=== PATIENT | female | born 2005 | race African-American/Black ===

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

== ENCOUNTER 2024-09-16 01:45 | Emergency (ER) | payer OTHER, SELFPAY ==
[2024-09-16] MEDS ORDERED: KETOROLAC 30 MG/ML INJ ONE (03:01)
--- OUTSIDE RECORDS SUMMARY | 2024-09-16 04:05 | XMS REPORT | Continuity of Care Document ---
Author Name Unknown Address [address] [facility] [address] [place] [address] [facility] thconnect Address [address] [facility] [address] [place] [address] Care Team Providers Care Director Epidemiology Name Role Phone ALEXANDRO RILEY A Primary Care Physician Zakia Magana Attending Clinician Unavailable GUILLERMINA MARCH Attending Clinician GUILLERMINA Bosch Attending Clinician STELLA Lopez Attending Clinician Unavailable Doctor Unassigned, [employer] Attending Clinician U yolanda March MD, Guillermina Attending Clinician [phone] Nurse, [facility] Attending Clinician Un available Gio PAC, K Heather Attending Clinician [phone] Reji CRNA, Mark Anthony Attending Clinician [phone] Nel LAWTON, Elle Mancilla Attending Clinician + [phone] Yasmin LAWTON, Mic Oseguera Attending Clinician + [phone], [facility] Lab Attending Clinician Unavailable Doctor Unassigned, [employer] Attending Clinician U yolanda Machado MD, Radha Ramirez Attending Clinician [phone] JARET BRYAN Attending Clinician Unavailable JARET BRYAN Attending Clinician Unavailable Ultrasound, [facility] Attending Clinician Unavaila ashlee Bryan MD, Jaret Richmond Attending Clinician [phone] Irvin ALFAROC, Mark Anthony Attending Clinician [phone] ALEXSANDRA ELIZONDO Attending Clinician Unadhaval Elizondo MD, Alexsandra Rodriguez Attending Clinician + Pob, [facility] Main Attending Clinician UnavailCHEY Graf Attending Clinician Unavailable Kristy ACOSTA, Chey Stephen Attending Clinician [phone] KYARA CHAIDEZ Attending Clinician Unavailab MADHURI Yang Attending Clinician Unavailable CONRAD SHANE Attending Clinician Unavail able [facility] Conrad Olivo Attending Clinician + [place] Camargo Attending Clinician [phone] Bonnie Park DO Attending Clinician + [phone] Betty Sheffield Attending Clinician + [phone] GUILLERMINA MARCH Admitting Clinician CHEY Crane Admitting Clinician Unavailable Payers Payer Name Policy Type Policy Number Effective Date Expirati on Date Source [facility] [id number] 2023 00:00:00 MEDICAID PENDING PENDING 2024 00:00:00 [facility] MEDICAID STAR [id number] 2024 00:00:00 Problems Condition Name Condition Details Condition Category Status Onset Date Resolution Date Last Treatment Date Treating Clinician Comments Source History of migraine History of migraine Disease Active 02-26 00:00: 00 [facility] Preeclamps ia in period Preeclamps ia in period Disease Active 02-26 00:00: 00 [facility] Chest pain Chest pain Disease Active 02-25 00:00: 00 [facility] (spontaneo us vaginal delivery) (spontaneo us vaginal delivery) Disease Active 3- 00:00: 00 [facility] Gestationa l hypertensi on Gestationa l hypertensi on Disease Active 3-20 00:00: 00 [facility] Sickle cell trait in mother affecting Sickle cell trait in mother affecting Disease Active 07-20 00:00: 00 [facility] Rubella non-immune status, antepartum Rubella non-immune status, antepartum Disease Active 8 00:00: 00 [facility] Bipolar disease during in third trimester Bipolar disease during in third trimester Disease Active 8- 00:00: 00 [facility] High-risk in third trimester High-risk in third trimester Disease Active 8 00:00: 00 [facility] Morbid obesity Morbid obesity Disease Active 3-11 00:00: 00 [facility] [id number] Enlarged tonsils Problem [facility] [id number] Iron deficiency anemia due to chronic blood loss Problem [facility] [id number] VIPIN (generaliz ed anxiety disorder) Problem [facility] [id number] History of anemia Problem [facility] [id number] Primary insomnia Problem Common [facility] Preeclamps ia in period Preeclamps ia in period Disease Resolve d 2023-0 4-01 00:00: 00 2024-02-27 00:00:00 2024-02-27 10:07:42 [facility] Obesity (BMI 30-39.9) Obesity (BMI 30-39.9) Disease Resolve d 0 4-01 00:00: 00 2024-02-26 00:00:00 2024-02-26 07:42:43 [facility] 39 weeks gestation of 39 weeks gestation of Disease Resolve d 2023-0 3-19 00:00: 00 2024-02-26 00:00:00 2024-02-26 07:42:38 [facility] Encounter for induction of labor Encounter for induction of labor Disease Resolve d 0 3-19 00:00: 00 2024-02-21 00:00:00 2024-02-21 11:08:39 [facility] Limited care in third trimester Limited care in third trimester Disease Resolve d 2023-0 3-08 00:00: 00 2024-02-21 00:00:00 2024-02-21 11:08:41 [facility] Acute cystitis without hematuria Acute cystitis without hematuria Disease Resolve d 2023-0 2-10 00:00: 00 2024-02-08 00:00:00 2024-02-08 08:35:32 [facility] Other general counseling and advice for contracept igor management Other general counseling and advice for contracept igor management Disease Resolve d 2021-0 3-11 00:00: 00 2023-09-21 00:00:00 2023-09-21 07:28:00 [facility] Irregular menstrual cycle Irregular menstrual cycle Disease Resolve d 2021-0 3-11 00:00: 00 2023-09-21 00:00:00 2023-09-21 07:28:36 [facility] Allergies, Adverse Reactions, Alerts Allergy Name Allergy Type Status Severity Reaction(s) Onset Date Inactive Date Treating Clinician Comments Source NO KNOWN ALLERGIE S Drug Class Active [facility] Social History Social Habit Start Date Stop Date Quantity Comments Source ASSERTION 2023-05-23 00:00:00 [facility] History of Tobacco Use Current Smoker [facility] Sex Assigned At [facility] Alcoholic beverage intake 2024-07-20 00:00:00 2024-07-20 00:00:00 Lifetime non-drinker (finding) [facility] Alcohol intake 2024-03-10 00:00:00 2024-03-10 00:00:00 Lifetime non-drinker (finding) [facility] Tobacco use and exposure 2024-02-21 00:00:00 2024-02-21 00:00:00 Smokeless tobacco non-user [facility] History of Social function 2023-09-21 00:00:00 2023-09-21 00:00:00 [facility] Exposure to SARS-CoV-2 (event) 2022-09-15 00:00:00 2022-09-25 17:41:00 Not sure [facility] Smoking Status Start Date Stop Date Source Current Smoker 2024-09-05 00:00:00 [facility] Never smoked tobacco [facility] Medications Ordered Medication Name Filled Medication Name Start Date Stop Date Current Medication? Ordering Clinician Indication Dosage Frequency Signature (SIG) Comments Components Source Ferrous Sulfate 325 (65 Fe) MG Ferrous Sulfate 325 (65 Fe) MG 2023-11 0-15 00:00: 00 No 1{table t} QD Ferrous Sulfate 325 (65 Fe) MG Nystatin [id number] UNIT/GM Nystatin [id number] UNIT/GM 9-24 00:00: 00 No 1{appli cation} BID Nystatin 224980 UNIT/GM norethindro ne-e.estrad ioL-iron (LOESTRIN FE 1/20) 1 mg-20 mcg (21)/75 mg (7) tablet - 00:00: 00 Yes [id number] 1{tbl} Take 1 tablet by mouth in the morning. [facility] norethindro ne 0.35 mg tablet 03-10 00:00: 00 07-20 00:00 :00 No [id number] 1{tbl} Take 1 tablet by mouth in the morning. [facility] aspirin 325 mg tablet 02-28 00:00: 00 07-20 00:00 :00 No [id number] 325mg Take 1 tablet by mouth in the morning. [facility] labetaloL 200 mg tablet 02-27 00:00: 07-20 00:00 :00 No [id number] 200mg Take 1 tablet by mouth in the morning and 1 tablet in the evening. [facility] NIFEdipine ER 30 mg tablet 02-27 00:00: 07-20 00:00 :00 No [id number] 30mg Take 1 tablet by mouth in the morning and 1 tablet in the evening. [facility] morpHINE (2 mg/mL) injection 4 mg 02-26 03:54: 45 Yes 4mg 4 mg, Slow IV Push, Q4HPRN, Starting on 02/26/24 at 2254, Until Discontinu ed, Routine, Pain (scale 7-10), Chest pain [facility] butalbital- acetaminoph en-caff (ESGIC) 50-325-40 mg tablet 2 tablet 02-26 03:54: 26 Yes 2{tbl} 2 tablet, Oral, Q4HPRN, Starting on 02/26/24 at 2254, Until Discontinu ed, Routine, headache [facility] nitroglycer in (NITROSTAT) sublingual tablet 0.4 mg 02-26 03:53: 13 Yes .4mg 0.4 mg, Sublingual , Q5MIN PRN, 3 doses, Starting on 02/26/24 at 2253, Until Discontinu ed, STAT, Chest pain [facility] acetaminoph en (TYLENOL) tablet 650 mg 02-26 00:21: 02 Yes 650mg 650 mg, Oral, Q6HPRN, Starting on 02/26/24 at 1921, Until Discontinu ed, Routine, Pain (scale 1-3), Pain (scale 4-6) [facility] aspirin tablet 325 mg 02-25 14:00: 00 Yes 325mg 325 mg, Oral, DAILY, First dose on 02/26/24 at 0900, Until Discontinu ed, Routine [facility] NIFEdipine ER tablet 30 mg 02-25 13:45: 00 Yes 30mg 30 mg, Oral, BID, First dose (after last modificati on) on 02/26/24 at 0845, Until Discontinu ed, JAMEL [facility] magnesium sulfate in water for injection 20 gram/500 mL (4 %) IV infusion 02-25 13:45: 00 Yes 2g/h 2 g/hr (50 mL/hr), IV Infusion, CONTINUOUS , Starting on 02/26/24 at 0845, Until Discontinu ed, JAMEL [facility] D5W-LR IV infusion 1,000 mL 02-25 13:15: 00 Yes 1000mL at 75 mL/hr, IV Infusion, CONTINUOUS , Starting on 02/26/24 at 0815, Until Discontinu ed, AJMEL [facility] iopamidol (ISOVUE 370-500 mL) injection 90 mL 02-25 13:15: 00 02-25 13:30 :00 No [id number] 90mL 90 mL, Intravenou s, ONCE, 1 dose, On 02/26/24 at 0830, Routine [facility] magnesium sulfate 500 mg/mL (50 %) injection 32.48 mEq 02-25 13:04: 30 Yes 4g 32.48 mEq (4 g), Slow IV Push, PRN - SEE INSTRUCTIO NS, Starting on 02/26/24 at 0804, Until Discontinu ed, Routine, For seizure activity (patient not on magnesium sulfate) [facility] magnesium sulfate 500 mg/mL (50 %) injection 16.24 mEq 02-25 13:04: 29 Yes 2g 16.24 mEq (2 g), Slow IV Push, PRN - SEE INSTRUCTIO NS, 2 doses, Starting on 02/26/24 at 0804, Until Discontinu ed, Routine, For seizure activity (patient already on magnesium sulfate) [facility] labetaloL (NORMODYNE) tablet 200 mg 02-25 13:00: 00 Yes 200mg 200 mg, Oral, BID, First dose on 02/26/24 at 0800, Until Discontinu ed, Routine [facility] labetaloL (NORMODYNE) injection 20 mg 02-25 13:00: 00 02-25 12:07 :00 No 20mg 20 mg, Slow IV Push, ONCE, 1 dose, On 02/26/24 at 0800, JAMEL [facility] labetaloL (NORMODYNE) injection 20 mg 02-25 12:40: 11 Yes 20mg [Order 1 Start] Name: labetaloL (NORMODYNE ) injection 20 mg Signed Summary: 20 mg, Slow IV Push, PRN - SEE INSTRUCTIO NS, 1 dose, Starting on 02/26/24 at 0740, Until Discontinu ed, Routine, If severe BP persists for 15 min or more, administer Labetalol 20 mg IV slow IV push (over more than 2 min) [Order 1 End] [Order 2 Start] Name: labetaloL (NORMODYNE ) injection 40 mg Signed Summary: 40 mg, Slow IV Push, PRN - SEE INSTRUCTIO NS, 1 dose, Starting on 02/26/24 at 0740, Until Discontinu ed, Routine, If either BP threshold is still exceeded, administer Labetalol 40 mg IV slow IV push (over 2 min). If BP below threshold, continue to monitor BP [Order 2 End] [facility] ARIPiprazol e 20 mg tablet 02-21 16:46: 33 02-21 00:00 :00 No 20mg Take 1 tablet by mouth at bedtime. [facility] labetaloL (NORMODYNE) tablet 200 mg 02-21 08:00: 00 Yes 200mg 200 mg, Oral, Q12H, First dose on Wed02/22/24 at 0300, Until Discontinu ed, Routine [facility] HYDROcodone -acetaminop hen (NORCO 5) 5-325 mg tablet 1 tablet 02-21 05:00: 00 02-21 05:09 :00 No 1{tbl} 1 tablet, Oral, ONCE, 1 dose, On Wed02/22/24 at 0000, Routine [facility] labetaloL 200 mg tablet 02-21 00:00: 00 02-27 00:00 :00 No [id number] 200mg Take 1 tablet by mouth every 12 (twelve) hours. [facility] butalbital- acetaminoph en-caff (ESGIC) 50-325-40 mg tablet 1 tablet 02-20 22:45: 00 02-22 22:44 :00 No 1{tbl} 1 tablet, Oral, Q4HPRN, Starting on Wed02/21/24 at 1745, Until Wed02/23/24 at 1744, JAMEL, Pain (scale 4-6) [facility] acetaminoph en (TYLENOL) tablet 1,000 mg 02-20 21:30: 00 02-20 20:48 :00 No 1000mg 1,000 mg, Oral, ONCE, 1 dose, On Wed02/21/24 at 1630, Routine [facility] lactated ringers IV infusion 500 mL 02-20 16:07: 22 Yes 500mL at 999 mL/hr, 500 mL, IV Infusion, PRN - SEE INSTRUCTIO NS, Starting on Wed02/21/24 at 1107, Until Discontinu ed, Routine [facility] sodium citrate-cit marily acid (BICITRA) 500-334 mg/5 mL solution 30 mL 02-20 16:06: 10 Yes 30mL 30 mL, Oral, PRE-PROCED URE ONCE, 1 dose, Starting on Wed02/21/24 at 1106, Until Discontinu ed, Routine, Surgery/Pr ocedure [facility] lidocaine 1% (XYLOCAINE) 10 mg/mL (1 %) injection 50 mL 02-20 16:06: 10 Yes 50mL 50 mL, Infiltrati on, PRN - SEE INSTRUCTIO NS, Starting on Wed02/21/24 at 1106, Until Discontinu ed, Routine, Local anesthesia , For laceration repair only as a local anesthetic as indicated. [facility] lidocaine 1% (PF) (XYLOCAINE) injection 0.3 mL 02-20 16:06: 10 Yes .3mL 0.3 mL, Infiltrati on, PRN - SEE INSTRUCTIO NS, Starting on Wed02/21/24 at 1106, Until Discontinu ed, Routine, Local anesthesia , For IV line placement only as a local anesthetic . [facility] D5W-LR IV infusion 1,000 mL 02-20 15:00: 00 02-21 17:04 :22 No 1000mL at 75 mL/hr, IV Infusion, CONTINUOUS , Starting on Wed02/21/24 at 1000, Until Wed02/22/24 at 1204, JAMEL [facility] labetaloL (NORMODYNE) injection 20 mg 02-20 15:00: 00 02-20 14:09 :00 No 20mg 20 mg, Slow IV Push, ONCE, 1 dose, On Wed02/21/24 at 1000, Routine [facility] labetaloL (NORMODYNE) injection 40 mg 02-20 14:55: 00 02-20 14:58 :00 No 40mg 40 mg, Slow IV Push, ONCE, 1 dose, On Wed02/21/24 at 1015, JAMEL [facility] NaCl 0.9% (NS) bolus infusion 1,000 mL 02-20 14:45: 00 02-20 14:00 :00 No 1000mL at 999 mL/hr, 1,000 mL, IV Infusion, ONCE, 1 dose, On Wed02/21/24 at 0945, STAT [facility] ondansetron (ZOFRAN (PF)) injection 4 mg 02-20 14:45: 00 02-20 14:03 :00 No 4mg 4 mg, Slow IV Push, ONCE, 1 dose, On Wed02/21/24 at 0945, JAMEL [facility] magnesium sulfate 500 mg/mL (50 %) injection 32.48 mEq 02-20 14:44: 53 Yes 4g 32.48 mEq (4 g), Slow IV Push, PRN - SEE INSTRUCTIO NS, Starting on Wed02/21/24 at 0944, Until Discontinu ed, Routine, For seizure activity (patient not on magnesium sulfate) [facility] magnesium sulfate 500 mg/mL (50 %) injection 16.24 mEq 02-20 14:44: 53 Yes 2g 16.24 mEq (2 g), Slow IV Push, PRN - SEE INSTRUCTIO NS, 2 doses, Starting on Wed02/21/24 at 0944, Until Discontinu ed, Routine, For seizure activity (patient already on magnesium sulfate) [facility] morpHINE (4 mg/mL) injection 4 mg 02-20 14:30: 00 02-20 14:30 :00 No 4mg 4 mg, Slow IV Push, ONCE, 1 dose, On Wed02/21/24 at 0930, STAT [facility] iopamidol (ISOVUE 370-500 mL) injection 85 mL 02-20 14:20: 00 02-20 14:30 :00 No [id number] 85mL 85 mL, Intravenou s, ONCE, 1 dose, On Wed02/21/24 at 0930, Routine [facility] ARIPiprazol e 20 mg tablet 02-10 10:06: 26 Yes 20mg Take 1 tablet by mouth at bedtime. [facility] ondansetron (ZOFRAN) 4 mg tablet 02-10 07:19: 55 02-10 00:00 :00 No 4mg Take 1 tablet by mouth every 8 (eight) hours as needed. [facility] vitamin w/FA tablet 02-10 00:00: 00 Yes [id number] 1{tbl} Take 1 tablet by mouth in the morning. [facility] docusate 100 mg capsule 02-10 00:00: 00 Yes [id number] 200mg Take 2 capsules by mouth once daily as needed for Constipati on. [facility] ferrous sulfate 325 mg (65 mg iron) tablet 02-10 00:00: 00 Yes [id number] 325mg Take 1 tablet by mouth in the morning. [facility] ibuprofen 600 mg tablet 02-10 00:00: 00 Yes [id number] 600mg Take 1 tablet by mouth every 6 (six) hours as needed (Pain). Take with food or milk. [facility] rho(D) immune globulin (RHOGAM) syringe 300 mcg 02-08 15:32: 21 Yes 300ug 300 mcg, Intramuscu lar, ONCE, For 1 dose, Conditiona l, Routine [facility] HYDROcodone -acetaminop hen (NORCO 5) 5-325 mg tablet 1 tablet 02-08 15:31: 43 Yes 1{tbl} 1 tablet, Oral, Q6HPRN, Starting on Wed02/09/24 at 1031, Until Discontinu ed, Routine, Pain (scale 7-10) [facility] ibuprofen (IBU) tablet 600 mg 02-08 15:31: 43 Yes 600mg 600 mg, Oral, Q6HPRN, Starting on Wed02/09/24 at 1031, Until Discontinu ed, Routine, Pain (scale 4-6) [facility] acetaminoph en (TYLENOL) tablet 650 mg 02-08 15:31: 43 Yes 650mg 650 mg, Oral, Q6HPRN, Starting on Wed02/09/24 at 1031, Until Discontinu ed, Routine, Pain (scale 1-3) [facility] diphenhydrA MINE (BENADRYL) tablet 25 mg 02-08 15:31: 43 Yes 25mg 25 mg, Oral, Q6HPRN, Starting on Wed02/09/24 at 1031, Until Discontinu ed, Routine, Sleep, Itching [facility] ondansetron (ZOFRAN (PF)) injection 4 mg 02-08 15:31: 43 Yes 4mg 4 mg, Slow IV Push, Q8HPRN, Starting on Wed02/09/24 at 1031, Until Discontinu ed, Routine, Nausea and Vomiting (N/V) [facility] simethicone (GAS RELIEF (SIMETHICON E)) chewable tablet 160 mg 02-08 15:31: 43 Yes 160mg 160 mg, Oral, PC+HSPRN, Starting on Wed02/09/24 at 1031, Until Discontinu ed, Routine, Gas [facility] docusate (COLACE) capsule 200 mg 02-08 15:31: 43 Yes 200mg 200 mg, Oral, QDAILYPRN, Starting on Wed02/09/24 at 1031, Until Discontinu ed, Routine, Constipati on [facility] magnesium hydroxide (MILK OF MAGNESIA) 400 mg/5 mL suspension 30 mL 02-08 15:31: 43 Yes 30mL 30 mL, Oral, QDAILYPRN, Starting on Wed02/09/24 at 1031, Until Discontinu ed, Routine, Constipati on [facility] benzocaine- menthol (DERMOPLAST ) 20-0.5 % topical spray 02-08 15:31: 43 Yes Topical, PRN, Starting on Wed02/09/24 at 1031, Until Discontinu ed, Routine, Perineum discomfort [facility] oxytocin (PITOCIN) 30 units in NS 500 mL IV infusion 02-08 09:08: 16 02-08 15:32 :20 No 2mU/min at 2-40 mL/hr, IV Infusion, TITRATE, Starting on Wed02/09/24 at 0408, Until Wed02/09/24 at 1032, JAMEL [facility] PIB fentaNYL-ro pivacaine 2 mcg/mL-0.1 % (PF) in NS 200 mL epidural infusion RTU 02-08 08:53: 00 02-08 17:43 :41 No Epidural, ONCE INTRA PROCEDURE, Starting on Wed02/09/24 at 0353, Until Wed02/09/24 at 1243, Routine, Intra-op [facility] lidocaine-e pinephrine (XYLOCAINE W/EPINEPHRI NE) 1.5 %-1:200,000 injection 02-08 08:53: 00 02-08 17:43 :41 No Epidural, ONCE INTRA PROCEDURE, Starting on Wed02/09/24 at 0353, Until Wed02/09/24 at 1243, Routine, Intra-op [facility] FENTanyl PF (SUBLIMAZE (PF)) injection 100 mcg 02-08 06:04: 00 02-08 06:07 :00 No 100ug 100 mcg, Slow IV Push, ONCE, 1 dose, On Wed02/09/24 at 0115, Routine [facility] D5W-LR IV infusion 1,000 mL 02-07 23:28: 19 02-08 15:32 :20 No 1000mL at 1-125 mL/hr, IV Infusion, TITRATE, Starting on Wed02/08/24 at 1828, Until Wed02/09/24 at 1032, Routine [facility] ondansetron (ZOFRAN) 4 mg tablet 02-07 18:23: 35 Yes 4mg Take 1 tablet by mouth every 8 (eight) hours as needed. [facility] ARIPiprazol e 20 mg tablet 02-07 18:23: 35 Yes 20mg Take 1 tablet by mouth at bedtime. [facility] ondansetron (ZOFRAN) 4 mg tablet 02-06 10:09: 46 Yes 4mg Take 1 tablet by mouth every 8 (eight) hours as needed. [facility] ARIPiprazol e 20 mg tablet 2023-0 02-06 10:09: 46 Yes 20mg Take 1 tablet by mouth at bedtime. [facility] ARIPiprazol e 20 mg tablet 2023-0 01-27 08:10: 24 Yes 20mg Take 1 tablet by mouth at bedtime. [facility] ondansetron (ZOFRAN) 4 mg tablet 0 01-01 14:08: 09 Yes 4mg Take 1 tablet by mouth every 8 (eight) hours as needed. [facility] ARIPiprazol e 20 mg tablet 2023-0 10 14:08: 09 Yes 20mg Take 1 tablet by mouth at bedtime. [facility] cefTRIAXone (ROCEPHIN) 2,000 mg in NaCl 0.9% (NS) 100 mL MINI-BAG 01-01 10:30: 00 01-01 11:15 :00 No 2000mg 2,000 mg, IV Piggyback, Q24H ABX, 1 dose, First dose on 01/01/24 at 0430, Administer over 30 Minutes, 100 mL
Reas on for Anti-Infec tive: Documented Infection< br>Documen dean Infection Site: Urine
D uration of Therapy: Other (see Comments) [facility] lactated ringers IV infusion 1,000 mL 01-01 09:30: 00 Yes 1000mL at 200 mL/hr, 1,000 mL, IV Infusion, CONTINUOUS , Starting on 01/01/24 at 0330, Until Discontinu ed, Routine [facility] lactated ringers IV infusion 1,000 mL 01-01 09:15: 00 01-01 09:27 :04 No 1000mL at 999 mL/hr, 1,000 mL, IV Infusion, CONTINUOUS , Starting on 01/01/24 at 0315, Until 01/01/24 at 0327, Routine [facility] ondansetron (ZOFRAN (PF)) injection 4 mg 01-01 08:30: 00 01-01 08:21 :00 No 4mg 4 mg, Slow IV Push, ONCE, On 01/01/24 at 0230, For 1 dose
Do ses of ondansetro n 16 mg and above need to be administer ed via IV piggyback. For Dose >=24mg ECG monitoring is advisable.
[facility] cephALEXin 500 mg capsule 01-01 00:00: 00 02-10 00:00 :00 No [id number] 500mg Take 1 capsule by mouth in the morning and 1 capsule at noon and 1 capsule in the evening. [facility] ARIPiprazol e 20 mg tablet - 14:57: 00 Yes 20mg Take 1 tablet by mouth at bedtime. [facility] dicyclomine HCl (BENTYL IM) 2022-11 13:13: 07 10-22 00:00 :00 No by Intramuscu lar route. [facility] ARIPiprazol e 20 mg tablet 2022-11 13:12: 42 Yes 20mg Take 1 tablet by mouth at bedtime. [facility] ARIPiprazol e 20 mg tablet 08-09 09:19: 04 Yes 20mg Take 1 tablet by mouth at bedtime. [facility] traZODone 50 mg tablet 07-30 00:00: 00 02-21 00:00 :00 No 50mg Take 1 tablet by mouth as needed. [facility] metroNIDAZO LE (FLAGYL) 500 mg tablet 07-30 00:00: 00 10-22 00:00 :00 No [id number] 500mg Take 1 tablet by mouth every 12 (twelve) hours. [facility] ARIPiprazol e 20 mg tablet 07-30 00:00: 00 08-23 00:00 :00 No 20mg Take 1 tablet by mouth at bedtime. [facility] PNV 67-iron ps-folate no.1-dha (VITAFOL ULTRA) 29 mg iron- 1 mg-200 mg Cap 06-23 00:00: 00 02-10 00:00 :00 No 1{tbl} Take 1 tablet by mouth in the morning. If insurance does not cover can substituen t with any other mediation that contains components . [facility] ondansetron (ZOFRAN) 4 mg tablet 06-22 15:03: 49 Yes 4mg Take 1 tablet by mouth every 8 (eight) hours as needed. [facility] dicyclomine HCl (BENTYL IM) 06-22 15:03: 49 Yes by Intramuscu lar route. [facility] vitamin #49-iron-FA 6.75 mg iron- 200 mcg Tab 06-22 00:00: 00 Yes [id number] 1{tbl} Take 1 tablet by mouth in the morning. [facility] doxylamine- pyridoxine, vit B6, (DICLEGIS) 10-10 mg per tablet 06-22 00:00: 00 10-22 00:00 :00 No [id number] 1{tbl} Take 1 tablet by mouth at bedtime. [facility] ketorolac (TORADOL) injection 30 mg 2021-11 01:15: 00 09-26 01:06 :00 No 30mg 30 mg, Slow IV Push, ONCE, 1 dose, On Wed09/25/22 at 2015, [facility] ondansetron (ZOFRAN (PF)) injection 8 mg 2021-11 01:00: 00 09-26 01:00 :00 No 8mg 8 mg, Slow IV Push, ONCE, 1 dose, On Wed09/25/22 at 2000, [facility] iopamidol (ISOVUE 370-500 mL) injection 100 mL 2021-11 00:00: 00 09-26 00:15 :00 No [id number] 100mL 100 mL, Intravenou s, ONCE, 1 dose, On Wed09/25/22 at 1915, Routine [facility] NaCl 0.9% (NS) bolus infusion 1,000 mL 2021-11 23:42: 00 09-26 01:08 :00 No 1000mL at 999 mL/hr, 1,000 mL, IV Infusion, ONCE, 1 dose, On Wed09/25/22 at 1845, STAT [facility] ondansetron (ZOFRAN (PF)) injection 4 mg 2021-11 23:00: 00 09-25 23:03 :00 No 4mg 4 mg, Slow IV Push, ONCE, 1 dose, On Wed09/25/22 at 1800, [facility] dicyclomine HCl (BENTYL IM) 2021-11 21:10: 53 Yes by Intramuscu lar route. [facility] ondansetron (ZOFRAN) 4 mg tablet 2021-11 21:10: 53 Yes 4mg Take 4 mg by mouth every 8 (eight) hours as needed. [facility] hydrOXYzine 25 mg capsule 07-24 00:00: 00 07-27 00:00 :00 No TAKE ONE CAPSULE BY MOUTH TWICE DAILY NEEDED FOR ANXIETY [facility] QUEtiapine 50 mg tablet 07-24 00:00: 00 07-27 00:00 :00 No 50mg Take 1 tablet by mouth at bedtime. [facility] azithromyci n 500 mg tablet 3-14 00:00: 00 02-03 04:59 :00 No [id number] 1000mg Take 2 tablets by mouth once now for 1 dose. [facility] naproxen 500 mg tablet 2019-11 00:00: 00 09-25 00:00 :00 No [id number] 500mg Take 1 tablet by mouth 2 (two) times daily with meals. [facility] hyoscyamine sulfate (LEVSIN/SL) 0.125 mg sublingual tablet 2017-1118 00:00: 00 09-25 00:00 :[address] 1 tablet under the tongue every 6 (six) hours as needed for Pain (scale 4-6) or Other (abdominal pain). [facility] Blisovi FE 1/20 1-20 MG-MCG Blisovi FE 1/20 1-20 MG-MCG No 1{table t} QD Blisovi FE 1/20 1-20 MG-MCG Immunizations Ordered Immunization Name Filled Immunization Name Date Status Comments Source TDAP 2023-11-19 00:00:00 Completed [facility] Influenza Virus Vaccine Quad IM, Preserv and ABX Free 6 MO-64 YRS (FLUCELVAX) 2023-09-21 00:00:00 Completed [facility] HPV9 2022-03-03 00:00:00 Completed [facility] HPV9 2022-03-03 00:00:00 Completed [facility] HPV9 2022-03-03 00:00:00 Completed HPV9 2022-03-03 00:00:00 Completed [facility] HPV9 2022-03-03 00:00:00 Completed [facility] HPV9 2022-03-03 00:00:00 Completed [facility] HPV9 2022-03-03 00:00:00 Completed [facility] HPV9 2022-03-03 00:00:00 Completed [facility] HPV9 2022-03-03 00:00:00 Completed [facility] HPV9 2022-03-03 00:00:00 Completed [facility] HPV9 2022-03-03 00:00:00 Completed [facility] HPV9 2022-03-03 00:00:00 Completed [facility] HPV9 2022-03-03 00:00:00 Completed [facility] HPV9 2022-03-03 00:00:00 Completed [facility] HPV9 2022-03-03 00:00:00 Completed [facility] Influenza Virus Vaccine Quad .5 mL IM 6+ MO (FLUZONE/FLULAVAL/F LUARIX) 2022-01-30 00:00:00 Completed [facility] HPV9 2022-01-30 00:00:00 Completed [facility] Influenza Virus Vaccine Quad .5 mL IM 6+ MO (FLUZONE/FLULAVAL/F LUARIX) 2022-01-30 00:00:00 Completed [facility] HPV9 2022-01-30 00:00:00 Completed [facility] Influenza Virus Vaccine Quad .5 mL IM 6+ MO (FLUZONE/FLULAVAL/F LUARIX) 2022-01-30 00:00:00 Completed HPV9 2022-01-30 00:00:00 Completed Influenza Virus Vaccine Quad .5 mL IM 6+ MO 2022-01-30 00:00:00 Completed [facility] HPV9 2022-01-30 00:00:00 Completed [facility] Influenza Virus Vaccine Quad .5 mL IM 6+ MO 2022-01-30 00:00:00 Completed [facility] HPV9 2022-01-30 00:00:00 Completed [facility] Influenza Virus Vaccine Quad .5 mL IM 6+ MO 2022-01-30 00:00:00 Completed [facility] HPV9 2022-01-30 00:00:00 Completed [facility] Influenza Virus Vaccine Quad .5 mL IM 6+ MO 2022-01-30 00:00:00 Completed [facility] HPV9 2022-01-30 00:00:00 Completed [facility] Influenza Virus Vaccine Quad .5 mL IM 6+ MO 2022-01-30 00:00:00 Completed [facility] HPV9 2022-01-30 00:00:00 Completed [facility] Influenza Virus Vaccine Quad .5 mL IM 6+ MO 2022-01-30 00:00:00 Completed [facility] HPV9 2022-01-30 00:00:00 Completed [facility] Influenza Virus Vaccine Quad .5 mL IM 6+ MO 2022-01-30 00:00:00 Completed [facility] HPV9 2022-01-30 00:00:00 Completed [facility] Influenza Virus Vaccine Quad .5 mL IM 6+ MO 2022-01-30 00:00:00 Completed [facility] HPV9 2022-01-30 00:00:00 Completed [facility] Influenza Virus Vaccine Quad .5 mL IM 6+ MO 2022-01-30 00:00:00 Completed [facility] HPV9 2022-01-30 00:00:00 Completed [facility] Influenza Virus Vaccine Quad .5 mL IM 6+ MO 2022-01-30 00:00:00 Completed [facility] HPV9 2022-01-30 00:00:00 Completed [facility] Influenza Virus Vaccine Quad .5 mL IM 6+ MO (FLUZONE/FLULAVAL/F LUARIX) 2022-01-30 00:00:00 Completed [facility] HPV9 2022-01-30 00:00:00 Completed [facility] Influenza Virus Vaccine Quad .5 mL IM 6+ MO (FLUZONE/FLULAVAL/F LUARIX) 2022-01-30 00:00:00 Completed [facility] HPV9 2022-01-30 00:00:00 Completed [facility] Influenza Virus Vaccine Quad .5 mL IM 6+ MO (FLUZONE/FLULAVAL/F LUARIX) 2022-01-30 00:00:00 Completed [facility] HPV9 2022-01-30 00:00:00 Completed [facility] Meningococcal Vaccine 2015-08-07 00:00:00 Completed [facility] Meningococcal Vaccine 2015-08-07 00:00:00 Completed [facility] Meningococcal Vaccine 2015-08-07 00:00:00 Completed Meningococcal Vaccine 2015-08-07 00:00:00 Completed [facility] Meningococcal Vaccine 2015-08-07 00:00:00 Completed [facility] Meningococcal Vaccine 2015-08-07 00:00:00 Completed [facility] Meningococcal Vaccine 2015-08-07 00:00:00 Completed [facility] Meningococcal Vaccine 2015-08-07 00:00:00 Completed [facility] Meningococcal Vaccine 2015-08-07 00:00:00 Completed [facility] Meningococcal Vaccine 2015-08-07 00:00:00 Completed [facility] Meningococcal Vaccine 2015-08-07 00:00:00 Completed [facility] Meningococcal Vaccine 2015-08-07 00:00:00 Completed [facility] Meningococcal Vaccine 2015-08-07 00:00:00 Completed [facility] Meningococcal Vaccine 2015-08-07 00:00:00 Completed [facility] Meningococcal Vaccine 2015-08-07 00:00:00 Completed [facility] Meningococcal Vaccine 2015-08-07 00:00:00 Completed [facility] TDAP 2015-08-01 00:00:00 Completed [facility] TDAP 2015-08-01 00:00:00 Completed [facility] TDAP 2015-08-01 00:00:00 Completed TDAP 2015-08-01 00:00:00 Completed [facility] TDAP 2015-08-01 00:00:00 Completed [facility] TDAP 2015-08-01 00:00:00 Completed [facility] TDAP 2015-08-01 00:00:00 Completed [facility] TDAP 2015-08-01 00:00:00 Completed [facility] TDAP 2015-08-01 00:00:00 Completed [facility] TDAP 2015-08-01 00:00:00 Completed [facility] TDAP 2015-08-01 00:00:00 Completed [facility] TDAP 2015-08-01 00:00:00 Completed [facility] TDAP 2015-08-01 00:00:00 Completed [facility] TDAP 2015-08-01 00:00:00 Completed [facility] TDAP 2015-08-01 00:00:00 Completed [facility] TDAP 2015-08-01 00:00:00 Completed [facility] DTAP 2008-09-17 00:00:00 Completed [facility] MMR 2008-09-17 00:00:00 Completed [facility] Polio (IPV/OPV) 2008-09-17 00:00:00 Completed [facility] Varicella (varivax)(chicken pox) 2008-09-17 00:00:00 Completed [facility] DTAP 2008-09-17 00:00:00 Completed [facility] MMR 2008-09-17 00:00:00 Completed [facility] Polio (IPV/OPV) 2008-09-17 00:00:00 Completed [facility] Varicella (varivax)(chicken pox) 2008-09-17 00:00:00 Completed [facility] DTAP 2008-09-17 00:00:00 Completed MMR 2008-09-17 00:00:00 Completed Polio (IPV/OPV) 2008-09-17 00:00:00 Completed Varicella (varivax)(chicken pox) 2008-09-17 00:00:00 Completed DTAP 2008-09-17 00:00:00 Completed [facility] MMR 2008-09-17 00:00:00 Completed [facility] Polio (IPV/OPV) 2008-09-17 00:00:00 Completed [facility] Varicella (varivax)(chicken pox) 2008-09-17 00:00:00 Completed [facility] DTAP 2008-09-17 00:00:00 Completed [facility] MMR 2008-09-17 00:00:00 Completed [facility] Polio (IPV/OPV) 2008-09-17 00:00:00 Completed [facility] Varicella (varivax)(chicken pox) 2008-09-17 00:00:00 Completed [facility] DTAP 2008-09-17 00:00:00 Completed [facility] MMR 2008-09-17 00:00:00 Completed [facility] Polio (IPV/OPV) 2008-09-17 00:00:00 Completed [facility] Varicella (varivax)(chicken pox) 2008-09-17 00:00:00 Completed [facility] DTAP 2008-09-17 00:00:00 Completed [facility] MMR 2008-09-17 00:00:00 Completed [facility] Polio (IPV/OPV) 2008-09-17 00:00:00 Completed [facility] Varicella (varivax)(chicken pox) 2008-09-17 00:00:00 Completed [facility] DTAP 2008-09-17 00:00:00 Completed [facility] MMR 2008-09-17 00:00:00 Completed [facility] Polio (IPV/OPV) 2008-09-17 00:00:00 Completed [facility] Varicella (varivax)(chicken pox) 2008-09-17 00:00:00 Completed [facility] DTAP 2008-09-17 00:00:00 Completed [facility] MMR 2008-09-17 00:00:00 Completed [facility] Polio (IPV/OPV) 2008-09-17 00:00:00 Completed [facility] Varicella (varivax)(chicken pox) 2008-09-17 00:00:00 Completed [facility] DTAP 2008-09-17 00:00:00 Completed [facility] MMR 2008-09-17 00:00:00 Completed [facility] Polio (IPV/OPV) 2008-09-17 00:00:00 Completed [facility] Varicella (varivax)(chicken pox) 2008-09-17 00:00:00 Completed [facility] DTAP 2008-09-17 00:00:00 Completed [facility] MMR 2008-09-17 00:00:00 Completed [facility] Polio (IPV/OPV) 2008-09-17 00:00:00 Completed [facility] Varicella (varivax)(chicken pox) 2008-09-17 00:00:00 Completed [facility] DTAP 2008-09-17 00:00:00 Completed [facility] MMR 2008-09-17 00:00:00 Completed [facility] Polio (IPV/OPV) 2008-09-17 00:00:00 Completed [facility] Varicella (varivax)(chicken pox) 2008-09-17 00:00:00 Completed [facility] DTAP 2008-09-17 00:00:00 Completed [facility] MMR 2008-09-17 00:00:00 Completed [facility] Polio (IPV/OPV) 2008-09-17 00:00:00 Completed [facility] Varicella (varivax)(chicken pox) 2008-09-17 00:00:00 Completed [facility] DTAP 2008-09-17 00:00:00 Completed [facility] MMR 2008-09-17 00:00:00 Completed [facility] Polio (IPV/OPV) 2008-09-17 00:00:00 Completed [facility] Varicella (varivax)(chicken pox) 2008-09-17 00:00:00 Completed [facility] DTAP 2008-09-17 00:00:00 Completed [facility] MMR 2008-09-17 00:00:00 Completed [facility] Polio (IPV/OPV) 2008-09-17 00:00:00 Completed [facility] Varicella (varivax)(chicken pox) 2008-09-17 00:00:00 Completed [facility] DTAP 2008-09-17 00:00:00 Completed [facility] MMR 2008-09-17 00:00:00 Completed [facility] Polio (IPV/OPV) 2008-09-17 00:00:00 Completed [facility] Varicella (varivax)(chicken pox) 2008-09-17 00:00:00 Completed [facility] HEPATITIS A 2008-04-12 00:00:00 Completed [facility] HEPATITIS A 2008-04-12 00:00:00 Completed [facility] HEPATITIS A 2008-04-12 00:00:00 Completed HEPATITIS A 2008-04-12 00:00:00 Completed [facility] HEPATITIS A 2008-04-12 00:00:00 Completed [facility] HEPATITIS A 2008-04-12 00:00:00 Completed [facility] HEPATITIS A 2008-04-12 00:00:00 Completed [facility] HEPATITIS A 2008-04-12 00:00:00 Completed [facility] HEPATITIS A 2008-04-12 00:00:00 Completed [facility] HEPATITIS A 2008-04-12 00:00:00 Completed [facility] HEPATITIS A 2008-04-12 00:00:00 Completed [facility] HEPATITIS A 2008-04-12 00:00:00 Completed [facility] HEPATITIS A 2008-04-12 00:00:00 Completed [facility] HEPATITIS A 2008-04-12 00:00:00 Completed [facility] HEPATITIS A 2008-04-12 00:00:00 Completed [facility] HEPATITIS A 2008-04-12 00:00:00 Completed [facility] HEPATITIS A 2006-08-12 00:00:00 Completed [facility] HEPATITIS A 2006-08-12 00:00:00 Completed [facility] HEPATITIS A 2006-08-12 00:00:00 Completed HEPATITIS A 2006-08-12 00:00:00 Completed [facility] HEPATITIS A 2006-08-12 00:00:00 Completed [facility] HEPATITIS A 2006-08-12 00:00:00 Completed [facility] HEPATITIS A 2006-08-12 00:00:00 Completed [facility] HEPATITIS A 2006-08-12 00:00:00 Completed [facility] HEPATITIS A 2006-08-12 00:00:00 Completed [facility] HEPATITIS A 2006-08-12 00:00:00 Completed [facility] HEPATITIS A 2006-08-12 00:00:00 Completed [facility] HEPATITIS A 2006-08-12 00:00:00 Completed [facility] HEPATITIS A 2006-08-12 00:00:00 Completed [facility] HEPATITIS A 2006-08-12 00:00:00 Completed [facility] HEPATITIS A 2006-08-12 00:00:00 Completed [facility] HEPATITIS A 2006-08-12 00:00:00 Completed [facility] DTAP 2005-09-16 00:00:00 Completed [facility] DTAP 2005-09-16 00:00:00 Completed [facility] DTAP 2005-09-16 00:00:00 Completed [facility] DTAP 2005-09-16 00:00:00 Completed [facility] DTAP 2005-09-16 00:00:00 Completed [facility] DTAP 2005-09-16 00:00:00 Completed [facility] DTAP 2005-09-16 00:00:00 Completed [facility] DTAP 2005-09-16 00:00:00 Completed [facility] DTAP 2005-09-16 00:00:00 Completed [facility] DTAP 2005-09-16 00:00:00 Completed [facility] DTAP 2005-09-16 00:00:00 Completed [facility] DTAP 2005-09-16 00:00:00 Completed [facility] DTAP 2005-09-16 00:00:00 Completed [facility] DTAP 2005-09-16 00:00:00 Completed [facility] DTAP 2005-09-16 00:00:00 Completed [facility] DTAP 2005-09-16 00:00:00 Completed [facility] Pneumococcal 13 Conjugate, PCV13 (Prevnar 13) 2005-05-21 00:00:00 Completed [facility] Pneumococcal 13 Conjugate, PCV13 (Prevnar 13) 2005-05-21 00:00:00 Completed [facility] Pneumococcal 13 Conjugate, PCV13 (Prevnar 13) 2005-05-21 00:00:00 Completed HIB 4 Dose Schedule 2005-05-21 00:00:00 Completed [facility] Pneumococcal 7 Conjugate, PCV7 (Prevnar7) 2005-05-21 00:00:00 Completed [facility] MMR 2005-05-21 00:00:00 Completed [facility] Varicella (varivax)(chicken pox) 2005-05-21 00:00:00 Completed [facility] Pneumococcal 13 Conjugate, PCV13 (Prevnar 13) 2005-05-21 00:00:00 Completed [facility] HIB 4 Dose Schedule 2005-05-21 00:00:00 Completed [facility] Pneumococcal 7 Conjugate, PCV7 (Prevnar7) 2005-05-21 00:00:00 Completed [facility] MMR 2005-05-21 00:00:00 Completed [facility] Varicella (varivax)(chicken pox) 2005-05-21 00:00:00 Completed [facility] Pneumococcal 13 Conjugate, PCV13 (Prevnar 13) 2005-05-21 00:00:00 Completed [facility] Pneumococcal 13 Conjugate, PCV13 (Prevnar 13) 2005-05-21 00:00:00 Completed [facility] Pneumococcal 13 Conjugate, PCV13 (Prevnar 13) 2005-05-21 00:00:00 Completed [facility] Pneumococcal 13 Conjugate, PCV13 (Prevnar 13) 2005-05-21 00:00:00 Completed [facility] Pneumococcal 13 Conjugate, PCV13 (Prevnar 13) 2005-05-21 00:00:00 Completed [facility] Pneumococcal 13 Conjugate, PCV13 (Prevnar 13) 2005-05-21 00:00:00 Completed [facility] Pneumococcal 13 Conjugate, PCV13 (Prevnar 13) 2005-05-21 00:00:00 Completed [facility] Pneumococcal 13 Conjugate, PCV13 (Prevnar 13) 2005-05-21 00:00:00 Completed [facility] Pneumococcal 13 Conjugate, PCV13 (Prevnar 13) 2005-05-21 00:00:00 Completed [facility] Pneumococcal 13 Conjugate, PCV13 (Prevnar 13) 2005-05-21 00:00:00 Completed [facility] Pneumococcal 13 Conjugate, PCV13 (Prevnar 13) 2005-05-21 00:00:00 Completed [facility] Pneumococcal 13 Conjugate, PCV13 (Prevnar 13) 2005-05-21 00:00:00 Completed [facility] Pneumococcal 13 Conjugate, PCV13 (Prevnar 13) 2005-02-24 00:00:00 Completed [facility] Pneumococcal 13 Conjugate, PCV13 (Prevnar 13) 2005-02-24 00:00:00 Completed [facility] Pneumococcal 13 Conjugate, PCV13 (Prevnar 13) 2005-02-24 00:00:00 Completed Pediarix (dtap/hep B/ipv) 2005-02-24 00:00:00 Completed [facility] HIB 4 Dose Schedule 2005-02-24 00:00:00 Completed [facility] Pneumococcal 7 Conjugate, PCV7 (Prevnar7) 2005-02-24 00:00:00 Completed [facility] Pneumococcal 13 Conjugate, PCV13 (Prevnar 13) 2005-02-24 00:00:00 Completed [facility] Pediarix (dtap/hep B/ipv) 2005-02-24 00:00:00 Completed [facility] HIB 4 Dose Schedule 2005-02-24 00:00:00 Completed [facility] Pneumococcal 7 Conjugate, PCV7 (Prevnar7) 2005-02-24 00:00:00 Completed [facility] Pneumococcal 13 Conjugate, PCV13 (Prevnar 13) 2005-02-24 00:00:00 Completed [facility] Pneumococcal 13 Conjugate, PCV13 (Prevnar 13) 2005-02-24 00:00:00 Completed [facility] Pneumococcal 13 Conjugate, PCV13 (Prevnar 13) 2005-02-24 00:00:00 Completed [facility] Pneumococcal 13 Conjugate, PCV13 (Prevnar 13) 2005-02-24 00:00:00 Completed [facility] Pneumococcal 13 Conjugate, PCV13 (Prevnar 13) 2005-02-24 00:00:00 Completed [facility] Pneumococcal 13 Conjugate, PCV13 (Prevnar 13) 2005-02-24 00:00:00 Completed [facility] Pneumococcal 13 Conjugate, PCV13 (Prevnar 13) 2005-02-24 00:00:00 Completed [facility] Pneumococcal 13 Conjugate, PCV13 (Prevnar 13) 2005-02-24 00:00:00 Completed [facility] Pneumococcal 13 Conjugate, PCV13 (Prevnar 13) 2005-02-24 00:00:00 Completed [facility] Pneumococcal 13 Conjugate, PCV13 (Prevnar 13) 2005-02-24 00:00:00 Completed [facility] Pneumococcal 13 Conjugate, PCV13 (Prevnar 13) 2005-02-24 00:00:00 Completed [facility] Pneumococcal 13 Conjugate, PCV13 (Prevnar 13) 2005-02-24 00:00:00 Completed [facility] Pediarix (dtap/hep B/ipv) 2004 00:00:00 Completed [facility] Pneumococcal 13 Conjugate, PCV13 (Prevnar 13) 2004 00:00:00 Completed [facility] Pediarix (dtap/hep B/ipv) 2004 00:00:00 Completed [facility] Pneumococcal 13 Conjugate, PCV13 (Prevnar 13) 2004 00:00:00 Completed [facility] Pediarix (dtap/hep B/ipv) 2004 00:00:00 Completed Pneumococcal 13 Conjugate, PCV13 (Prevnar 13) 2004 00:00:00 Completed Pediarix (dtap/hep B/ipv) 2004 00:00:00 Completed [facility] Pneumococcal 13 Conjugate, PCV13 (Prevnar 13) 2004 00:00:00 Completed [facility] Pediarix (dtap/hep B/ipv) 2004 00:00:00 Completed [facility] Pneumococcal 13 Conjugate, PCV13 (Prevnar 13) 2004 00:00:00 Completed [facility] Pediarix (dtap/hep B/ipv) 2004 00:00:00 Completed [facility] Pneumococcal 13 Conjugate, PCV13 (Prevnar 13) 2004 00:00:00 Completed [facility] Pediarix (dtap/hep B/ipv) 2004 00:00:00 Completed [facility] Pneumococcal 13 Conjugate, PCV13 (Prevnar 13) 2004 00:00:00 Completed [facility] Pediarix (dtap/hep B/ipv) 2004 00:00:00 Completed [facility] Pneumococcal 13 Conjugate, PCV13 (Prevnar 13) 2004 00:00:00 Completed [facility] Pediarix (dtap/hep B/ipv) 2004 00:00:00 Completed [facility] Pneumococcal 13 Conjugate, PCV13 (Prevnar 13) 2004 00:00:00 Completed [facility] Pediarix (dtap/hep B/ipv) 2004 00:00:00 Completed [facility] Pneumococcal 13 Conjugate, PCV13 (Prevnar 13) 2004 00:00:00 Completed [facility] Pediarix (dtap/hep B/ipv) 2004 00:00:00 Completed [facility] Pneumococcal 13 Conjugate, PCV13 (Prevnar 13) 2004 00:00:00 Completed [facility] Pediarix (dtap/hep B/ipv) 2004 00:00:00 Completed [facility] Pneumococcal 13 Conjugate, PCV13 (Prevnar 13) 2004 00:00:00 Completed [facility] Pediarix (dtap/hep B/ipv) 2004 00:00:00 Completed [facility] Pneumococcal 13 Conjugate, PCV13 (Prevnar 13) 2004 00:00:00 Completed [facility] Pediarix (dtap/hep B/ipv) 2004 00:00:00 Completed [facility] Pneumococcal 13 Conjugate, PCV13 (Prevnar 13) 2004 00:00:00 Completed [facility] Pediarix (dtap/hep B/ipv) 2004 00:00:00 Completed [facility] Pneumococcal 13 Conjugate, PCV13 (Prevnar 13) 2004 00:00:00 Completed [facility] Pediarix (dtap/hep B/ipv) 2004 00:00:00 Completed [facility] Pneumococcal 13 Conjugate, PCV13 (Prevnar 13) 2004 00:00:00 Completed [facility] Pneumococcal 13 Conjugate, PCV13 (Prevnar 13) 2004 00:00:00 Completed [facility] Pneumococcal 13 Conjugate, PCV13 (Prevnar 13) 2004 00:00:00 Completed [facility] Pneumococcal 13 Conjugate, PCV13 (Prevnar 13) 2004 00:00:00 Completed Pneumococcal 13 Conjugate, PCV13 (Prevnar 13) 2004 00:00:00 Completed [facility] Pneumococcal 13 Conjugate, PCV13 (Prevnar 13) 2004 00:00:00 Completed [facility] Pneumococcal 13 Conjugate, PCV13 (Prevnar 13) 2004 00:00:00 Completed [facility] Pneumococcal 13 Conjugate, PCV13 (Prevnar 13) 2004 00:00:00 Completed [facility] Pneumococcal 13 Conjugate, PCV13 (Prevnar 13) 2004 00:00:00 Completed [facility] Pneumococcal 13 Conjugate, PCV13 (Prevnar 13) 2004 00:00:00 Completed [facility] Pneumococcal 13 Conjugate, PCV13 (Prevnar 13) 2004 00:00:00 Completed [facility] Pneumococcal 13 Conjugate, PCV13 (Prevnar 13) 2004 00:00:00 Completed [facility] Pneumococcal 13 Conjugate, PCV13 (Prevnar 13) 2004 00:00:00 Completed [facility] Pneumococcal 13 Conjugate, PCV13 (Prevnar 13) 2004 00:00:00 Completed [facility] Pneumococcal 13 Conjugate, PCV13 (Prevnar 13) 2004 00:00:00 Completed [facility] Pneumococcal 13 Conjugate, PCV13 (Prevnar 13) 2004 00:00:00 Completed [facility] Pneumococcal 13 Conjugate, PCV13 (Prevnar 13) 2004 00:00:00 Completed [facility] HIB 4 Dose Schedule 2004 00:00:00 Completed [facility] Pediarix (dtap/hep B/ipv) 2004 00:00:00 Completed [facility] HIB 4 Dose Schedule 2004 00:00:00 Completed [facility] Pediarix (dtap/hep B/ipv) 2004 00:00:00 Completed [facility] Hep B, Adol or Pedi Dosage 2004 00:00:00 Completed [facility] Hep B, Adol or Pedi Dosage 2004 00:00:00 Completed [facility] DTAP Unknown Completed [facility] HEPATITIS A Unknown Completed [facility] Meningococcal Vaccine Unknown Completed [facility] MMR Unknown Completed [facility] Pediarix (dtap/hep B/ipv) Unknown Completed [facility] Pneumococcal 13 Conjugate, PCV13 (Prevnar 13) Unknown Completed [facility] Polio (IPV/OPV) Unknown Completed [facility] TDAP Unknown Completed [facility] Varicella (varivax)(chicken pox) Unknown Completed [facility] Influenza Virus Vaccine Quad .5 mL IM 6+ MO (FLUZONE/FLULAVAL/F LUARIX) Unknown Completed [facility] HPV9 Unknown Completed [facility] DTAP Unknown Completed [facility] HEPATITIS A Unknown Completed [facility] Meningococcal Vaccine Unknown Completed [facility] MMR Unknown Completed [facility] Pediarix (dtap/hep B/ipv) Unknown Completed [facility] Pneumococcal 13 Conjugate, PCV13 (Prevnar 13) Unknown Completed [facility] Polio (IPV/OPV) Unknown Completed [facility] TDAP Unknown Completed [facility] Varicella (varivax)(chicken pox) Unknown Completed [facility] Influenza Virus Vaccine Quad .5 mL IM 6+ MO (FLUZONE/FLULAVAL/F LUARIX) Unknown Completed [facility] HPV9 Unknown Completed [facility] DTAP Unknown Completed [facility] HEPATITIS A Unknown Completed [facility] Meningococcal Vaccine Unknown Completed [facility] MMR Unknown Completed [facility] Pediarix (dtap/hep B/ipv) Unknown Completed [facility] Pneumococcal 13 Conjugate, PCV13 (Prevnar 13) Unknown Completed [facility] Polio (IPV/OPV) [facility] Varicella (varivax)(chicken pox) Unknown Completed [facility] Influenza Virus Vaccine Quad .5 mL IM 6+ MO (FLUZONE/FLULAVAL/F LUARIX) Unknown Completed [facility] HPV9 Unknown Completed [facility] DTAP Unknown Completed [facility] HEPATITIS A Unknown Completed [facility] Meningococcal Vaccine Unknown Completed [facility] MMR Unknown Completed [facility] Pediarix (dtap/hep B/ipv) Unknown Completed [facility] Pneumococcal 13 Conjugate, PCV13 (Prevnar 13) Unknown Completed [facility] Polio (IPV/OPV) Unknown Completed [facility] TDAP Unknown Completed [facility] Varicella (varivax)(chicken pox) Unknown Completed [facility] Influenza Virus Vaccine Quad .5 mL IM 6+ MO (FLUZONE/FLULAVAL/F LUARIX) Unknown Completed [facility] HPV9 Unknown Completed [facility] DTAP Unknown Completed [facility] HEPATITIS A Unknown Completed [facility] Meningococcal Vaccine Unknown Completed [facility] MMR Unknown Completed [facility] Pediarix (dtap/hep B/ipv) Unknown Completed [facility] Pneumococcal 13 Conjugate, PCV13 (Prevnar 13) Unknown Completed [facility] Polio (IPV/OPV) Unknown Completed [facility] TDAP Unknown Completed [facility] Varicella (varivax)(chicken pox) Unknown Completed [facility] Influenza Virus Vaccine Quad .5 mL IM 6+ MO (FLUZONE/FLULAVAL/F LUARIX) Unknown Completed [facility] HPV9 Unknown Completed [facility] DTAP Unknown Completed [facility] HEPATITIS A Unknown Completed [facility] Meningococcal Vaccine Unknown Completed [facility] MMR Unknown Completed [facility] Pediarix (dtap/hep B/ipv) Unknown Completed [facility] Pneumococcal 13 Conjugate, PCV13 (Prevnar 13) Unknown Completed [facility] Polio (IPV/OPV) Unknown Completed [facility] TDAP Unknown Completed [facility] Varicella (varivax)(chicken pox) Unknown Completed [facility] Influenza Virus Vaccine Quad .5 mL IM 6+ MO (FLUZONE/FLULAVAL/F LUARIX) Unknown Completed [facility] HPV9 Unknown Completed [facility] Influenza Virus Vaccine Quad IM, Preserv and ABX Free 6 MO-64 YRS (FLUCELVAX) Unknown Completed [facility] Meningococcal Vaccine Unknown Completed [facility] Polio (IPV/OPV) Unknown Completed [facility] TDAP Unknown Completed [facility] Influenza Virus Vaccine Quad .5 mL IM 6+ MO (FLUZONE/FLULAVAL/F LUARIX) Unknown Completed [facility] Influenza Virus Vaccine Quad IM, Preserv and ABX Free 6 MO-64 YRS (FLUCELVAX) Unknown Completed [facility] HIB 4 Dose Schedule Unknown Completed [facility] Hep B, Adol or Pedi Dosage Unknown Completed [facility] Pediarix (dtap/hep B/ipv) Unknown Completed [facility] Pneumococcal 7 Conjugate, PCV7 (Prevnar7) Unknown Completed [facility] DTAP Unknown Completed [facility] HEPATITIS A Unknown Completed [facility] MMR Unknown Completed [facility] Pneumococcal 13 Conjugate, PCV13 (Prevnar 13) Unknown Completed [facility] Varicella (varivax)(chicken pox) Unknown Completed [facility] HPV9 Unknown Completed [facility] Meningococcal Vaccine Unknown Completed [facility] Polio (IPV/OPV) Unknown Completed [facility] TDAP Unknown Completed [facility] Influenza Virus Vaccine Quad .5 mL IM 6+ MO (FLUZONE/FLULAVAL/F LUARIX) Unknown Completed [facility] Influenza Virus Vaccine Quad IM, Preserv and ABX Free 6 MO-64 YRS (FLUCELVAX) Unknown Completed [facility] DTAP Unknown Completed [facility] HEPATITIS A Unknown Completed [facility] Meningococcal Vaccine Unknown Completed [facility] MMR Unknown Completed [facility] Pediarix (dtap/hep B/ipv) Unknown Completed [facility] Pneumococcal 13 Conjugate, PCV13 (Prevnar 13) Unknown Completed [facility] Polio (IPV/OPV) Unknown Completed [facility] TDAP Unknown Completed [facility] Varicella (varivax)(chicken pox) Unknown Completed [facility] Influenza Virus Vaccine Quad .5 mL IM 6+ MO (FLUZONE/FLULAVAL/F LUARIX) Unknown Completed [facility] HPV9 Unknown Completed [facility] Influenza Virus Vaccine Quad IM, Preserv and ABX Free 6 MO-64 YRS (FLUCELVAX) Unknown Completed [facility] DTAP Unknown Completed [facility] HEPATITIS A Unknown Completed [facility] Meningococcal Vaccine Unknown Completed [facility] MMR Unknown Completed [facility] Pediarix (dtap/hep B/ipv) Unknown Completed [facility] Pneumococcal 13 Conjugate, PCV13 (Prevnar 13) Unknown Completed [facility] Polio (IPV/OPV) Unknown Completed [facility] TDAP Unknown Completed [facility] Varicella (varivax)(chicken pox) Unknown Completed [facility] Influenza Virus Vaccine Quad .5 mL IM 6+ MO (FLUZONE/FLULAVAL/F LUARIX) Unknown Completed [facility] HPV9 Unknown Completed [facility] Influenza Virus Vaccine Quad IM, Preserv and ABX Free 6 MO-64 YRS (FLUCELVAX) Unknown Completed [facility] HIB 4 Dose Schedule Unknown Completed [facility] Hep B, Adol or Pedi Dosage Unknown Completed [facility] Pediarix (dtap/hep B/ipv) Unknown Completed [facility] Pneumococcal 7 Conjugate, PCV7 (Prevnar7) Unknown Completed [facility] DTAP Unknown Completed [facility] HEPATITIS A Unknown Completed [facility] MMR Unknown Completed [facility] Pneumococcal 13 Conjugate, PCV13 (Prevnar 13) Unknown Completed [facility] Varicella (varivax)(chicken pox) Unknown Completed [facility] HPV9 Unknown Completed [facility] DTAP Unknown Completed [facility] HEPATITIS A Unknown Completed [facility] Meningococcal Vaccine Unknown Completed [facility] MMR Unknown Completed [facility] Pediarix (dtap/hep B/ipv) Unknown Completed [facility] Pneumococcal 13 Conjugate, PCV13 (Prevnar 13) Unknown Completed [facility] Polio (IPV/OPV) Unknown Completed [facility] TDAP Unknown Completed [facility] Varicella (varivax)(chicken pox) Unknown Completed [facility] Influenza Virus Vaccine Quad .5 mL IM 6+ MO (FLUZONE/FLULAVAL/F LUARIX) Unknown Completed [facility] HPV9 Unknown Completed [facility] Influenza Virus Vaccine Quad IM, Preserv and ABX Free 6 MO-64 YRS (FLUCELVAX) Unknown Completed [facility] DTAP Unknown Completed [facility] HEPATITIS A Unknown Completed [facility] Meningococcal Vaccine Unknown Completed [facility] MMR Unknown Completed [facility] Pediarix (dtap/hep B/ipv) Unknown Completed [facility] Pneumococcal 13 Conjugate, PCV13 (Prevnar 13) Unknown Completed [facility] Polio (IPV/OPV) Unknown Completed [facility] TDAP Unknown Completed [facility] Varicella (varivax)(chicken pox) Unknown Completed [facility] Influenza Virus Vaccine Quad .5 mL IM 6+ MO (FLUZONE/FLULAVAL/F LUARIX) Unknown Completed [facility] HPV9 Unknown Completed [facility] Influenza Virus Vaccine Quad IM, Preserv and ABX Free 6 MO-64 YRS (FLUCELVAX) Unknown Completed [facility] DTAP Unknown Completed [facility] HEPATITIS A Unknown Completed [facility] Meningococcal Vaccine Unknown Completed [facility] MMR Unknown Completed [facility] Pediarix (dtap/hep B/ipv) Unknown Completed [facility] Pneumococcal 13 Conjugate, PCV13 (Prevnar 13) Unknown Completed [facility] Polio (IPV/OPV) Unknown Completed [facility] TDAP Unknown Completed [facility] Varicella (varivax)(chicken pox) Unknown Completed [facility] Influenza Virus Vaccine Quad .5 mL IM 6+ MO (FLUZONE/FLULAVAL/F LUARIX) Unknown Completed [facility] HPV9 Unknown Completed [facility] Influenza Virus Vaccine Quad IM, Preserv and ABX Free 6 MO-64 YRS (FLUCELVAX) Unknown Completed [facility] Hep B, Adol or Pedi Dosage Unknown Completed [facility] HIB 4 Dose Schedule Unknown Completed [facility] Pediarix (dtap/hep B/ipv) Unknown Completed [facility] Pneumococcal 7 Conjugate, PCV7 (Prevnar7) Unknown Completed [facility] MMR Unknown Completed [facility] Varicella (varivax)(chicken pox) Unknown Completed [facility] DTAP Unknown Completed [facility] HEPATITIS A Unknown Completed [facility] Meningococcal Vaccine Unknown Completed [facility] Pneumococcal 13 Conjugate, PCV13 (Prevnar 13) Unknown Completed [facility] Polio (IPV/OPV) Unknown Completed [facility] TDAP Unknown Completed [facility] Influenza Virus Vaccine Quad .5 mL IM 6+ MO (FLUZONE/FLULAVAL/F LUARIX) Unknown Completed [facility] HPV9 Unknown Completed [facility] Influenza Virus Vaccine Quad IM, Preserv and ABX Free 6 MO-64 YRS (FLUCELVAX) Unknown Completed [facility] DTAP Unknown Completed [facility] HEPATITIS A Unknown Completed [facility] Meningococcal Vaccine Unknown Completed [facility] MMR Unknown Completed [facility] Pediarix (dtap/hep B/ipv) Unknown Completed [facility] Pneumococcal 13 Conjugate, PCV13 (Prevnar 13) Unknown Completed [facility] Polio (IPV/OPV) Unknown Completed [facility] TDAP Unknown Completed [facility] Varicella (varivax)(chicken pox) Unknown Completed [facility] Influenza Virus Vaccine Quad .5 mL IM 6+ MO (FLUZONE/FLULAVAL/F LUARIX) Unknown Completed [facility] HPV9 Unknown Completed [facility] Influenza Virus Vaccine Quad IM, Preserv and ABX Free 6 MO-64 YRS (FLUCELVAX) Unknown Completed [facility] DTAP Unknown Completed [facility] HEPATITIS A Unknown Completed [facility] Meningococcal Vaccine Unknown Completed [facility] MMR Unknown Completed [facility] Pediarix (dtap/hep B/ipv) Unknown Completed [facility] Pneumococcal 13 Conjugate, PCV13 (Prevnar 13) Unknown Completed [facility] Polio (IPV/OPV) Unknown Completed [facility] TDAP Unknown Completed [facility] Varicella (varivax)(chicken pox) Unknown Completed [facility] Influenza Virus Vaccine Quad .5 mL IM 6+ MO (FLUZONE/FLULAVAL/F LUARIX) Unknown Completed [facility] HPV9 Unknown Completed [facility] Influenza Virus Vaccine Quad IM, Preserv and ABX Free 6 MO-64 YRS (FLUCELVAX) Unknown Completed [facility] DTAP Unknown Completed [facility]ITIS A [facility]ine [facility] Com[facility] MMR Unknown Completed [facility] Pediarix (dtap/hep B/ipv) Unknown Completed [facility] Pneumococcal 13 Conjugate, PCV13 (Prevnar 13) Unknown Completed [facility] Polio (IPV/OPV) Unknown Completed [facility] TDAP Unknown Completed [facility] Varicella (varivax)(chicken pox) Unknown Completed [facility] Influenza Virus Vaccine Quad .5 mL IM 6+ MO (FLUZONE/FLULAVAL/F LUARIX) Unknown Completed [facility] HPV9 Unknown Completed [facility] Influenza Virus Vaccine Quad IM, Preserv and ABX Free 6 MO-64 YRS (FLUCELVAX) Unknown Completed [facility] Meningococcal Vaccine Unknown Completed [facility] Polio (IPV/OPV) Unknown Completed [facility] Influenza Virus Vaccine Quad .5 mL IM 6+ MO (FLUZONE/FLULAVAL/F LUARIX) Unknown Completed [facility] Influenza Virus Vaccine Quad IM, Preserv and ABX Free 6 MO-64 YRS (FLUCELVAX) Unknown Completed [facility] HIB 4 Dose Schedule Unknown Completed [facility] Hep B, Adol or Pedi Dosage Unknown Completed [facility] Pediarix (dtap/hep B/ipv) Unknown Completed [facility] Pneumococcal 7 Conjugate, PCV7 (Prevnar7) Unknown Completed [facility] DTAP Unknown Completed [facility] HEPATITIS A Unknown Completed [facility] MMR Unknown Completed [facility] Pneumococcal 13 Conjugate, PCV13 (Prevnar 13) Unknown Completed [facility] TDAP Unknown Completed [facility] Varicella (varivax)(chicken pox) Unknown Completed [facility] HPV9 Unknown Completed [facility] DTAP Unknown Completed [facility] HEPATITIS A Unknown Completed [facility] Meningococcal Vaccine Unknown Completed [facility] MMR Unknown Completed [facility] Pediarix (dtap/hep B/ipv) Unknown Completed [facility] Pneumococcal 13 Conjugate, PCV13 (Prevnar 13) Unknown Completed [facility] Polio (IPV/OPV) Unknown Completed [facility] TDAP Unknown Completed [facility] Varicella (varivax)(chicken pox) Unknown Completed [facility] Influenza Virus Vaccine Quad .5 mL IM 6+ MO (FLUZONE/FLULAVAL/F LUARIX) Unknown Completed [facility] HPV9 Unknown Completed [facility] Influenza Virus Vaccine Quad IM, Preserv and ABX Free 6 MO-64 YRS (FLUCELVAX) Unknown Completed [facility] DTAP Unknown Completed [facility] HEPATITIS A Unknown Completed [facility] Meningococcal Vaccine Unknown Completed [facility] MMR Unknown Completed [facility] Pediarix (dtap/hep B/ipv) Unknown Completed [facility] Pneumococcal 13 Conjugate, PCV13 (Prevnar 13) Unknown Completed [facility] Polio (IPV/OPV) Unknown Completed [facility] TDAP Unknown Completed [facility] Varicella (varivax)(chicken pox) Unknown Completed [facility] Influenza Virus Vaccine Quad .5 mL IM 6+ MO (FLUZONE/FLULAVAL/F LUARIX) Unknown Completed [facility] HPV9 Unknown Completed [facility] Influenza Virus Vaccine Quad IM, Preserv and ABX Free 6 MO-64 YRS (FLUCELVAX) Unknown Completed [facility] DTAP Unknown Completed [facility] HEPATITIS A Unknown [facility] M[facility] Vaccine [facility] Completed [facility] MMR Unknown Completed [facility] Pediarix (dtap/hep B/ipv) Unknown Completed [facility] Pneumococcal 13 Conjugate, PCV13 (Prevnar 13) Unknown Completed [facility] Polio (IPV/OPV) Unknown Completed [facility] TDAP Unknown Completed [facility] Varicella (varivax)(chicken pox) Unknown Completed [facility] Influenza Virus Vaccine Quad .5 mL IM 6+ MO (FLUZONE/FLULAVAL/F LUARIX) Unknown Completed [facility] HPV9 Unknown Completed [facility] Influenza Virus Vaccine Quad IM, Preserv and ABX Free 6 MO-64 YRS (FLUCELVAX) Unknown Completed [facility] DTAP Unknown Completed [facility] HEPATITIS A Unknown Completed [facility] Meningococcal Vaccine Unknown Completed [facility] MMR Unknown Completed [facility] Pediarix (dtap/hep B/ipv) Unknown Completed [facility] Pneumococcal 13 Conjugate, PCV13 (Prevnar 13) Unknown Completed [facility] Polio (IPV/OPV) Unknown Completed [facility] TDAP Unknown Completed [facility] Varicella (varivax)(chicken pox) Unknown Completed [facility] Influenza Virus Vaccine Quad .5 mL IM 6+ MO (FLUZONE/FLULAVAL/F LUARIX) Unknown Completed [facility] HPV9 Unknown Completed [facility] Influenza Virus Vaccine Quad IM, Preserv and ABX Free 6 MO-64 YRS (FLUCELVAX) Unknown Completed [facility] DTAP Unknown Completed [facility] HEPATITIS A Unknown Completed [facility] Meningococcal Vaccine Unknown Completed [facility] MMR Unknown Completed [facility] Pediarix (dtap/hep B/ipv) Unknown Completed [facility] Pneumococcal 13 Conjugate, PCV13 (Prevnar 13) Unknown Completed [facility] Polio (IPV/OPV) Unknown Completed [facility] TDAP Unknown Completed [facility] Varicella (varivax)(chicken pox) Unknown Completed [facility] Influenza Virus Vaccine Quad .5 mL IM 6+ MO (FLUZONE/FLULAVAL/F LUARIX) Unknown Completed [facility] HPV9 Unknown Completed [facility] Influenza Virus Vaccine Quad IM, Preserv and ABX Free 6 MO-64 YRS (FLUCELVAX) Unknown Completed [facility] DTAP Unknown Completed [facility] HEPATITIS A Unknown Completed [facility] Meningococcal Vaccine Unknown Completed [facility] MMR Unknown Completed [facility] Pediarix (dtap/hep B/ipv) Unknown Completed [facility] Pneumococcal 13 Conjugate, PCV13 (Prevnar 13) Unknown Completed [facility] Polio (IPV/OPV) Unknown Completed [facility] TDAP Unknown Completed [facility] Varicella (varivax)(chicken pox) Unknown Completed [facility] Influenza Virus Vaccine Quad .5 mL IM 6+ MO (FLUZONE/FLULAVAL/F LUARIX) Unknown Completed [facility] HPV9 Unknown Completed [facility] Influenza Virus Vaccine Quad IM, Preserv and ABX Free 6 MO-64 YRS (FLUCELVAX) Unknown Completed [facility] DTAP Unknown Completed [facility] HEPATITIS A Unknown Completed [facility] Meningococcal Vaccine Unknown Completed [facility] MMR Unknown Completed [facility] Pediarix (dtap/hep B/ipv) Unknown Completed [facility] Pneumococcal 13 Conjugate, PCV13 (Prevnar 13) Unknown Completed [facility] Polio (IPV/OPV) Unknown Completed [facility] TDAP Unknown Completed [facility] Varicella (varivax)(chicken pox) Unknown Completed [facility] Influenza Virus Vaccine Quad .5 mL IM 6+ MO (FLUZONE/FLULAVAL/F LUARIX) Unknown Completed [facility] HPV9 Unknown Completed [facility] Influenza Virus Vaccine Quad IM, Preserv and ABX Free 6 MO-64 YRS (FLUCELVAX) Unknown Completed [facility] DTAP Unknown Completed [facility] HEPATITIS A Unknown Completed [facility] Meningococcal Vaccine Unknown Completed [facility] MMR Unknown Completed [facility] Pediarix (dtap/hep B/ipv) Unknown Completed [facility] Pneumococcal 13 Conjugate, PCV13 (Prevnar 13) Unknown Completed [facility] Polio (IPV/OPV) Unknown Completed [facility] TDAP Unknown Completed [facility] Varicella (varivax)(chicken pox) Unknown Completed [facility] Influenza Virus Vaccine Quad .5 mL IM 6+ MO (FLUZONE/FLULAVAL/F LUARIX) Unknown Completed [facility] HPV9 Unknown Completed [facility] Influenza Virus Vaccine Quad IM, Preserv and ABX Free 6 MO-64 YRS (FLUCELVAX) Unknown Completed [facility] DTAP Unknown Completed [facility] HEPATITIS A Unknown [facility]ine [facility] Completed [facility] MMR Unknown Completed [facility] Pediarix (dtap/hep B/ipv) Unknown Completed [facility] Pneumococcal 13 Conjugate, PCV13 (Prevnar 13) Unknown Completed [facility] Polio (IPV/OPV) Unknown Completed [facility] TDAP Unknown Completed [facility] Varicella (varivax)(chicken pox) Unknown Completed [facility] Influenza Virus Vaccine Quad .5 mL IM 6+ MO (FLUZONE/FLULAVAL/F LUARIX) Unknown Completed [facility] HPV9 Unknown Completed [facility] Influenza Virus Vaccine Quad IM, Preserv and ABX Free 6 MO-64 YRS (FLUCELVAX) Unknown Completed [facility] DTAP Unknown Completed [facility] HEPATITIS A Unknown Completed [facility] Meningococcal Vaccine Unknown Completed [facility] MMR Unknown Completed [facility] Pediarix (dtap/hep B/ipv) Unknown Completed [facility] Pneumococcal 13 Conjugate, PCV13 (Prevnar 13) Unknown Completed [facility] Polio (IPV/OPV) Unknown Completed [facility] TDAP Unknown Completed [facility] Varicella (varivax)(chicken pox) Unknown Completed [facility] Influenza Virus Vaccine Quad .5 mL IM 6+ MO (FLUZONE/FLULAVAL/F LUARIX) Unknown Completed [facility] HPV9 Unknown Completed [facility] Influenza Virus Vaccine Quad IM, Preserv and ABX Free 6 MO-64 YRS (FLUCELVAX) Unknown Completed [facility] DTAP Unknown Completed [facility] HEPATITIS A Unknown Completed [facility] Meningococcal Vaccine Unknown Completed [facility] MMR Unknown Completed [facility] Pediarix (dtap/hep B/ipv) Unknown Completed [facility] Pneumococcal 13 Conjugate, PCV13 (Prevnar 13) Unknown Completed [facility] Polio (IPV/OPV) Unknown Completed [facility] TDAP Unknown Completed [facility] Varicella (varivax)(chicken pox) Unknown Completed [facility] Influenza Virus Vaccine Quad .5 mL IM 6+ MO (FLUZONE/FLULAVAL/F LUARIX) Unknown Completed [facility] HPV9 Unknown Completed [facility] Influenza Virus Vaccine Quad IM, Preserv and ABX Free 6 MO-64 YRS (FLUCELVAX) Unknown Completed [facility] DTAP Unknown Completed [facility] HEPATITIS A Unknown Completed [facility] Meningococcal Vaccine Unknown Completed [facility] MMR Unknown Completed [facility] Pediarix (dtap/hep B/ipv) Unknown Completed [facility] Pneumococcal 13 Conjugate, PCV13 (Prevnar 13) Unknown Completed [facility] Polio (IPV/OPV) Unknown Completed [facility] TDAP Unknown Completed [facility] Varicella (varivax)(chicken pox) Unknown Completed [facility] Influenza Virus Vaccine Quad .5 mL IM 6+ MO (FLUZONE/FLULAVAL/F LUARIX) Unknown Completed [facility] HPV9 Unknown Completed [facility] Influenza Virus Vaccine Quad IM, Preserv and ABX Free 6 MO-64 YRS (FLUCELVAX) Unknown Completed [facility] DTAP Unknown Completed [facility] HEPATITIS A Unknown Completed [facility] Meningococcal Vaccine Unknown Completed [facility] MMR Unknown Completed [facility] Pediarix (dtap/hep B/ipv) Unknown Completed [facility] Pneumococcal 13 Conjugate, PCV13 (Prevnar 13) Unknown Completed [facility] Polio (IPV/OPV) Unknown Completed [facility] TDAP Unknown Completed [facility] Varicella (varivax)(chicken pox) Unknown Completed [facility] Influenza Virus Vaccine Quad .5 mL IM 6+ MO (FLUZONE/FLULAVAL/F LUARIX) Unknown Completed [facility] HPV9 Unknown Completed [facility] Influenza Virus Vaccine Quad IM, Preserv and ABX Free 6 MO-64 YRS (FLUCELVAX) Unknown Completed [facility] DTAP Unknown Completed [facility] HEPATITIS A Unknown Completed [facility] Meningococcal Vaccine Unknown Completed [facility] MMR Unknown Completed [facility] Pediarix (dtap/hep B/ipv) Unknown Completed [facility] Pneumococcal 13 Conjugate, PCV13 (Prevnar 13) Unknown Completed [facility] Polio (IPV/OPV) Unknown Completed [facility] TDAP Unknown Completed [facility] Varicella (varivax)(chicken pox) Unknown Completed [facility] Influenza Virus Vaccine Quad .5 mL IM 6+ MO (FLUZONE/FLULAVAL/F LUARIX) Unknown Completed [facility] HPV9 Unknown Completed [facility] Influenza Virus Vaccine Quad IM, Preserv and ABX Free 6 MO-64 YRS (FLUCELVAX) Unknown Completed [facility] Meningococcal Vaccine Unknown Completed [facility] MMR Unknown Completed [facility] Pediarix (dtap/hep B/ipv) Unknown Completed [facility] Polio (IPV/OPV) Unknown Completed [facility] Varicella (varivax)(chicken pox) Unknown Completed [facility] Influenza Virus Vaccine Quad .5 mL IM 6+ MO (FLUZONE/FLULAVAL/F LUARIX) Unknown Completed [facility] Influenza Virus Vaccine Quad IM, Preserv and ABX Free 6 MO-64 YRS (FLUCELVAX) Unknown Completed [facility] DTAP Unknown Completed [facility] HEPATITIS A Unknown Completed [facility] Pneumococcal 13 Conjugate, PCV13 (Prevnar 13) Unknown Completed [facility] TDAP Unknown Completed [facility] HPV9 Unknown Completed [facility] DTAP Unknown Completed [facility] HEPATITIS A Unknown Completed [facility] Meningococcal Vaccine Unknown Completed [facility] MMR Unknown Completed [facility] Pediarix (dtap/hep B/ipv) Unknown Completed [facility] Pneumococcal 13 Conjugate, PCV13 (Prevnar 13) Unknown Completed [facility] Polio (IPV/OPV) Unknown Completed [facility] TDAP Unknown Completed [facility] Varicella (varivax)(chicken pox) Unknown Completed [facility] Influenza Virus Vaccine Quad .5 mL IM 6+ MO (FLUZONE/FLULAVAL/F LUARIX) Unknown Completed [facility] HPV9 Unknown Completed [facility] Influenza Virus Vaccine Quad IM, Preserv and ABX Free 6 MO-64 YRS (FLUCELVAX) Unknown Completed [facility] DTAP Unknown Completed [facility] HEPATITIS A Unknown Completed [facility] Meningococcal Vaccine Unknown Completed [facility] MMR Unknown Completed [facility] Pediarix (dtap/hep B/ipv) Unknown Completed [facility] Pneumococcal 13 Conjugate, PCV13 (Prevnar 13) Unknown Completed [facility] Polio (IPV/OPV) Unknown Completed [facility] TDAP Unknown Completed [facility] Varicella (varivax)(chicken pox) Unknown Completed [facility] Influenza Virus Vaccine Quad .5 mL IM 6+ MO (FLUZONE/FLULAVAL/F LUARIX) Unknown Completed [facility] HPV9 Unknown Completed [facility] Influenza Virus Vaccine Quad IM, Preserv and ABX Free 6 MO-64 YRS (FLUCELVAX) Unknown Completed [facility] DTAP Unknown Completed [facility] HEPATITIS A Unknown Completed [facility] Meningococcal Vaccine Unknown Completed [facility] MMR Unknown Completed [facility] Pediarix (dtap/hep B/ipv) Unknown Completed [facility] Pneumococcal 13 Conjugate, PCV13 (Prevnar 13) Unknown Completed [facility] Polio (IPV/OPV) Unknown Completed [facility] TDAP Unknown Completed [facility] Varicella (varivax)(chicken pox) Unknown Completed [facility] Influenza Virus Vaccine Quad .5 mL IM 6+ MO (FLUZONE/FLULAVAL/F LUARIX) Unknown Completed [facility] HPV9 Unknown Completed [facility] Influenza Virus Vaccine Quad IM, Preserv and ABX Free 6 MO-64 YRS (FLUCELVAX) Unknown Completed [facility] DTAP Unknown Completed [facility] HEPATITIS A Unknown Completed [facility] Meningococcal Vaccine Unknown Completed [facility] MMR Unknown Completed [facility] Pediarix (dtap/hep B/ipv) Unknown Completed [facility] Pneumococcal 13 Conjugate, PCV13 (Prevnar 13) Unknown Completed [facility] Polio (IPV/OPV) Unknown Completed [facility] TDAP Unknown Completed [facility] Varicella (varivax)(chicken pox) Unknown Completed [facility] Influenza Virus Vaccine Quad .5 mL IM 6+ MO (FLUZONE/FLULAVAL/F LUARIX) Unknown Completed [facility] HPV9 Unknown Completed [facility] Influenza Virus Vaccine Quad IM, Preserv and ABX Free 6 MO-64 YRS (FLUCELVAX) Unknown Completed [facility] Fluarix (IIV3) - SDS - 0.5mL Fluarix (IIV3) - SDS - 0.5mL Unknown Completed [facility] Vital Signs Vital Name Observation Time Observation Value Comments S alysha height 2024-09-05 08:20:00 63.5 [in_i] Comm on [facility] weight 2024-09-05 08:20:00 224 [lb_av] Comm on [facility] temperature 2024-09-05 08:20:00 97.6 [degF] Com [facility] bmi 2024-09-05 08:20:00 39.05 kg/m2 Comm on [facility] oximetry 2024-09-05 08:20:00 99 % Commo n [facility] respiratory rate 2024-09-05 08:20:00 16 /min [facility] blood pressure systolic 2024-09-05 08:20:00 122 mm[Hg] [facility] blood pressure diastolic 2024-09-05 08:20:00 68 mm[Hg] [facility] height 2024-08-15 10:20:00 63.5 [in_i] Comm on [facility] weight 2024-08-15 10:20:00 222 [lb_av] Comm on [facility] temperature 2024-08-15 10:20:00 97.2 [degF] Com [facility] bmi 2024-08-15 10:20:00 38.7 kg/m2 Commo n [facility] oximetry 2024-08-15 10:20:00 99 % Commo n [facility] respiratory rate 2024-08-15 10:20:00 16 /min [facility] blood pressure systolic 2024-08-15 10:20:00 128 mm[Hg] [facility] blood pressure diastolic 2024-08-15 10:20:00 76 mm[Hg] [facility] Systolic blood pressure 2024-07-20 19:11:00 121 mm[Hg] [facility] Diastolic blood pressure 2024-07-20 19:11:00 76 mm[Hg] [facility] Heart rate 2024-07-20 19:05:00 85 /min [facility] Body temperature 2024-07-20 19:05:00 36.61 Cristy [facility] Body weight 2024-07-20 19:05:00 103.602 kg [facility] Systolic blood pressure 2024-03-10 18:22:00 120 mm[Hg] [facility] Diastolic blood pressure 2024-03-10 18:22:00 79 mm[Hg] [facility] Heart rate 2024-03-10 18:22:00 77 /min [facility] Body temperature 2024-03-10 18:22:00 36.5 Cristy [facility] Body height 2024-03-10 18:22:00 162.6 cm [facility] Body weight 2024-03-10 18:22:00 100.064 kg [facility] BMI 2024-03-10 18:22:00 37.87 kg/m2 [facility] Systolic blood pressure 2024-02-28 16:15:00 119 mm[Hg] [facility] Diastolic blood pressure 2024-02-28 16:15:00 57 mm[Hg] [facility] Heart rate 2024-02-28 16:15:00 81 /min [facility] Body temperature 2024-02-28 16:15:00 36.56 Cristy [facility] Respiratory rate 2024-02-28 16:15:00 16 /min [facility] Oxygen saturation in Arterial blood by Pulse oximetry 2024-02-28 16:15:00 100 /min [facility] Systolic blood pressure 2024-02-26 11:14:00 181 mm[Hg] [facility] Diastolic blood pressure 2024-02-26 11:14:00 119 mm[Hg] [facility] Heart rate 2024-02-26 11:14:00 84 /min [facility] Body temperature 2024-02-26 11:14:00 36.5 Cristy [facility] Respiratory rate 2024-02-26 11:14:00 20 /min [facility] Body height 2024-02-26 11:14:00 162.6 cm [facility] Body weight 2024-02-26 11:14:00 102.241 kg [facility] BMI 2024-02-26 11:14:00 38.69 kg/m2 [facility] Oxygen saturation in Arterial blood by Pulse oximetry 2024-02-26 11:14:00 100 /min [facility] Systolic blood pressure 2024-02-22 20:38:00 135 mm[Hg] [facility] Diastolic blood pressure 2024-02-22 20:38:00 85 mm[Hg] [facility] Heart rate 2024-02-22 20:38:00 69 /min [facility] Body temperature 2024-02-22 20:38:00 36.72 Cristy [facility] Respiratory rate 2024-02-22 20:38:00 18 /min [facility] Oxygen saturation in Arterial blood by Pulse oximetry 2024-02-22 20:38:00 100 /min [facility] Body height 2024-02-21 13:40:00 162.6 cm [facility] Body weight 2024-02-21 13:40:00 102.377 kg [facility] BMI 2024-02-21 13:40:00 38.74 kg/m2 [facility] Systolic blood pressure 2024-02-11 12:00:00 127 mm[Hg] [facility] Diastolic blood pressure 2024-02-11 12:00:00 89 mm[Hg] [facility] Heart rate 2024-02-11 12:00:00 76 /min [facility] Body temperature 2024-02-11 12:00:00 36.39 Cristy [facility] Respiratory rate 2024-02-11 12:00:00 16 /min [facility] Oxygen saturation in Arterial blood by Pulse oximetry 2024-02-11 12:00:00 98 /min [facility] Systolic blood pressure 2024-02-07 18:31:00 138 mm[Hg] [facility] Diastolic blood pressure 2024-02-07 18:31:00 89 mm[Hg] [facility] Heart rate 2024-02-07 18:31:00 75 /min [facility] Respiratory rate 2024-02-07 18:31:00 18 /min [facility] Body height 2024-02-07 18:31:00 162.6 cm [facility] Body weight 2024-02-07 18:31:00 108.863 kg [facility] BMI 2024-02-07 18:31:00 41.20 kg/m2 [facility] Systolic blood pressure 2024-01-28 14:09:00 124 mm[Hg] [facility] Diastolic blood pressure 2024-01-28 14:09:00 80 mm[Hg] [facility] Heart rate 2024-01-28 14:09:00 82 /[facility] 2024-01-28 14:09:00 36.67 Cristy [facility] Body height 2024-01-28 14:09:00 162.6 cm [facility] Body weight 2024-01-28 14:09:00 110.406 kg [facility] BMI 2024-01-28 14:09:00 41.78 kg/m2 [facility] Heart rate 2024-01-01 17:30:00 79 /min [facility] Oxygen saturation in Arterial blood by Pulse oximetry 2024-01-01 17:30:00 96 /min [facility] Systolic blood pressure 2024-01-01 16:00:00 117 mm[Hg] [facility] Diastolic blood pressure 2024-01-01 16:00:00 62 mm[Hg] [facility] Respiratory rate 2024-01-01 15:30:00 18 /min [facility] Body temperature 2024-01-01 13:00:00 36.61 Cristy [facility] Body height 2024-01-01 07:30:00 162.6 cm [facility] Body weight 2024-01-01 07:30:00 106.051 kg [facility] BMI 2024-01-01 07:30:00 40.13 kg/m2 [facility] Systolic blood pressure 2023-12-24 14:06:00 122 mm[Hg] [facility] Diastolic blood pressure 2023-12-24 14:06:00 84 mm[Hg] [facility] Heart rate 2023-12-24 14:06:00 77 /min [facility] Body temperature 2023-12-24 14:06:00 36.11 Cristy [facility] Respiratory rate 2023-12-24 14:06:00 18 /min [facility] Body height 2023-12-24 14:06:00 162.6 cm [facility] Body weight 2023-12-24 14:06:00 108.954 kg [facility] BMI 2023-12-24 14:06:00 41.23 kg/m2 [facility] Systolic blood pressure 2023-12-10 20:56:00 105 mm[Hg] [facility] Diastolic blood pressure 2023-12-10 20:56:00 69 mm[Hg] [facility] Heart rate 2023-12-10 20:56:00 85 /min [facility] Respiratory rate 2023-12-10 20:56:00 18 /min [facility] Body height 2023-12-10 20:56:00 162.6 cm [facility] Body weight 2023-12-10 20:56:00 109.77 kg [facility] BMI 2023-12-10 20:56:00 41.54 kg/m2 [facility] Systolic blood pressure 2023-11-19 20:34:00 110 mm[Hg] [facility] Diastolic blood pressure 2023-11-19 20:34:00 73 mm[Hg] [facility] Heart rate 2023-11-19 20:34:00 84 /min [facility] Body temperature 2023-11-19 20:34:00 36.28 Cristy [facility] Body height 2023-11-19 20:34:00 162.6 cm [facility] Body weight 2023-11-19 20:34:00 109.861 kg [facility] BMI 2023-11-19 20:34:00 41.57 kg/m2 [facility] Systolic blood pressure 2023-10-22 19:13:00 114 mm[Hg] [facility] Diastolic blood pressure 2023-10-22 19:13:00 74 mm[Hg] [facility] Heart rate 2023-10-22 19:13:00 79 /min [facility] Body temperature 2023-10-22 19:13:00 36.72 Cristy [facility] Respiratory rate 2023-10-22 19:13:00 18 /min [facility] Body height 2023-10-22 19:13:00 162.6 cm [facility] Body weight 2023-10-22 19:13:00 108.138 kg [facility] BMI 2023-10-22 19:13:00 40.92 kg/m2 [facility] Systolic blood pressure 2023-09-21 13:58:00 127 mm[Hg] [facility] Diastolic blood pressure 2023-09-21 13:58:00 76 mm[Hg] [facility] Heart rate 2023-09-21 13:58:00 87 /min [facility] Body temperature 2023-09-21 13:58:00 36.39 Cristy [facility] Respiratory rate 2023-09-21 13:58:00 17 /min [facility] Body height 2023-09-21 13:58:00 162.6 cm [facility] Body weight 2023-09-21 13:58:00 110.043 kg [facility] BMI 2023-09-21 13:58:00 41.64 kg/m2 [facility] Systolic blood pressure 2023-08-23 16:51:00 120 mm[Hg] [facility] Diastolic blood pressure 2023-08-23 16:51:00 80 mm[Hg] [facility] Heart rate 2023-08-23 16:51:00 70 /min [facility] Body temperature 2023-08-23 16:51:00 36.39 Cristy [facility] Respiratory rate 2023-08-23 16:51:00 18 /min [facility] Body height 2023-08-23 16:51:00 162.6 cm [facility] Body weight 2023-08-23 16:51:00 106.142 kg [facility] BMI 2023-08-23 16:51:00 40.17 kg/m2 [facility] Systolic blood pressure 2023-07-27 21:29:00 105 mm[Hg] [facility] Diastolic blood pressure 2023-07-27 21:29:00 73 mm[Hg] [facility] Heart rate 2023-07-27 21:29:00 72 /min [facility] Body temperature 2023-07-27 21:29:00 36.89 Cristy [facility] Respiratory rate 2023-07-27 21:29:00 18 /min [facility] Body height 2023-07-27 21:29:00 162.6 cm [facility] Body weight 2023-07-27 21:29:00 107.956 kg [facility] BMI 2023-07-27 21:29:00 40.85 kg/m2 [facility] Systolic blood pressure 2023-06-22 20:04:00 118 mm[Hg] [facility] Diastolic blood pressure 2023-06-22 20:04:00 86 mm[Hg] [facility] Heart rate 2023-06-22 20:04:00 72 /min [facility] Body temperature 2023-06-22 20:04:00 36.67 Cristy [facility] Respiratory rate 2023-06-22 20:04:00 18 /min [facility] Body height 2023-06-22 20:04:00 162.6 cm [facility] Body weight 2023-06-22 20:04:00 110.768 kg [facility] BMI 2023-06-22 20:04:00 41.92 kg/m2 [facility] Oxygen saturation in Arterial blood by Pulse oximetry 2023-06-22 20:04:00 98 /min [facility] Systolic blood pressure 2022-09-26 01:00:00 112 mm[Hg] [facility] Diastolic blood pressure 2022-09-26 01:00:00 65 mm[Hg] [facility] Heart rate 2022-09-26 01:00:00 94 /min [facility] Respiratory rate 2022-09-26 01:00:00 16 /min [facility] Oxygen saturation in Arterial blood by Pulse oximetry 2022-09-26 01:00:00 91 /min [facility] Body temperature 2022-09-25 22:42:00 37 Cristy [facility] Body weight 2022-09-25 22:42:00 113.399 kg [facility] Systolic blood pressure 2022-03-03 15:28:00 116 mm[Hg] [facility] Diastolic blood pressure 2022-03-03 15:28:00 74 mm[Hg] [facility] Heart rate 2022-03-03 15:28:00 67 /min [facility] Body temperature 2022-03-03 15:28:00 36.22 Cristy [facility] Respiratory rate 2022-03-03 15:28:00 20 /min [facility] Body height 2022-03-03 15:28:00 165.1 cm [facility] Body weight 2022-03-03 15:28:00 113.944 kg [facility] BMI 2022-03-03 15:28:00 41.80 kg/m2 [facility] Body mass index (BMI) [Percentile] Per age and sex 2022-03-03 15:28:00 99.04 % [facility] Procedures Procedure Date / Time Performed Performing Clinician Source POCT TEST 2024-07-20 00:00:00 aOnh miller [facility] TRANSTHORACIC ECHO (TTE) COMPLETE 2024-02-27 13:34:00 [facility] LIPASE 2024-02-27 04:25:00 Alonso [facility] TROPONIN I 2024-02-27 04:25:00 Alonso [facility] THYROID STIMULATING HORMONE 2024-02-27 04:25:00 [facility] LIPID PANEL (72795)(TOTAL CHOLESTEROL, TRIGLYCERIDES, HDL) 2024-02-27 04:25:00 [facility] GLYCOSYLATED HEMOGLOBIN (A1C) 2024-02-27 04:25:00 [facility] LACTATE DEHYDROGENASE 2024-02-27 02:00:00 Jean-Pierre Fraser [facility] D-DIMER 2024-02-27 02:00:[address] [facility] [address] CHEST PULMONARY ANGIOGRAM 2024-02-26 13:23:20 JaniMock, [facility] XR CHEST 1 VW 2024-02-26 12:32:16 Anca [facility] HB ECG ROUTINE & RHYTHM STRIP 2024-02-26 12:19:30 JaniMock, [facility] SGOT (ASPARTATE AMINO TRANSFER) 2024-02-26 12:08:00 JaniMock, [facility] CREATININE 2024-02-26 12:08:00 [facility] ALANINE AMINO TRANSFERASE(SGPT 2024-02-26 12:08:00 [facility] LACTATE DEHYDROGENASE 2024-02-26 12:08:00 [facility]jon [facility] URIC ACID 2024-02-26 12:08:00 [facility] TROPONIN I 2024-02-26 12:08:00 [facility] CBC WITH DIFF 2024-02-26 12:08:00 Anca [facility] URINALYSIS 2024-02-26 12:08:00 Morejon-Mock , [facility] PROTEIN CREAT RATIO URINE RANDOM 2024-02-26 12:08:[address] [facility] [address] HEAD WO CONTRAST 2024-02-22 19:20:00 Oanh miller [facility] CT ABDOMEN PELVIS W CONTRAST 2024-02-21 14:28:12 Iza Powers [facility] BLOOD CULTURE SCREEN 2024-02-21 14:02:00 Iza Powers [facility] LIPASE 2024-02-21 14:02:00 Iza Powers [facility] MAGNESIUM 2024-02-21 14:02:00 Iza Powers [facility] COMP. METABOLIC PANEL (89039) 2024-02-21 14:02:00 Iza Powers [facility] CBC WITH DIFF 2024-02-21 14:02:00 Iza Powers [facility] LACTIC ACID WHOLE BLOOD 2024-02-21 14:01:00 Iza Powers [facility] CBC WITH DIFF 2024-02-10 09:34:00 [facility] 2024-02-09 08:59:00 Yi Neumann [facility] COMP. METABOLIC PANEL (59795) 2024-02-09 03:23:00 [facility] PROTEIN CREAT RATIO URINE RANDOM 2024-02-09 03:23[facility]00 [facility] CBC WITH DIFF 2024-02-09 00:52:00 [facility] HEPATITIS B SURFACE ANTIGEN 2024-02-09 00:52:00 [facility] HB ABO GROUPING 2024-02-09 00:52:00 [facility] RHO (D) IMMUNE GLOBULIN 2024-02-09 00:52:00 Lorie Zarate [facility] ADC OR LYNNETTE ONLY - RPR 2024-02-09 00:52:00 Joseline Agee [facility] HIV 1/2 AG-AB WITH REFLEX 2024-02-09 00:52:00 Jsoeline Agee [facility] CONSENT/REFUSAL FOR DIAGNOSIS AND TREATMENT 2024-02-07 19:06:19 Doctor Unassigned, [employer] [facility] ASSIGNMENT OF BENEFITS 2024-02-07 19:03:54 Docto r Unassigned, [employer] [facility] POCT URINALYSIS W/O SPECIFIC GRAVITY 2024-02-07 00:00:00 Anca [facility] DSU PRE-OP 2024-01-28 06:01:00 Doctor Unass igned, [employer] [facility] POCT URINALYSIS W/O SPECIFIC GRAVITY 2024-01-28 00:00:00 Anca [facility] DME/SUPPLY JUSTIFICATION 2024-01-13 06:01:00 Doc samir Unassigned, [employer] [facility] SECOND AND THIRD TRIMESTER ULTRASOUND 2024-01-06 15:56:00 Anca [facility] URINALYSIS 2024-01-01 08:10:00 Anca [facility] NOTICE OF PRIVACY PRACTICES 2024-01-01 07:07:51 Doctor Unassigned, [employer] [facility] CONSENT/REFUSAL FOR DIAGNOSIS AND TREATMENT 2024-01-01 07:07:09 Doctor Unassigned, [employer] [facility] POCT URINALYSIS W/O SPECIFIC GRAVITY 2023-12-24 00:00:00 Anca [facility] POCT URINALYSIS W/O SPECIFIC GRAVITY 2023-12-10 00:00:00 Anca [facility] DME/SUPPLY JUSTIFICATION 2023-11-30 06:01:00 Doc samir Unassigned, [employer] [facility] 3 HR GLUCOSE TOLERANCE TEST 2023-11-23 17:18:00 [facility] 2 HR GLUCOSE TOLERANCE TEST 2023-11-23 16:13:00 [facility] 1 HR GLUCOSE TOLERANCE TEST 2023-11-23 15:18:00 [facility] GLUCOSE FASTING 2023-11-23 14:13:00 [facility] 3 HR GLUCOSE TOLERANCE PANEL 2023-11-23 14:13:00 Jean-PierreNish [facility] TDAP VACCINE, >11 YRS, IM 2023-11-19 20:43:54 Ca jadonNish [facility] DME/SUPPLY JUSTIFICATION 2023-11-19 06:01:00 Doc tor Unassigned, [employer] [facility] POCT URINALYSIS W/O SPECIFIC GRAVITY 2023-11-19 00:00:00 [facility] POCT URINALYSIS W/O SPECIFIC GRAVITY 2023-10-22 00:00:00 [facility] SECOND AND THIRD TRIMESTER ULTRASOUND 2023-10-06 17:34:00 [facility] FLU VACC ([id number]), 6 MO-64 YRS, .5ML, IM, QUAD (FLUCELVAX) 2023-09-21 13:58:03 [facility] POCT URINALYSIS W/O SPECIFIC GRAVITY 2023-09-21 00:00:00 [facility] EXTERNAL PROVIDER RECORDS 2023-08-24 05:01:00 Do ctor Unassigned, [employer] [facility] POCT URINALYSIS W/O SPECIFIC GRAVITY 2023-08-23 00:00:00 [facility] SCANNED LAB RESULTS 2023-07-28 05:01:00 Doctor French stewart, [employer] [facility] CBC WITH DIFF 2023-07-02 15:16:00 Julisa Marchsol [facility] HEMOGLOBINOPATHY EVALUATION 2023-07-02 15:16:00 Julisa Marchsol [facility] US OB TRANSVAGINAL 2023-06-22 20:45:51 Marbella james Guillermina [facility] ASSIGNMENT OF BENEFITS 2023-06-22 19:18:15 Docto r Unassigned, [employer] [facility] POCT TEST 2023-06-22 00:00:00 Oanh miller Guillermina [facility] POCT URINALYSIS W/O SPECIFIC GRAVITY 2023-06-22 00:00:00 Anca Guillermina [facility] CT ABDOMEN PELVIS W CONTRAST 2022-09-26 00:12:30 Chey Mann [facility] POCT TEST 2022-09-25 23:22:00 Chey Mann [facility] LIPASE 2022-09-25 23:04:00 Chey Mnan [facility] COMP. METABOLIC PANEL ([id number]) 2022-09-25 23:04:00 Chey Mann [facility] CBC WITH DIFF 2022-09-25 23:04:00 Chey Mann [facility] URINALYSIS 2022-09-25 23:04:00 Chey Mann [facility] CONSENT/REFUSAL FOR DIAGNOSIS AND TREATMENT 2022-09-25 22:34:36 Doctor Unassigned, [employer] [facility] GARDASIL 9 (HPV 9V) VACCINE 2022-03-03 15:29:22 Conrad Shane [facility] Encounters Start Date/Time End Date/Time Encounter Type Admission Type Attending Clinicians Care Facility Care Department Encounter ID Source 2024-09-04 13:16:01 Outpatient Zakia Wright [facility] [id number] [facility] 2024-08-17 09:37:01 Outpatient Zakia Wright [facility] [id number] [facility] 2024-08-15 08:52:01 Outpatient Zakia Wright [facility] [id number] [facility] 2024-01-01 14:08:24 Outpatient X [facility] [id number] [facility] 2021-09-21 20:44:55 Emergency [facility] [id number] [facility] 2021-09-20 04:35:36 Emergency [facility] [id number] [facility] 2024-12-01 11:30:00 2024-12-01 11:30:[address] [facility] [id number] [facility] 2024-09-05 00:00:00 2024-09-05 00:00:00 (WELLNESS) Wellness Visit [facility] [id number] [facility] 2024-07-20 00:00:00 2024-08-26 18:24:36 Patient Secure Msg Doctor Unassigned, [employer] Doctor Unassigned, [employer] [facility] 1.2.840.114 350.1.13.10 4.2.7.2.686 [id number] 134 [id number] [facility] 2024-08-15 00:00:00 2024-08-15 00:00:00 OFFICE VISIT NEW PT LEVEL 4 [facility] [id number] [facility] 2024-07-20 14:00:00 2024-07-20 14:17:27 Outpatient R MOREJON-MARK S, GUILLERMINA MOREJON-MARK S, GUILLERMINA [facility] [id number] [facility] 2024-07-20 14:00:00 2024-07-20 14:17:27 Office Visit Morejon-Mark s, Guillermina [facility] 1.2.840.114 350.1.13.10 4.2.7.2.686 [id number] 134 [id number] [facility] 2024-07-18 00:00:00 2024-07-20 09:41:24 Telephone [facility] 1.2.840.114 350.1.13.10 4.2.7.2.686 [id number] 134 [id number] [facility] 2024-03-10 13:15:00 2024-03-10 13:38:58 Outpatient R MOREJON-MARK S, GUILLERMINA MOREJON-MARK S, GUILLERMINA [facility] [id number] [facility] 2024-03-10 13:15:00 2024-03-10 13:38:58 Routine Visit [facility]jon[facility]Mark [facility], [facility] 1.2.840.114 350.1.13.10 4.2.7.2.686 [id number] [facility] 2024-03-03 14:00:00 2024-03-03 14:20:58 Outpatient R MOREJON-MARK S, GUILLERMINA MOREJON-MARK S, GUILLERMINA [facility] [id number] [facility] 2024-03-03 14:00:00 2024-03-03 14:20:58 Nurse Visit Nurse, [facility] Morejon-Mark s, Guillermina [facility] 1.2.840.114 350.1.13.10 4.2.7.2.686 [id number] [facility] 2024-02-28 14:30:00 2024-02-28 14:30:00 Outpatient R [facility] [id number] [facility] 2024-02-26 06:17:00 2024-02-28 12:33:00 Inpatient X MOREJON-MARK S, GUILLERMINA MOREJON-MARK S, GUILLERMINA [facility] [id number] [facility] 2024-02-26 06:17:00 2024-02-28 12:33:00 Hospital Encounter Morejon-Mark s, Guillermina [facility] 1.2.840.114 350.1.13.10 4.2.7.2.686 [id number] [facility] 2024-02-24 00:00:00 2024-02-24 00:00:00 Telephone Julisa Vidalsol [facility] 1.2.840.114 350.1.13.10 4.2.7.2.686 [id number] 134 [id number] [facility] 2024-02-21 08:43:00 2024-02-22 18:35:00 Inpatient P MOREJON-MARK S, GUILLERMINA MOREJON-MARK S, GUILLERMINA [facility] [id number] [facility] 2024-02-21 08:43:00 2024-02-22 18:35:00 Hospital Encounter Iza Powers s, Guillermina [facility] 1.2.840.114 350.1.13.10 4.2.7.2.686 [id number] [facility] 2024-02-22 15:23:04 2024-02-22 15:23:04 Anesthesia Event Mark Anthony Mendoza [facility] 1.2.840.114 350.1.13.10 4.2.7.2.686 [id number] [facility] 2024-02-18 14:30:00 2024-02-18 14:30:00 Outpatient R [facility] [id number] [facility] 2024-02-14 14:00:00 2024-02-14 14:48:17 Outpatient R MOREJON-MARK S, GUILLERMINA MOREJON-MARK S, GUILLERMINA [facility] [id number] [facility] 2024-02-08 18:23:00 2024-02-11 09:55:00 Inpatient P MOREJON-MARK S, GUILLERMINA MOREJON-MARK S, GUILLERMINA [facility] [id number] [facility] 2024-02-08 18:23:00 2024-02-11 09:55:00 Hospital Encounter Med sJulisaGuillermina [facility] 1.2.840.114 350.1.13.10 4.2.7.2.686 [id number] [facility] 2024-02-09 03:50:00 2024-02-09 11:24:00 Anesthesia Event Elle Neumann Jeffrey S [facility] 1.2.840.114 350.1.13.10 4.2.7.2.686 [id number] [facility] 2024-02-07 13:00:00 2024-02-07 13:45:08 Outpatient R JEAN-PIERRE-MARK S, GUILLERMINA JEAN-PIERRE-MARK S, GUILLERMINA [facility] [id number] [facility] 2024-02-07 13:00:00 2024-02-07 13:45:08 Routine Visit Salas Vidall [facility] 1.2.840.114 350.1.13.10 4.2.7.2.686 [id number] [facility] 2024-01-28 11:15:00 2024-01-28 11:15:00 Weed Eradicator Visit 2, Adc Lab Nataleei sJulisaGuillermina [facility] 1.2.840.114 350.1.13.10 4.2.7.2.686 [id number] [facility] 2024-01-28 11:15:00 2024-01-28 08:46:16 Outpatient R MOREJON-MARK S, GUILLERMINA MOREJON-MARK S, GUILLERMINA [facility] [id number] [facility] 2024-01-28 08:00:00 2024-01-28 08:30:50 Routine Visit Guillermina Vidal [facility] 1.2840.114 350.1.13.10 4.2.7.2.686 [id number] [facility] 2024-01-28 00:00:00 2024-01-28 00:00:00 Orders Only Doctor Unassigned, [employer] [facility] 1.20.114 350.1.13.10 4.2.7.2.686 [id number] [facility] 2024-01-13 00:00:00 2024-01-13 00:00:00 Telephone Adum, Radha Ramirez [facility] 1.0.114 350.1.13.10 4.2.7.2.686 [id number] [facility] 2024-01-13 00:00:00 2024-01-13 00:00:00 Orders Only Doctor Unassigned, [employer] [facility] 1.20.114 350.1.13.10 4.2.7.2.686 [id number] [facility] 2024-01-07 16:15:00 2024-01-07 16:15:00 Outpatient R GUILLERMINA VIDAL MARISOL [facility] [id number] [facility] 2024-01-06 09:30:00 2024-01-06 09:41:16 Outpatient JARET HERNANDEZ SHANNON [facility] [id number] [facility] 2024-01-06 09:30:00 2024-01-06 09:41:16 Weed Eradicator Visit Ultrasound, Jaret Luis [facility] 1..114 350.1.13.10 4.2.7.2.686 [id number] [facility] 2024-01-01 01:18:00 2024-01-01 13:25:00 Outpatient X MOREJON-MARK S, GUILLERMINA MOREJON-MARK S, GUILLERMINA [facility] [id number] [facility] 2024-01-01 01:18:00 2024-01-01 13:25:00 Emergency Mark Anthony Bryan Morejon-Mark s, Guillermina [facility] 1.2.840.114 350.1.13.10 4.2.7.2.686 [id number] [facility] 2023-12-24 08:15:00 2023-12-24 08:28:19 Outpatient R MOREJON-MARK S, GUILLERMINA MOREJON-MARK S, GUILLERMINA [facility] [id number] [facility] 2023-12-24 08:15:00 2023-12-24 08:28:19 Routine Visit Morejon-Mark s, Guillermina [facility] 1.2.840.114 350.1.13.10 4.2.7.2.686 [id number] [facility] 2023-12-10 14:45:00 2023-12-10 15:11:21 Outpatient R MOREJON-MARK S, GUILLERMINA MOREJON-MARK S, GUILLERMINA [facility] [id number] [facility] 2023-12-10 14:45:00 2023-12-10 15:11:21 Routine Visit Morejon-Mark s, Guillermina [facility] 1.2.840.114 350.1.13.10 4.2.7.2.686 [id number] [facility] 2023-12-03 14:45:00 2023-12-03 14:45:00 Outpatient R MOREJON-MARK S, GUILLERMINA MOREJON-MARK S, GUILLERMINA [facility] [id number] [facility] 2023-11-30 00:00:00 2023-11-30 00:00:00 Orders Only Doctor Unassigned, [employer] [facility] 1.2.840.114 350.1.13.10 4.2.7.2.686 [id number] [facility] 2023-11-23 08:00:00 2023-11-23 11:24:50 Outpatient R MOREJON-MARK S, GUILLERMINA MOREJON-MARK S, GUILLERMINA [facility] [id number] [facility] 2023-11-23 08:00:00 2023-11-23 11:24:50 Weed Eradicator Visit 2, Adc Lab Jean-Pierre-Mark s, Guillermina [facility] 1.2.840.114 350.1.13.10 4.2.7.2.686 [id number] [facility] 2023-11-23 00:00:00 2023-11-23 00:00:00 Telephone Adum, Radha Ramirez [facility] 1.2.840.114 350.1.13.10 4.2.7.2.686 [id number] [facility] 2023-11-19 14:45:00 2023-11-19 14:50:30 Outpatient R MOREJON-MARK S, GUILLERMINA MOREJON-MARK S, GUILLERMINA [facility] [id number] [facility] 2023-11-19 14:45:00 2023-11-19 14:50:30 Routine Visit Nataleei s, Guillermina [facility] 1..840.114 350.1.13.10 4.2.7.2.686 [id number] [facility] 2023-11-19 00:00:00 2023-11-19 00:00:00 Orders Only Doctor Unassigned, [employer] [facility] 1.2.840.114 350.1.13.10 4.2.7.2.686 [id number] [facility] 2023-11-16 00:00:00 2023-11-16 00:00:00 Patient Secure Msg Doctor Unassigned, [employer] [facility] 1.2.840.114 350.1.13.10 4.2.7.2.686 [id number] [facility] 2023-11-12 10:45:00 2023-11-12 11:30:49 Outpatient R MOREJON-MARK S, GUILLERMINA MOREJON-MARK S, GUILLERMINA [facility] [id number] [facility] 2023-11-12 10:45:00 2023-11-12 11:00:00 Weed Eradicator Visit 2, Adc Lab Morejon-Mark s, Guillermina [facility] 1.2.840.114 350.1.13.10 4.2.7.2.686 [id number] [facility] 2023-11-08 00:00:00 2023-11-08 00:00:00 Telephone Morejon-Mark s Guillermina [facility] 1.2.840.114 350.1.13.10 4.2.7.2.686 [id number] [facility] 2023-11-05 00:00:00 2023-11-05 00:00:00 Telephone Morejon-Mark s Guillermina [facility] 1.2.840.114 350.1.13.10 4.2.7.2.686 [id number] [facility] 2023-10-22 13:15:00 2023-10-22 13:25:58 Outpatient R MOREJON-MARK S, GUILLERMINA MOREJON-MARK S, GUILLERMINA [facility] [id number] [facility] 2023-10-22 13:15:00 2023-10-22 13:25:58 Routine Visit Med sJulisaGuillermina [facility] 1.2.840.114 350.1.13.10 4.2.7.2.686 [id number] [facility] 2023-10-06 11:00:00 2023-10-06 16:06:13 Outpatient P MIKHAILALEXSANDRA [facility] [id number] [facility] 2023-10-06 11:00:00 2023-10-06 16:06:13 Weed Eradicator Visit Ultrasound, Santos ElizondoAlexsandra Michael [facility] [employer] [facility] 1..840.114 350.1.13.10 4.2.7.2.686 [id number] [facility] 2023-09-21 09:00:00 2023-09-21 09:10:17 Outpatient R MOREJON-MARK S, GUILLERMINA MOREJON-MARK S, GUILLERMINA [facility] [id number] [facility] 2023-09-21 09:00:00 2023-09-21 09:10:17 Routine Visit Salas V[place]all [facility] 1.2.840.114 350.1.13.10 4.2.7.2.686 [id number] [facility] 2023-09-20 16:00:00 2023-09-20 16:00:00 Outpatient R MOREJON-MARK S, GUILLERMINA MOREJON-MARK S, GUILLERMINA [facility] [id number] [facility] 2023-08-24 00:00:00 2023-08-24 00:00:00 Orders Only Doctor Unassigned, [employer] [facility] 1.2.840.114 350.1.13.10 4.2.7.2.686 [id number] [facility] 2023-08-23 12:45:00 2023-08-23 13:00:00 Weed Eradicator Visit Pob, Ad[facility] Main Mroejon-Mark s, Guillermina [facility] 1.2.840.114 350.1.13.10 4.2.7.2.686 [id number] [facility] 2023-08-23 11:45:00 2023-08-23 12:10:27 Outpatient R MOREJON-MARK S, GUILLERMINA MOREJON-MARK S, GUILLERMINA [facility] [id number] [facility] 2023-08-23 11:45:00 2023-08-23 12:10:27 Routine Visit Jean-Pierre-Mark s, Guillermina [facility] 1.2.840.114 350.1.13.10 4.2.7.2.686 [id number] 134 [id number] [facility] 2023-08-05 00:00:00 2023-08-05 00:00:00 [facility] 1.2.840.114 350.1.13.10 4.2.7.2.686 [id number] [facility] 2023-08-02 00:00:00 2023-08-02 00:00:00 Telephone Morejon-Mark s, Guillermina [facility] BUILDING 1.2.840.114 350.1.13.10 4.2.7.2.686 [id number] 134 [id number] [facility] 2023-07-30 00:00:00 2023-07-30 00:00:00 Case Management Morejon-Mark s, Guillermina [facility] BUILDING 1.2.840.114 350.1.13.10 4.2.7.2.686 [id number] 134 [id number] [facility] 2023-07-28 11:15:00 2023-07-28 11:30:00 Weed Eradicator Visit 2, Adc Lab Morejon-Mark s, Guillermina [facility] BUILDING 1.2.840.114 350.1.13.10 4.2.7.2.686 [id number] [facility] 2023-07-28 11:15:00 2023-07-28 11:15:00 Outpatient R MOREJON-MARK S, GUILLERMINA MOREJON-MARK S, GUILLERMINA [facility] [id number] [facility] 2023-07-28 00:00:00 2023-07-28 00:00:00 Orders Only Doctor Unassigned, [employer] [facility] 1.2.840.114 350.1.13.10 4.2.7.2.686 [id number] 009 [id number] [facility] 2023-07-27 16:15:00 2023-07-27 16:51:43 Outpatient R MOREJON-MARK S, GUILLERMINA MOREJON-MARK S, GUILLERMINA [facility] [id number] [facility] 2023-07-27 16:15:00 2023-07-27 16:51:43 Routine Visit Morejon-Mark s Guillermina [facility] 1.2.840.114 350.1.13.10 4.2.7.2.686 [id number] 134 [id number] [facility] 2023-07-20 15:30:00 2023-07-20 15:30:00 Outpatient R MOREJON-MARK S, GUILLERMINA MOREJON-MARK S, GUILLERMINA [facility] [id number] [facility] 2023-07-12 00:00:00 2023-07-12 00:00:00 Patient Secure Msg Doctor Unassigned, [employer] [facility] 1.2.840.114 350.1.13.10 4.2.7.2.686 [id number] 134 [id number] [facility] 2023-07-08 00:00:00 2023-07-08 00:00:00 Telephone JaniMark s, Guillermina [facility] 1.2.840.114 350.1.13.10 4.2.7.2.686 [id number] [facility] 2023-07-02 09:45:00 2023-07-02 10:55:14 Outpatient R MOREJON-MARK S, GUILLERMINA MOREJON-MARK S, GUILLERMINA [facility] [id number] [facility] 2023-07-02 09:45:00 2023-07-02 10:55:14 Weed Eradicator Visit 2, Adc Lab Morejon-Mark s, Guillermina [facility] 1.2.840.114 350.1.13.10 4.2.7.2.686 [id number] [facility] 2023-06-29 00:00:00 2023-06-29 00:00:00 Case Management Morejon-Mark s, Guillermina [facility] 1.2.840.114 350.1.13.10 4.2.7.2.686 [id number] 134 [id number] [facility] 2023-06-28 15:15:00 2023-06-28 15:30:00 Weed Eradicator Visit Pob, Adc Lab Main Morejon-Mark s, [facility] 1.2.840.114 350.1.13.10 4.2.7.2.686 [id number] [facility] 2023-06-28 15:15:00 2023-06-28 15:15:00 Outpatient R JEAN-PIERRE-MARK S, GUILLERMINA JEAN-PIERRE-MARK S, GUILLERMINA [facility] [id number] [facility] 2023-06-23 00:00:00 2023-06-23 00:00:00 [facility] 1.2.840.114 350.1.13.10 4.2.7.2.686 [id number] 134 [id number] [facility] 2023-06-22 14:00:00 2023-06-22 15:46:22 Outpatient R MED Oseguera, GUILLERMINA JEAN-PIERRE-MARK S, GUILLERMINA [facility] [id number] [facility] 2023-06-22 14:00:00 2023-06-22 15:46:22 [facility] 1.2.840.114 350.1.13.10 4.2.7.2.686 [id number] 134 [id number] [facility] 2023-06-22 00:00:00 2023-06-22 00:00:00 Orders Only Doctor Unassigned, [employer] [facility] 1.2.840.114 350.1.13.10 4.2.7.2.686 [id number] [id number] [facility] 2022-09-25 17:43:00 2022-09-25 21:11:00 Emergency X CHEY MANN [facility] ERT [id number] [facility] 2022-09-25 17:43:00 2022-09-25 21:11:00 Emergency [facility] 1.2.840.114 350.1.13.10 4.2.7.2.686 [id number] [facility] 2022-08-10 10:00:00 2022-08-10 10:00:00 Outpatient R KYARA CHAIDEZ [facility] [id number] [facility] 2022-05-01 10:15:00 2022-05-01 10:15:00 Outpatient R MADHURI DE LA GARZA [facility] [id number] [facility] 2022-04-29 13:45:00 2022-04-29 13:45:00 Outpatient R MADHURI DE LA GARZA [facility] [id number] [facility] 2022-03-03 10:30:00 2022-03-03 10:34:48 Outpatient R CONRAD SHANE [facility] [id number] [facility] 2022-03-03 10:30:00 2022-03-03 10:34:48 Nurse Visit Visit, Joe-Rmchp Nurse Conrad Shane [facility] ..840.114 350.1.13.10 4.2.7.2.686 [id number] [facility] 2022-03-03 10:30:00 2022-03-03 10:30:00 Outpatient R CONRAD SHANE [facility] [id number] [facility] 2022-02-02 00:00:00 2022-02-02 00:00:00 Telephone Conrad Shane [facility] ..840.114 350.1.13.10 4.2.7.2.686 [id number] [facility] 2022-01-30 09:30:00 2022-01-30 11:20:03 Outpatient R CONRAD SHANE [facility] [id number] [facility] 2022-01-30 09:30:00 2022-01-30 11:20:03 Office Visit Conrad Shane [facility] ..840.114 350.1.13.10 4.2.7.2.686 [id number] [facility] 2022-01-30 00:00:00 2022-01-30 00:00:00 Orders Only Doctor Unassigned, [employer] [facility] 1.2.840.114 350.1.13.10 4.2.7.2.686 [id number] [id number] [facility] 2021-12-26 00:00:00 2021-12-26 00:00:00 Orders Only Doctor Unassigned, [employer] [facility] 1.2.840.114 350.1.13.10 4.2.7.2.686 [id number] [id number] [facility] 2021-06-02 00:00:00 2021-06-02 00:00:00 Letter (Out) [place] [facility] 1.2.840.114 350.1.13.10 4.2.7.2.686 [id number] 043 [id number] [facility] 2021-04-24 00:00:00 2021-04-24 00:00:00 Orders Only Doctor Unassigned, [employer] [facility] 1.2.840.114 350.1.13.10 4.2.7.2.686 [id number] [id number] [facility] 2021-04-13 17:14:00 2021-04-13 18:44:00 Emergency [facility] 1.2.840.114 350.1.13.10 4.2.7.2.686 [id number] [id number] [facility] 2020-10-01 19:11:00 2020-10-01 22:10:00 Emergency [facility] 1.2.840.114 350.1.13.10 4.2.7.2.686 [id number] [id number] [facility] 2020-10-01 19:11:00 2020-10-01 22:10:00 Emergency [facility] 1.2.840.114 350.1.13.10 4.2.7.2.686 [id number] [id number] Results Test Description Test Time Test Comments Results Result Co mments Source POCT [id number] 19:04:00* Test Item Value Reference Range Interpretation Comme nts POCT PREG (test code = 1605) Negative On board controls acceptable with C Line (test code = 3574) Yes POCT PREG LOT # (test code = 3575) POCT PREG TEST DATE ( test code = 3576) [facility]2024-[facility]-27 14:37:10* Test Item Value Reference Range Interpretation Comme nts Height (test code = 2259688015) 64 in Weight (test code = 7213794832) 225 lbs Systolic BP (test code = 2999468239) 129 mmHg Diastolic BP (test code = 1175626141) 89 mmHg Heart Rate (test code = 3726798660) 80 bpm BSA (test code = 2815887624) 2.06 m2 Ao root diam (test code = 6903905698) 2.48 cm Aortic root (test code = 3379968766) 2.48 cm Ao root annulus (test code = 3615846394) 2.48 cm LVOT diameter (test code = 7930062432) 2.05 cm LVOT area (test code = 5350061890) 3.30 cm2 LA size (test code = 9934016836) 3.6 cm LVIDD (test code = 0628911513) 4.80 cm Left Ventricular End Diastolic Volume by Teichholz Method (test code = 5439374) 109.8 mL IVS (test code = 8000798970) 1.24 cm Interventricular Septum Diastolic Thickness by 2D (test code = 1188671) 1.24 cm LVPWD (test code = 3631042770) 1.27 cm PW (test code = 2883381185) 1.27 cm 0.6-1.1 EF(Teich) (test code = 4896638890) 66.20 % LVIDS (test code = 5235597019) 3.10 cm Left Ventricular End Systolic Volume by Teichholz Method (test code = 1702475) 37.0 mL FS (test code = 3908519666) 37 % EF - 2D (test code = 64123221) 66.20 % TR Peak Dariana (test code = 5592251875) 194.9 cm/s Triscuspid Valve Regurgitation Peak Gradient (test code = 9602475263) 15.3 mmHg Pulmonic Regurgitant End Max Velocity (test code = 4214523371) 132.3 cm/s LAV(MOD-sp4) (test code = 4492878887) 40.50 mL E wave decelartion time (test code = 7446248602) 0.19 s MV stenosis pressure 1/2 time (test code = 2076529115) 57.6 ms MV Peak A Dariana (test code = 0378807644) 62.4 cm/s MV Peak E Dariana (test code = 0923483381) 70.2 cm/s E/A ratio (test code = 7430078208) 1.13 ratio MV Prop V (test code = 1538825963) 50.20 cm/s MV E/e' septal (test code = 0590801144) 10.9 cm/s Tapse (test code = 9073843506) 1.65 cm LVOT stroke volume (test code = 7274604737) 55.90 cm3 LVOT peak dariana (test code = 5242219369) 101.7 cm/s LVOT mn grad (test code = 6807383582) 2.1 mmHg AV LVOT peak gradient (test code = 6865473329) 4.1 mmHg LVOT peak VTI (test code = 7664731031) 16.9 cm LV V1 mean (test code = 7440377396) 67.80 cm/s Aortic valve mean velocity (test code = 2603531866) 92.9 cm/s Ao peak dariana (test code = 5419135100) 129.9 cm/s Ao VTI (test code = 3466730267) 24.2 cm AV area by cont VTI (test code = 9951622410) 2.3 cm2 AV area peak dariana (test code = 3688022967) 2.6 cm2 Ao max PG (test code = 1109710059) 6.80 mm[Hg] AV peak gradient (test code = 8248446162) 6.8 mmHg AV valve area (test code = 8705482447) 2.31 cm2 AV mean gradient (test code = 3232097083) 3.7 mmHg Radiology Study observation (narrative) (test code = 81057-4) SANDRA (test code = SANDRA) ?Left?Ventricle: Left ventricle size is normal. Normal wall thickness. Normal wall motion. Normal systolic function with a visually estimated EF of 55 - 60%. Indeterminate diastolic function. ?Right?Ventricle: Right ventricle size is normal. Normal systolic function. ?Tricuspid?Valve: Insufficient tricuspid regurgitation jet to estimate RVSP . ?RA pressure is 0-5 mmHg. ?Pericardium: Trivial pericardial effusion present. Left VentricleLeft ventricle size is normal. Normal wall thickness. Normal wall motion. Normal systolic function with a visually estimated EF of 55 - 60%. Indeterminate diastolic function.Right VentricleRight ventricle size is normal. Normal systolic function.Left AtriumLeft atrium size is normal.Right AtriumRight atrium size is normal.IVC/SVCIVC diameter is less than or equal to 21 mm and decreases greater than 50% during inspiration; therefore the estimated right atrial pressure is normal (~0-5 mmHg).Mitral ValveMitral valve structure is normal. Trace transvalvular regurgitation.Tricusp id ValveTricuspid valve structure is normal. Trace transvalvular regurgitation. Insufficient tricuspid regurgitation jet to estimate RVSP . RA pressure is 0-5 mmHg.Aortic ValveTricuspid.Pulmon ic ValveValve structure is normal. Trace transvalvular regurgitation.Ascendi ng AortaNormal sized aorta.PericardiumTriv ial pericardial effusion present.Study DetailsStudy quality was adequate. A complete echocardiogram was performed using 2D, color flow Doppler and spectral Doppler. [facility] HospitalGlycosylated Hemoglobin (A1C)2024-02-27 08:42:23* Test Item Value Reference Range Interpretation Comme nts HGB A1C (test code = 4548-4) 5.4 % 4.0-5.7 SANDRA (test code = SANDRA) Reference RangesNormal: <5.7%Prediabetes: 5.7 - 6.4%Diabetes: > 6.5% Lab Interpretation (test code = 02353-4) Normal [facility] HospitalCT CHEST PULMONARY [id number] 14:27:33INDICATION: ?PE suspected, high pretest prob ORDERING PROVIDER: ?GUILLERMINA MOREJON-MOCK TECHNIQUE: ?Helical CT imaging was performed through the chest followingthe infusion of intravenous contrast according to pulmonary embolusprotocol. ?Maximum intensity projection images were created and reviewed. CT was performed in accordance with the principles of ALARA. RL: ?5944 AFC: 61546 COMPARISON: ?Chestradiograph 02/26/2024 FINDINGS: ?No pulmonary arterial filling defect is identified to suggestpulmonary embolus. While the examination has not been optimized for evaluation of the thoracicaorta, and the thoracic aorta is suboptimally opacified, no convincingaortic dissection is noted within the studylimitations. No pericardialeffusion is identified. No mediastinal or hilar lymphadenopathy isdemonstrated. No pulmonary consolidation, pleural effusion, or pneumothorax isdemonstrated. Slight reticular and groundglass density noted within theposterior aspect of the left upper lobe. This could reflect atelectasis. Amild infectious process is not excluded. No acute osseous abnormality demonstrated.[facility] HospitalXR CHEST 1 VW 2024-02-26 14:22:59INDICATION: ?rule out fluid overload ORDERING PROVIDER: ?GUILLERMINA MOREJON-MOCK TECHNIQUE: ?Frontal view of the chest. RL: ?5944 AFC: 29022 COMPARISON: ?none available FINDINGS: ?The cardiac silhouetteand pulmonary vasculature are withinnormal limits. No substantial pulmonary consolidation, pleural effusion, orpneumothorax is demonstrated. No acute osseous abnormality is identified.[facility] HospitalTroponin [id number] 12:50:51* Test Item Value Reference Range Interpretation Comme nts TROPONIN I (test code = 3803856345) 0.004 ng/mL <=0.034 SANDRA (test code = SANDRA) Reference (Normal) Range (defined by the 99th percentile reference limit): <= 0.034 ng/mL Note: Cardiac troponin begins to rise 3-4 hours after the onset of ischemia. Repeat in 4-6 hours if the sample was drawn within 3-4 hours of the onset of the symptom and found normal. Diagnosis of myocardial injury is made with acute changes in cTn concentrations with at least one serial sample above the 99th percentile upper reference limit (URL), taken together with the patient's clinical presentation. Biotin has been reported to cause a negative bias, interpret results relative to patient's use of biotin. Lab Interpretation (test code = 38318-5) Normal [facility] HospitalUric Acid Oslke2814-84-90 12:38:29* Test Item Value Reference Range Interpretation Comme [facility] URIC ACID (test code = 1557800806) 6.4 mg/dL 2.9-6.0 H Lab Interpretation (test cod e = 53760-9) Abnormal [facility] HospitalSGOT (Asparate Amino Transfer)2024-02-26 12:38:29* Test Item Value Reference Range Interpretation Comme [facility] AST(SGOT) (test code = 8695018699) 33 U/L 13-40 Lab Interpretation (test cod e = 13843-0) Normal [facility] HospitalAlanine Amino Transferase (SGPT)2024-02-26 12:38:29* Test Item Value Reference Range Interpretation Comme [facility] ALTv (test code = 1742-6) 23 U/L 5-35 Lab Interpretation (test cod e = 10632-7) Normal [facility] HospitalSerum Ijzcvdiabw7279-24-27 12:38:09* Test Item Value Reference Range Interpretation Comme [facility] CREATININE (test code = 2160-0) 0.73 mg/dL 0.50-1.04 eGFR (test code = 40948-7) 121.7 mL/min/1.73m2 CKD-EPI eGFR (20 21). Assuming creatinine has been stable day-to-day for at least three months, the eGFR indicates Category G1 (>= 90 mL/min/1.73 m2) [facility] HospitalLactate Yunrzpucflxvg0669-13-94 12:37:49* Test Item Value Reference Range Interpretation Comme nts LDH (test code = 8480335973) 327 U/L 120-246 H Slight hemolysis Lab Interpretation (test code = 43265-3) Abnormal [facility] HospitalCBC with Capcajhmboyv0591-25-52 12:27:27* Test Item Value Reference Range Interpretation Comme [facility] WBC (test code = 6690-2) 7.38 4.30-11.10 RBC (test code = 789-8) 4.92 3.93-5.25 HGB (test code = 718-7) 11.4 g/dL 11.6-15.0 L HCT (test code = 4544-3) 36.1 % 35.7-45.2 MCV (test code = 787-2) 73.4 fL 80.6-95.5 L MCH (test code = 785-6) 23.2 pg 25.9-32.8 L MCHC (test code = 786-4) 31.6 g/dL 31.6-35.1 RDW-SD (test code = 69250-6) 46.1 fL 39.0-49.9 RDW-CV (test code = 788-0) 17.5 % 12.0-15.5 H PLT (test code = 777-3) 396 166-358 H MPV (test code = 94355-6) 10.7 fL 9.5-12.9 NRBC/100 WBC (test code = 8685520602) 0.0 0.0-10.0 NRBC x10^3 (test code = 3274402576) See_Comment [Automated messa ge] The system which generated this result transmitted reference range: 10*3/?L. The reference range was not used to interpret this result as normal/abnormal. GRAN MAT (NEUT) % (test code = 770-8) 54.3 % IMM GRAN % (test code = 1486545772) 0.30 % LYMPH % (test code = 736-9) 32.4 % MONO % (test code = 5905-5) 7.2 % EOS % (test code = 713-8) 4.3 % BASO % (test code = 706-2) 1.5 % GRAN MAT x10^3(ANC) (test code = 9289714472) 4.01 10*3/uL 1.88-7.09 IMM GRAN x10^3 (test code = 1256117519) 0.00-0.06 LYMPH x10^3 (test code = 731-0) 2.39 10*3/uL 1.32-3.29 MONO x10^3 (test code = 742-7) 0.53 10*3/uL 0.33-0.92 EOS x10^3 (test code = 711-2) 0.32 10*3/uL 0.03-0.39 BASO x10^3 (test code = 704-7) 0.11 10*3/uL 0.01-0.07 H Lab Interpretation (test code = 91517-7) Abnormal [facility] HospitalCT HEAD WO [id number] 19:24:39CT HEAD WO CONTRAST HISTORY: Female 18 years Headache, chronic, new features or increasedfrequency COMPARISON: None TECHNIQUE: Routine CT head without contrast FINDINGS: The ventricles and cerebral sulci are normal in caliber and configuration.No hydrocephalus, midline shift or pathological extra-axial fluidcollection is present. The basal cisterns are unremarkable. No acute intracranial hemorrhage or mass effect is present. The stearns-whitematter differentiation is preserved. No significant parenchymal attenuationabnormality is present. The mastoid air cells and paranasal air sinuses are clear. The calvariumand skull base are unremarkable.[facility] HospitalCT ABDOMEN PELVIS W QCMXZSAR1486-88-17 17:37:46EXAM: CT ABDOMEN PELVIS W CONTRAST HISTORY: 18 years-old Female; 2 weeks with acute onset ofabdominal pain and multiple episodes of vomiting. TECHNIQUE: Contiguous axial imaging from the level of the lung basesthrough the proximal thighs was performed with intravenous contrast.Coronal and sagittal reconstructions were obtained. COMPARISON: CT abdomen pelvis dated 09/25/2022 FINDINGS: LOWER THORAX: The lung bases are clear. LIVER: The liver is normal in size and contour. Mild periportal edema isnoted. No focal hepatic lesions. GALLBLADDER AND BILIARY TREE: The gallbladder is distended, withoutradiopaque gallstones or gallbladder wall thickening. Trace pericholecysticfluid is noted.The common bile duct diameter is at the upper limits ofnormal. ? SPLEEN: The spleen appears unremarkable. PANCREAS: No ductal dilation or masses are visualized. ADRENAL GLANDS: No adrenal masses are seen. KIDNEYS: No hydronephrosis, stones, or suspicious masses are visualized. PELVIS/BLADDER: Heterogeneously enhancing enlarged uterus, compatible withpostpartum changes. The bladder partially decompressed. GI TRACT: No dilation or bowel wall thickening is seen. The appendixappears unremarkable. PERITONEUM AND RETROPERITONEUM: No intra-abdominal free air or fluidcollection is visualized. LYMPH NODES: Multiple mesenteric lymph nodes measuring up to 10 mm alongthe ileocolic chain, nonspecific and can be seen in young populationwithout clinical significance. VESSELS: The vessels appear unremarkable. BONES AND SOFT TISSUES: No suspicious lytic or sclerotic bony lesions arepresent. Rectus sheath diastasis is noted.[facility] HospitalMagnesium2024-04-01 15:17:45* Test Item Value Reference Range Interpretation Comme nts MAGNESIUM (test code = 9598494783) 1.6 mg/dL 1.7-2.4 L Lab Interpretation (test cod e = 48062-6) Abnormal [facility] HospitalComp. Metabolic Panel (12467)2024-02-21 15:17:04* Test Item Value Reference Range Interpretation Comme nts NA (test code = 4917026646) 140 mmol/L 135-145 K (test code = 7889842978) 3.6 mmol/L 3.5-5.0 CL (test code = 9470384432) 103 mmol/L 98-108 CO2 TOTAL (test code = 3747476614) 30 mmol/L 23-31 AGAP (test code = 8103052202) 7 2-16 BUN (test code = 7840345559) 10 mg/dL 7-23 GLUCOSE (test code = 7710234876) 110 mg/dL 70-110 CREATININE (test code = 2160-0) 1.03 mg/dL 0.50-1.04 TOTAL BILI (test code = 9544350697) 0.5 mg/dL 0.1-1.1 CALCIUM (test code = 0357956953) 8.8 mg/dL 8.6-10.6 T PROTEIN (test code = 5739187796) 7.3 g/dL 6.3-8.2 ALBUMIN (test code = 6935871386) 3.4 g/dL 3.5-5.0 L ALK PHOS (test code = 6702082403) 85 U/L 34-122 ALTv (test code = 1742-6) 22 U/L 5-35 AST(SGOT) (test code = 0666313028) 33 U/L 13-40 eGFR (test code = 38239-0) 80.5 mL/min/1.73m2 CKD-EPI eGFR (2020). Assuming creatinine has been stable day-to-day for at least three months, the eGFR indicates Category G2 (60 - 89 mL/min/1.73 m2) Lab Interpretation (test code = 22018-3) Abnormal [facility] HospitalLipase2024-04-01 15:17:04* Test Item Value Reference Range Interpretation Comme nts LIPASE (test code = 7835932806) 85 U/L 0-220 Lab Interpretation (test cod e = 70602-7) Normal [facility] with Tbvn5889-15-35 14:59:24* Test Item Value Reference Range Interpretation Comme nts WBC (test code = 6690-2) 7.37 4.30-11.10 RBC (test code = 789-8) 5.08 3.93-5.25 HGB (test code = 718-7) 11.6 g/dL 11.6-15.0 HCT (test code = 4544-3) 37.3 % 35.7-45.2 MCV (test code = 787-2) 73.4 fL 80.6-95.5 L MCH (test code = 785-6) 22.8 pg 25.9-32.8 L MCHC (test code = 786-4) 31.1 g/dL 31.6-35.1 L RDW-SD (test code = 67806-6) 45.7 fL 39.0-49.9 RDW-CV (test code = 788-0) 17.4 % 12.0-15.5 H PLT (test code = 777-3) 422 166-358 H MPV (test code = 91572-7) 10.7 fL 9.5-12.9 NRBC/100 WBC (test code = 0488808522) 0.0 0.0-10.0 NRBC x10^3 (test code = 9302140637) See_Comment [Automated messa ge] The system which generated this result transmitted reference range: 10*3/?L. The reference range was not used to interpret this result as normal/abnormal. GRAN MAT (NEUT) % (test code = 770-8) 41.6 % IMM GRAN % (test code = 2437785024) 0.30 % LYMPH % (test code = 736-9) 45.5 % MONO % (test code = 5905-5) 8.5 % EOS % (test code = 713-8) 2.7 % BASO % (test code = 706-2) 1.4 % GRAN MAT x10^3(ANC) (test code = 9819210545) 3.07 10*3/uL 1.88-7.09 IMM GRAN x10^3 (test code = 5313092862) 0.00-0.06 LYMPH x10^3 (test code = 731-0) 3.35 10*3/uL 1.32-3.29 H MONO x10^3 (test code = 742-7) 0.63 10*3/uL 0.33-0.92 EOS x10^3 (test code = 711-2) 0.20 10*3/uL 0.03-0.39 BASO x10^3 (test code = 704-7) 0.10 10*3/uL 0.01-0.07 H Lab Interpretation (test code = 69608-3) [id number] 14:08:25* Test Item Value Reference Range Interpretation Comme nts LACTIC ACID (test code = 6828963459) 1.89 mmol/L 0.50-2.20 Lab Interpretation (test cod e = 11280-5) [facility] [id number] 11:44:08* Test Item Value Reference Range Interpretation Comme nts WBC (test code = 6690-2) 17.41 4.30-11.10 H RBC (test code = 789-8) 4.27 3.93-5.25 HGB (test code = 718-7) 10.0 g/dL 11.6-15.0 L HCT (test code = 4544-3) 31.2 % 35.7-45.2 L MCV (test code = 787-2) 73.1 fL 80.6-95.5 L MCH (test code = 785-6) 23.4 pg 25.9-32.8 L MCHC (test code = 786-4) 32.1 g/dL 31.6-35.1 RDW-SD (test code = 13471-7) 45.3 fL 39.0-49.9 RDW-CV (test code = 788-0) 17.3 % 12.0-15.5 H PLT (test code = 777-3) 312 166-358 MPV (test code = 61639-3) 10.5 fL 9.5-12.9 NRBC/100 WBC (test code = 2402935832) 0.0 0.0-10.0 NRBC x10^3 (test code = 5703293182) See_Comment [Automated message] The system which generated this result transmitted reference range: 10*3/?L. The reference range was not used to interpret this result as normal/abnormal. GRAN MAT (NEUT) % (test code = 770-8) 72.6 % IMM GRAN % (test code = 7885277882) 1.00 % LYMPH % (test code = 736-9) 17.7 % MONO % (test code = 5905-5) 7.5 % EOS % (test code = 713-8) 0.7 % BASO % (test code = 706-2) 0.5 % GRAN MAT x10^3(ANC) (test code = 6720824270) 12.65 10*3/uL 1.88-7.09 H IMM GRAN x10^3 (test code = 4044514429) 0.17 10*3/uL 0.00-0.06 H LYMPH x10^3 (test code = 731-0) 3.09 10*3/uL 1.32-3.29 MONO x10^3 (test code = 742-7) 1.30 10*3/uL 0.33-0.92 H EOS x10^3 (test code = 711-2) 0.12 10*3/uL 0.03-0.39 BASO x10^3 (test code = 704-7) 0.08 10*3/uL 0.01-0.07 H Lab Interpretation (test code = 44356-2) [facility] IMMUNE [id number] 15:35:13* Test Item Value Reference Range Interpretation Comme nts RHIG CANDIDATE? (test code = 5188) No- see comment Patient is not a candidate for RhIg- Patient is Rh Positive.Performed at [facility] Laboratory Services - [facility] Blood [address] [place] [id number] Free: [phone] No. [id number] [facility] [id number] 08:59:00 Elle Neumann MD ? ? 02/09/2024 ?3:59 AM Central Neuraxial Block Date/Time: 02/09/2024 3:59 AM Performed by: Elle Neumann, MDAuthorized by: Elle Neumann MD ?End Time: 02/09/2024 3:59 AMReason for Block: OB request, Patient request, Labor analgesia, Surgical anesthesia and Post-op pain managementStaff: ?Anesthesiologist: Elle Neumann MD ?Performed by: anesthesiologistPreanesthetic Checklist: patient identified, IV checked, risks and benefits explained, monitors and equipment checked, timeout performed, pre- op evaluation, site marked, anesthesia consent, ob/surgical consent approval, ob/surgical consent verified and surgical consentProcedure: ?Type of Neuraxial: Epidural ?Prep: Betadine and patient draped ? ?Monitoring: heart rate, continuous pulse ox, heart rate / toco and NIBP ? ?Technique: JEWEL air and catheter ?Guidance with: landmark technique}Epidural/Spinal [place] and/or Catheter: ?Epidural/Spinal Kit: Arrow ?Needle Type: Tuohy ?Needle Gauge: 17 G ?Needle Insertion Depth: 8 ?Catheter Type: side hole ? ?Catheter at Skin Depth: 12 ?Number of Attempts:1 ? ?Dose: 3 cc ? ?Catheter Securement Method: surgical tape and TegadermAssessment: ?Procedure Assessment: patient tolerated procedure well with no complicationsNotes: ? Smooth and atraumatic, (+) Local, (+) [facility] Urinalysis w/o Specific [id number] 18:31:00* Test Item Value Reference Range Interpretation Comme nts POCT PH U (test code = 3254) n/a 5-8 POCT U LEUK EST (test code = 3263) n/a Negative - Negative POCT U NIT (test code = 3262) n/a Negative - Negati ve POCT U PROT (test code = 3259) Negative Negative - Negat igor POCT U GLU (test code = 3256) Negative Negative - Negati ve POCT U KETONE (test code = 3258) n/a Negative - Neg ative POCT U BLD (test code = 3257) n/a Negative - Negati ve [facility] Urinalysis w/o Specific [id number] 14:07:00* Test Item Value Reference Range Interpretation Comme nts POCT PH U (test code = 3254) n/a 5-8 POCT U LEUK EST (test code = 3263) n/a Negative - Negative POCT U NIT (test code = 3262) n/a Negative - Negati ve POCT U PROT (test code = 3259) Negative Negative - Negat igor POCT U GLU (test code = 3256) Normal Negative - Negati ve POCT U KETONE (test code = 3258) n/a Negative - Neg ative POCT U BLD (test code = 3257) n/a Negative - Negati ve [facility] Urinalysis w/o Specific [id number] 14:06:00* Test Item Value Reference Range Interpretation Comme nts POCT PH U (test code = 3254) 5 mg/dl 5-8 POCT U LEUK EST (test code = 3263) trace Negative - Negative POCT U NIT (test code = 3262) neg Negative - Negati ve POCT U PROT (test code = 3259) neg Negative - Negat igor POCT U GLU (test code = 3256) neg Negative - Negati ve POCT U KETONE (test code = 3258) neg Negative - Neg ative POCT U BLD (test code = 3257) neg Negative - Negati ve [facility] Urinalysis w/o Specific [id number] 20:58:00* Test Item Value Reference Range Interpretation Comme nts POCT PH U (test code = 3254) N/A 5-8 POCT U LEUK EST (test code = 3263) N/A Negative - Negative POCT U NIT (test code = 3262) N/A Negative - Negati ve POCT U PROT (test code = 3259) Negative Negative - Negat igor POCT U GLU (test code = 3256) Negative Negative - Negati ve POCT U KETONE (test code = 3258) N/A Negative - Neg ative POCT U BLD (test code = 3257) N/A Negative - Negati ve [facility] Urinalysis w/o Specific [id number] 20:58:00* Test Item Value Reference Range Interpretation Comme nts POCT PH U (test code = 3254) N/A 5-8 POCT U LEUK EST (test code = 3263) N/A Negative - Negative POCT U NIT (test code = 3262) N/A Negative - Negati ve POCT U PROT (test code = 3259) Negative Negative - Negat igor POCT U GLU (test code = 3256) Negative Negative - Negati ve POCT U KETONE (test code = 3258) N/A Negative - Neg ative POCT U BLD (test code = 3257) N/A Negative - Negati ve [facility]3 HR GLUCOSE TOLERANCE [id number] 18:52:42 * Test Item Value Reference Range Interpretation Comme nts GLUC 3 HR (test code = 8403067915) 84 mg/dL 70-110 Lab Interpretation (test cod e = 58496-6) Normal [facility]2 HR GLUCOSE TOLERANCE [id number] 18:52:02 * Test Item Value Reference Range Interpretation Comme nts GLUC 2 HR (test code = 9841017454) 100 mg/dL 70-120 Lab Interpretation (test cod e = 89703-4) Normal [facility] HospitalGlucose [id number] 18:51:41* Test Item Value Reference Range Interpretation Comme nts GLU FASTNG (test code = 9117732829) 95 mg/dL 70-110 Lab Interpretation (test cod e = 85114-9) [facility] HR GLUCOSE TOLERANCE [id number] 18:44:21 * Test Item Value Reference Range Interpretation Comme nts GLUC 1 HR (test code = 5439536237) 131 mg/dL 120-170 Lab Interpretation (test cod e = 20622-7) Normal [facility]inal[facility] w/o Specific [id number] 20:33:00* Test Item Value Reference Range Interpretation Comme nts POCT PH U (test code = 3254) 7 mg/dl 5-8 POCT U LEUK EST (test code = 3263) Negative Negative - Negative POCT U NIT (test code = 3262) negative Negative - Negati ve POCT U PROT (test code = 3259) negative Negative - Negat igor POCT U GLU (test code = 3256) Negative Negative - Negati ve POCT U KETONE (test code = 3258) Negative Negative - Neg ative POCT U BLD (test code = 3257) Negative Negative - Negati ve [facility] URINALYSIS W/O SPECIFIC [id number] 19:11:00* Test Item Value Reference Range Interpretation Comme nts POCT PH U (test code = 3254) n/a 5-8 POCT U LEUK EST (test code = 3263) n/a Negative - Negative POCT U NIT (test code = 3262) n/a Negative - Negati ve POCT U PROT (test code = 3259) negative Negative - Negat igor POCT U GLU (test code = 3256) negative Negative - Negati ve POCT U KETONE (test code = 3258) n/a Negative - Neg ative POCT U BLD (test code = 3257) n/a Negative - Negati ve [facility] URINALYSIS W/O SPECIFIC [id number] 19:11:00* Test Item Value Reference Range Interpretation Comme nts POCT PH U (test code = 3254) n/a 5-8 POCT U LEUK EST (test code = 3263) n/a Negative - Negative POCT U NIT (test code = 3262) n/a Negative - Negati ve POCT U PROT (test code = 3259) negative Negative - Negat igor POCT U GLU (test code = 3256) negative Negative - Negati ve POCT U KETONE (test code = 3258) n/a Negative - Neg ative POCT U BLD (test code = 3257) n/a Negative - Negati ve [facility] URINALYSIS W/O SPECIFIC [id number] 13:55:00* Test Item Value Reference Range Interpretation Comme nts POCT PH U (test code = 3254) 6 mg/dl 5-8 POCT U LEUK EST (test code = 3263) neg Negative - Negative POCT U NIT (test code = 3262) neg Negative - Negati ve POCT U PROT (test code = 3259) neg Negative - Negat igor POCT U GLU (test code = 3256) neg Negative - Negati ve POCT U KETONE (test code = 3258) neg Negative - Neg ative POCT U BLD (test code = 3257) neg Negative - Negati ve [facility] W/O SPECIFIC [id number] 16:57:00* Test Item Value Reference Range Interpretation Comme nts POCT PH U (test code = 3254) n/a 5-8 POCT U LEUK EST (test code = 3263) n/a Negative - N egative POCT U NIT (test code = 3262) n/a Negative - Negati ve POCT U PROT (test code = 3259) neg Negative - Negat igor POCT U GLU (test code = 3256) neg Negative - Negati ve POCT U KETONE (test code = 3258) n/a Negative - Neg ative POCT U BLD (test code = 3257) n/a Negative - Negati ve [facility] HospitalHEMOGLOBINOPATHY [id number] 20:05:31 * Test Item Value Reference Range Interpretation Comments HEMOGLOBIN EVAL A (BEAKER) (test code = 09675-9) 59.1 % 95.0-97.9 L HEMOGLOBIN EVAL A2 (BEAKER) (test code = 4552-6) 2.8 % 2.0-3.5 HEMOGLOBIN EVAL F (BEAKER) (test code = 75508-9) HEMOGLOBIN EVAL S (BEAKER) (test code = 23637-8) 38.1 % See_Comment [Automated message] The system which generated this result transmitted reference range: 0.0. The reference range was not used to interpret this result as normal/abnormal. HGB EVAL INTERP (test code = 25622-3) Abnormal capillary electrophoresis pattern. Hemoglobinopathy evaluation shows Hemoglobin A (59.1%), hemoglobin A2 (2.8%) and abnormal Hemoglobin S present at 38.1%, consistent with sickle cell trait. In patient's with sickle cell trait, the relative percentage range of Hemoglobin S is 30-45%. Smear review reveals microcytic, normochromic erythrocytes without sickle cells. Lab Interpretation (test code = 77584-0) [facility]normal [facility] HospitalCB WITH [id number] 20:30:25* Test Item Value Reference Range Interpretation Comme nts WBC (test code = 6690-2) 8.90 See_Comment [Automated messa ge] The system which generated this result transmitted reference range: 4.30 - 11.10 10*3/?L. The reference range was not used to interpret this result as normal/abnormal. RBC (test code = 789-8) 4.75 See_Comment [Automated messa ge] The system which generated this result transmitted reference range: 3.93 - 5.25 10*6/?L. The reference range was not used to interpret this result as normal/abnormal. HGB (test code = 718-7) 11.1 g/dL 11.6-15.0 L HCT (test code = 4544-3) 34.4 % 35.7-45.2 L MCV (test code = 787-2) 72.4 fL 80.6-95.5 L MCH (test code = 785-6) 23.4 pg 25.9-32.8 L MCHC (test code = 786-4) 32.3 g/dL 31.6-35.1 RDW-SD (test code = 02528-3) 44.1 fL 39.0-49.9 RDW-CV (test code = 788-0) 17.1 % 12.0-15.5 H PLT (test code = 777-3) 412 See_Comment H [Automated messa ge] The system which generated this result transmitted reference range: 166 - 358 10*3/?L. The reference range was not used to interpret this result as normal/abnormal. MPV (test code = 03103-9) 9.7 fL 9.5-12.9 NRBC/100 WBC (test code = 5254806409) 0.0 See_Comment [Automated Dropcam ssage] The system which generated this result transmitted reference range: 0.0 - 10.0 /100 WBCs. The reference range was not used to interpret this result as normal/abnormal. NRBC x10^3 (test code = 2668632610) See_Comment [Automated messa ge] The system which generated this result transmitted reference range: 10*3/?L. The reference range was not used to interpret this result as normal/abnormal. GRAN MAT (NEUT) % (test code = 770-8) 58.9 % IMM GRAN % (test code = 0104710765) 0.20 % LYMPH % (test code = 736-9) 31.1 % MONO % (test code = 5905-5) 8.2 % EOS % (test code = 713-8) 1.0 % BASO % (test code = 706-2) 0.6 % GRAN MAT x10^3(ANC) (test code = 1341650435) 5.24 10*3/uL 1.88-7.09 IMM GRAN x10^3 (test code = 9399216462) 0.00-0.06 LYMPH x10^3 (test code = 731-0) 2.77 10*3/uL 1.32-3.29 MONO x10^3 (test code = 742-7) 0.73 10*3/uL 0.33-0.92 EOS x10^3 (test code = 711-2) 0.09 10*3/uL 0.03-0.39 BASO x10^3 (test code = 704-7) 0.05 10*3/uL 0.01-0.07 Lab Interpretation (test code = 76526-7) Abnormal [facility] [id number] 20:06:00* Test Item Value Reference Range Interpretation Comme nts POCT PREG (test code = 1605) Positive On board controls acceptable with C Line (test code = 3574) Yes POCT PREG LOT # (test code = 3575) POCT PREG TEST DATE ( test code = 3576) [facility] URINALYSIS W/O SPECIFIC [id number] 20:05:00* Test Item Value Reference Range Interpretation Comme nts POCT PH U (test code = 3254) n/a 5-8 POCT U LEUK EST (test code = 3263) n/a Negative - Negative POCT U NIT (test code = 3262) n/a Negative - Negati ve POCT U PROT (test code = 3259) TRACE Negative - Negat igor POCT U GLU (test code = 3256) negative Negative - Negati ve POCT U KETONE (test code = 3258) n/a Negative - Neg ative POCT U BLD (test code = 3257) n/a Negative - Negati ve [facility]COMP. METABOLIC PANEL (33644)2022-09-25 23:25:35* Test Item Value Reference Range Interpretation Comme nts NA (test code = 1907129338) 140 mmol/L 135-145 K (test code = 2102183321) 3.8 mmol/L 3.5-5.0 CL (test code = 8075856096) 101 mmol/L 98-108 CO2 TOTAL (test code = 4002943367) 31 mmol/L 23-31 AGAP (test code = 2706721191) 2-16 BUN (test code = 7056965646) 12 mg/dL 7-23 GLUCOSE (test code = 5162906144) 83 mg/dL 70-110 CREATININE (test code = 3263972732) 0.94 mg/dL 0.50-1.04 TOTAL BILI (test code = 0625958823) 0.3 mg/dL 0.1-1.1 CALCIUM (test code = 3691814732) 9.1 mg/dL 8.6-10.6 T PROTEIN (test code = 2609329281) 7.9 g/dL 6.3-8.2 ALBUMIN (test code = 4343125522) 4.1 g/dL 3.5-5.0 ALK PHOS (test code = 1905794754) 80 U/L 34-122 ALTv (test code = 1742-6) 22 U/L 5-35 AST(SGOT) (test code = 7953837835) 27 U/L 13-40 eGFR (test code = 0893531115) mL/min/1.73m2 SANDRA (test code = SANDRA) Association of Glomerular Filtration Rate (GFR) and Staging of Kidney Disease* + + +- +| GFR (mL/min/1.73 m2) ?| With Kidney Damage ?| ?Without Kidney Damage+ ------+ ----+ ------+| ?>90 ?| ?Stage one ?| ? Normal ?+ -+ + -+| ?60-89 ?| ?Stage two ?| ? Decreased GFR ? + + +- +| ?30-59 ?| ?Stage three ?| ? Stage three ? + + +- +| ?15-29 ?| ?Stage four ? | ? Stage four ?+ -+ + -+| ?<15 (or dialysis) ? ?| ?Stage five ? | ? Stage five ?+ -+ + -+ *Each stage assumes the associated GFR level [...] or urine or abnormalities in imaging tests). [facility]IPASE[facility] 23:25:15* Test Item Value Reference Range Interpretation Comme nts LIPASE (test code = 2377050666) 186 U/L 0-220 Lab Interpretation (test cod e = 84956-7) Normal [facility] HospitalPOCT [id number] 23:22:00* Test Item Value Reference Range Interpretation Comme nts POCT PREG (test code = 1605) negative On board controls acceptable with C Line (test code = 3574) present POCT PREG LOT # (test code = 3575) [id number] POCT PREG TEST DATE ( test code = 3576) 11/21/23 Lab Interpretation (test cod e = 80164-1) Normal [facility]CBC WITH [id number] 23:16:36* Test Item Value Reference Range Interpretation Comme nts WBC (test code = 6690-2) See_Comment [Automated Pocket Videoa ge] The system which generated this result transmitted reference range: 4.50 - 13.50 10*3/?L. The reference range was not used to interpret this result as normal/abnormal. RBC (test code = 789-8) See_Comment [Automated Pocket Videoa Plugaround] The system which generated this result transmitted reference range: 4.10 - 5.10 10*6/?L. The reference range was not used to interpret this result as normal/abnormal. HGB (test code = 718-7) 11.8 g/dL 12.0-16.0 L HCT (test code = 4544-3) 35.8 % 36.0-45.0 L MCV (test code = 787-2) 71.3 fL 78.0-95.0 L MCH (test code = 785-6) 23.5 pg 26.0-32.0 L MCHC (test code = 786-4) 33.0 g/dL 32.0-36.0 RDW-SD (test code = 86493-1) 43.4 fL 38.5-49.0 RDW-CV (test code = 788-0) 17.1 % 11.5-14.0 H PLT (test code = 777-3) See_Comment H [Automated messa ge] The system which generated this result transmitted reference range: 135 - 361 10*3/?L. The reference range was not used to interpret this result as normal/abnormal. MPV (test code = 72280-8) 9.4 fL 9.4-13.3 NRBC/100 WBC (test code = 4700012659) See_Comment [Automated Dropcam ssage] The system which generated this result transmitted reference range: 0.0 - 10.0 /100 WBCs. The reference range was not used to interpret this result as normal/abnormal. NRBC x10^3 (test code = 9541577476) See_Comment [Automated messa ge] The system which generated this result transmitted reference range: 10*3/?L. The reference range was not used to interpret this result as normal/abnormal. GRAN MAT (NEUT) % (test code = 770-8) 57.7 % IMM GRAN % (test code = 1921050961) 0.60 % LYMPH % (test code = 736-9) 30.4 % MONO % (test code = 5905-5) 9.2 % EOS % (test code = 713-8) 1.4 % BASO % (test code = 706-2) 0.7 % GRAN MAT x10^3(ANC) (test code = 8959066473) 6.60 10*3/uL 1.50-10.30 IMM GRAN x10^3 (test code = 2043618926) 0.07 10*3/uL 0.00-0.06 H LYMPH x10^3 (test code = 731-0) 3.48 10*3/uL 0.70-7.40 MONO x10^3 (test code = 742-7) 1.05 10*3/uL 0.00-0.50 H EOS x10^3 (test code = 711-2) 0.16 10*3/uL 0.00-0.40 BASO x10^3 (test code = 704-7) 0.08 10*3/uL 0.00-0.10 Lab Interpretation (test code = 46784-5) Abnormal [facility] Consult Notes Date/Time Note Provider Source 2024-02-26 22:55:41 Associated Order(s): CONSULT INTERNAL MEDICINE Medicine Consultation Date of Service: 02/26/2024 Pt presents from: home CC: chest pain History of Present Illness: Bridgette Fitzpatrick is a 18 year old female with a PMH of , morbid obesity who presented to the ED for chest pain. She's gustavo xperieincing pain daily for the past week. It's described as squeezing. It is substernal, and radiates to the back. When she feels the pain, she is SOB. Conversely, the pain increases when she takes a deep breath. She denies nausea/vomiting/dizziness/pal pitations. It does not worsen with exertion. The pain is not reproducible with palpation. She is a nonsmoker. She does not have a personal hx of cardiac disease. She does not know her family history. ROS: Pt denies fever / chills / nausea / vomiting / diarrhea / constipation / cough / abdominal pain / dysuria / hematuria / melena / hematochezia / rashes / suicidal or homicidal ideation / All others negative Review of Hx/Meds: No current facility-administered medications on file prior to encounter. Current Outpatient Medications on File Prior to Encounter Medication Sig Dispense Refill labetaloL 200 mg tablet Take 1 tablet by mouth every 12 (twelve) hours. 60 tablet 0 I have reviewed the patient's home medications PMH: Past Medical History: Diagnosis Date Anemia not on medication Anxiety 2020 Bipolar disease during in first trimester 06/22/2023 Irregular menstrual cycle 01/30/2022 Migraine PSH: has no past surgical history on file. Family Hx: Social History Tobacco Use Smoking status: Never Passive exposure: Past Smokeless tobacco: Never Vaping Use Vaping Use: Never used Substance Use Topics Alcohol use: Never Drug use: Yes Types: Marijuana Current Scheduled Medications Current IV Current Facility-Administered Medications: acetaminophen (TYLENOL) tablet 650 mg, 650 mg, Oral, Q6HPRN, Guillermina March MD, 650 mg at 02/26/247 aspirin tablet 325 mg, 325 mg, Oral, DAILY, Guillermina March MD, 325 mg at 02/26/24 0838 wsprubqohq-jnnqckabavpcc-gjcw (ESGIC) 50-325-40 mg tablet 2 tablet, 2 tablet, Oral, Q4HPRN, Eleazar Gupta MD D5W-LR IV infusion 1,000 mL, 1,000 mL, IV Infusion, CONTINUOUS, Guillermina March MD, Last Rate: 75 mL/hr at 02/26/242000, 1,000 mL at 02/26/242000 labetaloL (NORMODYNE) injection 20 mg, 20 mg, Slow IV Push, PRN - SEE INSTRUCTIONS AND labetaloL (NORMODYNE) injection 40 mg, 40 mg, Slow IV Push, PRN - SEE INSTRUCTIONS AND [COMPLETED] labetaloL (NORMODYNE) injection 80 mg, 80 mg, Slow IV Push, PRN - SEE INSTRUCTIONS, 80 mg at 02/26/24 0748 AND [COMPLETED] hydralAZINE (APRESOLINE) injection 10 mg, 10 mg, Slow IV Push, PRN - SEE INSTRUCTIONS, Guillermina March MD, 10 mg at 02/26/24 0833 labetaloL (NORMODYNE) tablet 200 mg, 200 mg, Oral, BID, Guillermina March MD, 200 mg at 02/26/24 2219 magnesium sulfate 500 mg/mL (50 %) injection 16.24 mEq, 2 g, Slow IV Push, PRN - SEE INSTRUCTIONS, Guillermina March MD magnesium sulfate 500 mg/mL (50 %) injection 32.48 mEq, 4 g, Slow IV Push, PRN - SEE INSTRUCTIONS, Guillermina March MD [] magnesium sulfate loading dose from bag, 6 g, IV Infusion, ONCE AND magnesium sulfate in water for injection 20 gram/500 mL (4 %) IV infusion, 2 g/hr, IV Infusion, CONTINUOUS, Guillermina March MD, Last Rate: 50 mL/hr at 02/26/24 1545, 2 g/hr at 02/26/24 1545 morpHINE (4 mg/mL) injection 4 mg, 4 mg, Slow IV Push, Q4HPRN, Eleazar Gupta MD NIFEdipine ER tablet 30 mg, 30 mg, Oral, BID, Guillermina March MD, 30 mg at 02/26/241956 nitroglycerin (NITROSTAT) sublingual tablet 0.4 mg, 0.4 mg, Sublingual, Q5MIN PRN, Eleazar Gupta MD Objective: Vitals: Vitals: 02/26/24 2030 02/26/24 2100 02/26/24 2130 02/26/24 2200 BP: 120/75 130/85 133/84 137/82 Pulse: 83 84 85 87 Resp: 17 17 Temp: TempSrc: SpO2: 99% 99% 97% 96% Weight: Height: I/O's: Intake/Output Summary (Last 24 hours) at 02/26/2024 2256 Last data filed at 02/26/2024 2223 Gross per 24 hour Intake 1709.39 ml Output 5155 ml Net -3445.61 ml Physical Exam: Constitutional: A&O x3, well-developed, well-nourished, and in no distress. Head: Normocephalic and atraumatic. Eyes: PERRL. Conjunctivae and EOM are normal. Neck: Normal range of motion. Neck supple. No JVD present. Cardiovascular: Normal rate, regular rhythm, normal heart sounds Pulmonary/Chest: Effort normal and breath sounds normal. No respiratory distress. No wheezes, rales or rhonchi. Abdominal: Soft. Bowel sounds are normal. No TTP, non-distended and no masses. No rebound or guarding. Musculoskeletal: Normal range of motion. No edema or tenderness. Lymphadenopathy: No cervical adenopathy. Neurological: A&O x3. No focal deficits. Gait normal. Skin: Skin is warm and dry. No rash noted. No erythema. No pallor. Labs: BMP:BMP NA (mmol/L) Date Value 02/21/2024 140 02/08/2024 136 09/25/2022 140 04/13/2021 142 10/01/2020 140 K (mmol/L) Date Value 02/21/2024 3.6 02/08/2024 4.5 09/25/2022 3.8 04/13/2021 3.2 (L) 10/01/2020 4.1 CALCIUM (mg/dL) Date Value 02/21/2024 8.8 02/08/2024 8.4 (L) 09/25/2022 9.1 04/13/2021 9.1 10/01/2020 9.6 CL (mmol/L) Date Value 02/21/2024 103 02/08/2024 107 09/25/2022 101 04/13/2021 106 10/01/2020 103 BUN (mg/dL) Date Value 02/21/2024 10 02/08/2024 8 09/25/2022 12 04/13/2021 9 10/01/2020 11 CREATININE (mg/dL) Date Value 02/26/2024 0.73 02/21/2024 1.03 02/08/2024 0.81 09/25/2022 0.94 04/13/2021 0.84 GLUCOSE (mg/dL) Date Value 02/21/2024 110 02/08/2024 69 (L) 09/25/2022 83 04/13/2021 87 10/01/2020 87 CO2 TOTAL (mmol/L) Date Value 02/21/2024 30 02/08/2024 20 (L) 09/25/2022 31 04/13/2021 29 10/01/2020 30 CBC:CBC WBC (10*3/?L) Date Value 02/26/2024 7.38 RBC (10*6/?L) Date Value 02/26/2024 4.92 PLT (10*3/?L) Date Value 02/26/2024 396 (H) HGB (g/dL) Date Value 02/26/2024 11.4 (L) HCT (%) Date Value 02/26/2024 36.1 BMP:Hepatic Function Panel ALBUMIN (g/dL) Date Value 02/21/2024 3.4 (L) T PROTEIN (g/dL) Date Value 02/21/2024 7.3 TOTAL BILI (mg/dL) Date Value 02/21/2024 0.5 BILI UNCON (mg/dL) Date Value 09/08/2018 0.2 BILI CONJ (mg/dL) Date Value 09/08/2018 0.0 ALT(SGPT) (U/L) Date Value 09/08/2018 21 ALTv (U/L) Date Value 02/26/2024 23 AST(SGOT) (U/L) Date Value 02/26/2024 33 ALK PHOS (U/L) Date Value 02/21/2024 85 Troponin: Recent Labs 02/26/24 0708 TROPNI 0.004 I have reviewed all relevant labs Imaging: CT CHEST PULMONARY ANGIOGRAM Result Date: 02/26/2024 INDICATION: PE suspected, high pretest prob ORDERING PROVIDER: GUILLERMINA MARCH TECHNIQUE: Helical CT imaging was performed through the chest following the infusion of intravenous contrast according to pulmonary embolus protocol. Maximum intensity projection images were created and reviewed. CT was performed in accordance with the principles of ALARA. RL: [id number] AFC: [id number] COMPARISON: Chest radiograph 02/26/2024 FINDINGS: No pulmonary arterial filling defect is identified to suggest pulmonary embolus. While the examination has not been optimized for evaluation of the thoracic aorta, and the thoracic aorta is suboptimally opacified, no convincing aortic dissection is noted within the study limitations. No pericardial effusion is identified. No mediastinal or hilar lymphadenopathy is demonstrated. No pulmonary consolidation, pleural effusion, or pneumothorax is demonstrated. Slight reticular and groundglass density noted within the posterior aspect of the left upper lobe. This could reflect atelectasis. A mild infectious process is not excluded. No acute osseous abnormality demonstrated. No pulmonary embolus identified. Slight reticular and groundglass density noted within the posterior aspect of the left upper lobe. This may reflect atelectasis. A mild infectious process is not excluded. Lungs are otherwise clear. CHEST 1 VW Result Date: 02/26/2024 INDICATION: rule out fluid overload ORDERING PROVIDER: GUILLERMINA MARCH TECHNIQUE: Frontal view of the chest. RL: [id number] AFC: [id number] COMPARISON: none available FINDINGS: The cardiac silhouette and pulmonary vasculature are within normal limits. No substantial pulmonary consolidation, pleural effusion, or pneumothorax is demonstrated. No acute osseous abnormality is identified. No acute cardiopulmonary abnormality demonstrated. HEAD WO CONTRAST Result Date: 02/22/2024 CT HEAD WO CONTRAST HISTORY: Female 18 years Headache, chronic, new features or increased frequency COMPARISON: None TECHNIQUE: Routine CT head without contrast FINDINGS: The ventricles and cerebral sulci are normal in caliber and configuration. No hydrocephalus, midline shift or pathological extra-axial fluid collection is present. The basal cisterns are unremarkable. No acute intracranial hemorrhage or mass effect is present. The stearns-white matter differentiation is preserved. No significant parenchymal attenuation abnormality is present. The mastoid air cells and paranasal air sinuses are clear. The calvarium and skull base are unremarkable. Normal CT head CT ABDOMEN PELVIS W CONTRAST Result Date: 02/21/2024 EXAM: CT ABDOMEN PELVIS W CONTRAST HISTORY: 18 years-old Female; 2 weeks with acute onset of abdominal pain and multiple episodes of vomiting. TECHNIQUE: Contiguous axial imaging from the level of the lung bases through the proximal thighs was performed with intravenous contrast. Coronal and sagittal reconstructions were obtained. COMPARISON: CT abdomen pelvis dated 09/25/2022 FINDINGS: LOWER THORAX: The lung bases are clear. LIVER: The liver is normal in size and contour. Mild periportal edema is noted. No focal hepatic lesions. GALLBLADDER AND BILIARY TREE: The gallbladder is distended, without radiopaque gallstones or gallbladder wall thickening. Trace pericholecystic fluid is noted. The common bile duct diameter is at the upper limits of normal. SPLEEN: The spleen appears unremarkable. PANCREAS: No ductal dilation or masses are visualized. ADRENAL GLANDS: No adrenal masses are seen. KIDNEYS: No hydronephrosis, stones, or suspicious masses are visualized. PELVIS/BLADDER: Heterogeneously enhancing enlarged uterus, compatible with changes. The bladder partially decompressed. GI TRACT: No dilation or bowel wall thickening is seen. The appendix appears unremarkable. PERITONEUM AND RETROPERITONEUM: No intra-abdominal free air or fluid collection is visualized. LYMPH NODES: Multiple mesenteric lymph nodes measuring up to 10 mm along the ileocolic chain, nonspecific and can be seen in young population without clinical significance. VESSELS: The vessels appear unremarkable. BONES AND SOFT TISSUES: No suspicious lytic or sclerotic bony lesions are present. Rectus sheath diastasis is noted. 1. Mild periportal edema and trace pericholecystic fluid which are nonspecific and can be seen with liver congestion or in acute hepatitis in the appropriate clinical setting. 2. Otherwise, no acute abnormality. Preliminary Report Dictated by Resident: Elle Bowers I, Kimberly Jade MD., have reviewed this study and agree with the above report. Assessment and plan: Active Problems: Morbid obesity Bipolar disease during in third trimester Chest pain 89-year-old female with no cardiac history, 2 weeks presenting with chest pain. Troponin negative. EKG without ischemic change. -Maintain telemetry - As needed nitroglycerin, morphine for chest pain - Strict BP control. Added Esgic for headaches. - Obtain echocardiogram - Risk stratification with LDL, A1c, TSH IM-INTERNAL MEDICINE STAFF [facility] - Health History and Physical Notes Date/Time Note Provider Source 2024-02-26 07:44:22 READMISSION HISTORY & PHYSICAL IDENTIFYING DATA Bridgette Fitzpatrick is 18 year old, Black or , 39w3d, . : 2005 Primary Care Physician: Alexandro Riley CHIEF COMPLAINT Chest pain HISTORY OF PRESENT ILLNESS 18 year old s/p on 02/09/24 presents with chest pain since this am. Sent over from ER. Pt states chest pain mid sternum. Denies SOB or cough. Denies RUQ pain. States BP check this am at home elevated. States has been taking her BP medication. PAST OBSTETRIC HISTORY OB History Para Term AB Living 2 1 1 1 1 SAB IAB Ectopic Multiple Live Births 1 0 1 # Outcome Date GA Lbr Vinicio/2nd Weight Sex Delivery Anes PTL Lv 2 Term 02/09/24 39w3d 2860 g F NORMAL SPONT EPI N VONNIE 1 SAB 03/2020 PAST MEDICAL HISTORY Problem list: Patient Active Problem List Diagnosis Date Noted Chest pain 02/26/2024 Preeclampsia in period 02/21/2024 (spontaneous vaginal delivery) 02/09/2024 Gestational hypertension 02/09/2024 Sickle cell trait in mother affecting 07/20/2023 Rubella non-immune status, antepartum 07/20/2023 Bipolar disease during in third trimester 06/22/2023 High-risk in third trimester 06/22/2023 Morbid obesity 01/30/2022 Operations: No past surgical history on file. Prior surgeries at outside hospitals: none Past Medical History: Diagnosis Date Anemia not on medication Anxiety 2020 Bipolar disease during in first trimester 06/22/2023 Irregular menstrual cycle 01/30/2022 Migraine CURRENT HEALTH STATUS Medications: Current Facility-Administered Medications Medication Dose Route Frequency Last Rate Last Admin labetaloL (NORMODYNE) injection 20 mg 20 mg Slow IV Push PRN - SEE INSTRUCTIONS And labetaloL (NORMODYNE) injection 40 mg 40 mg Slow IV Push PRN - SEE INSTRUCTIONS And labetaloL (NORMODYNE) injection 80 mg 80 mg Slow IV Push PRN - SEE INSTRUCTIONS And hydralAZINE (APRESOLINE) injection 10 mg 10 mg Slow IV Push PRN - SEE INSTRUCTIONS labetaloL (NORMODYNE) tablet 200 mg 200 mg Oral BID 200 mg at 02/26/24 0719 Allergies and drug reactions: Patient has no known allergies. HOME MEDICATIONS Medications Prior to Admission Medication Sig Dispense Refill Last Dose labetaloL 200 mg tablet Take 1 tablet by mouth every 12 (twelve) hours. 60 tablet 0 Last taken: none SOCIAL HISTORY Tobacco History: Social History Tobacco Use Smoking Status Never Passive exposure: Past Smokeless Tobacco Never Drug History: Social History Substance and Sexual Activity Drug Use Yes Types: Marijuana Alcohol History: Social History Substance and Sexual Activity Alcohol Use Never FAMILY HISTORY Family History Problem Relation Age of Onset Other - see comments Mother at 49 years of age secondary to liver failure/alcoholism Asthma Father High cholesterol Father Asthma Paternal Aunt High cholesterol Paternal Uncle High cholesterol Paternal Grandfather Asthma Paternal Grandfather Diabetes Paternal Grandfather REVIEW OF SYSTEMS General: negative Constitutional: negative Eyes: negative ENT/Mouth: headaches Cardiovascular: chest pain Respiratory: negative Gastrointestinal:negative Genitourinary: negative Musculoskeletal: negative Skin/breast: negative Neurological: negative Psychiatric: depression Endocrine: obesity Hemat/Lymph: negative Allergic/Immuno:none VITAL SIGNS BP: (152-198)/(101-125) Temp: [36.5 ?C (97.7 ?F)-36.9 ?C (98.5 ?F)] Temp source: Oral (02/25 0650) Pulse: [67-84] Resp: [20] SpO2: [100 %] Height: [162.6 cm (5' 4")] Weight: [102.2 kg (225 lb 6.4 oz)] BMI (calculated): [38.69] PHYSICAL EXAMINATIONS General: well-developed, well-nourished Lungs: clear to auscultation bilaterally Cardiology: regular rate and rhythm Abdomen: tenderness - normal Extremities: no clubbing, cyanosis, or edema Neuro: cranial nerves II through XII grossly intact; sensation grossly intact; muscle strength 5 out of 5 in all four extremities REVIEW OF LABORATORY, PATHOLOGY, AND RADIOLOGY DATA Lab results: CBC BMP PT/INR WBC (10*3/?L) Date Value 02/26/2024 7.38 NA (mmol/L) Date Value 02/21/2024 140 No results found for: "PT" RBC (10*6/?L) Date Value 02/26/2024 4.92 K (mmol/L) Date Value 02/21/2024 3.6 No results found for: "PTINR" PLT (10*3/?L) Date Value 02/26/2024 396 (H) CALCIUM (mg/dL) Date Value 02/21/2024 8.8 HGB (g/dL) Date Value 02/26/2024 11.4 (L) CL (mmol/L) Date Value 02/21/2024 103 aPTT HCT (%) Date Value 02/26/2024 36.1 BUN (mg/dL) Date Value 02/21/2024 10 No results found for: "APTTPAT" CREATININE (mg/dL) Date Value 02/26/2024 0.73 GLUCOSE (mg/dL) Date Value 02/21/2024 110 CO2 TOTAL (mmol/L) Date Value 02/21/2024 30 18 year old s/p in 02/08 with CP and severe range Bps. --Labetalol IV protocol started --Gave her Labetalol 200 mg BID (home meds) --Cardiac enzymes --Will r/o PE --IM consult placed Guillermina Morejon-Mock, MD [facility] 2024-02-21 11:08:53 HISTORY & PHYSICAL IDENTIFYING DATA Bridgette Fitzpatrick is 18 year old, Black or , 39w3d, female with TAMIKA 02/13/2024, by Ultrasound. : 2005 Primary Care Physician: Alexandro Riley Hospital Day: 1 CHIEF COMPLAINT nausea, vomitting, and elevated BP in er HISTORY OF PRESENT ILLNESS 18 year old s/p on 02/09/24. OB lab complicated by gestational HTN. Pt did not show up for her pp BP check. Woke up with nausea or vomiting and severe abdominal pain. Denies sick contacts or abn food eaten. Denies headache. PAST OBSTETRIC HISTORY OB History Para Term AB Living 2 1 1 1 1 SAB IAB Ectopic Multiple Live Births 1 0 1 # Outcome Date GA Lbr Vinicio/2nd Weight Sex Delivery Anes PTL Lv 2 Term 02/09/24 39w3d 2860 g F NORMAL SPONT EPI N VONNIE 1 SAB 03/2020 PAST MEDICAL HISTORY Problem list: Patient Active Problem List Diagnosis Date Noted Obesity (BMI 30-39.9) 02/21/2024 Preeclampsia in period 02/21/2024 (spontaneous vaginal delivery) 02/09/2024 Gestational hypertension 02/09/2024 39 weeks gestation of 02/08/2024 Sickle cell trait in mother affecting 07/20/2023 Rubella non-immune status, antepartum 07/20/2023 Bipolar disease during in third trimester 06/22/2023 High-risk in third trimester 06/22/2023 Morbid obesity 01/30/2022 Operations: No past surgical history on file. Prior surgeries at outside hospitals: none Past Medical History: Diagnosis Date Anemia not on medication Anxiety 2020 Bipolar disease during in first trimester 06/22/2023 Irregular menstrual cycle 01/30/2022 Migraine CURRENT HEALTH STATUS Medications: Current Facility-Administered Medications Medication Dose Route Frequency Last Rate Last Admin calcium gluconate 2 g in NaCl 100 mL (ISO-OSM) RTU IV infusion 2 g 2 g IV Infusion ONCE D5W-LR IV infusion 1,000 mL 1,000 mL IV Infusion CONTINUOUS lactated ringers IV infusion 500 mL 500 mL IV Infusion PRN - SEE INSTRUCTIONS lidocaine 1% (PF) (XYLOCAINE) injection 0.3 mL 0.3 mL Infiltration PRN - SEE INSTRUCTIONS lidocaine 1% (XYLOCAINE) 10 mg/mL (1 %) injection 50 mL 50 mL Infiltration PRN - SEE INSTRUCTIONS magnesium sulfate 500 mg/mL (50 %) injection 16.24 mEq 2 g Slow IV Push PRN - SEE INSTRUCTIONS magnesium sulfate 500 mg/mL (50 %) injection 32.48 mEq 4 g Slow IV Push PRN - SEE INSTRUCTIONS magnesium sulfate loading dose from bag 6 g IV Infusion ONCE And magnesium sulfate in water for injection 20 gram/500 mL (4 %) IV infusion 2 g/hr IV Infusion CONTINUOUS sodium citrate-citric acid (BICITRA) 500-334 mg/5 mL solution 30 mL 30 mL Oral PRE-PROCEDURE ONCE Allergies and drug reactions: Patient has no known allergies. HOME MEDICATIONS Medications Prior to Admission Medication Sig Dispense Refill Last Dose docusate 100 mg capsule Take 2 capsules by mouth once daily as needed for Constipation. 60 capsule 1 ferrous sulfate 325 mg (65 mg iron) tablet Take 1 tablet by mouth in the morning. 30 tablet 2 ibuprofen 600 mg tablet Take 1 tablet by mouth every 6 (six) hours as needed (Pain). Take with food or milk. 60 tablet 1 vitamin w/FA tablet Take 1 tablet by mouth in the morning. 100 tablet 3 ARIPiprazole 20 mg tablet Take 1 tablet by mouth at bedtime. Not Taking traZODone 50 mg tablet Take 1 tablet by mouth as needed. Not Taking Last taken: yesterday SOCIAL HISTORY Tobacco History: Social History Tobacco Use Smoking Status Never Passive exposure: Past Smokeless Tobacco Never Drug History: Social History Substance and Sexual Activity Drug Use Yes Types: Marijuana Alcohol History: Social History Substance and Sexual Activity Alcohol Use Never FAMILY HISTORY Family History Problem Relation Age of Onset Other - see comments Mother at 49 years of age secondary to liver failure/alcoholism Asthma Father High cholesterol Father Asthma Paternal Aunt High cholesterol Paternal Uncle High cholesterol Paternal Grandfather Asthma Paternal Grandfather Diabetes Paternal Grandfather REVIEW OF SYSTEMS General: negative, (+) fatigue Constitutional: weight loss Eyes: negative ENT/Mouth: negative Cardiovascular: negative Respiratory: negative Gastrointestinal:nausea and vomitting and pain Genitourinary: negative Musculoskeletal: negative Skin/breast: negative Neurological: negative Psychiatric: depression Endocrine: negative Hemat/Lymph: negative Allergic/Immuno:none VITAL SIGNS BP: (131-186)/(89-122) Temp: [36.7 ?C (98.1 ?F)-36.8 ?C (98.2 ?F)] Temp source: Oral (02/20 0940) Pulse: [70-79] Resp: [13-24] SpO2: [94 %-100 %] Height: [162.6 cm (5' 4")] Weight: [102.4 kg (225 lb 11.2 oz)] BMI (calculated): [38.74] PHYSICAL EXAMINATIONS General: well-developed, well-nourished Lungs: clear to auscultation bilaterally Cardiology: regular rate and rhythm Abdomen: tenderness - normal Neuro: cranial nerves II through XII grossly intact; sensation grossly intact; muscle strength 5 out of 5 in all four extremities REVIEW OF LABORATORY, PATHOLOGY, AND RADIOLOGY DATA Lab results: CBC BMP PT/INR WBC (10*3/?L) Date Value 02/21/2024 7.37 NA (mmol/L) Date Value 02/21/2024 140 No results found for: "PT" RBC (10*6/?L) Date Value 02/21/2024 5.08 K (mmol/L) Date Value 02/21/2024 3.6 No results found for: "PTINR" PLT (10*3/?L) Date Value 02/21/2024 422 (H) CALCIUM (mg/dL) Date Value 02/21/2024 8.8 HGB (g/dL) Date Value 02/21/2024 11.6 CL (mmol/L) Date Value 02/21/2024 103 aPTT HCT (%) Date Value 02/21/2024 37.3 BUN (mg/dL) Date Value 02/21/2024 10 No results found for: "APTTPAT" CREATININE (mg/dL) Date Value 02/21/2024 1.03 GLUCOSE (mg/dL) Date Value 02/21/2024 110 CO2 TOTAL (mmol/L) Date Value 02/21/2024 30 X-ray results: none ASSESSMENT AND PLAN preeclampsia --normal LFTs --Labetalol for severe range BPS --started on Magnesium therapy NV --resolved after magnesium therapy Abdominal pain --reviewed CT scan results --pain resolved after Mg therapy Guillermina March MD [facility] 2024-02-08 22:15:40 ANTEPARTUM HISTORY & PHYSICAL IDENTIFYING DATA Bridgette Fitzpatrick is 18 year old, Black or , 39w2d, female with TAMIKA 02/13/2024, by Ultrasound. : 2005 Primary Care Physician: Alexandro Riley Hospital Day: 1 CHIEF COMPLAINT Induction HISTORY OF PRESENT ILLNESS 18 year old @39w2d presents for IOL> denies vb or LOF. Denies WILKINS or RUQ pain. PAST OBSTETRIC HISTORY OB History Para Term AB Living 2 1 SAB IAB Ectopic Multiple Live Births 1 # Outcome Date GA Lbr Vinicio/2nd Weight Sex Delivery Anes PTL Lv 2 Current 1 SAB 03/2020 PAST MEDICAL HISTORY Problem list: Patient Active Problem List Diagnosis Date Noted 39 weeks gestation of 02/08/2024 Encounter for induction of labor 02/08/2024 Limited care in third trimester 01/28/2024 Sickle cell trait in mother affecting 07/20/2023 Rubella non-immune status, antepartum 07/20/2023 Bipolar disease during in third trimester 06/22/2023 High-risk in third trimester 06/22/2023 Morbid obesity 01/30/2022 Operations: No past surgical history on file. Prior surgeries at outside hospitals: none Past Medical History: Diagnosis Date Anemia not on medication Anxiety 2020 Bipolar disease during in first trimester 06/22/2023 Irregular menstrual cycle 01/30/2022 Migraine CURRENT HEALTH STATUS Medications: Current Facility-Administered Medications Medication Dose Route Frequency Last Rate Last Admin carboprost (HEMABATE) injection 250 mcg 250 mcg Intramuscular Q2HPRN D5W-LR IV infusion 1,000 mL 1,000 mL IV Infusion TITRATE 125 mL/hr at 02/08/241950 1,000 mL at 02/08/241950 lactated ringers IV infusion 500 mL 500 mL IV Infusion PRN - SEE INSTRUCTIONS lidocaine 1% (PF) (XYLOCAINE) injection 0.3 mL 0.3 mL Infiltration PRN - SEE INSTRUCTIONS lidocaine 1% (XYLOCAINE) 10 mg/mL (1 %) injection 50 mL 50 mL Infiltration PRN - SEE INSTRUCTIONS methylergonovine (METHERGINE) injection 0.2 mg 0.2 mg Intramuscular Q4HPRN misoprostol (CYTOTEC) quarter-tablet 25 mcg 25 mcg Vaginal Q4H 25 mcg at 02/08/242003 miSOPROStoL (CYTOTEC) tablet 200 mcg 200 mcg Rectal PRN oxytocin (PITOCIN) 30 units in NS 500 mL IV infusion 600 mL/hr IV Infusion PRN sodium citrate-citric acid (BICITRA) 500-334 mg/5 mL solution 30 mL 30 mL Oral PRE-PROCEDURE ONCE tranexamic acid (CYKLOKAPRON) 1,000 mg in NaCl 0.9% (NS) 250 mL piggyback 1,000 mg IV Piggyback PRN Allergies and drug reactions: Patient has no known allergies. HOME MEDICATIONS Medications Prior to Admission Medication Sig Dispense Refill Last Dose cephALEXin 500 mg capsule Take 1 capsule by mouth in the morning and 1 capsule at noon and 1 capsule in the evening. 21 capsule 0 Not Taking ARIPiprazole 20 mg tablet Take 1 tablet by mouth at bedtime. Not Taking traZODone 50 mg tablet Take 1 tablet by mouth as needed. Not Taking PNV 67-iron ps-folate no.1-dha (VITAFOL ULTRA) 29 mg iron- 1 mg-200 mg Cap Take 1 tablet by mouth in the morning. If insurance does not cover can substituent with any other mediation that contains components. 60 capsule 3 Taking ondansetron (ZOFRAN) 4 mg tablet Take 1 tablet by mouth every 8 (eight) hours as needed. Not Taking Last taken: none SOCIAL HISTORY Tobacco History: Social History Tobacco Use Smoking Status Never Smokeless Tobacco Never Drug History: Social History Substance and Sexual Activity Drug Use Yes Types: Marijuana Alcohol History: Social History Substance and Sexual Activity Alcohol Use Never FAMILY HISTORY Family History Problem Relation Age of Onset Other - see comments Mother at 49 years of age secondary to liver failure/alcoholism Asthma Father High cholesterol Father Asthma Paternal Aunt High cholesterol Paternal Uncle High cholesterol Paternal Grandfather Asthma Paternal Grandfather Diabetes Paternal Grandfather REVIEW OF SYSTEMS General: negative Constitutional: weight gain Eyes: negative ENT/Mouth: negative Cardiovascular: negative Respiratory: negative Gastrointestinal:negative Genitourinary: negative Musculoskeletal: negative Skin/breast: negative Neurological: negative Psychiatric: depression Endocrine: negative Hemat/Lymph: negative Allergic/Immuno:none VITAL SIGNS BP: (122-152)/(70-96) Temp: [36.8 ?C (98.3 ?F)] Temp source: Temporal Artery (02/07 1900) Pulse: [77-105] Resp: [19] SpO2: [96 %-100 %] Height: -- Weight: -- BMI (calculated): -- PHYSICAL EXAMINATIONS General: well-developed, well-nourished Lungs: clear to auscultation bilaterally Abdomen: tenderness - normal : OB pelvic exam performed? Yes. Dilation - 1 cm Effacement - 0 % % Station - -3 Presentation (fetus 1) - vertex Extremities: no clubbing, cyanosis, or edema Neuro: cranial nerves II through XII grossly intact; sensation grossly intact; muscle strength 5 out of 5 in all four extremities REVIEW OF LABORATORY, PATHOLOGY, AND RADIOLOGY DATA Lab results: CBC BMP PT/INR WBC (10*3/?L) Date Value 02/08/2024 9.06 NA (mmol/L) Date Value 09/25/2022 140 No results found for: "PT" RBC (10*6/?L) Date Value 02/08/2024 4.44 K (mmol/L) Date Value 09/25/2022 3.8 No results found for: "PTINR" PLT (10*3/?L) Date Value 02/08/2024 398 (H) CALCIUM (mg/dL) Date Value 09/25/2022 9.1 HGB (g/dL) Date Value 02/08/2024 10.4 (L) CL (mmol/L) Date Value 09/25/2022 101 aPTT HCT (%) Date Value 02/08/2024 32.1 (L) BUN (mg/dL) Date Value 09/25/2022 12 No results found for: "APTTPAT" CREATININE (mg/dL) Date Value 09/25/2022 0.94 GLUCOSE (mg/dL) Date Value 09/25/2022 83 CO2 TOTAL (mmol/L) Date Value 09/25/2022 31 Type & Screen Rubella Varicella ABO & RH (no units) Date Value 02/08/2024 B POSITIVE Rubella screen IgG (no units) Date Value 06/28/2023 Equivocal No results found for: "VZVG" No results found for: "TSABINT" Hep B HIV Syphilis No results found for: "HBS" No results found for: "HIV" No results found for: "SYPG" Group B Strep Chlamydia No results found for: "CGBS" C. trachomatis Nucleic Acid (no units) Date Value 01/28/2024 Negative X-ray results: none Placenta Accreta Screening Prior ? : No Prior Uterine Surgery?: No Placenta low lying/previa in current ? : No Screening outcome: A positive screening outcome indicates a history of prior delivery or prior uterine surgery, AND the presence of either a placenta low lying/previa or ultrasound suspicion of PASD in the current . Negative screening. DELIVERY PLAN vaginal HEART RATE 140 mod varabilty, occasional variable decel [place]: 2 ctx /10 min ASSESSMENT AND PLAN Guzman bulb/misoprostol Reassuring status PIH labs for elevated Bps, no symptoms. Will monitor BPs Guillermina March MD [facility] 2024-01-01 08:47:39 ANTEPARTUM HISTORY & PHYSICAL IDENTIFYING DATA Bridgette Fitzpatrick is 18 year old, Black or , 33w6d, female with TAMIKA 02/13/2024, by Ultrasound. : 2005 Primary Care Physician: Alexandro Riley Hospital Day: 1 CHIEF COMPLAINT Back pain ,nausea and vomiting HISTORY OF PRESENT ILLNESS 18 year old @33w6d presents for BL lower back pain and nausea/vomiting. Denies vaginal bleeding or leakage of fluid. Good FM/ PNC: Dr March PAST OBSTETRIC HISTORY OB History Para Term AB Living 2 1 SAB IAB Ectopic Multiple Live Births 1 # Outcome Date GA Lbr Vinicio/2nd Weight Sex Delivery Anes PTL Lv 2 Current 1 SAB 03/2020 PAST MEDICAL HISTORY Problem list: Patient Active Problem List Diagnosis Date Noted Acute cystitis without hematuria 01/01/2024 Sickle cell trait in mother affecting 07/20/2023 Rubella non-immune status, antepartum 07/20/2023 Bipolar disease during in second trimester 06/22/2023 High-risk in third trimester 06/22/2023 Morbid obesity 01/30/2022 Operations: No past surgical history on file. Prior surgeries at outside hospitals: none Past Medical History: Diagnosis Date Anemia not on medication Anxiety 2020 Bipolar disease during in first trimester 06/22/2023 Irregular menstrual cycle 01/30/2022 Migraine CURRENT HEALTH STATUS Medications: Current Facility-Administered Medications Medication Dose Route Frequency Last Rate Last Admin lactated ringers IV infusion 1,000 mL 1,000 mL IV Infusion CONTINUOUS 200 mL/hr at 01/01/24 0327 1,000 mL at 01/01/24 032 lactated ringers IV infusion 1,000 mL 1,000 mL IV Infusion ONCE Allergies and drug reactions: Patient has no known allergies. HOME MEDICATIONS Medications Prior to Admission Medication Sig Dispense Refill Last Dose ARIPiprazole 20 mg tablet Take 1 tablet by mouth at bedtime. Taking traZODone 50 mg tablet Take 1 tablet by mouth as needed. Not Taking PNV 67-iron ps-folate no.1-dha (VITAFOL ULTRA) 29 mg iron- 1 mg-200 mg Cap Take 1 tablet by mouth in the morning. If insurance does not cover can substituent with any other mediation that contains components. 60 capsule 3 Taking ondansetron (ZOFRAN) 4 mg tablet Take 1 tablet by mouth every 8 (eight) hours as needed. Not Taking SOCIAL HISTORY Tobacco History: Social History Tobacco Use Smoking Status Never Smokeless Tobacco Never Drug History: Social History Substance and Sexual Activity Drug Use Yes Types: Marijuana Alcohol History: Social History Substance and Sexual Activity Alcohol Use Never FAMILY HISTORY Family History Problem Relation Age of Onset Other - see comments Mother at 49 years of age secondary to liver failure/alcoholism Asthma Father High cholesterol Father Asthma Paternal Aunt High cholesterol Paternal Uncle High cholesterol Paternal Grandfather Asthma Paternal Grandfather Diabetes Paternal Grandfather REVIEW OF SYSTEMS General: (-) fever, (-) chills Constitutional: weight gain Eyes: negative ENT/Mouth: negative Cardiovascular: negative Respiratory: negative Gastrointestinal:nausea and vomitting Genitourinary: dysuria Musculoskeletal: lower back pain Skin/breast: negative Neurological: negative Psychiatric: depression Endocrine: negative Hemat/Lymph: ss trait Allergic/Immuno:none VITAL SIGNS BP: (102-135)/(45-82) Temp: [36.6 ?C (97.9 ?F)-37.2 ?C (99 ?F)] Temp source: Oral (01/01 0700) Pulse: [73-106] Resp: [18-20] SpO2: [94 %-100 %] Height: [162.6 cm (5' 4")] Weight: [105.9 kg (233 lb 8 oz)-106.1 kg (233 lb 12.8 oz)] BMI (calculated): [0-40.13] PHYSICAL EXAMINATIONS General: well-developed, well-nourished Lungs: clear to auscultation bilaterally Cardiology: regular rate and rhythm Abdomen: tenderness - normal CVA tenderness - no Extremities: no clubbing, cyanosis, or edema Neuro: cranial nerves II through XII grossly intact; sensation grossly intact; muscle strength 5 out of 5 in all four extremities REVIEW OF LABORATORY, PATHOLOGY, AND RADIOLOGY DATA Lab results: CBC BMP PT/INR WBC (10*3/?L) Date Value 11/12/2023 8.81 NA (mmol/L) Date Value 09/25/2022 140 No results found for: "PT" RBC (10*6/?L) Date Value 11/12/2023 4.55 K (mmol/L) Date Value 09/25/2022 3.8 No results found for: "PTINR" PLT (10*3/?L) Date Value 11/12/2023 365 (H) CALCIUM (mg/dL) Date Value 09/25/2022 9.1 HGB (g/dL) Date Value 11/12/2023 11.0 (L) CL (mmol/L) Date Value 09/25/2022 101 aPTT HCT (%) Date Value 11/12/2023 33.9 (L) BUN (mg/dL) Date Value 09/25/2022 12 No results found for: "APTTPAT" CREATININE (mg/dL) Date Value 09/25/2022 0.94 GLUCOSE (mg/dL) Date Value 09/25/2022 83 CO2 TOTAL (mmol/L) Date Value 09/25/2022 31 Type & Screen Rubella Varicella ABO & RH (no units) Date Value 11/12/2023 B Positive Rubella screen IgG (no units) Date Value 06/28/2023 Equivocal No results found for: "VZVG" No results found for: "TSABINT" Hep B HIV Syphilis No results found for: "HBS" No results found for: "HIV" No results found for: "SYPG" Group B Strep Chlamydia No results found for: "CGBS" C. trachomatis Nucleic Acid (no units) Date Value 12/24/2023 Negative X-ray results: none Placenta Accreta Screening Prior ? : No Prior Uterine Surgery?: No Placenta low lying/previa in current ? : No Screening outcome: A positive screening outcome indicates a history of prior delivery or prior uterine surgery, AND the presence of either a placenta low lying/previa or ultrasound suspicion of PASD in the current . Negative screening. DELIVERY PLAN vaginal HEART RATE Initial tachycardiac but resolved after fluids, now 130 reactive and reassuring ASSESSMENT AND PLAN Principal Problem: Acute cystitis without hematuria (01/01/2024) (POA: Yes) --2 grams of Rocephin given. No fever or CVAT noted Active Problems: Morbid obesity (01/30/2022) (POA: Yes) Bipolar disease during in second trimester (06/22/2023) (POA: Yes) --followed by psych High-risk in third trimester (06/22/2023) (POA: Yes) --Reassuring status Guillermina March MD [facility] Procedure Notes Date/Time Note Provider Source 2024-02-09 03:59:00 Associated Order(s): Central Neuraxial Block Central Neuraxial Block Date/Time: 02/09/2024 3:59 AM Performed by: Elle Neumann MD Authorized by: Elle Neumann MD End Time: 02/09/2024 3:59 AM Reason for Block: OB request, Patient request, Labor analgesia, Surgical anesthesia and Post-op pain management Staff: Anesthesiologist: Elle Neumann MD Performed by: anesthesiologist Preanesthetic Checklist: patient identified, IV checked, risks and benefits explained, monitors and equipment checked, timeout performed, pre-op evaluation, site marked, anesthesia consent, ob/surgical consent approval, ob/surgical consent verified and surgical consent Procedure: Type of Neuraxial: Epidural Prep: Betadine and patient draped Monitoring: heart rate, continuous pulse ox, heart rate / toco and NIBP Technique: JEWEL air and catheter Guidance with: landmark technique} Epidural/Spinal [place] and/or Catheter: Epidural/Spinal Kit: Arrow Needle Type: Tuohy Needle Gauge: 17 G Needle Insertion Depth: 8 Catheter Type: side hole Catheter at Skin Depth: 12 Number of Attempts: 1 Dose: 3 cc Catheter Securement Method: surgical tape and Tegaderm Assessment: Procedure Assessment: patient tolerated procedure well with no complications Notes: Smooth and atraumatic, (+) Local, (+) STF AN-ANESTHESIOLOGY ANESTHESIOLOGIST [facility] Notes Date/Time Note Provider Source 2024-07-20 09:41:15 Appt is made for 1:45 today. T Karin Liang MA [facility] 2024-07-20 08:54:26 Left voicemail for pt to return call to clinic. T [facility] 2024-07-19 09:50:21 Pt is on POP 2/2 chtn. What is covered ? Would need appt to check BC to determine if ok to do regular OCP T [facility] 2024-07-19 08:46:48 Pt is requesting a new ocp due to norethindrone 0.35 mg tablet not longer being covered by her insurance. Please advise. [facility] 2024-07-18 11:53:17 PT called in and stated that her control is no longer covered by her insurance and wants to know if it can be switched. Crhisty Arroyo [facility] 2024-02-28 12:25:00 Problem: Pain Goal: Control of pain at or below patient's documented comfort goal 02/28/2024 1232 by Frida Ma RN Outcome: Resolved 02/28/2024 0735 by Frida Ma RN Outcome: Progressing as expected Problem: Complications of preeclampsia/eclampsia (risk or actual) Goal: Absence of seizure activity 02/28/2024 1232 by Frida Ma RN Outcome: Resolved 02/28/2024 0735 by Frida Ma RN Outcome: Progressing as expected Goal: Absence of signs and symptoms of preeclampsia 02/28/2024 1232 by Frida Ma RN Outcome: Resolved 02/28/2024 0735 by Frida Ma RN Outcome: Progressing as expected Problem: Venous Thromboembolism, (actual or risk of) Goal: Absence of venous thromboembolism (Risk) 02/28/2024 1232 by Frida Ma RN Outcome: Resolved 02/28/2024 0735 by Frida Ma RN Outcome: Progressing as expected Goal: Prevent further complications associated with VTE diagnosis (Actual) 02/28/2024 1232 by Frida Ma RN Outcome: Resolved 02/28/2024 0735 by Frida Ma RN Outcome: Progressing as expected Frida Ma RN [facility] 2024-02-28 07:00:00 Problem: Pain Goal: Control of pain at or below patient's documented comfort goal Outcome: Progressing as expected Problem: Complications of preeclampsia/eclampsia (risk or actual) Goal: Absence of seizure activity Outcome: Progressing as expected Goal: Absence of signs and symptoms of preeclampsia Outcome: Progressing as expected Problem: Venous Thromboembolism, (actual or risk of) Goal: Absence of venous thromboembolism (Risk) Outcome: Progressing as expected Goal: Prevent further complications associated with VTE diagnosis (Actual) Outcome: Progressing as expected [facility] 2024-02-27 19:19:22 Problem: Pain Goal: Control of pain at or below patient's documented comfort goal Outcome: Progressing as expected Problem: Complications of preeclampsia/eclampsia (risk or actual) Goal: Absence of seizure activity Outcome: Progressing as expected Goal: Absence of signs and symptoms of preeclampsia Outcome: Progressing as expected Problem: Venous Thromboembolism, (actual or risk of) Goal: Absence of venous thromboembolism (Risk) Outcome: Progressing as expected Goal: Prevent further complications associated with VTE diagnosis (Actual) Outcome: Progressing as expected Helene Bennett RN [facility] 2024-02-27 07:32:20 Problem: Pain Goal: Control of pain at or below patient's documented comfort goal Outcome: Progressing as expected Problem: Complications of preeclampsia/eclampsia (risk or actual) Goal: Absence of seizure activity Outcome: Progressing as expected Goal: Absence of signs and symptoms of preeclampsia Outcome: Progressing as expected Problem: Venous Thromboembolism, (actual or risk of) Goal: Absence of venous thromboembolism (Risk) Outcome: Progressing as expected Goal: Prevent further complications associated with VTE diagnosis (Actual) Outcome: Progressing as expected Estefani Cueto RN [facility] 2024-02-26 20:41:51 Problem: Pain Goal: Control of pain at or below patient's documented comfort goal Outcome: Progressing as expected Problem: Complications of preeclampsia/eclampsia (risk or actual) Goal: Absence of seizure activity Outcome: Progressing as expected Goal: Absence of signs and symptoms of preeclampsia Outcome: Progressing as expected Problem: Venous Thromboembolism, (actual or risk of) Goal: Absence of venous thromboembolism (Risk) Outcome: Progressing as expected Goal: Prevent further complications associated with VTE diagnosis (Actual) Outcome: Progressing as expected Katerine Cummins RN [facility] 2024-02-26 14:24:43 Problem: Pain Goal: Control of pain at or below patient's documented comfort goal Outcome: Progressing as expected Problem: Complications of preeclampsia/eclampsia (risk or actual) Goal: Absence of seizure activity Outcome: Progressing as expected Goal: Absence of signs and symptoms of preeclampsia Outcome: Progressing as expected [facility] 2024-02-26 06:04:09 Pt arrives ambulatory to ED c/o abdominal pains, headache, nausea, & says chest feels tight when she breaths in. Pt delivered a baby 2 weeks & 3 days ago and did have gestational HTN and preeclampsia. Pt was admitted recently for the same issue. Report called to L&D charge phone. Frida Park RN [facility] 2024-02-24 10:46:27 Spoke with [facility] pharmacy. [facility] pharmacy states they have labetalol 200mg in stock. Attempted to contact patient. Patient's sister answered and stated she tried to sheepskin pickler medication and they did not have it. Advised I just spoke with pharmacy and they have the medication. Verbalized understanding. Philip Chin RN 02/24/2024 10:48 AM Philip Chin RN [facility] 2024-02-24 10:20:20 Patient states pharmacy does not have labetaloL 200 mg tablet. Please call back at [phone]. Samantha Lo [facility] 2024-02-22 17:05:09 Problem: Complications of preeclampsia/eclampsia (risk or actual) Goal: Absence of seizure activity Outcome: Adequate for discharge Goal: Absence of signs and symptoms of preeclampsia Outcome: Adequate for discharge Problem: Pain Goal: Control of pain at or below patient's documented comfort goal Outcome: Adequate for discharge Goal: Reduction in pain sensation Outcome: Adequate for discharge Problem: Falls, Risk of Goal: Absence of falls Outcome: Adequate for discharge Heather Gonzalez RN [facility] 2024-02-22 07:00:00 Problem: Complications of preeclampsia/eclampsia (risk or actual) Goal: Absence of seizure activity Outcome: Progressing as expected Goal: Absence of signs and symptoms of preeclampsia Outcome: Progressing as expected Problem: Pain Goal: Control of pain at or below patient's documented comfort goal Outcome: Progressing as expected Goal: Reduction in pain sensation Outcome: Progressing as expected Problem: Falls, Risk of Goal: Absence of falls Outcome: Progressing as expected Frida Ma RN [facility] 2024-02-21 20:31:50 Problem: Complications of preeclampsia/eclampsia (risk or actual) Goal: Absence of seizure activity Outcome: Progressing as expected Goal: Absence of signs and symptoms of preeclampsia Outcome: Progressing as expected Problem: Pain Goal: Control of pain at or below patient's documented comfort goal Outcome: Progressing as expected Goal: Reduction in pain sensation Outcome: Progressing as expected Problem: Falls, Risk of Goal: Absence of falls Outcome: Progressing as expected Katerine Cummins RN [facility] 2024-02-21 09:32:00 Patient transferred to L&D vitally stable by wheelchair accompanied by ED staff. Tiera Foster RN [facility] 2024-02-21 09:30:20 Casey HONG called report to [facility]. Derrek Pruett RN [facility] 2024-02-21 08:35:36 Patient 2 weeks post ( Vaginal delivery on the and reports HTN). Diagnosed with gestational hypertension. Patient began vomiting this morning approx 6 am. States that she has abdominal pain over her entire abdomen and tightness. Patient vomited 800ml of fluid at triage. Princess Marin RN [facility] 2024-02-11 09:48:27 This note was copied from a baby's chart. Evaluation Situation Follow up visit Background Baby girl is 2 days old, born weighing 2860g, and has lost -1.05% of weight. Gestational Age: 39w3d at FEEDING STATUS Formula supplementation via MATERNAL STATUS Pumping Assessment & Recommendation Visited mom to offer assistance with . Mom denies problems with or latching. Mom states baby is latching on well and she is pumping after. Mom denies nipple pain or trauma. Reviewed education. All questions answered. Mom does not have any other questions or concerns at this time. Mom instructed on how to contact [employer] for assistance with feedings or to answer questions while in the hospital. Mom Verbalized understanding. COURTNEY Cat, RN, IBCLC Chandan Ruiz RN [facility] 2024-02-11 08:55:00 Problem: Venous Thromboembolism, (actual or risk of) Goal: Absence of venous thromboembolism (Risk) 02/11/2024 0857 by Frida Ma RN Outcome: Resolved 02/11/2024 0725 by Frida Ma RN Outcome: Progressing as expected Goal: Prevent further complications associated with VTE diagnosis (Actual) 02/11/2024 0857 by Frida Ma RN Outcome: Resolved 02/11/2024 0725 by Frida Ma RN Outcome: Progressing as expected Problem: Falls, Risk of Goal: Absence of falls 02/11/2024 0857 by Frida Ma RN Outcome: Resolved 02/11/2024 07 by Frida Ma RN Outcome: Progressing as expected Problem: Complications of hemorrhage (risk or actual) Goal: Absence of active bleeding 02/11/2024 0857 by Frida Ma RN Outcome: Resolved 02/11/2024 0725 by Frida Ma RN Outcome: Progressing as expected Goal: Absence of complications 02/11/2024 0857 by Firda Ma RN Outcome: Resolved 02/11/2024 07 by Frida Ma RN Outcome: Progressing as expected Problem: Pain Goal: Control of pain at or below patient's documented comfort goal 02/11/2024 0857 by Frida Ma RN Outcome: Resolved 02/11/2024 0725 by Frida Ma RN Outcome: Progressing as expected Goal: Reduction in pain sensation 02/11/2024 0857 by Frida Ma RN Outcome: Resolved 02/11/2024 0725 by Frida Ma RN Outcome: Progressing as expected Frida Ma RN [facility] 2024-02-11 07:15:00 Problem: Venous Thromboembolism, (actual or risk of) Goal: Absence of venous thromboembolism (Risk) Outcome: Progressing as expected Goal: Prevent further complications associated with VTE diagnosis (Actual) Outcome: Progressing as expected Problem: Falls, Risk of Goal: Absence of falls Outcome: Progressing as expected Problem: Complications of hemorrhage (risk or actual) Goal: Absence of active bleeding Outcome: Progressing as expected Goal: Absence of complications Outcome: Progressing as expected Problem: Pain Goal: Control of pain at or below patient's documented comfort goal Outcome: Progressing as expected Goal: Reduction in pain sensation Outcome: Progressing as expected T [facility] 2024-02-10 18:44:35 Problem: Venous Thromboembolism, (actual or risk of) Goal: Absence of venous thromboembolism (Risk) Outcome: Progressing as expected Goal: Prevent further complications associated with VTE diagnosis (Actual) Outcome: Progressing as expected Problem: Falls, Risk of Goal: Absence of falls Outcome: Progressing as expected Problem: Complications of hemorrhage (risk or actual) Goal: Absence of active bleeding Outcome: Progressing as expected Goal: Absence of complications Outcome: Progressing as expected Problem: Pain Goal: Control of pain at or below patient's documented comfort goal Outcome: Progressing as expected Goal: Reduction in pain sensation Outcome: Progressing as expected [facility] Edwige Orta RN [facility] 2024-02-10 12:10:00 This note was copied from a baby's chart. Evaluation Situation Follow up visit Background Baby girl is 1 days old, born weighing 2860g. Gestational Age: 39w3d at INFANT FEEDING STATUS Formula supplementation via MATERNAL STATUS Pumping Hand expressing Assessment & Recommendation Assisted mom with positioning and asymmetrical latch technique in the cross cradle hold on right and football hold on left. Initially "" was latched shallow, but after giving more neck and back support she was able to achieve a deeper latch. The baby suckled in coordinated bursts with audible swallows. Mom's nipple was rounded upon release. Taught hand expression to encouraged latch and for nipple care. Reviewed position and latch techniques. Mom denies pain with feeding. education provided. All questions answered. Mom does not have any other questions or concerns at this time. Mom instructed on how to contact [employer] for assistance with feedings or to answer questions while in the hospital. Mom verbalized understanding. Assessment (most recent) Assessment - 02/10/24 1210 General Information Visit Follow-up Mom's age (years) 18 years Gestational age 39 weeks 2 Parity 1 Living Children 1 Feeding plan Breast and Formula plans As long as possible Breast Pump Has Breast Pump Electric Delivery method Control Undecided Breast changes during Enlarged;Tenderness;Darken ing of areola Infant Oral Assessment Oral assessment No changes from previous assessment Date of 02/09/24 Time of 1022 location Mother Baby Unit Breast Assessment Breast Assessment No change from previous assessment Nipple & Areola Assessment Left Areola Pliable Right Areola Pliable Left Nipple Colostrum visible;Intact;Everted Right Nipple Colostrum visible;Everted Literature Resources Resources Understanding Mother and Baby Care Education On-demand feeds at least 8 or more over 24 hours;Hand expression;Signs of an effective latch;Infant stomach size;2nd day/growth spurt cluster feeds;Position changes;Breaking seal;Burping Handouts given [place] [employer] Observation Assist with latch Position right side Football;Infant latched effectively;Suckled in coordinated bursts Position left side Cross cradle; latched effectively;Suckled in coordinated bursts Interventions Motherlove nipple cream Mother demonstrated teach back of Positioning and latching infant at breast Follow up Mom will call staff Recommended Feeding Plan Recommended feeding plan On-demand , 8-12 times in 24 hours not to exceed 6 hours between feeds;Offer both breasts prior to formula supplementation;Pump/hand express minimum 8 times in 24 hours including nights. Pump for 15-25 min. OTHER $ SERVICES Follow-up COURTNEY Cat, RN, IBCLC T [facility] 2024-02-09 21:00:21 Problem: Venous Thromboembolism, (actual or risk of) Goal: Absence of venous thromboembolism (Risk) Outcome: Progressing as expected Goal: Prevent further complications associated with VTE diagnosis (Actual) Outcome: Progressing as expected Problem: Falls, Risk of Goal: Absence of falls Outcome: Progressing as expected Problem: Complications of hemorrhage (risk or actual) Goal: Absence of active bleeding Outcome: Progressing as expected Goal: Absence of complications Outcome: Progressing as expected Problem: Pain Goal: Control of pain at or below patient's documented comfort goal Outcome: Progressing as expected Goal: Reduction in pain sensation Outcome: Progressing as expected Deepthi Smith RN [facility] 2024-02-09 18:15:15 Problem: Intrapartum process (including labor pain) Goal: Absence of or reduction of complications of labor Outcome: Resolved Goal: Able to cope with pain Outcome: Resolved Goal: Adequate to move to next level of care Outcome: Resolved Goal: Reduction in pain sensation Outcome: Resolved Problem: Venous Thromboembolism, (actual or risk of) Goal: Absence of venous thromboembolism (Risk) Outcome: Progressing as expected Goal: Prevent further complications associated with VTE diagnosis (Actual) Outcome: Progressing as expected Problem: Falls, Risk of Goal: Absence of falls Outcome: Progressing as expected [facility] 2024-02-09 14:00:00 Images from the original note were not included. This note was copied from a baby's chart. Evaluation Situation Initial visit Background Baby Girl is 4 hours old, born weighing 2860g. Gestational Age: 39w3d at FEEDING STATUS Exclusively Formula supplementation via bottle MATERNAL STATUS Hand expressing Assessment, Recommendations, Education Visited mom to offer assistance with . Mom states she plans to give formula for now because she is not producing milk. I discussed with mom the stages of milk production and when she can expect to see or feel an increase in her milk supply. I discussed colostrum production and the size of the infant stomach and the amount need for a full meal the fist few days. I discussed with mom the potential of a decreased milk supply when supplementing with formula because does not feed form the breast as often as needed to build and maintain her milk supply. Mom was encouraged to feed from the breast at least 8-12 times a day. I offer to assist mom with latching at the next feeding. Mom states she will request my help when needed. education provided. All questions answered. Mom does not have any other questions or concerns at this time. Mom instructed on how to contact [employer] for assistance with feedings or to answer questions while in the hospital. Mom verbalized understanding. Assessment (most recent) Assessment - 02/09/24 1400 General Information Visit Initial Mom's age (years) 18 years Gestational age 39 weeks 2 Parity 1 Living Children 1 Feeding plan Breast and Formula plans Undecided Breast Pump Needs Delivery method Control Undecided Breast changes during Enlarged;Tenderness;Darken ing of areola Infant Oral Assessment Oral assessment Deferred infant sleeping Date of 02/09/24 Time of 1022 location Mother Baby Unit Breast Assessment Breast Assessment Initial Symmetry Symmetrical Size XL (F+) Shape Pendulous Nipple & Areola Assessment Left Areola Pliable Right Areola Pliable Left Nipple Colostrum visible;Everted Right Nipple Colostrum visible;Everted Literature Resources Resources Understanding Mother and Baby Care Education On-demand feeds at least 8 or more over 24 hours;Diaper counts/color;Benefits of breastmilk;Hand expression;Delay of pacifier/artificial nipples up to 4 weeks;Benefits of skin to skin contact;Infant stomach size;2nd day/growth spurt cluster feeds Handouts given [place] [employer] Observation Follow up Mom will call staff;Follow up in hospital Recommended Feeding Plan Recommended feeding plan On-demand , 8-12 times in 24 hours not to exceed 6 hours between feeds;Offer both breasts prior to formula supplementation;Frequent [id number] time with parents;Pump/hand express minimum 8 times in 24 hours including nights. Pump for 15-25 min. OTHER $ SERVICES Initial COURTNEY Cat, RN, IBCLC [facility] 2024-02-09 12:43:54 Patient: Bridgette Fitzpatrick Procedure Summary Date: 02/09/24 Room / Location: Anesthesia Start: 349 Anesthesia Stop: 1124 Procedure: CENTRAL NEURAXIAL BLOCK Diagnosis: Scheduled Providers: Responsible Provider: Mic Hoffman MD Anesthesia Type: Not recorded ASA Status: 2 Anesthesia Type: No value filed. Last vitals BP (!) 147/76 (02/09/24 1145) Temp Pulse 70 (02/09/24 1145) Resp 18 (02/09/24 1145) SpO2 There were no known notable events for this encounter. Anesthesia Post Evaluation Comments: Epidural Removal Criteria Estimated blood loss for delivery in the first hour is less than 500 mL?: Yes (02/09/2024 11:10 AM) Lacerations from delivery have been repaired at bedside?: Yes (02/09/2024 11:10 AM) Patient has not received anticoagulation on blood thinners prior to epidural placement or during labor?: Yes (02/09/2024 11:10 AM) Patient will not have a BTL in the next 4 hours?: Yes (02/09/2024 11:10 AM) OB physicians are not placing lab orders for coagulation profile or waiting for their results?: Yes (02/09/2024 11:10 AM) Fall precautions given?: Yes (02/09/2024 11:10 AM) Anesthesia [facility] Post Operative Faculty Note Date of service: 02/09/2024 Patient is s/p labor epidural placement and removal. Patient examined, patient awake. Patient participation in post anesthesia evaluation: Block not fully resolved, as expected. Patient participated otherwise. Patient advised about fall precautions. Vital Signs: BP (!) 147/76 | Pulse 70 | Temp 36.7 ?C (98 ?F) (Oral) | Resp 18 | LMP 04/28/2023 | SpO2 96% | Unknown Pain: Scale used: 0 - 10 Ratin Nausea and vomiting: Not present. Post operative/post procedure hydration status: Euvolemic. Post-operative course: Block resolving appropriately, and patient advised about fall precautions as noted above. Complications: No apparent complications Mic Hoffman MD 02/09/2024 12:44 AN-ANESTHESIOLOGY ANESTHESIOLOGIST [facility] 2024-02-09 12:38:50 Problem: Intrapartum process (including labor pain) Goal: Absence of or reduction of complications of labor Outcome: Resolved Goal: Able to cope with pain Outcome: Resolved Goal: Adequate to move to next level of care Outcome: Resolved Goal: Reduction in pain sensation Outcome: Resolved [facility] 2024-02-09 10:34:09 DELIVERY BY SPONTANEOUS VAGINAL DELIVERY Delivery Date: 02/09/2024 Delivery Time: 10:22 AM Delivery Summary The patient was admitted to the Labor & Delivery unit for induction at 39w3d weeks due to elective. Delivery Physician: Guillermina March MD Intrapartum Anesthesia/Analgesia: Epidural Mode of Delivery: Delivery of newby fetus with cephalic presentation Fetus Spontaneous vaginal delivery of head with cephalic position, occipital anterior. As the head crowned and distended the perineum, no episiotomy was performed. A blue towel was used to protect the perineum as the head crowned and delivered. The other hand was used to exert pressure on the occiput to control the delivery of the head. The perineum was pushed with a towel-draped hand as the head and mouth was delivered over the perineum. The head was allowed to rotate externally to achieve natural body posture. Examination of neck revealed no umbilical cord. The shoulder was delivered by gentle downward traction applied to head and downward traction for the delivery of anterior shoulder. This was followed by upward traction with delivery of posterior shoulder and body. After the delivery of , bulb suction was performed from ororpharynx and nostril with removal of clear amniotic fluid. A normal, female was delivered. The umbilical cord was double clamped, cut and the was handed off the field to the circulating nurse Placenta Placenta was delivered spontaneously while the abdominal hand lifted the uterus cephalad and other hand keeping the umbilical cord slightly taut. Laceration Laceration Repair: Minor - lacerations (perineum, sidewall, labial, vaginal floor and/or periurethral) were closed with interrupted sutures. . Fourth Stage Fourth stage of labor was managed by uterine massage with abdominal hand and infusion 20 units of pitocin mixed with intravenous fluid. EBL: 100 Complications: none Weight: 2860 g 1 Minute 5 Minute 10 Minute Totals: 8 8 [facility] [employer] 2024-02-09 09:51:30 Intrapartum Progress Note 02/09/2024 9:51 AM Subjective: Patient has no complaints Objective: Vitals last 24 hours: Temp: [36.6 ?C (97.9 ?F)-36.8 ?C (98.3 ?F)] 36.7 ?C (98.1 ?F) Pulse: [64-105] 64 Resp: [18-19] 18 BP: (112-164)/(65-119) 139/75 Intake/Output : I/O this shift: In: 603.1 [I.V.:1.2] Out: 600 [Urine:600] I/O last 3 completed shifts: In: 1162.4 [Oral:50; I.V.:0.2] Out: 950 [Urine:950] Assessment Active movement: Yes Mode: FSE Variability: Moderate Decel Frequency: Intermittent FHR Category: II Uterine Activity: Mode: IUPC Contractions (number / 10 minute): 4 Contraction duration (seconds): 50-60 Contraction quality: Moderate, Palpation Resting tone: Soft, Palpation Membrane Status Membrane status: Artificial Rupture date: 02/09/24 Rupture time: 0306 Amniotic fluid color: Clear Cervical Exam 6 / 90 % / -3 Assessment/Plan: Bridgette Fitzpatrick is a 18 year old at 39w3d Position change IV fluid bolus noted Will monitor closely Guillermina March MD [facility] [employer] 2024-02-09 03:56:40 Name/ MRN / Age / Gender: Bridgette Fitzpatrick, [id number] 18 year old female BMI: Estimated body mass index is 41.2 kg/m? as calculated from the following: Height as of 02/07/24: 1.626 m (5' 4"). Weight as of 02/07/24: 108.9 kg (240 lb). Allergies: Patient has no known allergies. Last Vitals: BP Readings from Last 1 Encounters: 02/09/24 (!) 150/88 Pulse Readings from Last 1 Encounters: 02/09/24 75 SpO2 Readings from Last 1 Encounters: 02/09/24 100% Date of Surgery: Surgeon: * Surgery not found * Procedure: CENTRAL NEURAXIAL BLOCK OR Location: * No surgery found * Anesthesia Preop Eval (physical exam) Anesthesia History (-) Hx of anesthetic complications Previous Anesthetics/Airways Cardiovascular Negative Cardiac ROS Pulmonary Negative Pulmonary ROS Neuro/Musculoskeletal Negative Neuro/Musculosketal ROS GI/Hepatic Negative GI/Hepatic ROS Hematology Comments: Sickle cell trait Renal Negative Renal ROS Skin Negative Skin ROS Endo/Other Negative Endo/Other ROS Other [employer] STRIPPER Comments: 39w2d, Pediatric Preoperative Medication Instructions Continue taking all prescribed medications except: JULES inhibitors, ARBs, diuretics, all oral diabetes medications Anticoagulant Therapy: Defer to surgeons Insulin: Take 1/2 dose the night prior to surgery. Hold on DOS. Phentermine: Alert [facility] anesthesiologist SGLT2 Inhibitors: "gliflozins" to be held for 3 days prior to elective surgeries GLP1 Agonosit: stop 7 days prior to surgery MAC Cases: Continue taking JULES inhibitors and ARBs ASA Classification ASA: 2 Labs: Chemistry 02/08/2024 CBC 02/08/2024 136 107 8 69 (L) 9.06 10.4 (L) 398 (H) 4.5 20 (L) 0.81 32.1 (L) eGFR: 107.4 Date: 02/08/2024 ANC: 6.44 Date: 02/08/2024 LFTs 02/08/2024 Coags AST: 32 AP: 112 Prot: 7.2 Ca: 8.4 (L) PT: - Date: - ALT: 11 T Nestor: 0.7 Alb: 3.1 (L) PTT: - Date: - PO4: - Date: - INR: - Date: - Cardiac Endocrine & other pBNP: - Date: - A1C: - Date: - Trop I: - Date: - TSH: - Date: - CK: - Date: - FT4: - Date: - CKMB: - Date: - Lact: - Date: - Procal: - Date: - Respiratory -|-|-|-|- D-dimer: - ABG Date: - Date: - Current Medications: No outpatient medications have been marked as taking for the 02/08/24 encounter (Hospital Encounter). Previous Surgeries: No past surgical history on file. Anesthesia Physical Exam General Neuro/Psych Dental no notable dental hx Abdominal Airway Mallampati score:II TM distance:> 5 cm NECK: short Neck ROM: full Mouth opening:normal Extremity Pulmonary Other Cardiovascular Anesthesia Plan ASA Status: 2 Plan discussed during pre-op evaluation: Epidural Plan to include: IV induction Post-Operative Analgesia: routine analgesia & antiemetics Recovery Plan: PACU Additional comments: [employer] 2024-02-09 03:07:48 Intrapartum Progress Note 02/09/2024 3:07 AM Subjective: Patient complains of mild pain with contractions Objective: Vitals last 24 hours: Temp: [36.6 ?C (97.9 ?F)-36.8 ?C (98.3 ?F)] 36.6 ?C (97.9 ?F) Pulse: [66-105] 83 Resp: [18-19] 18 BP: (122-164)/(65-119) 124/88 Intake/Output : I/O this shift: In: 50 [Oral:50] Out: - No intake/output data recorded. Assessment Active movement: Yes Mode: EFM Uterine Activity: Mode: [place] Contractions (number / 10 minute): irritability Contraction duration (seconds): 60 Contraction quality: Moderate Resting tone: Soft Membrane Status Membrane status: Artificial Cervical Exam 4 / 50 % / -3 Assessment/Plan: Bridgette Fitzpatrick is a 18 year old at 39w3d Will start Indra March MD [employer] 2024-02-08 20:19:03 Problem: Intrapartum process (including labor pain) Goal: Absence of or reduction of complications of labor Outcome: Progressing as expected Goal: Able to cope with pain Outcome: Progressing as expected Goal: Adequate to move to next level of care Outcome: Progressing as expected Goal: Reduction in pain sensation Outcome: Progressing as expected Problem: Venous Thromboembolism, (actual or risk of) Goal: Absence of venous thromboembolism (Risk) Outcome: Progressing as expected Goal: Prevent further complications associated with VTE diagnosis (Actual) Outcome: Progressing as expected [facility] 2024-02-07 13:00:00 ROUTINE VISIT 02/07/2024 1:46 PM SUBJECTIVE Bridgette Fitzpatrick is a 18 year old at 39w1d who presents for routine visit. She has no complaints today; loss of fluid, vaginal bleeding, and signs or symptoms of pre-eclampsia. Good movement. Occasional contractions OBJECTIVE BP 138/89 (BP Location: Left arm, Patient Position: Sitting, BP CUFF SIZE: Adult Large) | Pulse 75 | Resp 18 | Ht 5' 4" (1.626 m) | Wt 240 lb (108.9 kg) | LMP 04/28/2023 | BMI 41.20 kg/m? Physical Exam: Gen: A&Ox3, NAD Pulm: No labored breathing Abd: Soft, gravid, NTTP, ND, no rebound or guarding Ext: No calf tenderness : FT/Long/-3 ASSESSMENT: Bridgette Fitzpatrick is a 18 year old at 39w1d who presents for routine visit. Patient Active Problem List Diagnosis Morbid obesity Bipolar disease during in third trimester High-risk in third trimester Sickle cell trait in mother affecting Rubella non-immune status, antepartum Acute cystitis without hematuria Limited care in third trimester PLAN 1. 39 weeks gestation of - POCT Urinalysis w/o Specific [place] 2. High-risk in third trimester --IOL at [place] --PIH labs ordered since borderline BP 3. Bipolar disease during in third trimester 4. Limited care in third trimester [facility] 2024-01-28 11:15:00 Images from the original note were not included. Venipuncture collection performed by clean technique on the left anticubitus. Total of 1 attempts were made. Slight pressure and a bandage/dressing were applied to the site(s). The patient experienced no complications. The following specimens were processed according to instructions and sent to [facility] laboratories per lab order on 01/28/2024: LT BLUE SST RED LAV 1 PPT DK GREEN (LiHep) DK GREEN (SodH) STEARNS DK BLUE (K2) DK BLUE (S) ACD Blood Culture NIPT/NTD [facility] 2024-01-28 08:00:00 ROUTINE VISIT 01/28/2024 8:29 AM SUBJECTIVE Bridgette Fitzpatrick is a 18 year old at 37w5d who presents for routine visit. She has no complaints today; loss of fluid, vaginal bleeding, and signs or symptoms of pre-eclampsia. Good movement. Occasional contractions States lost phone and had not ride OBJECTIVE BP 124/80 (BP Location: Left arm, Patient Position: Sitting, BP CUFF SIZE: Adult Large) | Pulse 82 | Temp 36.7 ?C (98 ?F) | Ht 5' 4" (1.626 m) | Wt 243 lb 6.4 oz (110.4 kg) | LMP 04/28/2023 | BMI 41.78 kg/m? Physical Exam: Gen: A&Ox3, NAD Pulm: No labored breathing Abd: Soft, gravid, NTTP, ND, no rebound or guarding Ext: No calf tenderness : cl/l/-4 Bedside US: vertex ASSESSMENT: Bridgette Fitzpatrick is a 18 year old at 37w5d who presents for routine visit. Patient Active Problem List Diagnosis Morbid obesity Bipolar disease during in third trimester High-risk in third trimester Sickle cell trait in mother affecting Rubella non-immune status, antepartum Acute cystitis without hematuria Limited care in third trimester PLAN 1. 37 weeks gestation of - POCT Urinalysis w/o Specific [place] - Cbc with Diff; Future - Gc & Chlamydia Amplified Assay; Future - Group B Streptococcus By PCR; Future - Gc & Chlamydia Amplified Assay - Group B Streptococcus By PCR 2. High-risk in third trimester 3. Bipolar disease during in third trimester --off meds, sees Psych, no SI or HI 4. Limited care in third trimester [facility] 2024-01-13 12:25:34 Recieved fax from [employer]. Signed and faxed back. Title 19- PP support ROSARIO SHAVER RN 01/13/2024 12:25 PM T HAND Rosario Shaver RN [facility] 2024-01-06 09:30:00 Reviewed recent ultrasound results, show: Normal growth, baby is 5# 3 oz. [facility] 2024-01-01 01:08:34 Pt arrived with c/o lower back and pelvic pain, vomiting that began 2 days ago. Pt reports decrease movement. Pt is [address] Jean-Pierre Mock. LD nurse notified, Nicki CURRY T HAND Nicky Gregory RN [facility] 2023-12-24 08:15:00 ROUTINE VISIT 12/24/2023 8:28 AM SUBJECTIVE Bridgette Fitzpatrick is a 18 year old at 32w5d who presents for routine visit. She has vaginal discharge complaints today: loss of fluid, vaginal bleeding, and signs or symptoms of pre-eclampsia. Good movement. Occasional contractions. OBJECTIVE BP 122/84 (BP Location: Left arm, Patient Position: Sitting, BP CUFF SIZE: Adult Large) | Pulse 77 | Temp 36.1 ?C (97 ?F) (Oral) | Resp 18 | Ht 5' 4" (1.626 m) | Wt 240 lb 3.2 oz (109 kg) | LMP 04/28/2023 | BMI 41.23 kg/m? Physical Exam: Gen: A&Ox3, NAD Abd: Soft, gravid, NTTP, ND, no rebound or guarding Ext: No calf tenderness : cl/long/-4 ASSESSMENT: Bridgette Fitzpatrick is a 18 year old at 32w5d who presents for routine visit. Patient Active Problem List Diagnosis Morbid obesity Bipolar disease during in second trimester High-risk in second trimester Sickle cell trait in mother affecting Rubella non-immune status, antepartum PLAN 1. 32 weeks gestation of - POCT Urinalysis w/o Specific [place] 2. Vaginal discharge - Gc & Chlamydia Amplified Assay - Galv Only - Vaginal Pathogens by Nucleic Acid Testing 3. Bipolar disease during in third trimester --Has stopped medications, awaiting Psych to renew meds --denies SI/HI 4. High-risk in third trimester - CONSULT MATERNAL MEDICINE ULTRASOUND Preferred Location: [place] 5. Uterine size-date discrepancy in third trimester - CONSULT MATERNAL MEDICINE ULTRASOUND Preferred Location: [facility] 2023-12-10 14:45:00 ROUTINE VISIT 12/10/2023 3:13 PM SUBJECTIVE Bridgette Fitzpatrick is a 18 year old at 30w5d who presents for routine visit. She has several complaints today: loss of fluid, vaginal bleeding, and signs or symptoms of pre-eclampsia. Good movement. Occasional contractions. Complaints of all over body pain, denies sick contacts or fever. "Hurts to exhale". Denies h.o asthma OBJECTIVE BP 105/69 | Pulse 85 | Resp 18 | Ht 5' 4" (1.626 m) | Wt 242 lb (109.8 kg) | LMP 04/28/2023 | BMI 41.54 kg/m? Physical Exam: Gen: A&Ox3, NAD Resp: CTAB CVS:RRR Abd: Soft, gravid, NTTP, ND, no rebound or guarding Ext: No calf tenderness : deferred ASSESSMENT: Bridgette Fitzpatrick is a 18 year old at 30w5d who presents for routine visit. Patient Active Problem List Diagnosis Morbid obesity Bipolar disease during in second trimester High-risk in second trimester Sickle cell trait in mother affecting Rubella non-immune status, antepartum PLAN 1. 30 weeks gestation of - POCT Urinalysis w/o Specific [place] 2. Bipolar disease during in third trimester --sees [facility] Psych --nurse to call to say ok for medication adjustment 3. High-risk in third trimester --reviewed with normal physical exam on heart and lungs --SS trait and dyspnea could be a factor [facility] 2023-11-24 08:52:13 Recieved fax from [employer]. Signed and faxed back. Title 19- stockings, bp, and back brace. ROSARIO SHAVER RN 11/24/2023 8:54 AM T HAND Rosario Shaver RN [facility] 2023-11-23 08:00:00 Images from the original note were not included. I gave Patient 100 Glucola 0814 Patient finished 100 Glucola 0815 Barbra Flores 11/23/2023 8:18 AM Venipuncture collection performed by clean technique on the left anticubitus. Total of 1 attempts were made. Slight pressure and a bandage/dressing were applied to the site(s). The patient experienced no complications. The following specimens were processed according to instructions and sent to [facility] laboratories per lab order on 11/23/2023 : LT BLUE SST 1 RED LAV PPT DK GREEN (LiHep) DK GREEN (SodH) STEARNS DK BLUE (K2) DK BLUE (S) ACD Blood Culture NIPT/NTD T HAND [facility] 2023-11-23 08:00:00 Images from the original note were not included. Venipuncture collection performed by clean technique on the right anticubitus. Total of 1 attempts were made. Slight pressure and a bandage/dressing were applied to the site(s). The patient experienced no complications. The following specimens were processed according to instructions and sent to [facility] laboratories per lab order on 11/23/2023 : LT BLUE SST 1 RED LAV PPT DK GREEN (LiHep) DK GREEN (SodH) STEARNS DK BLUE (K2) DK BLUE (S) ACD Blood Culture NIPT/NTD Patients first hour was drawn at 918 [facility] 2023-11-23 08:00:00 Images from the original note were not included. Venipuncture collection performed by clean technique on the right anticubitus. Total of 1 attempts were made. Slight pressure and a bandage/dressing were applied to the site(s). The patient experienced no complications. The following specimens were processed according to instructions and sent to [facility] laboratories per lab order on 11/23/2023 : LT BLUE SST 1 RED LAV PPT DK GREEN (LiHep) DK GREEN (SodH) STEARNS DK BLUE (K2) DK BLUE (S) ACD Blood Culture NIPT/NTD Patients two hour was draw at 1013 Barbra Flores 11/23/2023 10:16 AM [facility] 2023-11-23 08:00:00 Images from the original note were not included. Venipuncture collection performed by clean technique on the left forearm(s). Total of 1 attempts were made. Slight pressure and a bandage/dressing were applied to the site(s). The patient experienced no complications. The following specimens were processed according to instructions and sent to [facility] laboratories per lab order on 11/23/2023 : LT BLUE 1 SST 3 ggt RED LAV PPT DK GREEN (LiHep) DK GREEN (SodH) STEARNS DK BLUE (K2) DK BLUE (S) ACD Blood Culture NIPT/NTD [facility] Adrienne Judd [facility] 2023-11-23 08:00:00 3 hr diabetes screen passed. No diabetes present. [facility] 2023-11-19 14:45:00 ROUTINE VISIT 11/19/2023 2:49 PM SUBJECTIVE Bridgette Fitzpatrick is a 18 year old at 27w5d who presents for routine visit. She has no complaints today: loss of fluid, vaginal bleeding, and signs or symptoms of pre-eclampsia. Good movement. Occasional contractions. OBJECTIVE BP 110/73 (BP Location: Left arm, Patient Position: Sitting, BP CUFF SIZE: Adult Medium) | Pulse 84 | Temp 36.3 ?C (97.3 ?F) | Ht 5' 4" (1.626 m) | Wt 242 lb 3.2 oz (109.9 kg) | LMP 04/28/2023 | BMI 41.57 kg/m? Physical Exam: Gen: A&Ox3, NAD Abd: Soft, gravid, NTTP, ND, no rebound or guarding Ext: No calf tenderness : deferred ASSESSMENT: Bridgette Fitzpatrick is a 18 year old at 27w5d who presents for routine visit. Patient Active Problem List Diagnosis Morbid obesity Bipolar disease during in second trimester High-risk in second trimester Sickle cell trait in mother affecting Rubella non-immune status, antepartum PLAN 1. 27 weeks gestation of - POCT Urinalysis w/o Specific [place] - Urine Drug (Immunoassay) - Comprehensive Drug Screen; Future - Urine Drug (Immunoassay) - Comprehensive Drug Screen 2. Need for Tdap vaccination - TDAP VACCINE, >10 YRS, IM 3. High-risk in second trimester --Plan growth US @ 4-36 weeks 4. Bipolar disease during in second trimester --stable 5. Glucose tolerance test abnormal --3 hr gtt scheduled for 11/23/23 [facility] 2023-11-12 10:45:00 Loaded pt with 50 fruit punch Glucola at 1002. No issues, Pt finished 50 Glucola at 1003. Will call pt back for blood draw around 1103. [facility] 2023-11-12 10:45:00 Images from the original note were not included. Venipuncture collection performed by clean technique on the left anticubitus. Total of 1 attempts were made. Slight pressure and a bandage/dressing were applied to the site(s). The patient experienced no complications. The following specimens were processed according to instructions and sent to [facility] laboratories per lab order on 11/12/2023: LT BLUE SST 2 RED 1 LAV 2 PPT DK GREEN (LiHep) DK GREEN (SodH) STEARNS DK BLUE (K2) DK BLUE (S) ACD Blood Culture NIPT/NTD T HAND [facility] 2023-10-22 13:15:00 ROUTINE VISIT 10/22/2023 1:51 PM SUBJECTIVE Bridgette Fitzpatrick is a 18 year old at 23w5d who presents for routine visit. She has no complaints today; denies contractions, loss of fluid, vaginal bleeding, and signs or symptoms of pre-eclampsia. Good movement. OBJECTIVE BP 114/74 (BP Location: Left arm, Patient Position: Sitting, BP CUFF SIZE: Adult Medium) | Pulse 79 | Temp 36.7 ?C (98.1 ?F) (Temporal Artery) | Resp 18 | Ht 5' 4" (1.626 m) | Wt 238 lb 6.4 oz (108.1 kg) | LMP 04/28/2023 | BMI 40.92 kg/m? Physical Exam: Gen: A&Ox3, NAD Pulm: No labored breathing Abd: Soft, gravid, NTTP, ND, no rebound or guarding Ext: No calf tenderness : deferred ASSESSMENT: Bridgette Fitzpatrick is a 18 year old at 23w5d who presents for routine visit. Patient Active Problem List Diagnosis Morbid obesity Bipolar disease during in second trimester High-risk in second trimester Sickle cell trait in mother affecting Rubella non-immune status, antepartum PLAN 1. 23 weeks gestation of - POCT URINALYSIS W/O SPECIFIC [place] 2. High-risk in second trimester --Reviewed with patient normal US 3. Sickle cell trait in mother affecting --FOB also positive 4. Rubella non-immune status, antepartum --plan MMR pp 5. Bipolar disease during in second trimester --stable [facility] 2023-10-22 13:15:00 Addended by: BRUNA ALMONTE MA on: 11/12/2023 10:01 AM Modules accepted: Orders T HAND Bruna Almonte MA [facility] 2023-08-09 09:12:19 Formatting of this n ote might be different from the original. [place]: + carrier for SS disease. Already known. [facility] 2023-08-05 16:21:06 Formatting of this n ote might be different from the original. Received medical records from [facility]. Placed on provider's desk for review. ROSARIO SHAVER RN 08/05/2023 4:22 PM Rosario Shaver RN [facility] 2023-08-02 14:32:31 Formatting of this n ote might be different from the original. Received [employer] results via fax. Stamped and will be scanned/uploaded into pt's chart. ROSARIO SHAVER RN 08/02/2023 2:32 PM Rosario Shaver RN [facility] 2023-07-28 11:15:00 Formatting of this n ote might be different from the original. Rony collection only [facility] 2023-07-27 16:15:00 Formatting of this n ote is different from the original. ROUTINE VISIT 07/27/2023 4:47 PM SUBJECTIVE Bridgette Fitzpatrick is a 18 year old at 11w2d who presents for routine visit. She has no complaints today; denies contractions, loss of fluid, vaginal bleeding, and signs or symptoms of pre-eclampsia. + yeloow vaginal discharge OBJECTIVE BP 105/73 (BP Location: Left arm, Patient Position: Sitting, BP CUFF SIZE: Adult Large) | Pulse 72 | Temp 36.9 ?C (98.4 ?F) (Oral) | Resp 18 | Ht 5' 4" (1.626 m) | Wt 238 lb (108 kg) | LMP 04/28/2023 | BMI 40.85 kg/m? Bedside US [id number] Physical Exam: Gen: A&Ox3, NAD CV: RRR, Pulm: No labored breathing Abd: Soft, gravid, NTTP, ND, no rebound or guarding Ext: No calf tenderness : cl/long/high Scant thin discharge, clear ASSESSMENT: Bridgette Fitzpatrick is a 18 year old at 11w2d who presents for routine visit. Patient Active Problem List Diagnosis Well woman exam Other general counseling and advice for contraceptive management Morbid obesity Irregular menstrual cycle Bipolar disease during in first trimester High-risk in first trimester Sickle cell trait in mother affecting Rubella non-immune status, antepartum PLAN 1. High-risk in first trimester --NIPS testing desired and ordered 2. Sickle cell trait in mother affecting --FOB also positive --reviewed with pt that 25% change child with have SS disease and 50% child will be a carrier 3. Rubella non-immune status, antepartum --Plan PP MMR 4. 11 weeks gestation of 5. Vaginal discharge --Will contact with results - TRICHOMONAS AMPLIFIED ASSAY; Future - GC & CHLAMYDIA AMPLIFIED ASSAY; Future --Questions answered Guillermina March MD [facility] 2023-07-12 15:38:53 Formatting of this n ote might be different from the original. See result notes ROSARIO SHAVER RN 07/12/2023 3:39 PM Rosario Shaver RN [facility] 2023-07-08 12:22:27 Formatting of this n ote might be different from the original. LM on for pt to return call regarding results and plan of care. ROSARIO SHAVER RN 07/08/2023 12:22 PM [facility] 2023-07-08 11:16:45 Formatting of this n ote might be different from the original. Patient is returning nurse call for results. Please call and advise thanks. Maddi Gonzalez [facility] 2023-07-02 09:45:00 Formatting of this n ote is different from the original. Images from the original note were not included. Venipuncture collection performed by clean technique on the left anticubitus. Total of 1 attempts were made. Slight pressure and a bandage/dressing were applied to the site(s). The patient experienced no complications. The following specimens were processed according to instructions and sent to [facility] laboratories per lab order on 07/02/2023: LT BLUE SST RED LAV 1 PPT DK GREEN (LiHep) DK GREEN (SodH) STEARNS DK BLUE (K2) DK BLUE (S) ACD Blood Culture NIPT/NTD Sabina Lockett [facility] 2023-07-02 09:45:00 Formatting of this n ote might be different from the original. Please let pt know that she is a carrier for sickle cell trait. Recommend testing FOB to determine if baby has risk of having sickle cell disease. If FOB positive baby has a 25% of having disease. [facility] 2023-06-28 15:15:00 Formatting of this n ote is different from the original. Images from the original note were not included. Venipuncture collection performed by clean technique on the left anticubitus. Total of 1 attempts were made. Slight pressure and a bandage/dressing were applied to the site(s). The patient experienced no complications. The following specimens were processed according to instructions and sent to [facility] laboratories per lab order on 06/28/2023 : LT BLUE SST 4 RED 1 LAV 3 PPT DK GREEN (LiHep) DK GREEN (SodH) STEARNS DK BLUE (K2) DK BLUE (S) ACD Blood Culture NIPT/NTD [facility] 2023-06-23 15:41:42 Formatting of this n ote might be different from the original. New prescription for sent to pharmacy. Diclegis not covered by insurance. AirPR message sent advising patient to buy Vitamin B6 and Unisom over the counter. Philip Chin RN 06/23/2023 3:42 PM Philip Chin RN [facility] 2023-06-23 12:03:21 Formatting of this n ote might be different from the original. Patient is calling insurance will not cover any of the prescriptions that were prescribed to her yesterday. Can something else be called in? Please call and advise thanks. Maddi Gonzalez [facility]
[2024-09-16 04:22] LABS: Specific Gravity 1.014 (1.005-1.030); Urine Bacteria <20 /HPF (<20); Urine Bilirubin NEGATIVE (Negative); Urine Blood 1+ (Negative); Urine Clarity Extremely Turbid (Clear); Urine Color Light-Yellow (Yellow); Urine Culture Reflex Order REFLEXED; Urine Glucose NEGATIVE (Negative); Urine Ketones NEGATIVE (Negative); Urine Microscopic Reflex YN ORDER UMIC; Urine Mucus Slight /HPF (None Seen); Urine Nitrite NEGATIVE (Negative); Urine Protein NEGATIVE (Negative); Urine RBC <5 /HPF (None Seen); Urine Urobilinogen Normal (Normal); Urine WBC 20-50 /HPF (<5); Urine pH 6.5 (5.0-7.0)
[2024-09-16 04:24] LABS: ALT/SGPT 35 U/L (13-56); AST/SGOT 21 U/L (15-37); Albumin/Globulin Ratio 0.6 (1.1-1.8); Alkaline Phosphatase 75 U/L (45-117); Anion Gap 8.4 mEq/L (5.0-15.0); BUN Blood Urea Nitrogen 13 mg/dL (7-18); Bicarbonate 27 mEq/L (21-32); Globulin 4.7 g/dL (2.3-3.5); Glomerular Filtration Rate 94 ml/min (=/>90); Glucose Level 78 mg/dL (74-106); Lipase 33 U/L (13-75); Potassium 3.4 mEq/L (3.5-5.1); Protein, Total 7.7 g/dL (6.4-8.2); Sodium Level 139 mEq/L (136-145); Specific Gravity 1.014 (1.005-1.030)
[2024-09-16 04:25] LABS: Absolute Basophils 0.1 K/uL (0-0.5); Absolute Eosinophils 0.2 K/uL (0-0.5); Absolute Lymphocytes (CBC) 2.7 K/uL (0.7-4.9); Absolute Monocytes 0.6 K/uL (0.1-1.3); Absolute Neutrophil 5.7 K/uL (1.8-8.0); Basophils % 1.1 % (0-1.3); Bilirubin Total < 0.2 mg/dL (0.2-1.0); Eosinophils % 1.7 % (0-4.4); Hematocrit 36.5 % (36.0-45.0); Hemoglobin 11.6 g/dL (12.0-15.0); MCH 23.4 pg (27.0-35.0); MCHC 31.8 g/dL (32.0-36.0); MCV 73.5 fL (80-100); MPV 9.1 fL (7.6-11.3); Monocytes % 6.8 % (3.3-12.3); Neutrophils % 61.4 % (41.7-73.7); Platelets 357 thou/uL (152-406); RBC Red Blood Cell Count 4.98 M/uL (3.86-4.86); Red Cell Distribution Width 19.4 % (12.1-15.2)
--- NOTE | 2024-09-16 06:09 | RAD REPORT ---
EXAMINATION: CT ABDOMEN PELVIS WITH IV CONTRAST INDICATION: Female, 19 years old, ABD PAIN COMPARISON(S): 03/04/2024 TECHNIQUE: CT acquisition of the abdomen and pelvis following the administration of IV contrast. Katlin nal and sagittal reformatted images provided. This exam was performed according to departmental dose-optimization program which includes automated exposure control, adjustment of the mA and/or kV a ccording to patient size, and/or use of iterative reconstruction technique. FINDINGS: SUPPORT DEVICES: None. LOWER CHEST: Unremarkable. ABDOMEN AND PELVIS: Liver: Normal. Gallbladder and bile ducts: Contracted gallbladder. No evidence of wall thickening or ductal dilation . Pancreas: Normal. Spleen: Normal. Adrenal glands: Normal. Kidneys and ureters: Normal. Bladder: Nondistended without evident abnormality. Reproductive organs: Unremarkable. GI tract: Normal caliber without wall thickening. No evidence of appendicitis. Vessels: Unremarkable. Lymph nodes: No evident adenopathy. Peritoneum: Physiologic volume of pelvic ascites. No evidence of fluid collection or free air. Abdominal wall: No significant hernia. MUSCULOSKELETAL: No acute osseous abnormality. IMPRESSION: No acute abdominopelvic finding. Electronically signed by: Bam Maxwell MD 09/16/2024 06:06 AM CDT RP Due to temporary technical issues with the PACS/[employer] reporting system, reports are being cecelia d by the in-house radiologist without review as a courtesy to ensure prompt reporting the interpreting radiologist is fully responsible for the content of the report. Transcribed Date/Time: 09/16/2024 6:09 AM
--- NOTE | 2024-09-16 06:17 | EDPHYS ---
Physician Documentation [facility] Name: Sheree Hernandes Age: 19 yrs Sex: Female : 2005 Arrival Date: 09/16/2024 Time: 01:45 Bed 14 Private MD: ED Physician Hans Weathers HPI: 09/16 06:58 This 19 yrs old Black Female presents to ER via Wheelchair with complaints of Abdominal rt Pain, Pelvic Pain. 06:58 Patient presents to the ED with suprapubic pain with dysuria. Patient denies any rt vaginal bleeding, vaginal discharge. Denies nausea, vomiting. Denies other acute complaints, symptoms are moderate in severity, no other aggravating or alleviating factors.. 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 - Infectious Disease History:: Denies. - Social history:: Smoking status: Reported history of juuling and/or vaping. - Family history:: not pertinent. ROS: 06:58 Constitutional: Negative for fever, chills, and weight loss, Cardiovascular: Negative rt for chest pain, palpitations, and edema, Respiratory: Negative for shortness of breath, cough, wheezing, and pleuritic chest pain, Skin: Negative for injury, rash, and discoloration, Neuro: Negative for headache, weakness, numbness, tingling, and seizure, 06:58 Abdomen/GI: Positive for abdominal pain, Negative for vomiting, 06:58 : Positive for Dysuria, negative for vaginal bleeding, discharge, Exam: 06:58 Constitutional: This is a well developed, well nourished patient who is awake, alert, rt and in no acute distress. Head/Face: Normocephalic, atraumatic. Chest/axilla: Normal chest wall appearance and motion. Nontender with no deformity. No lesions are appreciated. Cardiovascular: Regular rate and rhythm with a normal S1 and S2. No gallops, murmurs, or rubs. Normal PMI, no JVD. No pulse deficits. Respiratory: Lungs have equal breath sounds bilaterally, clear to auscultation and percussion. No rales, rhonchi or wheezes noted. No increased work of breathing, no retractions or nasal flaring. Skin: Warm, dry with normal turgor. Normal color with no rashes, no lesions, and no evidence of cellulitis. MS/ Extremity: Pulses equal, no cyanosis. Neurovascular intact. Full, normal range of motion. Neuro: Awake and alert, GCS 15, oriented to person, place, time, and situation. Cranial nerves II-XII grossly intact. Motor strength 5/5 in all extremities. Sensory grossly intact. Cerebellar exam normal. Normal gait. 06:58 Abdomen/GI: Mild tenderness to the suprapubic region without rebound, guarding, distention, Vital Signs: 02:12 BP 129 / 87; Pulse 85; Resp 19 S; Temp 98.2; Pulse Ox 100% on R/A; Weight 100.7 kg; ha1 Height 5 ft. 4 in. ; 03:37 BP 121 / 71; Pulse 82; Resp 17; Temp 98.2; Pulse Ox 99% ; Pain 7/10; bm8 05:26 BP 128 / 85; Pulse 65; Resp 17; Temp 98.2; Pulse Ox 98% ; Pain 4/10; bm8 06:40 BP 121 / 71; Pulse 83; Resp 17; Temp 98.3; Pulse Ox 99% on R/A; Pain 2/10; bm8 02:12 Body Mass Index 38.11 (100.70 kg, 162.56 cm) ha1 03:37 Pain Scale: Adult bm8 05:26 Pain Scale: Adult bm8 06:40 Pain Scale: Adult bm8 Loc Coma Score: 03:37 Eye Response: spontaneous(4). Motor Response: obeys commands(6). Verbal Response: bm8 oriented(5). Total: 15. 05:26 Eye Response: spontaneous(4). Motor Response: obeys commands(6). Verbal Response: bm8 oriented(5). Total: 15. 06:40 Eye Response: spontaneous(4). Motor Response: obeys commands(6). Verbal Response: bm8 oriented(5). Total: 15. MDM: 02:21 Medical Screening Exam initiated rt 06:58 Differential Diagnosis UTI, kidney stone,. . Data reviewed: vital signs, nurses notes, rt lab test result(s), radiologic studies. I considered the following discharge prescriptions or medication management in the emergency department Medications were administered in the Emergency Department. See MAR. Independent interpretation of the following test(s) in the Emergency Department CT Scan: My interpretation is No bowel obstruction seen on my interpretation of CT scan images. Counseling: I had a detailed discussion with the patient and/or guardian regarding the historical points, exam findings, and any diagnostic results supporting the discharge/admit diagnosis, lab results, radiology results, the need for outpatient follow up, to return to the emergency department if symptoms worsen or persist or if there are any questions or concerns that arise at home. Response to treatment: the patient's symptoms have markedly improved after treatment. 09/16 02:33 Order name: CBC with Diff; Complete Time: 06:13 rt 09/16 02:33 Order name: CMP; Complete Time: 06:13 rt 09/16 02:33 Order name: Lipase; Complete Time: 06:13 rt 09/16 02:33 Order name: Test, Urine; Complete Time: 06:13 rt 09/16 02:33 Order name: Urinalysis w/ reflexes rt 09/16 04:26 Order name: Urine Culture EDTX 09/16 02:33 Order name: CT Abd/Pelvis - IV Contrast Only rt 09/16 02:33 Order name: IV Saline Lock; Complete Time: 03:06 rt 09/16 02:33 Order name: Labs collected and sent; Complete Time: 03:06 rt Administered Medications: 03:06 Drug: TORadol - Ketorolac IVP 15 mg IVP once Route: IVP; Site: right antecubital; bm8 03:41 Follow up: Response: No adverse reaction bm8 Disposition Summary: 09/16/24 06:17 Discharge Ordered Notes: Location: Home rt Problem: new rt Symptoms: have improved rt Condition: Stable rt Diagnosis - UTI/ Urinary tract infection, site not specified rt Followup: rt - With: Private Physician - When: 2 - 3 days - Reason: Discharge Instructions: - Discharge Summary Sheet rt - Urinary Tract Infection, Adult rt Forms: - Medication Reconciliation Form rt - Antibiotic Education rt - Prescription Opioid Use rt - Patient Portal Instructions rt - Leadership Thank You Letter rt Prescriptions: - cefpodoxime 200 mg Oral tablet - take 1 tablet ORAL route every 12 hours with food; 14 tablet; Refills: 0, rt Product Selection Permitted Signatures: Dispatcher [employer] EDTX Shruti Mtz RN RN ha1 Hans Weathers MD MD rt Chirag Mullins, RN RN bm8
--- NOTE | 2024-09-16 06:17 | ER ---
Nurse's Notes [facility] Name: Sheree Hernandes Age: 19 yrs Sex: Female : 2005 Arrival Date: 09/16/2024 Time: 01:45 Bed 14 Private MD: Diagnosis: UTI/ Urinary tract infection, site not specified Presentation: 09/16 02:12 Chief complaint: Patient states: SUDDEN ONSET SUPRAPUBIC PAIN. DIFFICULTY STRETCHING ha1 BODY TO WALK. 02:12 Coronavirus screen: Vaccine status: Patient reports being unvaccinated. Ebola Screen: ha1 No symptoms or risks identified at this time. Initial Sepsis Screen: Does the patient meet any 2 criteria? No. Patient's initial sepsis screen is negative. Does the patient have a suspected source of infection? No. Patient's initial sepsis screen is negative. Risk Assessment: Do you want to hurt yourself or someone else? Patient reports no desire to harm self or others. Onset of symptoms was September 16, 2024. 02:12 Method Of Arrival: Wheelchair ha1 02:12 Acuity: DENIA 3 ha1 Triage Assessment: 02:12 General: Appears uncomfortable, Behavior is calm, cooperative. Pain: Complains of pain ha1 in pelvis Pain does not radiate. Pain currently is 10 out of 10 on a pain scale. Aggravated by increased activity. Neuro: Level of Consciousness is awake, alert, obeys commands, Oriented to. Cardiovascular: Patient's skin is warm and dry. Respiratory: Airway is patent Respiratory effort is even, unlabored, Respiratory pattern is regular, symmetrical. GI: Abdomen is round non-distended, Reports lower abdominal pain. Derm: Skin is normal. 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 - Infectious Disease History:: Denies. - Social history:: Smoking status: Reported history of juuling and/or vaping. - Family history:: not pertinent. Screenin:37 [facility] ED Fall Risk Assessment (Adult) History of falling in the last 3 months, bm8 including since admission No falls in past 3 months (0 pts) Confusion or Disorientation No (0 pts) Intoxicated or Sedated No (0 pts) Impaired Gait No (0 pts) Mobility Assist Device Used No (0 pt) Altered Elimination No (0 pt) Score/Fall Risk Level 0 - 2 = Low Risk Oriented to surroundings, Maintained a safe environment, Educated pt \T\ family on fall prevention, incl call for assistance when getting out of bed, Assessed \T\ reinforced patient's understanding of fall precautions, Hourly rounding (assess needs \T\ fall precautionary measures) done, Used ambulatory aids as needed (educated on \T\ assisted with), Used gait belt as appropriate. Abuse screen: Denies threats or abuse. Nutritional screening: No deficits noted. Tuberculosis screening: No symptoms or risk factors identified. Assessment: 03:37 Reassessment: Patient appears in no apparent distress at this time. Patient and/or bm8 family updated on plan of care and expected duration. Pain level reassessed. Patient is alert, oriented x 3, equal unlabored respirations, skin warm/dry/pink. General: Appears in no apparent distress. comfortable, Behavior is calm, cooperative, appropriate for age. Pain: Pain currently is 7 out of 10 on a pain scale. Neuro: No deficits noted. Level of Consciousness is awake, alert, obeys commands, Oriented to person, place, time, situation, Appropriate for age. Cardiovascular: Denies Capillary refill < 3 seconds in bilateral fingers toes Patient's skin is warm and dry. Respiratory: Airway is patent Respiratory effort is even, unlabored, Respiratory pattern is regular, symmetrical. : Urine is cloudy, Reports burning with urination, cramping, lower quadrant(s) pain with urination. 05:26 Reassessment: Patient appears in no apparent distress at this time. Patient and/or bm8 family updated on plan of care and expected duration. Pain level reassessed. Patient is alert, oriented x 3, equal unlabored respirations, skin warm/dry/pink. Patient states feeling better. Patient states symptoms have improved. Pain: Pain currently is 4 out of 10 on a pain scale. 06:40 Reassessment: Patient appears in no apparent distress at this time. Patient and/or bm8 family updated on plan of care and expected duration. Pain level reassessed. Patient is alert, oriented x 3, equal unlabored respirations, skin warm/dry/pink. Patient states feeling better. Patient states symptoms have improved. 06:42 GI: Bowel sounds present X 4 quads. Abdomen is tender to palpation in suprapubic area. bm8 Vital Signs: 02:12 BP 129 / 87; Pulse 85; Resp 19 S; Temp 98.2; Pulse Ox 100% on R/A; Weight 100.7 kg; ha1 Height 5 ft. 4 in. ; 03:37 BP 121 / 71; Pulse 82; Resp 17; Temp 98.2; Pulse Ox 99% ; Pain 7/10; bm8 05:26 BP 128 / 85; Pulse 65; Resp 17; Temp 98.2; Pulse Ox 98% ; Pain 4/10; bm8 06:40 BP 121 / 71; Pulse 83; Resp 17; Temp 98.3; Pulse Ox 99% on R/A; Pain 2/10; bm8 02:12 Body Mass Index 38.11 (100.70 kg, 162.56 cm) ha1 03:37 Pain Scale: Adult bm8 05:26 Pain Scale: Adult bm8 06:40 Pain Scale: Adult bm8 Loc Coma Score: 03:37 Eye Response: spontaneous(4). Motor Response: obeys commands(6). Verbal Response: bm8 oriented(5). Total: 15. 05:26 Eye Response: spontaneous(4). Motor Response: obeys commands(6). Verbal Response: bm8 oriented(5). Total: 15. 06:40 Eye Response: spontaneous(4). Motor Response: obeys commands(6). Verbal Response: bm8 oriented(5). Total: 15. ED Course: 02:11 Patient arrived in ED. gm2 02:12 Hans Weathers MD is Attending Physician. rt 02:29 Inserted saline lock: 20 gauge in right antecubital area, using aseptic technique. ha1 Blood collected. Flushed with 10 mL NS. 02:33 Triage completed. ha1 02:52 Chirag Mullins, RN is Primary Nurse. bm8 03:37 No provider procedures requiring assistance completed. Patient maintains SpO2 bm8 saturation greater than 95% on room air. 03:37 Patient has correct armband on for positive identification. Bed in low position. Call bm8 light in reach. Side rails up X 1. Client placed on continuous cardiac and pulse oximetry monitoring. NIBP monitoring applied. Pulse ox on. NIBP on. Door closed. Noise minimized. Warm blanket given. Pillow given. Verbal reassurance given. Head of bed elevated. 05:10 CT Abd/Pelvis - IV Contrast Only In Process Unspecified. EDMS 06:40 IV discontinued, intact, bleeding controlled, No redness/swelling at site. Pressure bm8 dressing applied. 06:40 Provided Education on: post er care. bm8 Administered Medications: 03:06 Drug: TORadol - Ketorolac IVP 15 mg IVP once Route: IVP; Site: right antecubital; bm8 03:41 Follow up: Response: No adverse reaction bm8 Medication: 03:37 VIS not applicable for this client. bm8 Outcome: 06:17 Discharge ordered by . rt 06:40 Discharged to home ambulatory, bm8 06:40 Condition: stable 06:40 Discharge instructions given to patient, family, Instructed on discharge instructions, follow up and referral plans. no drinking with medication, no driving heavy equipment, medication usage, safety practices, Demonstrated understanding of instructions, follow-up care, medications, Prescriptions given X 1, 06:43 Patient left the ED. bm8 Signatures: Dispatcher [employer] EDMS Shruti Mtz, RN RN ha1 Hans Weathers MD MD rt Devora Chowdhury gm2 Chirag Mullins, RN RN bm8 Corrections: (The following items were deleted from the chart) 03:43 03:37 Pulse 82bpm; Resp 17bpm; Pulse Ox 99%; Temp 98.2F; Pain 7/10, Adult; bm8 bm8
[2024-09-16 17:21] VITALS: BP 121/71; TEMP 98.3; O2SAT 99
== END 2024-09-16 06:43 | disposition home or self-care (01) ==
LOC: ER 01:45
DX: N39.0 Urinary tract infection, site not specified (principal)
CPT/HCPCS: 87088; 85025; 81001; 87086; 36415; 81025; 83690; 80053; 74177; 96374; 99284; Q9967

== ENCOUNTER 2025-02-04 02:35 | Emergency (ER) | payer OTHER ==
--- OUTSIDE RECORDS SUMMARY | 2025-02-04 02:46 | XMS REPORT | Continuity of Care Document ---
Author Name Unknown Address [address] [facility] [address] [place] [address] [facility] Address [address] [facility] [address] [place] [address] Care Team Providers Care Personal Loan Specialist Name Role Phone CHALO BELL Primary Care Physician Unavailab Chalo David Attending Clinician Unavailable GUILLERMINA MARCH Attending Clinician GUILLERMINA Bosch Attending Clinician Renuka cosme 2, [facility] Attending Clinician Unavailable Anca LAWTON, Guillermina Attending Clinician + [phone] Harmeet CURRY, Dinorah Rodrigues Attending Clinician Unava ilSTELLA Jeffers Attending Clinician Unavailable Doctor Unassigned, [place] Attending Clinician U yolanda Nurse, [facility] Attending Clinician Un available Gio PAC, K Heather Attending Clinician [phone] Reji Mark Anthony WEBB Attending Clinician [phone] Nel LAWTON, Elle Mancilla Attending Clinician [phone] Yasmin LAWTON, Mic Watkins Attending Clinician + [phone], [facility] Lab Attending Clinician Unavailable Doctor Unassigned, [place] Attending Clinician U yolanda Machado MD, Radha Ramirez Attending Clinician [phone] JARET BRYAN Attending Clinician Unavailable JARET BRYAN Attending Clinician Unavailable Ultrasound, Joe-jami Attending Clinician Unavaila ashlee Bryan MD, Jaret Richmond Attending Clinician [phone] Irvin ALFAROC, Mark Anthony Attending Clinician [phone] ALEXSANDRA ELIZONDO Attending Clinician Unav Alexsandra Contreras MD Attending Clinician + Pob, [facility] Main Attending Clinician Unavailabl CHEY Gomez Attending Clinician Unavailable Chey Mann NP Attending Clinician [phone] KYARA CHAIDEZ Attending Clinician Unavailab MADHURI Yang Attending Clinician Unavailable CONRAD SHANE Attending Clinician Unavail able Visit, [place] Nurse Attending Clinician Unava Conrad Loaiza Attending Clinician + [place] Camargo Attending Clinician [phone] Bonnie Park DO Attending Clinician + [phone] Betty Sheffield Attending Clinician [phone] GUILLERMINA MARCH Admitting Clinician CHEY Crane Admitting Clinician Unavailable Payers Payer Name Policy Type Policy Number Effective Date Expirati on Date Source [facility] STAR [id number] 2023 00:00:00 MEDICAID PENDING PENDING 2024 00:00:00 [facility] MEDICAID STAR [id number] 2024 00:00:00 Problems Condition Name Condition Details Condition Category Status Onset Date Resolution Date Last Treatment Date Treating Clinician Comments Source History of migraine History of migraine Disease Active 02-26 00:00: 00 [facility] Preeclamps ia in period Preeclamps ia in period Disease Active 02-26 00:00: 00 [facility] Chest pain Chest pain Disease Active 02-25 00:00: 00 [facility] Sickle cell trait in mother affecting Sickle cell trait in mother affecting Disease Active 07-20 00:00: 00 [facility] Rubella non-immune status, antepartum Rubella non-immune status, antepartum Disease Active 07-20 00:00: 00 [facility] Bipolar disease during in first trimester Bipolar disease during in first trimester Disease Active 06-22 00:00: 00 [facility] Morbid obesity Morbid obesity Disease Active 3-11 00:00: 00 [facility] [id number] Enlarged tonsils Problem [facility] [id number] Iron deficiency anemia due to chronic blood loss Problem [facility] [id number] VIPIN (generaliz ed anxiety disorder) Problem [facility] [id number] History of anemia Problem [facility] [id number] Primary insomnia Problem [facility] (spontaneo us vaginal delivery) (spontaneo us vaginal delivery) Disease Resolve d 3-20 00:00: 00 2025-01-22 00:00:00 2025-01-22 14:40:47 [facility] Gestationa l hypertensi on Gestationa l hypertensi on Disease Resolve d 2023-0 3-20 00:00: 00 2025-01-22 00:00:00 2025-01-22 14:41:30 [facility] High-risk in third trimester High-risk in third trimester Disease Resolve d 2022-0 8-01 00:00: 00 2025-01-22 00:00:00 2025-01-22 14:41:20 [facility] Preeclamps ia in period Preeclamps ia in period Disease Resolve d 0 4-01 00:00: 00 2024-02-27 00:00:00 2024-02-27 10:07:42 [facility] Obesity (BMI 30-39.9) Obesity (BMI 30-39.9) Disease Resolve d 0 4-01 00:00: 00 2024-02-26 00:00:00 2024-02-26 07:42:43 [facility] 39 weeks gestation of 39 weeks gestation of Disease Resolve d 2023-0 3-19 00:00: 00 2024-02-26 00:00:00 2024-02-26 07:42:38 [facility] Encounter for induction of labor Encounter for induction of labor Disease Resolve d 0 3-19 00:00: 00 2024-02-21 00:00:00 2024-02-21 11:08:39 [facility] Limited care in third trimester Limited care in third trimester Disease Resolve d 2023-0 3-08 00:00: 00 2024-02-21 00:00:00 2024-02-21 11:08:41 [facility] Acute cystitis without hematuria Acute cystitis without hematuria Disease Resolve d 2023-0 2-10 00:00: 00 2024-02-08 00:00:00 2024-02-08 08:35:32 [facility] Other general counseling and advice for contracept igor management Other general counseling and advice for contracept igor management Disease Resolve d 2021-0 3-11 00:00: 00 2023-09-21 00:00:00 2023-09-21 07:28:00 [facility] Irregular menstrual cycle Irregular menstrual cycle Disease Resolve d 3-11 00:00: 00 2023-09-21 00:00:00 2023-09-21 07:28:36 [facility] Allergies, Adverse Reactions, Alerts Allergy Name Allergy Type Status Severity Reaction(s) Onset Date Inactive Date Treating Clinician Comments Source NO KNOWN ALLERGIE S Drug Class Active [facility] Social History Social Habit Start Date Stop Date Quantity Comments Source ASSERTION 2024-12-09 00:00:00 [facility] Gender identity [facility] of Tobacco Use Current Smoker [facility] Sex Assigned At [facility] Alcoholic beverage intake 2025-01-22 00:00:00 2025-01-22 00:00:00 Lifetime non-drinker (finding) [facility] Alcohol intake 2024-03-10 00:00:00 2024-03-10 00:00:00 Lifetime non-drinker (finding) [facility] Tobacco use and exposure 2024-02-21 00:00:00 2024-02-21 00:00:00 Smokeless tobacco non-user [facility] History of Social function 2023-09-21 00:00:00 2023-09-21 00:00:00 [facility] Exposure to SARS-CoV-2 (event) 2022-09-15 00:00:00 2022-09-25 17:41:00 Not sure [facility] Smoking Status Start Date Stop Date Source Tobacco smoking consumption unknown [facility] Current Smoker 2024-12-15 00:00:00 [facility] Never smoked tobacco [facility] Medications Ordered Medication Name Filled Medication Name Start Date Stop Date Current Medication? Ordering Clinician Indication Dosage Frequency Signature (SIG) Comments Components Source Ferrous Sulfate 325 (65 Fe) MG Ferrous Sulfate 325 (65 Fe) MG 2023-11 0-15 00:00: 00 No 1{table t} QD Ferrous Sulfate 325 (65 Fe) MG Nystatin [id number] UNIT/GM Nystatin [id number] UNIT/GM 9-24 00:00: 00 No 1{appli cation} BID Nystatin [id number] UNIT/GM norethindro ne-e.estrad ioL-iron (LOESTRIN FE 12/11) 1 mg-20 mcg (21)/75 mg (7) tablet 07-20 00:00: 00 Yes [id number] 1{tbl} Take 1 tablet by mouth in the morning. [facility] norethindro ne 0.35 mg tablet 03-10 00:00: 00 07-20 00:00 :00 No [id number] 1{tbl} Take 1 tablet by mouth in the morning. [facility] aspirin 325 mg tablet 02-28 00:00: 00 07-20 00:00 :00 No [id number] 325mg Take 1 tablet by mouth in the morning. [facility] labetaloL 200 mg tablet 02-27 00:00: 00 07-20 00:00 :00 No [id number] 200mg Take 1 tablet by mouth in the morning and 1 tablet in the evening. [facility] NIFEdipine ER 30 mg tablet 02-27 00:00: 00 07-20 00:00 :00 No [id number] 30mg Take 1 tablet by mouth in the morning and 1 tablet in the evening. [facility] morpHINE (2 mg/mL) injection 4 mg 02-26 03:54: 45 Yes 4mg 4 mg, Slow IV Push, Q4HPRN, Starting on 02/26/24 at 2254, Until Discontinu ed, Routine, Pain (scale 7-10), Chest pain [facility] butalbital- acetaminoph en-caff (ESGIC) 50-325-40 mg tablet 2 tablet 02-26 03:54: 26 Yes 2{tbl} 2 tablet, Oral, Q4HPRN, Starting on 02/26/24 at 2254, Until Discontinu ed, Routine, headache [facility] nitroglycer in (NITROSTAT) sublingual tablet 0.4 mg 02-26 03:53: 13 Yes .4mg 0.4 mg, Sublingual , Q5MIN PRN, 3 doses, Starting on 02/26/24 at 2253, Until Discontinu ed, STAT, Chest pain [facility] acetaminoph en (TYLENOL) tablet 650 mg 02-26 00:21: 02 Yes 650mg 650 mg, Oral, Q6HPRN, Starting on 02/26/24 at 1921, Until Discontinu ed, Routine, Pain (scale 1-3), Pain (scale 4-6) [facility] aspirin tablet 325 mg 02-25 14:00: 00 Yes 325mg 325 mg, Oral, DAILY, First dose on 02/26/24 at 0900, Until Discontinu ed, Routine [facility] NIFEdipine ER tablet 30 mg 02-25 13:45: 00 Yes 30mg 30 mg, Oral, BID, First dose (after last modificati on) on 02/26/24 at 0845, Until Discontinu ed, JAMEL [facility] magnesium sulfate in water for injection 20 gram/500 mL (4 %) IV infusion 02-25 13:45: 00 Yes 2g/h 2 g/hr (50 mL/hr), IV Infusion, CONTINUOUS , Starting on 02/26/24 at 0845, Until Discontinu ed, JAMEL [facility] D5W-LR IV infusion 1,000 mL 02-25 13:15: 00 Yes 1000mL at 75 mL/hr, IV Infusion, CONTINUOUS , Starting on 02/26/24 at 0815, Until Discontinu ed, JAMEL [facility] iopamidol (ISOVUE 370-500 mL) injection 90 mL 02-25 13:15: 00 02-25 13:30 :00 No [id number] 90mL 90 mL, Intravenou s, ONCE, 1 dose, On 02/26/24 at 0830, Routine [facility] magnesium sulfate 500 mg/mL (50 %) injection 32.48 mEq 02-25 13:04: 30 Yes 4g 32.48 mEq (4 g), Slow IV Push, PRN - SEE INSTRUCTIO NS, Starting on 02/26/24 at 0804, Until Discontinu ed, Routine, For seizure activity (patient not on magnesium sulfate) [facility] magnesium sulfate 500 mg/mL (50 %) injection 16.24 mEq 02-25 13:04: 29 Yes 2g 16.24 mEq (2 g), Slow IV Push, PRN - SEE INSTRUCTIO NS, 2 doses, Starting on 02/26/24 at 0804, Until Discontinu ed, Routine, For seizure activity (patient already on magnesium sulfate) [facility] labetaloL (NORMODYNE) tablet 200 mg 02-25 13:00: 00 Yes 200mg 200 mg, Oral, BID, First dose on 02/26/24 at 0800, Until Discontinu ed, Routine [facility] labetaloL (NORMODYNE) injection 20 mg 02-25 13:00: 00 02-25 12:07 :00 No 20mg 20 mg, Slow IV Push, ONCE, 1 dose, On 02/26/24 at 0800, JAMEL [facility] labetaloL (NORMODYNE) injection 20 mg 02-25 12:40: [...] continue to monitor BP [Order 2 End] [facility] ARIPiprazol e 20 mg tablet 02-21 16:46: 33 02-21 00:00 :00 No 20mg Take 1 tablet by mouth at bedtime. [facility] labetaloL (NORMODYNE) tablet 200 mg 02-21 08:00: 00 Yes 200mg 200 mg, Oral, Q12H, First dose on Wed02/22/24 at 0300, Until Discontinu ed, Routine [facility] HYDROcodone -acetaminop hen (NORCO 5) 5-325 mg tablet 1 tablet 02-21 05:00: 00 02-21 05:09 :00 No 1{tbl} 1 tablet, Oral, ONCE, 1 dose, On Wed02/22/24 at 0000, Routine [facility] labetaloL 200 mg tablet 02-21 00:00: 00 02-27 00:00 :00 No [id number] 200mg Take 1 tablet by mouth every 12 (twelve) hours. [facility] butalbital- acetaminoph en-caff (ESGIC) 50-325-40 mg tablet 1 tablet 02-20 22:45: 00 02-22 22:44 :00 No 1{tbl} 1 tablet, Oral, Q4HPRN, Starting on Wed02/21/24 at 1745, Until Wed02/23/24 at 1744, JAMEL, Pain (scale 4-6) [facility] acetaminoph en (TYLENOL) tablet 1,000 mg 02-20 21:30: 00 02-20 20:48 :00 No 1000mg 1,000 mg, Oral, ONCE, 1 dose, On Wed02/21/24 at 1630, Routine [facility] lactated ringers IV infusion 500 mL 02-20 16:07: 22 Yes 500mL at 999 mL/hr, 500 mL, IV Infusion, PRN - SEE INSTRUCTIO NS, Starting on Wed02/21/24 at 1107, Until Discontinu ed, [facility] citrate-cit marily acid (BICITRA) 500-334 mg/5 mL solution 30 mL 02-20 16:06: 10 Yes 30mL 30 mL, Oral, PRE-PROCED URE ONCE, 1 dose, Starting on Wed02/21/24 at 1106, Until Discontinu ed, Routine, Surgery/Pr ocedure [facility] lidocaine 1% (XYLOCAINE) 10 mg/mL (1 %) injection 50 mL 02-20 16:06: 10 Yes 50mL 50 mL, Infiltrati on, PRN - SEE INSTRUCTIO NS, Starting on Wed02/21/24 at 1106, Until Discontinu ed, Routine, Local anesthesia , For laceration repair only as a local anesthetic as indicated. [facility] lidocaine 1% (PF) (XYLOCAINE) injection 0.3 mL 02-20 16:06: 10 Yes .3mL 0.3 mL, Infiltrati on, PRN - SEE INSTRUCTIO NS, Starting on Wed02/21/24 at 1106, Until Discontinu ed, Routine, Local anesthesia , For IV line placement only as a local anesthetic . [facility] D5W-LR IV infusion 1,000 mL 02-20 15:00: 00 02-21 17:04 :22 No 1000mL at 75 mL/hr, IV Infusion, CONTINUOUS , Starting on Wed02/21/24 at 1000, Until Wed02/22/24 at 1204, JAMEL [facility] labetaloL (NORMODYNE) injection 20 mg 02-20 15:00: 00 02-20 14:09 :00 No 20mg 20 mg, Slow IV Push, ONCE, 1 dose, On Wed02/21/24 at 1000, Routine [facility] labetaloL (NORMODYNE) injection 40 mg 02-20 14:55: 00 02-20 14:58 :00 No 40mg 40 mg, Slow IV Push, ONCE, 1 dose, On Wed02/21/24 at 1015, JAMEL [facility] NaCl 0.9% (NS) bolus infusion 1,000 mL 02-20 14:45: 00 02-20 14:00 :00 No 1000mL at 999 mL/hr, 1,000 mL, IV Infusion, ONCE, 1 dose, On Wed02/21/24 at 0945, STAT [facility] ondansetron (ZOFRAN (PF)) injection 4 mg 02-20 14:45: 00 02-20 14:03 :00 No 4mg 4 mg, Slow IV Push, ONCE, 1 dose, On Wed02/21/24 at 0945, JAMEL [facility] magnesium sulfate 500 mg/mL (50 %) injection 32.48 mEq 02-20 14:44: 53 Yes 4g 32.48 mEq (4 g), Slow IV Push, PRN - SEE INSTRUCTIO NS, Starting on Wed02/21/24 at 0944, Until Discontinu ed, Routine, For seizure activity (patient not on magnesium sulfate) [facility] magnesium sulfate 500 mg/mL (50 %) injection 16.24 mEq 02-20 14:44: 53 Yes 2g 16.24 mEq (2 g), Slow IV Push, PRN - SEE INSTRUCTIO NS, 2 doses, Starting on Wed02/21/24 at 0944, Until Discontinu ed, Routine, For seizure activity (patient already on magnesium sulfate) [facility] morpHINE (4 mg/mL) injection 4 mg 02-20 14:30: 00 02-20 14:30 :00 No 4mg 4 mg, Slow IV Push, ONCE, 1 dose, On Wed02/21/24 at 0930, STAT [facility] iopamidol (ISOVUE 370-500 mL) injection 85 mL 02-20 14:20: 00 02-20 14:30 :00 No [id number] 85mL 85 mL, Intravenou s, ONCE, 1 dose, On Wed02/21/24 at 0930, Routine [facility] ARIPiprazol e 20 mg tablet 02-10 10:06: 26 Yes 20mg Take 1 tablet by mouth at bedtime. [facility] ondansetron (ZOFRAN) 4 mg tablet 02-10 07:19: 55 02-10 00:00 :00 No 4mg Take 1 tablet by mouth every 8 (eight) hours as needed. [facility] vitamin w/FA tablet 02-10 00:00: 00 Yes [id number] 1{tbl} Take 1 tablet by mouth in the morning. [facility] docusate 100 mg capsule 02-10 00:00: 00 Yes [id number] 200mg Take 2 capsules by mouth once daily as needed for Constipati on. [facility] ferrous sulfate 325 mg (65 mg iron) tablet 02-10 00:00: 00 Yes [id number] 325mg Take 1 tablet by mouth in the morning. [facility] ibuprofen 600 mg tablet 02-10 00:00: 00 Yes [id number] 600mg Take 1 tablet by mouth every 6 (six) hours as needed (Pain). Take with food or milk. [facility] rho(D) immune globulin (RHOGAM) syringe 300 mcg 02-08 15:32: 21 Yes 300ug 300 mcg, Intramuscu lar, ONCE, For 1 dose, Conditiona l, Routine [facility] HYDROcodone -acetaminop hen (NORCO 5) 5-325 mg tablet 1 tablet 02-08 15:31: 43 Yes 1{tbl} 1 tablet, Oral, Q6HPRN, Starting on Wed02/09/24 at 1031, Until Discontinu ed, Routine, Pain (scale 7-10) [facility] ibuprofen (IBU) tablet 600 mg 02-08 15:31: 43 Yes 600mg 600 mg, Oral, Q6HPRN, Starting on Wed02/09/24 at 1031, Until Discontinu ed, Routine, Pain (scale 4-6) [facility] acetaminoph en (TYLENOL) tablet 650 mg 02-08 15:31: 43 Yes 650mg 650 mg, Oral, Q6HPRN, Starting on Wed02/09/24 at 1031, Until Discontinu ed, Routine, Pain (scale 1-3) [facility] diphenhydrA MINE (BENADRYL) tablet 25 mg 02-08 15:31: 43 Yes 25mg 25 mg, Oral, Q6HPRN, Starting on Wed02/09/24 at 1031, Until Discontinu ed, Routine, Sleep, Itching [facility] ondansetron (ZOFRAN (PF)) injection 4 mg 02-08 15:31: 43 Yes 4mg 4 mg, Slow IV Push, Q8HPRN, Starting on Wed02/09/24 at 1031, Until Discontinu ed, Routine, Nausea and Vomiting (N/V) [facility] simethicone (GAS RELIEF (SIMETHICON E)) chewable tablet 160 mg 02-08 15:31: 43 Yes 160mg 160 mg, Oral, PC+HSPRN, Starting on Wed02/09/24 at 1031, Until Discontinu ed, Routine, Gas [facility] docusate (COLACE) capsule 200 mg 02-08 15:31: 43 Yes 200mg 200 mg, Oral, QDAILYPRN, Starting on Wed02/09/24 at 1031, Until Discontinu ed, Routine, Constipati on [facility] magnesium hydroxide (MILK OF MAGNESIA) 400 mg/5 mL suspension 30 mL 02-08 15:31: 43 Yes 30mL 30 mL, Oral, QDAILYPRN, Starting on Wed02/09/24 at 1031, Until Discontinu ed, Routine, Constipati on [facility] benzocaine- menthol (DERMOPLAST ) 20-0.5 % topical spray 02-08 15:31: 43 Yes Topical, PRN, Starting on Wed02/09/24 at 1031, Until Discontinu ed, Routine, Perineum discomfort [facility] oxytocin (PITOCIN) 30 units in NS 500 mL IV infusion 02-08 09:08: 16 02-08 15:32 :20 No 2mU/min at 2-40 mL/hr, IV Infusion, TITRATE, Starting on Wed02/09/24 at 0408, Until Wed02/09/24 at 1032, JAMEL [facility] PIB fentaNYL-ro pivacaine 2 mcg/mL-0.1 % (PF) in NS 200 mL epidural infusion RTU 02-08 08:53: 00 02-08 17:43 :41 No Epidural, ONCE INTRA PROCEDURE, Starting on Wed02/09/24 at 0353, Until Wed02/09/24 at 1243, Routine, Intra-op [facility] lidocaine-e pinephrine (XYLOCAINE W/EPINEPHRI NE) 1.5 %-1:200,000 injection 02-08 08:53: 00 02-08 17:43 :41 No Epidural, ONCE INTRA PROCEDURE, Starting on Wed02/09/24 at 0353, Until Wed02/09/24 at 1243, Routine, Intra-op [facility] FENTanyl PF (SUBLIMAZE (PF)) injection 100 mcg 02-08 06:04: 00 02-08 06:07 :00 No 100ug 100 mcg, Slow IV Push, ONCE, 1 dose, On Wed02/09/24 at 0115, Routine [facility] D5W-LR IV infusion 1,000 mL 02-07 23:28: 19 02-08 15:32 :20 No 1000mL at 1-125 mL/hr, IV Infusion, TITRATE, Starting on Wed02/08/24 at 1828, Until Wed02/09/24 at 1032, Routine [facility] ondansetron (ZOFRAN) 4 mg tablet 02-07 18:23: 35 Yes 4mg Take 1 tablet by mouth every 8 (eight) hours as needed. [facility] ARIPiprazol e 20 mg tablet 02-07 18:23: 35 Yes 20mg Take 1 tablet by mouth at bedtime. [facility] ondansetron (ZOFRAN) 4 mg tablet 02-06 10:09: 46 Yes 4mg Take 1 tablet by mouth every 8 (eight) hours as needed. [facility] ARIPiprazol e 20 mg tablet 02-06 10:09: 46 Yes 20mg Take 1 tablet by mouth at bedtime. [facility] ARIPiprazol e 20 mg tablet 01-27 08:10: 24 Yes 20mg Take 1 tablet by mouth at bedtime. [facility] ondansetron (ZOFRAN) 4 mg tablet 01-01 14:08: 09 Yes 4mg Take 1 tablet by mouth every 8 (eight) hours as needed. [facility] ARIPiprazol e 20 mg tablet 01-01 14:08: 09 Yes 20mg Take 1 tablet by mouth at bedtime. [facility] cefTRIAXone (ROCEPHIN) 2,000 mg in NaCl 0.9% (NS) 100 mL MINI-BAG 01-01 10:30: 00 01-01 11:15 :00 No 2000mg 2,000 mg, IV Piggyback, Q24H ABX, 1 dose, First dose on 01/01/24 at 0430, Administer over 30 Minutes, 100 mL
Reas on for Anti-Infec tive: Documented Infection< br>Documen dean Infection Site: Urine
D uration of Therapy: Other (see Comments) [facility] lactated ringers IV infusion 1,000 mL 01-01 09:30: 00 Yes 1000mL at 200 mL/hr, 1,000 mL, IV Infusion, CONTINUOUS , Starting on 01/01/24 at 0330, Until Discontinu ed, Routine [facility] lactated ringers IV infusion 1,000 mL 01-01 09:15: 00 01-01 09:27 :04 No 1000mL at 999 mL/hr, 1,000 mL, IV Infusion, CONTINUOUS , Starting on 01/01/24 at 0315, Until 01/01/24 at 0327, Routine [facility] ondansetron (ZOFRAN (PF)) injection 4 mg 01-01 08:30: 00 01-01 08:21 :00 No 4mg 4 mg, Slow IV Push, ONCE, On 01/01/24 at 0230, For 1 dose
Do ses of ondansetro n 16 mg and above need to be administer ed via IV piggyback. For Dose >=24mg ECG monitoring is advisable.
[facility] cephALEXin 500 mg capsule 01-01 00:00: 00 02-10 00:00 :00 No [id number] 500mg Take 1 capsule by mouth in the morning and 1 capsule at noon and 1 capsule in the evening. [facility] ARIPiprazol e 20 mg tablet - 14:57: 00 Yes 20mg Take 1 tablet by mouth at bedtime. [facility] dicyclomine HCl (BENTYL IM) 2022-11 13:13: 07 10-22 00:00 :00 No by Intramuscu lar route. [facility] ARIPiprazol e 20 mg tablet 2022-11 13:12: 42 Yes 20mg Take 1 tablet by mouth at bedtime. [facility] ARIPiprazol e 20 mg tablet 08-09 09:19: 04 Yes 20mg Take 1 tablet by mouth at bedtime. [facility] traZODone 50 mg tablet 07-30 00:00: 00 02-21 00:00 :00 No 50mg Take 1 tablet by mouth as needed. [facility] metroNIDAZO LE (FLAGYL) 500 mg tablet 07-30 00:00: 00 10-22 00:00 :00 No [id number] 500mg Take 1 tablet by mouth every 12 (twelve) hours. [facility] ARIPiprazol e 20 mg tablet 07-30 00:00: 00 08-23 00:00 :00 No 20mg Take 1 tablet by mouth at bedtime. [facility] PNV 67-iron ps-folate no.1-dha (VITAFOL ULTRA) 29 mg iron- 1 mg-200 mg Cap 06-23 00:00: 00 02-10 00:00 :00 No 1{tbl} Take 1 tablet by mouth in the morning. If insurance does not cover can substituen t with any other mediation that contains components . [facility] ondansetron (ZOFRAN) 4 mg tablet 06-22 15:03: 49 Yes 4mg Take 1 tablet by mouth every 8 (eight) hours as needed. [facility] dicyclomine HCl (BENTYL IM) 06-22 15:03: 49 Yes by Intramuscu lar route. [facility] vitamin #49-iron-FA 6.75 mg iron- 200 mcg Tab 06-22 00:00: 00 Yes [id number] 1{tbl} Take 1 tablet by mouth in the morning. [facility] doxylamine- pyridoxine, vit B6, (DICLEGIS) 10-10 mg per tablet 06-22 00:00: 00 10-22 00:00 :00 No [id number] 1{tbl} Take 1 tablet by mouth at bedtime. [facility] ketorolac (TORADOL) injection 30 mg 2021-11 01:15: 00 09-26 01:06 :00 No 30mg 30 mg, Slow IV Push, ONCE, 1 dose, On Wed09/25/22 at 2015, JAMEL [facility] ondansetron (ZOFRAN (PF)) injection 8 mg 2021-11 01:00: 00 09-26 01:00 :00 No 8mg 8 mg, Slow IV Push, ONCE, 1 dose, On Wed09/25/22 at 2000, JAMEL [facility] iopamidol (ISOVUE 370-500 mL) injection 100 mL 2021-11 00:00: 00 09-26 00:15 :00 No [id number] 100mL 100 mL, Intravenou s, ONCE, 1 dose, On Wed09/25/22 at 1915, Routine [facility] NaCl 0.9% (NS) bolus infusion 1,000 mL 2021-11 23:42: 00 09-26 01:08 :00 No 1000mL at 999 mL/hr, 1,000 mL, IV Infusion, ONCE, 1 dose, On Wed09/25/22 at 1845, STAT [facility] ondansetron (ZOFRAN (PF)) injection 4 mg 2021-11 23:00: 00 09-25 23:03 :00 No 4mg 4 mg, Slow IV Push, ONCE, 1 dose, On Wed09/25/22 at 1800, JAMEL [facility] dicyclomine HCl (BENTYL IM) 2021-11 21:10: 53 Yes by Intramuscu lar route. [facility] ondansetron (ZOFRAN) 4 mg tablet 2021-11 21:10: 53 Yes 4mg Take 4 mg by mouth every 8 (eight) hours as needed. [facility] hydrOXYzine 25 mg capsule 07-24 00:00: 00 07-27 00:00 :00 No TAKE ONE CAPSULE BY MOUTH TWICE DAILY NEEDED FOR ANXIETY [facility] QUEtiapine 50 mg tablet 07-24 00:00: 00 07-27 00:00 :00 No 50mg Take 1 tablet by mouth at bedtime. [facility] azithromyci n 500 mg tablet 14 00:00: 00 02-03 04:59 :00 No [id number] 1000mg Take 2 tablets by mouth once now for 1 dose. [facility] naproxen 500 mg tablet 2019-11 00:00: 00 09-25 00:00 :00 No [id number] 500mg Take 1 tablet by mouth 2 (two) times daily with meals. [facility] hyoscyamine sulfate (LEVSIN/SL) 0.125 mg sublingual tablet 2017-1118 00:00: 00 09-25 00:00 :[address] 1 tablet under the tongue every 6 (six) hours as needed for Pain (scale 4-6) or Other (abdominal pain). [facility] Bl[place]ovi FE 12/11 1-20 MG-MCG [place] FE 12/11 1-20 MG-MCG No 1{table t} QD [place] FE 12/11 1-20 MG-MCG Immunizations Ordered Immunization Name Filled Immunization Name Date Status Comments Source TDAP 2023-11-19 00:00:00 Completed [facility] TDAP 2023-11-19 00:00:00 Completed [facility] Influenza Virus Vaccine Quad IM, Preserv and ABX Free 6 MO-64 YRS (FLUCELVAX) 2023-09-21 00:00:00 Completed [facility] Influenza Virus Vaccine Quad IM, Preserv and ABX Free 6 MO-64 YRS (FLUCELVAX) 2023-09-21 00:00:00 Completed [facility] HPV9 2022-03-03 00:00:00 Completed [facility] HPV9 2022-03-03 00:00:00 Completed [facility] HPV9 2022-03-03 00:00:00 Completed HPV9 2022-03-03 00:00:00 Completed HPV9 2022-03-03 00:00:00 Completed [facility] HPV9 2022-03-03 00:00:00 Completed [facility] HPV9 2022-03-03 00:00:00 Completed [facility] HPV9 2022-03-03 00:00:00 Completed [facility] HPV9 2022-03-03 00:00:00 Completed [facility] HPV9 2022-03-03 00:00:00 Completed [facility] HPV9 2022-03-03 00:00:00 Completed [facility] HPV9 2022-03-03 00:00:00 Completed [facility] HPV9 2022-03-03 00:00:00 Completed [facility] HPV9 2022-03-03 00:00:00 Completed [facility] HPV9 2022-03-03 00:00:00 Completed [facility] HPV9 2022-03-03 00:00:00 Completed [facility] Influenza Virus Vaccine Quad .5 mL IM 6+ MO (FLUZONE/FLULAVAL/F LUARIX) 2022-01-30 00:00:00 Completed [facility] HPV9 2022-01-30 00:00:00 Completed [facility] Influenza Virus Vaccine Quad .5 mL IM 6+ MO (FLUZONE/FLULAVAL/F LUARIX) 2022-01-30 00:00:00 Completed [facility] HPV9 2022-01-30 00:00:00 Completed [facility] Influenza Virus Vaccine Quad .5 mL IM 6+ MO (FLUZONE/FLULAVAL/F LUARIX) 2022-01-30 00:00:00 Completed HPV9 2022-01-30 00:00:00 Completed Influenza Virus Vaccine Quad .5 mL IM 6+ MO (FLUZONE/FLULAVAL/F LUARIX) 2022-01-30 00:00:00 Completed [facility] 2022-01-30 00:00:00 Completed Influenza Virus Vaccine Quad .5 mL IM 6+ MO 2022-01-30 00:00:00 Completed [facility] HPV9 2022-01-30 00:00:00 Completed [facility] Influenza Virus Vaccine Quad .5 mL IM 6+ MO 2022-01-30 00:00:00 Completed [facility] HPV9 2022-01-30 00:00:00 Completed [facility] Influenza Virus Vaccine Quad .5 mL IM 6+ MO 2022-01-30 00:00:00 Completed [facility] HPV9 2022-01-30 00:00:00 Completed [facility] Influenza Virus Vaccine Quad .5 mL IM 6+ MO 2022-01-30 00:00:00 Completed [facility] HPV9 2022-01-30 00:00:00 Completed [facility] Influenza Virus Vaccine Quad .5 mL IM 6+ MO 2022-01-30 00:00:00 Completed [facility] HPV9 2022-01-30 00:00:00 Completed [facility] Influenza Virus Vaccine Quad .5 mL IM 6+ MO 2022-01-30 00:00:00 Completed [facility] HPV9 2022-01-30 00:00:00 Completed [facility] Influenza Virus Vaccine Quad .5 mL IM 6+ MO 2022-01-30 00:00:00 Completed [facility] HPV9 2022-01-30 00:00:00 Completed [facility] Influenza Virus Vaccine Quad .5 mL IM 6+ MO 2022-01-30 00:00:00 Completed [facility] HPV9 2022-01-30 00:00:00 Completed [facility] Influenza Virus Vaccine Quad .5 mL IM 6+ MO 2022-01-30 00:00:00 Completed [facility] HPV9 2022-01-30 00:00:00 Completed [facility] Influenza Virus Vaccine Quad .5 mL IM 6+ MO 2022-01-30 00:00:00 Completed [facility] HPV9 2022-01-30 00:00:00 Completed [facility] Influenza Virus Vaccine Quad .5 mL IM 6+ MO (FLUZONE/FLULAVAL/F LUARIX) 2022-01-30 00:00:00 Completed [facility] HPV9 2022-01-30 00:00:00 Completed [facility] Influenza Virus Vaccine Quad .5 mL IM 6+ MO (FLUZONE/FLULAVAL/F LUARIX) 2022-01-30 00:00:00 Completed [facility] HPV9 2022-01-30 00:00:00 Completed [facility] Influenza Virus Vaccine Quad .5 mL IM 6+ MO (FLUZONE/FLULAVAL/F LUARIX) 2022-01-30 00:00:00 Completed [facility] HPV9 2022-01-30 00:00:00 Completed [facility] Meningococcal Vaccine 2015-08-07 00:00:00 Completed [facility] Meningococcal Vaccine 2015-08-07 00:00:00 Completed [facility] Meningococcal Vaccine 2015-08-07 00:00:00 Completed Meningococcal Vaccine 2015-08-07 00:00:00 Completed Meningococcal Vaccine 2015-08-07 00:00:00 Completed [facility] Meningococcal Vaccine 2015-08-07 00:00:00 Completed [facility] Meningococcal Vaccine 2015-08-07 00:00:00 Completed [facility] Meningococcal Vaccine 2015-08-07 00:00:00 Completed [facility] Meningococcal Vaccine 2015-08-07 00:00:00 Completed [facility] Meningococcal Vaccine 2015-08-07 00:00:00 Completed [facility] Meningococcal Vaccine 2015-08-07 00:00:00 Completed [facility] Meningococcal Vaccine 2015-08-07 00:00:00 Completed [facility] Meningococcal Vaccine 2015-08-07 00:00:00 Completed [facility] Meningococcal Vaccine 2015-08-07 00:00:00 Completed [facility] Meningococcal Vaccine 2015-08-07 00:00:00 Completed [facility] Meningococcal Vaccine 2015-08-07 00:00:00 Completed [facility] Meningococcal Vaccine 2015-08-07 00:00:00 Completed [facility] TDAP 2015-08-01 00:00:00 Completed [facility] TDAP 2015-08-01 00:00:00 Completed [facility] TDAP 2015-08-01 00:00:00 Completed TDAP 2015-08-01 00:00:00 Completed TDAP 2015-08-01 00:00:00 Completed [facility] TDAP 2015-08-01 00:00:00 Completed [facility] TDAP 2015-08-01 00:00:00 Completed [facility] TDAP 2015-08-01 00:00:00 Completed [facility] TDAP 2015-08-01 00:00:00 Completed [facility] TDAP 2015-08-01 00:00:00 Completed [facility] TDAP 2015-08-01 00:00:00 Completed [facility] TDAP 2015-08-01 00:00:00 Completed [facility] TDAP 2015-08-01 00:00:00 Completed [facility] TDAP 2015-08-01 00:00:00 Completed [facility] TDAP 2015-08-01 00:00:00 Completed [facility] TDAP 2015-08-01 00:00:00 Completed [facility] TDAP 2015-08-01 00:00:00 Completed [facility] DTAP 2008-09-17 00:00:00 Completed [facility] MMR 2008-09-17 00:00:00 Completed [facility] Polio (IPV/OPV) 2008-09-17 00:00:00 Completed [facility] Varicella (varivax)(chicken pox) 2008-09-17 00:00:00 Completed [facility] DTAP 2008-09-17 00:00:00 Completed [facility] MMR 2008-09-17 00:00:00 Completed [facility] Polio (IPV/OPV) 2008-09-17 00:00:00 Completed [facility] Varicella (varivax)(chicken pox) 2008-09-17 00:00:00 Completed [facility] DTAP 2008-09-17 00:00:00 Completed MMR 2008-09-17 00:00:00 Completed Polio (IPV/OPV) 2008-09-17 00:00:00 Completed Varicella (varivax)(chicken pox) 2008-09-17 00:00:00 Completed DTAP 2008-09-17 00:00:00 Completed MMR 2008-09-17 00:00:00 Completed Polio (IPV/OPV) 2008-09-17 00:00:00 Completed Varicella (varivax)(chicken pox) 2008-09-17 00:00:00 Completed DTAP 2008-09-17 00:00:00 Completed [facility] MMR 2008-09-17 00:00:00 Completed [facility] Polio (IPV/OPV) 2008-09-17 00:00:00 Completed [facility] Varicella (varivax)(chicken pox) 2008-09-17 00:00:00 Completed [facility] DTAP 2008-09-17 00:00:00 Completed [facility] MMR 2008-09-17 00:00:00 Completed [facility] Polio (IPV/OPV) 2008-09-17 00:00:00 Completed [facility] Varicella (varivax)(chicken pox) 2008-09-17 00:00:00 Completed [facility] DTAP 2008-09-17 00:00:00 Completed [facility] MMR 2008-09-17 00:00:00 Completed [facility] Polio (IPV/OPV) 2008-09-17 00:00:00 Completed [facility] Varicella (varivax)(chicken pox) 2008-09-17 00:00:00 Completed [facility] DTAP 2008-09-17 00:00:00 Completed [facility] MMR 2008-09-17 00:00:00 Completed [facility] Polio (IPV/OPV) 2008-09-17 00:00:00 Completed [facility] Varicella (varivax)(chicken pox) 2008-09-17 00:00:00 Completed [facility] DTAP 2008-09-17 00:00:00 Completed [facility] MMR 2008-09-17 00:00:00 Completed [facility] Polio (IPV/OPV) 2008-09-17 00:00:00 Completed [facility] Varicella (varivax)(chicken pox) 2008-09-17 00:00:00 Completed [facility] DTAP 2008-09-17 00:00:00 Completed [facility] MMR 2008-09-17 00:00:00 Completed [facility] Polio (IPV/OPV) 2008-09-17 00:00:00 Completed [facility] Varicella (varivax)(chicken pox) 2008-09-17 00:00:00 Completed [facility] DTAP 2008-09-17 00:00:00 Completed [facility] MMR 2008-09-17 00:00:00 Completed [facility] Polio (IPV/OPV) 2008-09-17 00:00:00 Completed [facility] Varicella (varivax)(chicken pox) 2008-09-17 00:00:00 Completed [facility] DTAP 2008-09-17 00:00:00 Completed [facility] MMR 2008-09-17 00:00:00 Completed [facility] Polio (IPV/OPV) 2008-09-17 00:00:00 Completed [facility] Varicella (varivax)(chicken pox) 2008-09-17 00:00:00 Completed [facility] DTAP 2008-09-17 00:00:00 Completed [facility] MMR 2008-09-17 00:00:00 Completed [facility] Polio (IPV/OPV) 2008-09-17 00:00:00 Completed [facility] Varicella (varivax)(chicken pox) 2008-09-17 00:00:00 Completed [facility] DTAP 2008-09-17 00:00:00 Completed [facility] MMR 2008-09-17 00:00:00 Completed [facility] Polio (IPV/OPV) 2008-09-17 00:00:00 Completed [facility] Varicella (varivax)(chicken pox) 2008-09-17 00:00:00 Completed [facility] DTAP 2008-09-17 00:00:00 Completed [facility] MMR 2008-09-17 00:00:00 Completed [facility] Polio (IPV/OPV) 2008-09-17 00:00:00 Completed [facility] Varicella (varivax)(chicken pox) 2008-09-17 00:00:00 Completed [facility] DTAP 2008-09-17 00:00:00 Completed [facility] MMR 2008-09-17 00:00:00 Completed [facility] Polio (IPV/OPV) 2008-09-17 00:00:00 Completed [facility] Varicella (varivax)(chicken pox) 2008-09-17 00:00:00 Completed [facility] DTAP 2008-09-17 00:00:00 Completed [facility] MMR 2008-09-17 00:00:00 Completed [facility] Polio (IPV/OPV) 2008-09-17 00:00:00 Completed [facility] Varicella (varivax)(chicken pox) 2008-09-17 00:00:00 Completed [facility] HEPATITIS A 2008-04-12 00:00:00 Completed [facility] HEPATITIS A 2008-04-12 00:00:00 Completed [facility] HEPATITIS A 2008-04-12 00:00:00 Completed HEPATITIS A 2008-04-12 00:00:00 Completed HEPATITIS A 2008-04-12 00:00:00 Completed [facility] HEPATITIS A 2008-04-12 00:00:00 Completed [facility] HEPATITIS A 2008-04-12 00:00:00 Completed [facility] HEPATITIS A 2008-04-12 00:00:00 Completed [facility] HEPATITIS A 2008-04-12 00:00:00 Completed [facility] HEPATITIS A 2008-04-12 00:00:00 Completed [facility] HEPATITIS A 2008-04-12 00:00:00 Completed [facility] HEPATITIS A 2008-04-12 00:00:00 Completed [facility] HEPATITIS A 2008-04-12 00:00:00 Completed [facility] HEPATITIS A 2008-04-12 00:00:00 Completed [facility] HEPATITIS A 2008-04-12 00:00:00 Completed [facility] HEPATITIS A 2008-04-12 00:00:00 Completed [facility] HEPATITIS A 2008-04-12 00:00:00 Completed [facility] HEPATITIS A 2006-08-12 00:00:00 Completed [facility] HEPATITIS A 2006-08-12 00:00:00 Completed [facility] HEPATITIS A 2006-08-12 00:00:00 Completed HEPATITIS A 2006-08-12 00:00:00 Completed HEPATITIS A 2006-08-12 00:00:00 Completed [facility] HEPATITIS A 2006-08-12 00:00:00 Completed [facility] HEPATITIS A 2006-08-12 00:00:00 Completed [facility] HEPATITIS A 2006-08-12 00:00:00 Completed [facility] HEPATITIS A 2006-08-12 00:00:00 Completed [facility] HEPATITIS A 2006-08-12 00:00:00 Completed [facility] HEPATITIS A 2006-08-12 00:00:00 Completed [facility] HEPATITIS A 2006-08-12 00:00:00 Completed [facility] HEPATITIS A 2006-08-12 00:00:00 Completed [facility] HEPATITIS A 2006-08-12 00:00:00 Completed [facility] HEPATITIS A 2006-08-12 00:00:00 Completed [facility] HEPATITIS A 2006-08-12 00:00:00 Completed [facility] HEPATITIS A 2006-08-12 00:00:00 Completed [facility] DTAP 2005-09-16 00:00:00 Completed [facility] DTAP 2005-09-16 00:00:00 Completed [facility] DTAP 2005-09-16 00:00:00 Completed [facility] DTAP 2005-09-16 00:00:00 Completed [facility] DTAP 2005-09-16 00:00:00 Completed [facility] DTAP 2005-09-16 00:00:00 Completed [facility] DTAP 2005-09-16 00:00:00 Completed [facility] DTAP 2005-09-16 00:00:00 Completed [facility] DTAP 2005-09-16 00:00:00 Completed [facility] DTAP 2005-09-16 00:00:00 Completed [facility] DTAP 2005-09-16 00:00:00 Completed [facility] DTAP 2005-09-16 00:00:00 Completed [facility] DTAP 2005-09-16 00:00:00 Completed [facility] DTAP 2005-09-16 00:00:00 Completed [facility] DTAP 2005-09-16 00:00:00 Completed [facility] DTAP 2005-09-16 00:00:00 Completed [facility] DTAP 2005-09-16 00:00:00 Completed [facility] Pneumococcal 13 Conjugate, PCV13 (Prevnar 13) 2005-05-21 00:00:00 Completed [facility] Pneumococcal 13 Conjugate, PCV13 (Prevnar 13) 2005-05-21 00:00:00 Completed [facility] Pneumococcal 13 Conjugate, PCV13 (Prevnar 13) 2005-05-21 00:00:00 Completed Pneumococcal 13 Conjugate, PCV13 (Prevnar 13) 2005-05-21 00:00:00 Completed HIB 4 Dose Schedule 2005-05-21 00:00:00 Completed [facility] Pneumococcal 7 Conjugate, PCV7 (Prevnar7) 2005-05-21 00:00:00 Completed [facility] MMR 2005-05-21 00:00:00 Completed [facility] Varicella (varivax)(chicken pox) 2005-05-21 00:00:00 Completed [facility] Pneumococcal 13 Conjugate, PCV13 (Prevnar 13) 2005-05-21 00:00:00 Completed [facility] HIB 4 Dose Schedule 2005-05-21 00:00:00 Completed [facility] Pneumococcal 7 Conjugate, PCV7 (Prevnar7) 2005-05-21 00:00:00 Completed [facility] MMR 2005-05-21 00:00:00 Completed [facility] Varicella (varivax)(chicken pox) 2005-05-21 00:00:00 Completed [facility] Pneumococcal 13 Conjugate, PCV13 (Prevnar 13) 2005-05-21 00:00:00 Completed [facility] Pneumococcal 13 Conjugate, PCV13 (Prevnar 13) 2005-05-21 00:00:00 Completed [facility] Pneumococcal 13 Conjugate, PCV13 (Prevnar 13) 2005-05-21 00:00:00 Completed [facility] Pneumococcal 13 Conjugate, PCV13 (Prevnar 13) 2005-05-21 00:00:00 Completed [facility] Pneumococcal 13 Conjugate, PCV13 (Prevnar 13) 2005-05-21 00:00:00 Completed [facility] Pneumococcal 13 Conjugate, PCV13 (Prevnar 13) 2005-05-21 00:00:00 Completed [facility] Pneumococcal 13 Conjugate, PCV13 (Prevnar 13) 2005-05-21 00:00:00 Completed [facility] Pneumococcal 13 Conjugate, PCV13 (Prevnar 13) 2005-05-21 00:00:00 Completed [facility] Pneumococcal 13 Conjugate, PCV13 (Prevnar 13) 2005-05-21 00:00:00 Completed [facility] Pneumococcal 13 Conjugate, PCV13 (Prevnar 13) 2005-05-21 00:00:00 Completed [facility] Pneumococcal 13 Conjugate, PCV13 (Prevnar 13) 2005-05-21 00:00:00 Completed [facility] Pneumococcal 13 Conjugate, PCV13 (Prevnar 13) 2005-05-21 00:00:00 Completed [facility] Pneumococcal 13 Conjugate, PCV13 (Prevnar 13) 2005-02-24 00:00:00 Completed [facility] Pneumococcal 13 Conjugate, PCV13 (Prevnar 13) 2005-02-24 00:00:00 Completed [facility] Pneumococcal 13 Conjugate, PCV13 (Prevnar 13) 2005-02-24 00:00:00 Completed Pneumococcal 13 Conjugate, PCV13 (Prevnar 13) 2005-02-24 00:00:00 Completed Pediarix (dtap/hep B/ipv) 2005-02-24 00:00:00 Completed [facility] HIB 4 Dose Schedule 2005-02-24 00:00:00 Completed [facility] Pneumococcal 7 Conjugate, PCV7 (Prevnar7) 2005-02-24 00:00:00 Completed [facility] Pneumococcal 13 Conjugate, PCV13 (Prevnar 13) 2005-02-24 00:00:00 Completed [facility] Pediarix (dtap/hep B/ipv) 2005-02-24 00:00:00 Completed [facility] HIB 4 Dose Schedule 2005-02-24 00:00:00 Completed [facility] Pneumococcal 7 Conjugate, PCV7 (Prevnar7) 2005-02-24 00:00:00 Completed [facility] Pneumococcal 13 Conjugate, PCV13 (Prevnar 13) 2005-02-24 00:00:00 Completed [facility] Pneumococcal 13 Conjugate, PCV13 (Prevnar 13) 2005-02-24 00:00:00 Completed [facility] Pneumococcal 13 Conjugate, PCV13 (Prevnar 13) 2005-02-24 00:00:00 Completed [facility] Pneumococcal 13 Conjugate, PCV13 (Prevnar 13) 2005-02-24 00:00:00 Completed [facility] Pneumococcal 13 Conjugate, PCV13 (Prevnar 13) 2005-02-24 00:00:00 Completed [facility] Pneumococcal 13 Conjugate, PCV13 (Prevnar 13) 2005-02-24 00:00:00 Completed [facility] Pneumococcal 13 Conjugate, PCV13 (Prevnar 13) 2005-02-24 00:00:00 Completed [facility] Pneumococcal 13 Conjugate, PCV13 (Prevnar 13) 2005-02-24 00:00:00 Completed [facility] Pneumococcal 13 Conjugate, PCV13 (Prevnar 13) 2005-02-24 00:00:00 Completed [facility] Pneumococcal 13 Conjugate, PCV13 (Prevnar 13) 2005-02-24 00:00:00 Completed [facility] Pneumococcal 13 Conjugate, PCV13 (Prevnar 13) 2005-02-24 00:00:00 Completed [facility] Pneumococcal 13 Conjugate, PCV13 (Prevnar 13) 2005-02-24 00:00:00 Completed [facility] Pediarix (dtap/hep B/ipv) 2004 00:00:00 Completed [facility] Pneumococcal 13 Conjugate, PCV13 (Prevnar 13) 2004 00:00:00 Completed [facility] Pediarix (dtap/hep B/ipv) 2004 00:00:00 Completed [facility] Pneumococcal 13 Conjugate, PCV13 (Prevnar 13) 2004 00:00:00 Completed [facility] Pediarix (dtap/hep B/ipv) 2004 00:00:00 Completed Pneumococcal 13 Conjugate, PCV13 (Prevnar 13) 2004 00:00:00 Completed Pediarix (dtap/hep B/ipv) 2004 00:00:00 Completed Pneumococcal 13 Conjugate, PCV13 (Prevnar 13) 2004 00:00:00 Completed Pediarix (dtap/hep B/ipv) 2004 00:00:00 Completed [facility] Pneumococcal 13 Conjugate, PCV13 (Prevnar 13) 2004 00:00:00 Completed [facility] Pediarix (dtap/hep B/ipv) 2004 00:00:00 Completed [facility] Pneumococcal 13 Conjugate, PCV13 (Prevnar 13) 2004 00:00:00 Completed [facility] Pediarix (dtap/hep B/ipv) 2004 00:00:00 Completed [facility] Pneumococcal 13 Conjugate, PCV13 (Prevnar 13) 2004 00:00:00 Completed [facility] Pediarix (dtap/hep B/ipv) 2004 00:00:00 Completed [facility] Pneumococcal 13 Conjugate, PCV13 (Prevnar 13) 2004 00:00:00 Completed [facility] Pediarix (dtap/hep B/ipv) 2004 00:00:00 Completed [facility] Pneumococcal 13 Conjugate, PCV13 (Prevnar 13) 2004 00:00:00 Completed [facility] Pediarix (dtap/hep B/ipv) 2004 00:00:00 Completed [facility] Pneumococcal 13 Conjugate, PCV13 (Prevnar 13) 2004 00:00:00 Completed [facility] Pediarix (dtap/hep B/ipv) 2004 00:00:00 Completed [facility] Pneumococcal 13 Conjugate, PCV13 (Prevnar 13) 2004 00:00:00 Completed [facility] Pediarix (dtap/hep B/ipv) 2004 00:00:00 Completed [facility] Pneumococcal 13 Conjugate, PCV13 (Prevnar 13) 2004 00:00:00 Completed [facility] Pediarix (dtap/hep B/ipv) 2004 00:00:00 Completed [facility] Pneumococcal 13 Conjugate, PCV13 (Prevnar 13) 2004 00:00:00 Completed [facility] Pediarix (dtap/hep B/ipv) 2004 00:00:00 Completed [facility] Pneumococcal 13 Conjugate, PCV13 (Prevnar 13) 2004 00:00:00 Completed [facility] Pediarix (dtap/hep B/ipv) 2004 00:00:00 Completed [facility] Pneumococcal 13 Conjugate, PCV13 (Prevnar 13) 2004 00:00:00 Completed [facility] Pediarix (dtap/hep B/ipv) 2004 00:00:00 Completed [facility] Pneumococcal 13 Conjugate, PCV13 (Prevnar 13) 2004 00:00:00 Completed [facility] Pediarix (dtap/hep B/ipv) 2004 00:00:00 Completed [facility] Pneumococcal 13 Conjugate, PCV13 (Prevnar 13) 2004 00:00:00 Completed [facility] Pneumococcal 13 Conjugate, PCV13 (Prevnar 13) 2004 00:00:00 Completed [facility] Pneumococcal 13 Conjugate, PCV13 (Prevnar 13) 2004 00:00:00 Completed [facility] Pneumococcal 13 Conjugate, PCV13 (Prevnar 13) 2004 00:00:00 Completed Pneumococcal 13 Conjugate, PCV13 (Prevnar 13) 2004 00:00:00 Completed Pneumococcal 13 Conjugate, PCV13 (Prevnar 13) 2004 00:00:00 Completed [facility] Pneumococcal 13 Conjugate, PCV13 (Prevnar 13) 2004 00:00:00 Completed [facility] Pneumococcal 13 Conjugate, PCV13 (Prevnar 13) 2004 00:00:00 Completed [facility] Pneumococcal 13 Conjugate, PCV13 (Prevnar 13) 2004 00:00:00 Completed [facility] Pneumococcal 13 Conjugate, PCV13 (Prevnar 13) 2004 00:00:00 Completed [facility] Pneumococcal 13 Conjugate, PCV13 (Prevnar 13) 2004 00:00:00 Completed [facility] Pneumococcal 13 Conjugate, PCV13 (Prevnar 13) 2004 00:00:00 Completed [facility] Pneumococcal 13 Conjugate, PCV13 (Prevnar 13) 2004 00:00:00 Completed [facility] Pneumococcal 13 Conjugate, PCV13 (Prevnar 13) 2004 00:00:00 Completed [facility] Pneumococcal 13 Conjugate, PCV13 (Prevnar 13) 2004 00:00:00 Completed [facility] Pneumococcal 13 Conjugate, PCV13 (Prevnar 13) 2004 00:00:00 Completed [facility] Pneumococcal 13 Conjugate, PCV13 (Prevnar 13) 2004 00:00:00 Completed [facility] Pneumococcal 13 Conjugate, PCV13 (Prevnar 13) 2004 00:00:00 Completed [facility] HIB 4 Dose Schedule 2004 00:00:00 Completed [facility] Pediarix (dtap/hep B/ipv) 2004 00:00:00 Completed [facility] HIB 4 Dose Schedule 2004 00:00:00 Completed [facility] Pediarix (dtap/hep B/ipv) 2004 00:00:00 Completed [facility] Hep B, Adol or Pedi Dosage 2004 00:00:00 Completed [facility] Hep B, Adol or Pedi Dosage 2004 00:00:00 Completed [facility] DTAP Unknown Completed [facility] HEPATITIS A Unknown Completed [facility] Meningococcal Vaccine Unknown Completed [facility] MMR Unknown Completed [facility] Pediarix (dtap/hep B/ipv) Unknown Completed [facility] Pneumococcal 13 Conjugate, PCV13 (Prevnar 13) Unknown Completed [facility] Polio (IPV/OPV) Unknown Completed [facility] TDAP Unknown Completed [facility] Varicella (varivax)(chicken pox) Unknown Completed [facility] Influenza Virus Vaccine Quad .5 mL IM 6+ MO (FLUZONE/FLULAVAL/F LUARIX) Unknown Completed [facility] HPV9 Unknown Completed [facility] DTAP Unknown Completed [facility] HEPATITIS A Unknown Completed [facility] Meningococcal Vaccine Unknown Completed [facility] MMR Unknown Completed [facility] Pediarix (dtap/hep B/ipv) Unknown Completed [facility] Pneumococcal 13 Conjugate, PCV13 (Prevnar 13) Unknown Completed [facility] Polio (IPV/OPV) Unknown Completed [facility] TDAP Unknown Completed [facility] Varicella (varivax)(chicken pox) Unknown Completed [facility] Influenza Virus Vaccine Quad .5 mL IM 6+ MO (FLUZONE/FLULAVAL/F LUARIX) Unknown Completed [facility] HPV9 Unknown Completed [facility] DTAP Unknown Completed [facility]PATITIS A [facility] M[facility] Vaccine Unknown Completed [facility] MMR Unknown Completed [facility] Pediarix (dtap/hep B/ipv) Unknown Completed [facility] Pneumococcal 13 Conjugate, PCV13 (Prevnar 13) Unknown Completed [facility] Polio (IPV/OPV) Unknown Completed [facility] TDAP Unknown Completed [facility] Varicella (varivax)(chicken pox) Unknown Completed [facility] Influenza Virus Vaccine Quad .5 mL IM 6+ MO (FLUZONE/FLULAVAL/F LUARIX) Unknown Completed [facility] HPV9 Unknown Completed [facility] DTAP Unknown Completed [facility] HEPATITIS A Unknown Completed [facility] Meningococcal Vaccine Unknown Completed [facility] MMR Unknown Completed [facility] Pediarix (dtap/hep B/ipv) Unknown Completed [facility] Pneumococcal 13 Conjugate, PCV13 (Prevnar 13) Unknown Completed [facility] Polio (IPV/OPV) Unknown Completed [facility] TDAP Unknown Completed [facility] Varicella (varivax)(chicken pox) Unknown Completed [facility] Influenza Virus Vaccine Quad .5 mL IM 6+ MO (FLUZONE/FLULAVAL/F LUARIX) Unknown Completed [facility] HPV9 Unknown Completed [facility] DTAP Unknown Completed [facility] HEPATITIS A Unknown Completed [facility] Meningococcal Vaccine Unknown Completed [facility] MMR Unknown Completed [facility] Pediarix (dtap/hep B/ipv) Unknown Completed [facility] Pneumococcal 13 Conjugate, PCV13 (Prevnar 13) Unknown Completed [facility] Polio (IPV/OPV) Unknown Completed [facility] TDAP Unknown Completed [facility] Varicella (varivax)(chicken pox) Unknown Completed [facility] Influenza Virus Vaccine Quad .5 mL IM 6+ MO (FLUZONE/FLULAVAL/F LUARIX) Unknown Completed [facility] HPV9 Unknown Completed [facility] DTAP Unknown Completed [facility] HEPATITIS A Unknown Completed [facility] Meningococcal Vaccine Unknown Completed [facility] MMR Unknown Completed [facility] Pediarix (dtap/hep B/ipv) Unknown Completed [facility] Pneumococcal 13 Conjugate, PCV13 (Prevnar 13) Unknown Completed [facility] Polio (IPV/OPV) Unknown Completed [facility] TDAP Unknown Completed [facility] Varicella (varivax)(chicken pox) Unknown Completed [facility] Influenza Virus Vaccine Quad .5 mL IM 6+ MO (FLUZONE/FLULAVAL/F LUARIX) Unknown Completed [facility] HPV9 Unknown Completed [facility] Influenza Virus Vaccine Quad IM, Preserv and ABX Free 6 MO-64 YRS (FLUCELVAX) Unknown Completed [facility] Meningococcal Vaccine Unknown Completed [facility] Polio (IPV/OPV) Unknown Completed [facility] TDAP Unknown Completed [facility] Influenza Virus Vaccine Quad .5 mL IM 6+ MO (FLUZONE/FLULAVAL/F LUARIX) Unknown Completed [facility] Influenza Virus Vaccine Quad IM, Preserv and ABX Free 6 MO-64 YRS (FLUCELVAX) Unknown Completed [facility] HIB 4 Dose Schedule Unknown Completed [facility] Hep B, Adol or Pedi Dosage Unknown Completed [facility] Pediarix (dtap/hep B/ipv) Unknown Completed [facility] Pneumococcal 7 Conjugate, PCV7 (Prevnar7) Unknown Completed [facility] DTAP Unknown Completed [facility] HEPATITIS A Unknown Completed [facility] MMR Unknown Completed [facility] Pneumococcal 13 Conjugate, PCV13 (Prevnar 13) Unknown Completed [facility] Varicella (varivax)(chicken pox) Unknown Completed [facility] HPV9 Unknown Completed [facility] Meningococcal Vaccine Unknown Completed [facility] Polio (IPV/OPV) Unknown Completed [facility] TDAP Unknown Completed [facility] Influenza Virus Vaccine Quad .5 mL IM 6+ MO (FLUZONE/FLULAVAL/F LUARIX) Unknown Completed [facility] Influenza Virus Vaccine Quad IM, Preserv and ABX Free 6 MO-64 YRS (FLUCELVAX) Unknown Completed [facility] DTAP Unknown Completed [facility] HEPATITIS A Unknown Completed [facility] Meningococcal Vaccine Unknown Completed [facility] MMR Unknown Completed [facility] Pediarix (dtap/hep B/ipv) Unknown Completed [facility] Pneumococcal 13 Conjugate, PCV13 (Prevnar 13) Unknown Completed [facility] Polio (IPV/OPV) Unknown Completed [facility] TDAP Unknown Completed [facility] Varicella (varivax)(chicken pox) Unknown Completed [facility] Influenza Virus Vaccine Quad .5 mL IM 6+ MO (FLUZONE/FLULAVAL/F LUARIX) Unknown Completed [facility] HPV9 Unknown Completed [facility] Influenza Virus Vaccine Quad IM, Preserv and ABX Free 6 MO-64 YRS (FLUCELVAX) Unknown Completed [facility] DTAP Unknown Completed [facility] HEPATITIS A Unknown Completed [facility] Meningococcal Vaccine Unknown Completed [facility] MMR Unknown Completed [facility] Pediarix (dtap/hep B/ipv) Unknown Completed [facility] Pneumococcal 13 Conjugate, PCV13 (Prevnar 13) Unknown Completed [facility] Polio (IPV/OPV) Unknown Completed [facility] TDAP Unknown Completed [facility] Varicella (varivax)(chicken pox) Unknown Completed [facility] Influenza Virus Vaccine Quad .5 mL IM 6+ MO (FLUZONE/FLULAVAL/F LUARIX) Unknown Completed [facility] HPV9 Unknown Completed [facility] Influenza Virus Vaccine Quad IM, Preserv and ABX Free 6 MO-64 YRS (FLUCELVAX) Unknown Completed [facility] HIB 4 Dose Schedule Unknown Completed [facility] Hep B, Adol or Pedi Dosage Unknown Completed [facility] Pediarix (dtap/hep B/ipv) Unknown Completed [facility] Pneumococcal 7 Conjugate, PCV7 (Prevnar7) Unknown Completed [facility] DTAP Unknown Completed [facility] HEPATITIS A Unknown Completed [facility] MMR Unknown Completed [facility] Pneumococcal 13 Conjugate, PCV13 (Prevnar 13) Unknown Completed [facility] Varicella (varivax)(chicken pox) Unknown Completed [facility] HPV9 Unknown Completed [facility] DTAP Unknown Completed [facility] HEPATITIS A Unknown Completed [facility] Meningococcal Vaccine Unknown Completed [facility] MMR Unknown Completed [facility] Pediarix (dtap/hep B/ipv) Unknown Completed [facility] Pneumococcal 13 Conjugate, PCV13 (Prevnar 13) Unknown Completed [facility] Polio (IPV/OPV) Unknown Completed [facility] TDAP Unknown Completed [facility] Varicella (varivax)(chicken pox) Unknown Completed [facility] Influenza Virus Vaccine Quad .5 mL IM 6+ MO (FLUZONE/FLULAVAL/F LUARIX) Unknown Completed [facility] HPV9 Unknown Completed [facility] Influenza Virus Vaccine Quad IM, Preserv and ABX Free 6 MO-64 YRS (FLUCELVAX) Unknown Completed [facility] DTAP Unknown Completed [facility] HEPATITIS A Unknown [facility] Meningococcal Vaccine Unknown Completed [facility] MMR Unknown Completed [facility] Pediarix (dtap/hep B/ipv) Unknown Completed [facility] Pneumococcal 13 Conjugate, PCV13 (Prevnar 13) Unknown Completed [facility] Polio (IPV/OPV) Unknown Completed [facility] TDAP Unknown Completed [facility] Varicella (varivax)(chicken pox) Unknown Completed [facility] Influenza Virus Vaccine Quad .5 mL IM 6+ MO (FLUZONE/FLULAVAL/F LUARIX) Unknown Completed [facility] HPV9 Unknown Completed [facility] Influenza Virus Vaccine Quad IM, Preserv and ABX Free 6 MO-64 YRS (FLUCELVAX) Unknown Completed [facility] DTAP Unknown Completed [facility] HEPATITIS A Unknown Completed [facility] Meningococcal Vaccine Unknown Completed [facility] MMR Unknown Completed [facility] Pediarix (dtap/hep B/ipv) Unknown Completed [facility] Pneumococcal 13 Conjugate, PCV13 (Prevnar 13) Unknown Completed [facility] Polio (IPV/OPV) Unknown Completed [facility] TDAP Unknown Completed [facility] Varicella (varivax)(chicken pox) Unknown Completed [facility] Influenza Virus Vaccine Quad .5 mL IM 6+ MO (FLUZONE/FLULAVAL/F LUARIX) Unknown Completed [facility] HPV9 Unknown Completed [facility] Influenza Virus Vaccine Quad IM, Preserv and ABX Free 6 MO-64 YRS (FLUCELVAX) Unknown Completed [facility] Hep B, Adol or Pedi Dosage Unknown Completed [facility] HIB 4 Dose Schedule Unknown Completed [facility] Pediarix (dtap/hep B/ipv) Unknown Completed [facility] Pneumococcal 7 Conjugate, PCV7 (Prevnar7) Unknown Completed [facility] MMR Unknown Completed [facility] Varicella (varivax)(chicken pox) Unknown Completed [facility] DTAP Unknown Completed [facility] HEPATITIS A Unknown [facility] Pneumococcal 13 Conjugate, PCV13 (Prevnar 13) Unknown Completed [facility] Polio (IPV/OPV) Unknown [facility] Influenza Virus Vaccine Quad .5 mL IM 6+ MO (FLUZONE/FLULAVAL/F LUARIX) Unknown Completed [facility] HPV9 Unknown Completed [facility] Influenza Virus Vaccine Quad IM, Preserv and ABX Free 6 MO-64 YRS (FLUCELVAX) Unknown Completed [facility] DTAP Unknown Completed [facility] HEPATITIS A Unknown Completed [facility] Meningococcal Vaccine Unknown Completed [facility] MMR Unknown Completed [facility] Pediarix (dtap/hep B/ipv) Unknown Completed [facility] Pneumococcal 13 Conjugate, PCV13 (Prevnar 13) Unknown Completed [facility] Polio (IPV/OPV) Unknown Completed [facility] TDAP Unknown Completed [facility] Varicella (varivax)(chicken pox) Unknown Completed [facility] Influenza Virus Vaccine Quad .5 mL IM 6+ MO (FLUZONE/FLULAVAL/F LUARIX) Unknown Completed [facility] HPV9 Unknown Completed [facility] Influenza Virus Vaccine Quad IM, Preserv and ABX Free 6 MO-64 YRS (FLUCELVAX) Unknown Completed [facility] DTAP Unknown Completed [facility] HEPATITIS A Unknown Completed [facility] Meningococcal Vaccine Unknown Completed [facility] MMR Unknown Completed [facility] Pediarix (dtap/hep B/ipv) Unknown Completed [facility] Pneumococcal 13 Conjugate, PCV13 (Prevnar 13) Unknown Completed [facility] Polio (IPV/OPV) Unknown Completed [facility] TDAP Unknown Completed [facility] Varicella (varivax)(chicken pox) Unknown Completed [facility] Influenza Virus Vaccine Quad .5 mL IM 6+ MO (FLUZONE/FLULAVAL/F LUARIX) Unknown Completed [facility] HPV9 Unknown Completed [facility] Influenza Virus Vaccine Quad IM, Preserv and ABX Free 6 MO-64 YRS (FLUCELVAX) Unknown Completed [facility] DTAP Unknown Completed [facility] HEPATITIS A Unknown Completed [facility] Meningococcal Vaccine Unknown Completed [facility] MMR Unknown Completed [facility] Pediarix (dtap/hep B/ipv) Unknown Completed [facility] Pneumococcal 13 Conjugate, PCV13 (Prevnar 13) Unknown Completed [facility] Polio (IPV/OPV) Unknown Completed [facility] TDAP Unknown Completed [facility] Varicella (varivax)(chicken pox) Unknown Completed [facility] Influenza Virus Vaccine Quad .5 mL IM 6+ MO (FLUZONE/FLULAVAL/F LUARIX) Unknown Completed [facility] HPV9 Unknown Completed [facility] Influenza Virus Vaccine Quad IM, Preserv and ABX Free 6 MO-64 YRS (FLUCELVAX) Unknown Completed [facility] Meningococcal Vaccine Unknown Completed [facility] Polio (IPV/OPV) Unknown Completed [facility] Influenza Virus Vaccine Quad .5 mL IM 6+ MO (FLUZONE/FLULAVAL/F LUARIX) Unknown Completed [facility] Influenza Virus Vaccine Quad IM, Preserv and ABX Free 6 MO-64 YRS (FLUCELVAX) Unknown Completed [facility] HIB 4 Dose Schedule Unknown Completed [facility] Hep B, Adol or Pedi Dosage Unknown Completed [facility] Pediarix (dtap/hep B/ipv) Unknown Completed [facility] Pneumococcal 7 Conjugate, PCV7 (Prevnar7) Unknown Completed [facility] DTAP Unknown Completed [facility] HEPATITIS A Unknown Completed [facility] MMR Unknown Completed [facility] Pneumococcal 13 Conjugate, PCV13 (Prevnar 13) Unknown Completed [facility] TDAP Unknown Completed [facility] Varicella (varivax)(chicken pox) Unknown Completed [facility] HPV9 Unknown Completed [facility] DTAP Unknown Completed [facility] HEPATITIS A Unknown Completed [facility] Meningococcal Vaccine Unknown Completed [facility] MMR Unknown Completed [facility] Pediarix (dtap/hep B/ipv) Unknown Completed [facility] Pneumococcal 13 Conjugate, PCV13 (Prevnar 13) Unknown Completed [facility] Polio (IPV/OPV) Unknown Completed [facility] TDAP Unknown Completed [facility] Varicella (varivax)(chicken pox) Unknown Completed [facility] Influenza Virus Vaccine Quad .5 mL IM 6+ MO (FLUZONE/FLULAVAL/F LUARIX) Unknown Completed [facility] HPV9 Unknown Completed [facility] Influenza Virus Vaccine Quad IM, Preserv and ABX Free 6 MO-64 YRS (FLUCELVAX) Unknown Completed [facility] DTAP Unknown Completed [facility] HEPATITIS A Unknown Completed [facility] Meningococcal Vaccine Unknown Completed [facility] MMR Unknown Completed [facility] Pediarix (dtap/hep B/ipv) Unknown Completed [facility] Pneumococcal 13 Conjugate, PCV13 (Prevnar 13) Unknown Completed [facility] Polio (IPV/OPV) Unknown Completed [facility] TDAP Unknown Completed [facility] Varicella (varivax)(chicken pox) Unknown Completed [facility] Influenza Virus Vaccine Quad .5 mL IM 6+ MO (FLUZONE/FLULAVAL/F LUARIX) Unknown Completed [facility] HPV9 Unknown Completed [facility] Influenza Virus Vaccine Quad IM, Preserv and ABX Free 6 MO-64 YRS (FLUCELVAX) Unknown Completed [facility] DTAP Unknown Completed [facility] HEPATITIS A Unknown Completed [facility] Meningococcal Vaccine Unknown Completed [facility] MMR Unknown Completed [facility] Pediarix (dtap/hep B/ipv) Unknown Completed [facility] Pneumococcal 13 Conjugate, PCV13 (Prevnar 13) Unknown Completed [facility] Polio (IPV/OPV) Unknown Completed [facility] TDAP Unknown Completed [facility] Varicella (varivax)(chicken pox) Unknown Completed [facility] Influenza Virus Vaccine Quad .5 mL IM 6+ MO (FLUZONE/FLULAVAL/F LUARIX) Unknown Completed [facility] HPV9 Unknown Completed [facility] Influenza Virus Vaccine Quad IM, Preserv and ABX Free 6 MO-64 YRS (FLUCELVAX) Unknown Completed [facility] DTAP Unknown Completed [facility] HEPATITIS A [facility]ine [facility] Com[facility] MMR Unknown Completed [facility] Pediarix (dtap/hep B/ipv) Unknown Completed [facility] Pneumococcal 13 Conjugate, PCV13 (Prevnar 13) Unknown Completed [facility] Polio (IPV/OPV) Unknown Completed [facility] TDAP Unknown Completed [facility] Varicella (varivax)(chicken pox) Unknown Completed [facility] Influenza Virus Vaccine Quad .5 mL IM 6+ [place] (FLUZONE/FLULAVAL/F LUARIX) Unknown Completed [facility] HPV9 Unknown Completed [facility] Influenza Virus Vaccine Quad IM, Preserv and ABX Free 6 MO-64 YRS (FLUCELVAX) Unknown Completed [facility] DTAP Unknown Completed [facility] HEPATITIS A Unknown Completed [facility] Meningococcal Vaccine Unknown Completed [facility] MMR Unknown Completed [facility] Pediarix (dtap/hep B/ipv) Unknown Completed [facility] Pneumococcal 13 Conjugate, PCV13 (Prevnar 13) Unknown Completed [facility] Polio (IPV/OPV) Unknown Completed [facility] TDAP Unknown Completed [facility] Varicella (varivax)(chicken pox) Unknown Completed [facility] Influenza Virus Vaccine Quad .5 mL IM 6+ MO (FLUZONE/FLULAVAL/F LUARIX) Unknown Completed [facility] HPV9 Unknown Completed [facility] Influenza Virus Vaccine Quad IM, Preserv and ABX Free 6 MO-64 YRS (FLUCELVAX) Unknown Completed [facility] DTAP Unknown Completed [facility] HEPATITIS A Unknown Completed [facility] Meningococcal Vaccine Unknown Completed [facility] MMR Unknown Completed [facility] Pediarix (dtap/hep B/ipv) Unknown Completed [facility] Pneumococcal 13 Conjugate, PCV13 (Prevnar 13) Unknown Completed [facility] Polio (IPV/OPV) Unknown Completed [facility] TDAP Unknown Completed [facility] Varicella (varivax)(chicken pox) Unknown Completed [facility] Influenza Virus Vaccine Quad .5 mL IM 6+ MO (FLUZONE/FLULAVAL/F LUARIX) Unknown Completed [facility] HPV9 Unknown Completed [facility] Influenza Virus Vaccine Quad IM, Preserv and ABX Free 6 MO-64 YRS (FLUCELVAX) Unknown Completed [facility] DTAP Unknown Completed [facility] HEPATITIS A Unknown Completed [facility] Meningococcal Vaccine Unknown Completed [facility] MMR Unknown Completed [facility] Pediarix (dtap/hep B/ipv) Unknown Completed [facility] Pneumococcal 13 Conjugate, PCV13 (Prevnar 13) Unknown Completed [facility] Polio (IPV/OPV) Unknown Completed [facility] TDAP Unknown Completed [facility] Varicella (varivax)(chicken pox) Unknown Completed [facility] Influenza Virus Vaccine Quad .5 mL IM 6+ MO (FLUZONE/FLULAVAL/F LUARIX) Unknown Completed [facility] HPV9 Unknown Completed [facility] Influenza Virus Vaccine Quad IM, Preserv and ABX Free 6 MO-64 YRS (FLUCELVAX) Unknown Completed [facility] DTAP Unknown Completed [facility] HEPATITIS A Unknown Completed [facility] Meningococcal Vaccine Unknown Completed [facility] MMR Unknown Completed [facility] Pediarix (dtap/hep B/ipv) Unknown Completed [facility] Pneumococcal 13 Conjugate, PCV13 (Prevnar 13) Unknown Completed [facility] Polio (IPV/OPV) Unknown Completed [facility] TDAP Unknown Completed [facility] Varicella (varivax)(chicken pox) Unknown Completed [facility] Influenza Virus Vaccine Quad .5 mL IM 6+ MO (FLUZONE/FLULAVAL/F LUARIX) Unknown Completed [facility] HPV9 Unknown Completed [facility] Influenza Virus Vaccine Quad IM, Preserv and ABX Free 6 MO-64 YRS (FLUCELVAX) Unknown Completed [facility] DTAP Unknown Completed [facility] HEPATITIS A Unknown Completed [facility] Meningococcal Vaccine Unknown Completed [facility] MMR Unknown Completed [facility] Pediarix (dtap/hep B/ipv) Unknown Completed [facility] Pneumococcal 13 Conjugate, PCV13 (Prevnar 13) Unknown Completed [facility] Polio (IPV/OPV) Unknown Completed [facility] TDAP Unknown Completed [facility] Varicella (varivax)(chicken pox) Unknown Completed [facility] Influenza Virus Vaccine Quad .5 mL IM 6+ MO (FLUZONE/FLULAVAL/F LUARIX) Unknown Completed [facility] HPV9 Unknown Completed [facility] Influenza Virus Vaccine Quad IM, Preserv and ABX Free 6 MO-64 YRS (FLUCELVAX) Unknown Completed [facility] DTAP Unknown Completed [facility] HEPATITIS A Unknown Completed [facility] Meningococcal Vaccine Unknown Completed [facility] MMR Unknown Completed [facility] Pediarix (dtap/hep B/ipv) Unknown Completed [facility] Pneumococcal 13 Conjugate, PCV13 (Prevnar 13) Unknown Completed [facility] Polio (IPV/OPV) Unknown Completed [facility] TDAP Unknown Completed [facility] Varicella (varivax)(chicken pox) Unknown Completed [facility] Influenza Virus Vaccine Quad .5 mL IM 6+ MO (FLUZONE/FLULAVAL/F LUARIX) Unknown Completed [facility] HPV9 Unknown Completed [facility] Influenza Virus Vaccine Quad IM, Preserv and ABX Free 6 MO-64 YRS (FLUCELVAX) Unknown Completed [facility] DTAP Unknown Completed [facility] HEPATITIS A Unknown Completed [facility] Meningococcal Vaccine Unknown Completed [facility] MMR Unknown Completed [facility] Pediarix (dtap/hep B/ipv) Unknown Completed [facility] Pneumococcal 13 Conjugate, PCV13 (Prevnar 13) Unknown Completed [facility] Polio (IPV/OPV) Unknown Completed [facility] TDAP Unknown Completed [facility] Varicella (varivax)(chicken pox) Unknown Completed [facility] Influenza Virus Vaccine Quad .5 mL IM 6+ MO (FLUZONE/FLULAVAL/F LUARIX) Unknown Completed [facility] HPV9 Unknown Completed [facility] Influenza Virus Vaccine Quad IM, Preserv and ABX Free 6 MO-64 YRS (FLUCELVAX) Unknown Completed [facility] DTAP Unknown Completed [facility] HEPATITIS A Unknown Completed [facility] Meningococcal Vaccine Unknown Completed [facility] MMR Unknown Completed [facility] Pediarix (dtap/hep B/ipv) Unknown Completed [facility] Pneumococcal 13 Conjugate, PCV13 (Prevnar 13) Unknown Completed [facility] Polio (IPV/OPV) Unknown Completed [facility] TDAP Unknown Completed [facility] Varicella (varivax)(chicken pox) Unknown Completed [facility] Influenza Virus Vaccine Quad .5 mL IM 6+ MO (FLUZONE/FLULAVAL/F LUARIX) Unknown Completed [facility] HPV9 Unknown Completed [facility] Influenza Virus Vaccine Quad IM, Preserv and ABX Free 6 MO-64 YRS (FLUCELVAX) Unknown Completed [facility] DTAP Unknown Completed [facility] HEPATITIS A Unknown Completed [facility] Meningococcal Vaccine Unknown Completed [facility] MMR Unknown Completed [facility] Pediarix (dtap/hep B/ipv) Unknown Completed [facility] Pneumococcal 13 Conjugate, PCV13 (Prevnar 13) Unknown Completed [facility] Polio (IPV/OPV) Unknown Completed [facility] TDAP Unknown Completed [facility] Varicella (varivax)(chicken pox) Unknown Completed [facility] Influenza Virus Vaccine Quad .5 mL IM 6+ MO (FLUZONE/FLULAVAL/F LUARIX) Unknown Completed [facility] HPV9 Unknown Completed [facility] Influenza Virus Vaccine Quad IM, Preserv and ABX Free 6 MO-64 YRS (FLUCELVAX) Unknown Completed [facility] DTAP Unknown Completed [facility] HEPATITIS A Unknown Completed [facility] Meningococcal Vaccine Unknown Completed [facility] MMR Unknown Completed [facility] Pediarix (dtap/hep B/ipv) Unknown Completed [facility] Pneumococcal 13 Conjugate, PCV13 (Prevnar 13) Unknown Completed [facility] Polio (IPV/OPV) Unknown Completed [facility] TDAP Unknown Completed [facility] Varicella (varivax)(chicken pox) Unknown Completed [facility] Influenza Virus Vaccine Quad .5 mL IM 6+ MO (FLUZONE/FLULAVAL/F LUARIX) Unknown Completed [facility] HPV9 Unknown Completed [facility] Influenza Virus Vaccine Quad IM, Preserv and ABX Free 6 MO-64 YRS (FLUCELVAX) Unknown Completed [facility] Meningococcal Vaccine Unknown Completed [facility] MMR Unknown Completed [facility] Pediarix (dtap/hep B/ipv) Unknown Completed [facility] Polio (IPV/OPV) Unknown Completed [facility] Varicella (varivax)(chicken pox) Unknown Completed [facility] Influenza Virus Vaccine Quad .5 mL IM 6+ MO (FLUZONE/FLULAVAL/F LUARIX) Unknown Completed [facility] Influenza Virus Vaccine Quad IM, Preserv and ABX Free 6 MO-64 YRS (FLUCELVAX) Unknown Completed [facility] DTAP Unknown Completed [facility] HEPATITIS A Unknown Completed [facility] Pneumococcal 13 Conjugate, PCV13 (Prevnar 13) Unknown Completed [facility] TDAP Unknown Completed [facility] HPV9 Unknown Completed [facility] DTAP Unknown Completed [facility] HEPATITIS A Unknown Completed [facility] Meningococcal Vaccine Unknown Completed [facility] MMR Unknown Completed [facility] Pediarix (dtap/hep B/ipv) Unknown Completed [facility] Pneumococcal 13 Conjugate, PCV13 (Prevnar 13) Unknown Completed [facility] Polio (IPV/OPV) Unknown Completed [facility] TDAP Unknown Completed [facility] Varicella (varivax)(chicken pox) Unknown Completed [facility] Influenza Virus Vaccine Quad .5 mL IM 6+ MO (FLUZONE/FLULAVAL/F LUARIX) Unknown Completed [facility] HPV9 Unknown Completed [facility] Influenza Virus Vaccine Quad IM, Preserv and ABX Free 6 MO-64 YRS (FLUCELVAX) Unknown Completed [facility] DTAP Unknown Completed [facility] HEPATITIS A Unknown Completed [facility] Meningococcal Vaccine Unknown Completed [facility] MMR Unknown Completed [facility] Pediarix (dtap/hep B/ipv) Unknown Completed [facility] Pneumococcal 13 Conjugate, PCV13 (Prevnar 13) Unknown Completed [facility] Polio (IPV/OPV) Unknown Completed [facility] TDAP Unknown Completed [facility] Varicella (varivax)(chicken pox) Unknown Completed [facility] Influenza Virus Vaccine Quad .5 mL IM 6+ MO (FLUZONE/FLULAVAL/F LUARIX) Unknown Completed [facility] HPV9 Unknown Completed [facility] Influenza Virus Vaccine Quad IM, Preserv and ABX Free 6 MO-64 YRS (FLUCELVAX) Unknown Completed [facility] DTAP Unknown Completed [facility] HEPATITIS A Unknown Completed [facility] Meningococcal Vaccine Unknown Completed [facility] MMR Unknown Completed [facility] Pediarix (dtap/hep B/ipv) Unknown Completed [facility] Pneumococcal 13 Conjugate, PCV13 (Prevnar 13) Unknown Completed [facility] Polio (IPV/OPV) Unknown Completed [facility] TDAP Unknown Completed [facility] Varicella (varivax)(chicken pox) Unknown Completed [facility] Influenza Virus Vaccine Quad .5 mL IM 6+ MO (FLUZONE/FLULAVAL/F LUARIX) Unknown Completed [facility] HPV9 Unknown Completed [facility] Influenza Virus Vaccine Quad IM, Preserv and ABX Free 6 MO-64 YRS (FLUCELVAX) Unknown Completed [facility] DTAP Unknown Completed [facility] HEPATITIS A Unknown Completed [facility] Meningococcal Vaccine Unknown Completed [facility] MMR Unknown Completed [facility] Pediarix (dtap/hep B/ipv) Unknown Completed [facility] Pneumococcal 13 Conjugate, PCV13 (Prevnar 13) Unknown Completed [facility] Polio (IPV/OPV) Unknown Completed [facility] TDAP Unknown Completed [facility] Varicella (varivax)(chicken pox) Unknown Completed [facility] Influenza Virus Vaccine Quad .5 mL IM 6+ MO (FLUZONE/FLULAVAL/F LUARIX) Unknown Completed [facility] HPV9 Unknown Completed [facility] Influenza Virus Vaccine Quad IM, Preserv and ABX Free 6 MO-64 YRS (FLUCELVAX) Unknown Completed [facility] Fluarix (IIV3) - SDS - 0.5mL Fluarix (IIV3) - SDS - 0.5mL Unknown Completed [facility] Vital Signs Vital Name Observation Time Observation Value Comments S ource Systolic blood pressure 2025-01-22 19:47:00 111 mm[Hg] Waldo o [facility] Diastolic blood pressure 2025-01-22 19:47:00 73 mm[Hg] Waldo o [facility] Heart rate 2025-01-22 19:47:00 60 /min [facility] Respiratory rate 2025-01-22 19:47:00 18 /min [facility] Body height 2025-01-22 19:47:00 160 cm [facility] Body weight 2025-01-22 19:47:00 101.152 kg [facility] BMI 2025-01-22 19:47:00 39.50 kg/m2 [facility] height 2024-12-19 11:40:00 63.5 [in_i] Comm on [facility] weight 2024-12-19 11:40:00 223 [lb_av] Comm on [facility] bmi 2024-12-19 11:40:00 38.88 kg/m2 Comm on [facility] height 2024-09-05 08:20:00 63.5 [in_i] Comm on [facility] weight 2024-09-05 08:20:00 224 [lb_av] Comm on [facility] temperature 2024-09-05 08:20:00 97.6 [degF] Com mon [facility] bmi 2024-09-05 08:20:00 39.05 kg/m2 Comm on [facility] oximetry 2024-09-05 08:20:00 99 % Commo n [facility] respiratory rate 2024-09-05 08:20:00 16 /min Common [facility] blood pressure systolic 2024-09-05 08:20:00 122 mm[Hg] [facility] blood pressure diastolic 2024-09-05 08:20:00 68 mm[Hg] Common [facility] height 2024-09-05 08:20:00 63.5 [in_i] Comm on [facility] weight 2024-09-05 08:20:00 224 [lb_av] Comm on [facility] temperature 2024-09-05 08:20:00 97.6 [degF] Com mon [facility] bmi 2024-09-05 08:20:00 39.05 kg/m2 Comm on [facility] oximetry 2024-09-05 08:20:00 99 % Commo n [facility] respiratory rate 2024-09-05 08:20:00 16 /min [facility] blood pressure systolic 2024-09-05 08:20:00 122 mm[Hg] Common [facility] blood pressure diastolic 2024-09-05 08:20:00 68 mm[Hg] [facility] height 2024-08-15 10:20:00 63.5 [in_i] Comm on [facility] weight 2024-08-15 10:20:00 222 [lb_av] Comm on [facility] temperature 2024-08-15 10:20:00 97.2 [degF] Com mon [facility] bmi 2024-08-15 10:20:00 38.7 kg/m2 Commo n [facility] oximetry 2024-08-15 10:20:00 99 % Commo n [facility] respiratory rate 2024-08-15 10:20:00 16 /min [facility] blood pressure systolic 2024-08-15 10:20:00 128 mm[Hg] Common [facility] blood pressure diastolic 2024-08-15 10:20:00 76 mm[Hg] [facility] Systolic blood pressure 2024-07-20 19:11:00 121 mm[Hg] [facility] Diastolic blood pressure 2024-07-20 19:11:00 76 mm[Hg] [facility] Heart rate 2024-07-20 19:05:00 85 /min [facility] Body temperature 2024-07-20 19:05:00 36.61 Cristy [facility] Body weight 2024-07-20 19:05:00 103.602 kg [facility] Systolic blood pressure 2024-03-10 18:22:00 120 mm[Hg] [facility] Diastolic blood pressure 2024-03-10 18:22:00 79 mm[Hg] [facility] Heart rate 2024-03-10 18:22:00 77 /min [facility] Body temperature 2024-03-10 18:22:00 36.5 Cristy [facility] Body height 2024-03-10 18:22:00 162.6 cm [facility] Body weight 2024-03-10 18:22:00 100.064 kg [facility] BMI 2024-03-10 18:22:00 37.87 kg/m2 [facility] Systolic blood pressure 2024-02-28 16:15:00 119 mm[Hg] [facility] Diastolic blood pressure 2024-02-28 16:15:00 57 mm[Hg] [facility] Heart rate 2024-02-28 16:15:00 81 /min [facility] Body temperature 2024-02-28 16:15:00 36.56 Cristy [facility] Respiratory rate 2024-02-28 16:15:00 16 /min [facility] Oxygen saturation in Arterial blood by Pulse oximetry 2024-02-28 16:15:00 100 /min [facility] Systolic blood pressure 2024-02-26 11:14:00 181 mm[Hg] [facility] Diastolic blood pressure 2024-02-26 11:14:00 119 mm[Hg] [facility] Heart rate 2024-02-26 11:14:00 84 /[facility] Body temperature 2024-02-26 11:14:00 36.5 Cristy [facility] Respiratory rate 2024-02-26 11:14:00 20 /min [facility] Body height 2024-02-26 11:14:00 162.6 cm [facility] Body weight 2024-02-26 11:14:00 102.241 kg [facility] BMI 2024-02-26 11:14:00 38.69 kg/m2 [facility] Oxygen saturation in Arterial blood by Pulse oximetry 2024-02-26 11:14:00 100 /min [facility] Systolic blood pressure 2024-02-22 20:38:00 135 mm[Hg] [facility] Diastolic blood pressure 2024-02-22 20:38:00 85 mm[Hg] [facility] Heart rate 2024-02-22 20:38:00 69 /min [facility] Body temperature 2024-02-22 20:38:00 36.72 Cristy [facility] Respiratory rate 2024-02-22 20:38:00 18 /min [facility] Oxygen saturation in Arterial blood by Pulse oximetry 2024-02-22 20:38:00 100 /min [facility] Body height 2024-02-21 13:40:00 162.6 cm [facility] Body weight 2024-02-21 13:40:00 102.377 kg [facility] BMI 2024-02-21 13:40:00 38.74 kg/m2 [facility] Systolic blood pressure 2024-02-11 12:00:00 127 mm[Hg] [facility] Diastolic blood pressure 2024-02-11 12:00:00 89 mm[Hg] [facility] Heart rate 2024-02-11 12:00:00 76 /min [facility] Body temperature 2024-02-11 12:00:00 36.39 Cristy [facility] Respiratory rate 2024-02-11 12:00:00 16 /min [facility] Oxygen saturation in Arterial blood by Pulse oximetry 2024-02-11 12:00:00 98 /min [facility] Systolic blood pressure 2024-02-07 18:31:00 138 mm[Hg] [facility] Diastolic blood pressure 2024-02-07 18:31:00 89 mm[Hg] [facility] Heart rate 2024-02-07 18:31:00 75 /min [facility] Respiratory rate 2024-02-07 18:31:00 18 /min [facility] Body height 2024-02-07 18:31:00 162.6 cm [facility] Body weight 2024-02-07 18:31:00 108.863 kg [facility] BMI 2024-02-07 18:31:00 41.20 kg/m2 [facility] Systolic blood pressure 2024-01-28 14:09:00 124 mm[Hg] [facility] Diastolic blood pressure 2024-01-28 14:09:00 80 mm[Hg] [facility] Heart rate 2024-01-28 14:09:00 82 /min [facility] Body temperature 2024-01-28 14:09:00 36.67 Cristy [facility] Body height 2024-01-28 14:09:00 162.6 cm [facility] Body weight 2024-01-28 14:09:00 110.406 kg [facility] BMI 2024-01-28 14:09:00 41.78 kg/m2 [facility] Heart rate 2024-01-01 17:30:00 79 /min [facility] Oxygen saturation in Arterial blood by Pulse oximetry 2024-01-01 17:30:00 96 /min [facility] Systolic blood pressure 2024-01-01 16:00:00 117 mm[Hg] [facility] Diastolic blood pressure 2024-01-01 16:00:00 62 mm[Hg] [facility] Respiratory rate 2024-01-01 15:30:00 18 /min [facility] Body temperature 2024-01-01 13:00:00 36.61 Cristy [facility] Body height 2024-01-01 07:30:00 162.6 cm [facility] Body weight 2024-01-01 07:30:00 106.051 kg [facility] BMI 2024-01-01 07:30:00 40.13 kg/m2 [facility] Systolic blood pressure 2023-12-24 14:06:00 122 mm[Hg] [facility] Diastolic blood pressure 2023-12-24 14:06:00 84 mm[Hg] [facility] Heart rate 2023-12-24 14:06:00 77 /min [facility] 2023-12-24 14:06:00 36.11 Cristy [facility] Respiratory rate 2023-12-24 14:06:00 18 /min [facility] Body height 2023-12-24 14:06:00 162.6 cm [facility] Body weight 2023-12-24 14:06:00 108.954 kg [facility] BMI 2023-12-24 14:06:00 41.23 kg/m2 [facility] Systolic blood pressure 2023-12-10 20:56:00 105 mm[Hg] [facility] Diastolic blood pressure 2023-12-10 20:56:00 69 mm[Hg] [facility] Heart rate 2023-12-10 20:56:00 85 /min [facility] 2023-12-10 20:56:00 18 /min [facility] Body height 2023-12-10 20:56:00 162.6 cm [facility] Body weight 2023-12-10 20:56:00 109.77 kg [facility] BMI 2023-12-10 20:56:00 41.54 kg/m2 [facility] Systolic blood pressure 2023-11-19 20:34:00 110 mm[Hg] [facility] Diastolic blood pressure 2023-11-19 20:34:00 73 mm[Hg] [facility] Heart rate 2023-11-19 20:34:00 84 /min [facility] Body temperature 2023-11-19 20:34:00 36.28 Cristy [facility] Body height 2023-11-19 20:34:00 162.6 cm [facility] 2023-11-19 20:34:00 109.861 kg [facility] BMI 2023-11-19 20:34:00 41.57 kg/m2 Annie [facility] Systolic blood pressure 2023-10-22 19:13:00 114 mm[Hg] Waldo o [facility] Diastolic blood pressure 2023-10-22 19:13:00 74 mm[Hg] [facility] Heart rate 2023-10-22 19:13:00 79 /min Unive [facility] Body temperature 2023-10-22 19:13:00 36.72 Cristy [facility] Respiratory rate 2023-10-22 19:13:00 18 /min [facility] Body height 2023-10-22 19:13:00 162.6 cm [facility] Body weight 2023-10-22 19:13:00 108.138 kg [facility] BMI 2023-10-22 19:13:00 40.92 kg/m2 [facility] Systolic blood pressure 2023-09-21 13:58:00 127 mm[Hg] [facility] Diastolic blood pressure 2023-09-21 13:58:00 76 mm[Hg] [facility] Heart rate 2023-09-21 13:58:00 87 /min Unive [facility] Body temperature 2023-09-21 13:58:00 36.39 Cristy [facility] Respiratory rate 2023-09-21 13:58:00 17 /min [facility] Body height 2023-09-21 13:58:00 162.6 cm [facility] Body weight 2023-09-21 13:58:00 110.043 kg [facility] BMI 2023-09-21 13:58:00 41.64 kg/m2 [facility] Systolic blood pressure 2023-08-23 16:51:00 120 mm[Hg] [facility] Diastolic blood pressure 2023-08-23 16:51:00 80 mm[Hg] [facility] Heart rate 2023-08-23 16:51:00 70 /min Unive [facility] Body temperature 2023-08-23 16:51:00 36.39 Cirsty [facility] Respiratory rate 2023-08-23 16:51:00 18 /min [facility] Body height 2023-08-23 16:51:00 162.6 cm [facility] Body weight 2023-08-23 16:51:00 106.142 kg [facility] BMI 2023-08-23 16:51:00 40.17 kg/m2 [facility] Systolic blood pressure 2023-07-27 21:29:00 105 mm[Hg] [facility] Diastolic blood pressure 2023-07-27 21:29:00 73 mm[Hg] [facility] Heart rate 2023-07-27 21:29:00 72 /min [facility] Body temperature 2023-07-27 21:29:00 36.89 Cristy [facility] Respiratory rate 2023-07-27 21:29:00 18 /min [facility] Body height 2023-07-27 21:29:00 162.6 cm [facility] Body weight 2023-07-27 21:29:00 107.956 kg [facility] BMI 2023-07-27 21:29:00 40.85 kg/m2 [facility] Systolic blood pressure 2023-06-22 20:04:00 118 mm[Hg] [facility] Diastolic blood pressure 2023-06-22 20:04:00 86 mm[Hg] [facility] Heart rate 2023-06-22 20:04:00 72 /min [facility] Body temperature 2023-06-22 20:04:00 36.67 Cristy [facility] Respiratory rate 2023-06-22 20:04:00 18 /min [facility] Body height 2023-06-22 20:04:00 162.6 cm [facility] Body weight 2023-06-22 20:04:00 110.768 kg [facility] BMI 2023-06-22 20:04:00 41.92 kg/m2 [facility] Oxygen saturation in Arterial blood by Pulse oximetry 2023-06-22 20:04:00 98 /min [facility] Systolic blood pressure 2022-09-26 01:00:00 112 mm[Hg] [facility] Diastolic blood pressure 2022-09-26 01:00:00 65 mm[Hg] [facility] Heart rate 2022-09-26 01:00:00 94 /min [facility] Respiratory rate 2022-09-26 01:00:00 16 /min [facility] Oxygen saturation in Arterial blood by Pulse oximetry 2022-09-26 01:00:00 91 /min [facility] Body temperature 2022-09-25 22:42:00 37 Cristy [facility] Body weight 2022-09-25 22:42:00 113.399 kg [facility] Systolic blood pressure 2022-03-03 15:28:00 116 mm[Hg] [facility] Diastolic blood pressure 2022-03-03 15:28:00 74 mm[Hg] [facility] Heart rate 2022-03-03 15:28:00 67 /min [facility] Body temperature 2022-03-03 15:28:00 36.22 Cristy [facility] Respiratory rate 2022-03-03 15:28:00 20 /min [facility] Body height 2022-03-03 15:28:00 165.1 cm [facility] Body weight 2022-03-03 15:28:00 113.944 kg [facility] BMI 2022-03-03 15:28:00 41.80 kg/m2 [facility] Body mass index (BMI) [Percentile] Per age and sex 2022-03-03 15:28:00 99.04 % [facility] Procedures Procedure Date / Time Performed Performing Clinician Source US OB TRANSVAGINAL 2025-01-22 20:39:08 Guillermina Yanes [facility] POCT TEST 2025-01-22 00:00:00 Guillermina Anthony [facility] POCT URINALYSIS W/O SPECIFIC GRAVITY 2025-01-22 00:00:00 Anca [facility] POCT TEST 2024-07-20 00:00:00 Oanh miller [facility] TRANSTHORACIC ECHO (TTE) COMPLETE 2024-02-27 13:34:00 [facility] LIPASE 2024-02-27 04:25:00 Alonso [facility] TROPONIN I 2024-02-27 04:25:00 Alonso [facility] THYROID STIMULATING HORMONE 2024-02-27 04:25:00 [facility] LIPID PANEL (67219)(TOTAL CHOLESTEROL, TRIGLYCERIDES, HDL) 2024-02-27 04:25:00 [facility] GLYCOSYLATED HEMOGLOBIN (A1C) 2024-02-27 04:25:00 [facility] LACTATE DEHYDROGENASE 2024-02-27 02:00:00 Jean-Pierre Fraser [facility] D-DIMER 2024-02-27 02:00:[address] [facility] [address] CHEST PULMONARY ANGIOGRAM 2024-02-26 13:23:20 JaniMock, [facility] XR CHEST 1 VW 2024-02-26 12:32:16 Anca [facility] HB ECG ROUTINE & RHYTHM STRIP 2024-02-26 12:19:30 Anca [facility] URINALYSIS 2024-02-26 12:08:00 Anca [facility] PROTEIN CREAT RATIO URINE RANDOM 2024-02-26 12:08:00 [facility]OT (ASPARTATE AMINO TRANSFER) 2024-02-26 12:08[facility] 2024-02-26 12:08:00 [facility] ALANINE AMINO TRANSFERASE(SGPT 2024-02-26 12:08:00 Morejon-Mock, [facility] LACTATE DEHYDROGENASE 2024-02-26 12:08:00 [facility] URIC ACID 2024-02-26 12:08:00 [facility] TROPONIN I 2024-02-26 12:08:00 JaniMock , [facility] CBC WITH DIFF 2024-02-26 12:08:[address] [facility] [address] HEAD WO CONTRAST 2024-02-22 19:20:00 Oanh miller [facility] CT ABDOMEN PELVIS W CONTRAST 2024-02-21 14:28:12 Iza Powers [facility] BLOOD CULTURE SCREEN 2024-02-21 14:02:00 Iza Powers [facility] LIPASE 2024-02-21 14:02:00 [facility] MAGNESIUM 2024-02-21 14:02:00 Iza Powers [facility] COMP. METABOLIC PANEL (90979) 2024-02-21 14:02:00 Iza Powers [facility] CBC WITH DIFF 2024-02-21 14:02:00 Iza Powers [facility] LACTIC ACID WHOLE BLOOD 2024-02-21 14:01:00 Iza Powers [facility] CBC WITH DIFF 2024-02-10 09:34[facility]00 [facility] 2024-02-09 08:59:00 Jami Neumann [facility] COMP. METABOLIC PANEL (43040) 2024-02-09 03:23:00 [facility] PROTEIN CREAT RATIO URINE RANDOM 2024-02-09 03:23:00 [facility] CBC WITH DIFF 2024-02-09 00:52:00 [facility] HEPATITIS B SURFACE ANTIGEN 2024-02-09 00:52:00 Anca [facility] HB ABO GROUPING 2024-02-09 00:52:00 Anca [facility] RHO (D) IMMUNE GLOBULIN 2024-02-09 00:52:00 Lorie Zarate [facility] ADC OR LYNNETTE ONLY - RPR 2024-02-09 00:52:00 Joseline Agee [facility] HIV 1/2 AG-AB WITH REFLEX 2024-02-09 00:52:00 Joseline Elliot [facility] CONSENT/REFUSAL FOR DIAGNOSIS AND TREATMENT 2024-02-07 19:06:19 Doctor Unassigned, [place] [facility] ASSIGNMENT OF BENEFITS 2024-02-07 19:03:54 Docto r Unassigned, [place] [facility] POCT URINALYSIS W/O SPECIFIC GRAVITY 2024-02-07 00:00:00 Anca [facility] DSU PRE-OP 2024-01-28 06:01:00 Doctor Unass igned, [place] [facility] POCT URINALYSIS W/O SPECIFIC GRAVITY 2024-01-28 00:00:00 Anca [facility] DME/SUPPLY JUSTIFICATION 2024-01-13 06:01:00 Doc tor Unassigned, [place] [facility] SECOND AND THIRD TRIMESTER ULTRASOUND 2024-01-06 15:56:00 Anca [facility] URINALYSIS 2024-01-01 08:10:00 Anca [facility] NOTICE OF PRIVACY PRACTICES 2024-01-01 07:07:51 Doctor Unassigned, [place] [facility] CONSENT/REFUSAL FOR DIAGNOSIS AND TREATMENT 2024-01-01 07:07:09 Doctor Unassigned, [place] [facility] POCT URINALYSIS W/O SPECIFIC GRAVITY 2023-12-24 00:00:00 Anca [facility] POCT URINALYSIS W/O SPECIFIC GRAVITY 2023-12-10 00:00:00 Anca [facility] DME/SUPPLY JUSTIFICATION 2023-11-30 06:01:00 Doc tor Unassigned, [place] [facility] 3 HR GLUCOSE TOLERANCE TEST 2023-11-23 17:18:00 Anca [facility] 2 HR GLUCOSE TOLERANCE TEST 2023-11-23 16:13:00 Anca [facility] 1 HR GLUCOSE TOLERANCE TEST 2023-11-23 15:18:00 Anca [facility] GLUCOSE FASTING 2023-11-23 14:13:00 [facility] 3 HR GLUCOSE TOLERANCE PANEL 2023-11-23 14:13:00 JaniMock, [facility] TDAP VACCINE, >11 YRS, IM 2023-11-19 20:43:54 Ca Cyndie [facility] DME/SUPPLY JUSTIFICATION 2023-11-19 06:01:00 Doc tor Unassigned, [place] [facility] POCT URINALYSIS W/O SPECIFIC GRAVITY 2023-11-19 00:00:00 [facility] POCT URINALYSIS W/O SPECIFIC GRAVITY 2023-10-22 00:00:00 JaniMock, [facility] SECOND AND THIRD TRIMESTER ULTRASOUND 2023-10-06 17:34:00 [facility] FLU VACC (2022-9027), 6 MO-64 YRS, .5ML, IM, QUAD (FLUCELVAX) 2023-09-21 13:58:03 [facility] POCT URINALYSIS W/O SPECIFIC GRAVITY 2023-09-21 00:00:00 JaniMock, [facility] EXTERNAL PROVIDER RECORDS 2023-08-24 05:01:00 Do ctor Unassigned, [place] [facility] POCT URINALYSIS W/O SPECIFIC GRAVITY 2023-08-23 00:00:00 Anca [facility] SCANNED LAB RESULTS 2023-07-28 05:01:00 Doctor French stewart, [place] [facility] CBC WITH DIFF 2023-07-02 15:16:00 Anca Guillermina [facility] HEMOGLOBINOPATHY EVALUATION 2023-07-02 15:16:00 Guillermina March [facility] US OB TRANSVAGINAL 2023-06-22 20:45:51 Marbella james Guillermina [facility] ASSIGNMENT OF BENEFITS 2023-06-22 19:18:15 Docto r Unassigned, [place] [facility] POCT TEST 2023-06-22 00:00:00 Oanh miller Guillermina [facility] POCT URINALYSIS W/O SPECIFIC GRAVITY 2023-06-22 00:00:00 Anca Guillermina [facility] CT ABDOMEN PELVIS W CONTRAST 2022-09-26 00:12:30 Chey Mann [facility] POCT TEST 2022-09-25 23:22:00 Chey Mann [facility] LIPASE 2022-09-25 23:04:00 Chey Mann [facility] COMP. METABOLIC PANEL ([id number]) 2022-09-25 23:04:00 Chey Mann [facility] CBC WITH DIFF 2022-09-25 23:04:00 Chey Mann [facility] URINALYSIS 2022-09-25 23:04:00 Chey Mann [facility] CONSENT/REFUSAL FOR DIAGNOSIS AND TREATMENT 2022-09-25 22:34:36 Doctor Unassigned, [place] [facility] GARDASIL 9 (HPV 9V) VACCINE 2022-03-03 15:29:22 Conrad Shane [facility] Encounters Start Date/Time End Date/Time Encounter Type Admission Type Attending [facility] Care Facility Care Department Encounter ID Source 2024-12-04 09:38:01 Outpatient Chalo Bell [facility] [id number] [facility] 2024-09-04 13:16:01 Outpatient Chalo Bell [facility] [id number] [facility] 2024-08-17 09:37:01 [facility] [id number] [facility] 2024-08-15 08:52:01 Outpatient Chalo Bell [facility] [id number] [facility] 2024-01-01 14:08:24 Outpatient X [facility] [id number] [facility] 2021-09-21 20:44:55 Emergency [facility] [id number] [facility] 2021-09-20 04:35:36 Emergency [facility] [id number] [facility] 2025-02-19 16:15:00 2025-02-19 16:15:00 Outpatient R MOREJON-MARK S, GUILLERMINA MOREJON-MARK S, GUILLERMINA [facility] [id number] [facility] 2025-01-22 15:00:00 2025-01-22 15:00:00 Compilation Clerk Visit 2, Adc Lab Morejon-Mark s, Guillermina 2, Adc Lab [facility] 1.2.840.114 350.1.13.10 4.2.7.2.686 [id number] [facility] 2025-01-22 13:30:00 2025-01-22 14:05:16 Outpatient R MOREJON-MARK S, GUILLERMINA MOREJON-MARK S, GUILLERMINA [facility] [id number] [facility] 2025-01-22 13:30:00 2025-01-22 14:05:16 Initial Visit Morejon-Mark s, Guillermina [facility] 1.2.840.114 350.1.13.10 4.2.7.2.686 [id number] [facility] 2025-01-08 00:00:00 2025-01-08 00:00:00 [facility] [id number] 2018-09-15 00:00:00 2025-01-06 03:14:05 Orders Only Dinorah Ga [place] R [facility] [place] 1..840.114 350.1.13.10 4.2.7.2.686 [id number] [facility] 2023-08-09 00:00:00 2025-01-06 02:38:14 Orders Only Guillermina Avalos [facility] 1..840.114 350.1.13.10 4.2.7.2.686 [id number] [facility] 2024-12-19 00:00:00 2024-12-19 00:00:00 OFFICE VISIT [facility]AB [facility] [id number] 2024-12-05 00:00:00 2024-12-05 00:00:00 [facility] [id number] [facility] 2024-12-01 11:30:00 2024-12-01 11:30:00 Outpatient STELLA HAIDER [facility] [id number] [facility] 2024-09-05 00:00:00 2024-09-05 00:00:00 (WELLNESS) Wellness Visit [facility] [id number] [facility] 2024-07-20 00:00:00 2024-08-26 18:24:36 Patient Secure Msg Doctor Unassigned, [place] Doctor Unassigned, [place] [facility] 1..840.114 350.1.13.10 4.2.7.2.686 [id number] [facility] 2024-08-15 00:00:00 2024-08-15 00:00:00 OFFICE VISIT NEW PT LEVEL 4 [facility] [id number] [facility] 2024-07-20 14:00:00 2024-07-20 14:17:27 Outpatient R MOREJON-MARK S, GUILLERMINA MOREJON-MARK S, GUILLERMINA [facility] [id number] [facility] 2024-07-20 14:00:00 2024-07-20 14:17:27 Office Visit Morejon-Mark s, Guillermina [facility] 1.2.840.114 350.1.13.10 4.2.7.2.686 [id number] [facility] 2024-07-18 00:00:00 2024-07-20 09:41:24 [facility] 1.2.840.114 350.1.13.10 4.2.7.2.686 [id number] [facility] 2024-03-10 13:15:00 2024-03-10 13:38:58 Outpatient R MOREJON-MARK S, GUILLERMINA MOREJON-MARK S, GUILLERMINA [facility] [id number] [facility] 2024-03-10 13:15:00 2024-03-10 13:38:58 Routine Visit Morejon-Mark s, Guillermina [facility] 1.2.840.114 350.1.13.10 4.2.7.2.686 [id number] [facility] 2024-03-03 14:00:00 2024-03-03 14:20:58 Outpatient R MOREJON-MARK S, GUILLERMINA MOREJON-MARK S, GUILLERMINA [facility] [id number] [facility] 2024-03-03 14:00:00 2024-03-03 14:20:58 Nurse Visit Nurse, [facility], [facility] 1.2.840.114 350.1.13.10 4.2.7.2.686 [id number] [facility] 2024-02-28 14:30:00 2024-02-28 14:30:00 Outpatient R [facility] [id number] [facility] 2024-02-26 06:17:00 2024-02-28 12:33:00 Inpatient X MOREJON-MARK S, GUILLERMINA MOREJON-MARK S, GUILLERMINA [facility] [id number] [facility] 2024-02-26 06:17:00 2024-02-28 12:33:00 Hospital Encounter Morejon-Mark s, Guillermina [facility] 1.2.840.114 350.1.13.10 4.2.7.2.686 [id number] [facility] 2024-02-24 00:00:00 2024-02-24 00:00:00 Telephone Morejon-Mark s, Guillermina [facility] 1.2.840.114 350.1.13.10 4.2.7.2.686 [id number] [facility] 2024-02-21 08:43:00 2024-02-22 18:35:00 Inpatient P MOREJON-MARK S, GUILLERMINA MOREJON-MARK S, GUILLERMINA [facility] [id number] [facility] 2024-02-21 08:43:00 2024-02-22 18:35:00 Hospital Encounter Iza Powers Morejon-Mark s, Guillermina [facility] 1.2.840.114 350.1.13.10 4.2.7.2.686 [id number] [facility] 2024-02-22 15:23:04 2024-02-22 15:23:04 Anesthesia Event Mark Anthony Mendoza [facility] 1.2.840.114 350.1.13.10 4.2.7.2.686 [id number] [facility] 2024-02-18 14:30:00 2024-02-18 14:30:00 Outpatient R [facility] [id number] [facility] 2024-02-14 14:00:00 2024-02-14 14:48:17 Outpatient R MOREJON-MARK S, GUILLERMINA MOREJON-MARK S, GUILLERMINA [facility] [id number] [facility] 2024-02-08 18:23:00 2024-02-11 09:55:00 Inpatient P MOREJON-MARK S, GUILLERMINA MOREJON-MARK S, GUILLERMINA [facility] [id number] [facility] 2024-02-08 18:23:00 2024-02-11 09:55:00 Hospital Encounter Morejon-Mark s, Guillermina [facility] 1.2.840.114 350.1.13.10 4.2.7.2.686 [id number] [facility] 2024-02-09 03:50:00 2024-02-09 11:24:00 Anesthesia Event Elle Neumann Jeffrey [facility] 1.2.840.114 350.1.13.10 4.2.7.2.686 [id number] [facility] 2024-02-07 13:00:00 2024-02-07 13:45:08 Outpatient R MOREJON-MARK S, GUILLERMINA MOREJON-MARK S, GUILLERMINA [facility] [id number] [facility] 2024-02-07 13:00:00 2024-02-07 13:45:08 Routine Visit Morejon-Mark s, Guillermina [facility] 1.2.840.114 350.1.13.10 4.2.7.2.686 [id number] [facility] 2024-01-28 11:15:00 2024-01-28 11:15:00 Compilation Clerk Visit 2, Adc Lab Guillermina Avalos [facility] 1.2840.114 350.1.13.10 4.2.7.2.686 [id number] [facility] 2024-01-28 11:15:00 2024-01-28 08:46:16 Outpatient R NATALEEI Ana Rosa, GUILLERMINA MOREJONLaryMARK S, GUILLERMINA [facility] [id number] [facility] 2024-01-28 08:00:00 2024-01-28 08:30:50 Routine Visit Med watkins Guillermina [facility] 1.2840.114 350.1.13.10 4.2.7.2.686 [id number] [facility] 2024-01-28 00:00:00 2024-01-28 00:00:00 Orders Only Doctor Unassigned, [place] [facility] 1.2840.114 350.1.13.10 4.2.7.2.686 [id number] [facility] 2024-01-13 00:00:00 2024-01-13 00:00:00 Telephone Adum, Radha Ramirez [facility] 1.2840.114 350.1.13.10 4.2.7.2.686 [id number] [facility] 2024-01-13 00:00:00 2024-01-13 00:00:00 Orders Only Doctor Unassigned, [place] [facility] 1.2840.114 350.1.13.10 4.2.7.2.686 [id number] [facility] 2024-01-07 16:15:00 2024-01-07 16:15:00 Outpatient R MOREJON-MARK S, GUILLERMINA MOREJON-MARK S, GUILLERMINA [facility] [id number] [facility] 2024-01-06 09:30:00 2024-01-06 09:41:16 Outpatient P JARET BRYAN SHANNON [facility] [id number] [facility] 2024-01-06 09:30:00 2024-01-06 09:41:16 Compilation Clerk Visit Ultrasound, Jaret Luis [facility] 1..114 350.1.13.10 4.2.7.2.686 [id number] [facility] 2024-01-01 01:18:00 2024-01-01 13:25:00 Outpatient X MOREJON-MARK S, GUILLERMINA OMREJON-MARK S, GUILLERMINA [facility] [id number] [facility] 2024-01-01 01:18:00 2024-01-01 13:25:00 Emergency Mark Anthony Bryan Morejon-Mark s, Guillermina [facility] 1.84.114 350.1.13.10 4.2.7.2.686 [id number] [facility] 2023-12-24 08:15:00 2023-12-24 08:28:19 Outpatient R MOREJON-MARK S, GUILLERMINA MOREJON-MARK S, GUILLERMINA [facility] [id number] [facility] 2023-12-24 08:15:00 2023-12-24 08:28:19 Routine Visit Morejon-Mark s, Guillermina [facility] 1.84.114 350.1.13.10 4.2.7.2.686 [id number] [facility] 2023-12-10 14:45:00 2023-12-10 15:11:21 Outpatient R MOREJON-MARK S, GUILLERMINA MOREJON-MARK S, GUILLERMINA [facility] [id number] [facility] 2023-12-10 14:45:00 2023-12-10 15:11:21 Routine Visit Morejon-Mark s, [facility]ermina [facility] 1.20.114 350.1.13.10 4.2.7.2.686 [id number] [facility] 2023-12-03 14:45:00 2023-12-03 14:45:00 Outpatient R MOREJON-MARK S, GUILLERMINA MOREJON-MARK S, GUILLERMINA [facility] [id number] [facility] 2023-11-30 00:00:00 2023-11-30 00:00:00 Orders Only Doctor Unassigned, [place] [facility] 1.114 350.1.13.10 4.2.7.2.686 [id number] [facility] 2023-11-23 08:00:00 2023-11-23 11:24:50 Outpatient R MOREJON-MARK S, GUILLERMINA MOREJON-MARK S, GUILLERMINA [facility] [id number] [facility] 2023-11-23 08:00:00 2023-11-23 11:24:50 Compilation Clerk Visit 2, Adc Lab Jean-Pierre-Mark s, Guillermina [facility] 1..114 350.1.13.10 4.2.7.2.686 [id number] [facility] 2023-11-23 00:00:00 2023-11-23 00:00:00 Telephone Adum, Radha Ramirez [facility] 1.2.114 350.1.13.10 4.2.7.2.686 [id number] [facility] 2023-11-19 14:45:00 2023-11-19 14:50:30 Outpatient R MOREJON-MARK S, GUILLERMINA MOREJON-MARK S, GUILLERMINA [facility] [id number] [facility] 2023-11-19 14:45:00 2023-11-19 14:50:30 Routine Visit Morejon-Mark s Guillermina [facility] 1.2.840.114 350.1.13.10 4.2.7.2.686 [id number] [facility] 2023-11-19 00:00:00 2023-11-19 00:00:00 Orders Only Doctor Unassigned, [place] [facility] 1..840.114 350.1.13.10 4.2.7.2.686 [id number] [facility] 2023-11-16 00:00:00 2023-11-16 00:00:00 Patient Secure Msg Doctor Unassigned, [place] [facility] 1.2.840.114 350.1.13.10 4.2.7.2.686 [id number] 134 [id number] [facility] 2023-11-12 10:45:00 2023-11-12 11:30:49 Outpatient R MOREJON-MARK S, GUILLERMINA MOREJON-MARK S, GUILLERMINA [facility] [id number] [facility] 2023-11-12 10:45:00 2023-11-12 11:00:00 Compilation Clerk Visit 2, Adc Lab Morejon-Mark s, Guillermina [facility] 1.2.840.114 350.1.13.10 4.2.7.2.686 [id number] 353 [id number] [facility] 2023-11-08 00:00:2023-11-08 00:00:00 Telephone Julisa Avalossol [facility] 1.2.840.114 350.1.13.10 4.2.7.2.686 [id number] 134 [id number] [facility] 2023-11-05 00:00:00 2023-11-05 00:00:00 Telephone Med sJulisaGuillermina [facility] 1.2.840.114 350.1.13.10 4.2.7.2.686 [id number] 134 [id number] [facility] 2023-10-22 13:15:00 2023-10-22 13:25:58 Outpatient R MOREJON-MARK S, GUILLERMINA MOREJON-MARK S, GUILLERMINA [facility] [id number] [facility] 2023-10-22 13:15:00 2023-10-22 13:25:58 Routine Visit MorejonJannyi s Guillermina [facility] 1.2.840.114 350.1.13.10 4.2.7.2.686 [id number] 134 [id number] [facility] 2023-10-06 11:00:00 2023-10-06 16:06:13 Outpatient P ALEXSANDRA ELIZONDO [facility] [id number] [facility] 2023-10-06 11:00:00 2023-10-06 16:06:13 Compilation Clerk Visit Ultrasound, Joe-MfAlexsandra Oliver Ikchris [facility] 1.2.840.114 350.1.13.10 4.2.7.2.686 [id number] [facility] 2023-09-21 09:00:00 2023-09-21 09:10:17 Outpatient R MOREJON-MARK S, GUILLERMINA MOREJON-MARK S, GUILLERMINA [facility] [id number] [facility] 2023-09-21 09:00:00 2023-09-21 09:10:17 Routine Visit Med sJulisaGuillermina [facility] 1.2.840.114 350.1.13.10 4.2.7.2.686 [id number] 134 [id number] [facility] 2023-09-20 16:00:00 2023-09-20 16:00:00 Outpatient R MOREJON-MARK S, GUILLERMINA MOREJON-MARK S, GUILLERMINA [facility] [id number] [facility] 2023-08-24 00:00:00 2023-08-24 00:00:00 Orders Only Doctor Unassigned, [place] [facility] 1..840.114 350.1.13.10 4.2.7.2.686 [id number] [id number] [facility] 2023-08-23 12:45:00 2023-08-23 13:00:00 Compilation Clerk Visit Pob, Adc Lab Main Med sSalasl [facility] 1..840.114 350.1.13.10 4.2.7.2.686 [id number] [facility] 2023-08-23 11:45:00 2023-08-23 12:10:27 Outpatient R MOREJON-MARK S, GUILLERMINA MOREJON-MARK S, GUILLERMINA [facility] [id number] [facility] 2023-08-23 11:45:00 2023-08-23 12:10:27 Routine Visit Nataleei s Guillermina [facility] 1.2.840.114 350.1.13.10 4.2.7.2.686 [id number] 134 [id number] [facility] 2023-08-05 00:00:00 2023-08-05 00:00:00 Telephone Morejon-Mark s, Guillermina [facility] 1.2.840.114 350.1.13.10 4.2.7.2.686 [id number] 134 [id number] [facility] 2023-08-02 00:00:00 2023-08-02 00:00:00 Telephone Nataleei s [facility] 1.2.840.114 350.1.13.10 4.2.7.2.686 [id number] 134 [id number] [facility] 2023-07-30 00:00:00 2023-07-30 00:00:00 Case Management Morejon-Mark s [facility] 1.2.840.114 350.1.13.10 4.2.7.2.686 [id number] 134 [id number] [facility] 2023-07-28 11:15:00 2023-07-28 11:30:00 Compilation Clerk Visit 2, [facility] 1.2.840.114 350.1.13.10 4.2.7.2.686 [id number] 353 [id number] [facility] 2023-07-28 11:15:00 2023-07-28 11:15:00 Outpatient R MOREJON-MARK S, GUILLERMINA MOREJON-MARK S, GUILLERMINA [facility] [id number] [facility] 2023-07-28 00:00:00 2023-07-28 00:00:00 Orders Only Doctor Unassigned, [place] [facility] 1.2.840.114 350.1.13.10 4.2.7.2.686 [id number] [facility] 2023-07-27 16:15:00 2023-07-27 16:51:43 Outpatient R MOREJON-MARK S, GUILLERMINA MOREJON-MARK S, GUILLERMINA [facility] [id number] [facility] 2023-07-27 16:15:00 2023-07-27 16:51:43 Routine Visit Julisa Avalossol [facility] 1.2.840.114 350.1.13.10 4.2.7.2.686 [id number] 134 [id number] [facility] 2023-07-20 15:30:00 2023-07-20 15:30:00 Outpatient R MED S, GUILLERMINA MOREJON-MARK S, GUILLERMINA [facility] [id number] [facility] 2023-07-12 00:00:00 2023-07-12 00:00:00 Patient Secure Msg Doctor Unassigned, [place] [facility] 1.2.840.114 350.1.13.10 4.2.7.2.686 [id number] 134 [id number] [facility] 2023-07-08 00:00:00 2023-07-08 00:00:00 [facility] 1.[facility].840.114 350.1.13.10 4.2.7.2.686 [id number] 134 [id number] [facility] 2023-07-02 09:45:00 2023-07-02 10:55:14 Outpatient R MED S, GUILLERMINA JEAN-PIERRE-MARK S, GUILLERMINA [facility] [id number] [facility] 2023-07-02 09:45:00 2023-07-02 10:55:14 Compilation Clerk Visit 2, Adc Lab Guillermina Avalos [facility] 1.2.840.114 350.1.13.10 4.2.7.2.686 [id number] 353 [id number] [facility] 2023-06-29 00:00:00 2023-06-29 00:00:00 Case Management Med sJulisaGuillermina [facility] 1..840.114 350.1.13.10 4.2.7.2.686 [id number] 134 [id number] [facility] 2023-06-28 15:15:00 2023-06-28 15:30:00 Compilation Clerk Visit Pob, Adc Lab Main Julisa Avalossol [facility] 1.2.840.114 350.1.13.10 4.2.7.2.686 [id number] 353 [id number] [facility] 2023-06-28 15:15:00 2023-06-28 15:15:00 Outpatient R MOREJON-MARK S, GUILLERMINA MOREJON-MARK S, GUILLERMINA [facility] [id number] [facility] 2023-06-23 00:00:00 2023-06-23 00:00:00 Telephone Med sJulisaGuillermina [facility] 1..840.114 350.1.13.10 4.2.7.2.686 [id number] 134 [id number] [facility] 2023-06-22 14:00:00 2023-06-22 15:46:22 Outpatient R MOREJON-MARK S, GUILLERMINA MOREJON-MARK S, GUILLERMINA [facility] [id number] [facility] 2023-06-22 14:00:00 2023-06-22 15:46:22 Initial Visit Med sJulisaGuillermina [facility] 1.2.840.114 350.1.13.10 4.2.7.2.686 [id number] 134 [id number] [facility] 2023-06-22 00:00:00 2023-06-22 00:00:00 Orders Only Doctor Unassigned, [place] [facility] 1.2.840.114 350.1.13.10 4.2.7.2.686 [id number] [facility] 2022-09-25 17:43:00 2022-09-25 21:11:00 Emergency X CHEY MANN [facility] ERT [id number] [facility] 2022-09-25 17:43:00 2022-09-25 21:11:00 Emergency Chey Mann [facility] 1.840.114 350.1.13.10 4.2.7.2.686 [id number] [facility] 2022-08-10 10:00:00 2022-08-10 10:00:00 Outpatient KYARA SANTOS [facility] [id number] [facility] 2022-05-01 10:15:00 2022-05-01 10:15:00 Outpatient MADHURI FOSTER [facility] [id number] [facility] 2022-04-29 13:45:00 2022-04-29 13:45:00 Outpatient MADHURI FOSTER [facility] [id number] [facility] 2022-03-03 10:30:00 2022-03-03 10:34:48 Outpatient CONRAD NELSON [facility] [id number] [facility] 2022-03-03 10:30:00 2022-03-03 10:34:48 Nurse Visit Visit, Ang-Rmchp Nurse Conrad Shane [facility] 1..840.114 350.1.13.10 4.2.7.2.686 [id number] [facility] 2022-03-03 10:30:00 2022-03-03 10:30:00 Outpatient CONRAD NELSON [facility] [id number] [facility] 2022-02-02 00:00:00 2022-02-02 00:00:00 Telephone Akinsipe, Conrad C [facility] 1.2.840.114 350.1.13.10 4.2.7.2.686 [id number] [facility] 2022-01-30 09:30:00 2022-01-30 11:20:03 Outpatient R CONRAD SHANE [facility] [id number] [facility] 2022-01-30 09:30:00 2022-01-30 11:20:03 Office Visit Svitlana Conrad Leavitt [facility] 1.2.840.114 350.1.13.10 4.2.7.2.686 [id number] [facility] 2022-01-30 00:00:00 2022-01-30 00:00:00 Orders Only Doctor Unassigned, [place] [facility] 1.2.840.114 350.1.13.10 4.2.7.2.686 [id number] [id number] [facility] 2021-12-26 00:00:00 2021-12-26 00:00:00 Orders Only Doctor Unassigned, [place] [facility] 1.2.840.114 350.1.13.10 4.2.7.2.686 [id number] [id number] [facility] 2021-06-02 00:00:00 2021-06-02 00:00:00 Letter (Out) [place] Cam[place] [facility] 1.2.840.114 350.1.13.10 4.2.7.2.686 [id number] 043 [id number] [facility] 2021-04-24 00:00:00 2021-04-24 00:00:00 Orders Only Doctor Unassigned, [place] [facility] 1.2.840.114 350.1.13.10 4.2.7.2.686 [id number] [facility] 2021-04-13 17:14:00 2021-04-13 18:44:00 Emergency Bonnie Park [facility] 1.2.840.114 350.1.13.10 4.2.7.2.686 [id number] 084 [id number] [facility] 2020-10-01 19:11:00 2020-10-01 22:10:00 Emergency Betty Doyle [facility] 1.2.840.114 350.1.13.10 4.2.7.2.686 [id number] 084 [id number] [facility] 2020-10-01 19:11:00 2020-10-01 22:10:00 Emergency Doyle, Betty R [facility] 1.2.840.114 350.1.13.10 4.2.7.2.686 [id number] Results Test Description Test Time Test Comments Results Result [id number]:53:00* Test Item Value Reference Range Interpretation Comme nts POCT PREG (test code = 1605) Positive On board controls acceptable with C Line (test code = 3574) Yes POCT PREG LOT # (test code = 3575) POCT PREG TEST DATE ( test code = 3576) [facility] [id number] 00:00:00* Test Item Value Reference Range Interpretation Comme nts NUCLEATED RBCS (test code = 27528-7) 0.0 /100 WBC'S See_Comment [Automated message] The system which generated this result transmitted reference range: 0.0 /100 WBC'S. The reference range was not used to interpret this result as normal/abnormal. ABSOLUTE EOSINOPHILS (test code = 98436-9) 0.09 K/UL See_Comment [Automated message] The system which generated this result transmitted reference range: 0.00-0.50 K/UL. The reference range was not used to interpret this result as normal/abnormal. ABSOLUTE LYMPHOCYTES (test code = 20087-8) 2.63 K/UL See_Comment [Automated message] The system which generated this result transmitted reference range: 1.00-4.00 K/UL. The reference range was not used to interpret this result as normal/abnormal. ABSOLUTE MONOCYTES (test code = 35731-9) 0.76 K/UL See_Comment [Automated message] The system which generated this result transmitted reference range: 0.20-1.00 K/UL. The reference range was not used to interpret this result as normal/abnormal. ABSOLUTE NEUTROPHILS (test code = 02703-0) 6.47 K/UL See_Comment [Automated message] The system which generated this result transmitted reference range: 1.50-7.50 K/UL. The reference range was not used to interpret this result as normal/abnormal. BASOPHILS (test code = 88825-7) 0.6 % EOSINOPHILS (test code = 89803-1) 0.9 % HEMATOCRIT (test code = 88416-7) 34.3 % See_Comment [Automated message] The system which generated this result transmitted reference range: 34.0-45.0 %. The reference range was not used to interpret this result as normal/abnormal. HEMOGLOBIN (test code = 718-7) 11.3 G/DL See_Comment L [Automated message] The system which generated this result transmitted reference range: 11.5-15.5 G/DL. The reference range was not used to interpret this result as normal/abnormal. LYMPHOCYTES (test code = 81483-7) 26.2 % MCH (test code = 32684-7) 24.8 PG See_Comment L [Automated message] The system which generated this result transmitted reference range: 25.0-33.0 PG. The reference range was not used to interpret this result as normal/abnormal. MCHC (test code = 68199-3) 32.9 G/DL See_Comment [Automated message] The system which generated this result transmitted reference range: 31.0-36.0 G/DL. The reference range was not used to interpret this result as normal/abnormal. MCV (test code = 37298-7) 75.2 fL See_Comment L [Automated message] The system which generated this result transmitted reference range: 80.0-99.0 fL. The reference range was not used to interpret this result as normal/abnormal. MONOCYTES (test code = 57553-2) 7.6 % NEUTROPHILS (test code = 82801-8) 64.4 % PLATELET COUNT (test code = 04471-5) 420 K/UL See_Comment H [Automated message] The system which generated this result transmitted reference range: 130-400 K/UL. The reference range was not used to interpret this result as normal/abnormal. RBC (test code = 90289-6) 4.56 M/UL See_Comment [Automated message] The system which generated this result transmitted reference range: 3.80-5.40 M/UL. The reference range was not used to interpret this result as normal/abnormal. RDW (test code = 50726-4) 16.5 % See_Comment H [Automated message] The system which generated this result transmitted reference range: 11.5-15.0 %. The reference range was not used to interpret this result as normal/abnormal. WBC (test code = 09955-6) 10.0 K/UL See_Comment [Automated message] The system which generated this result transmitted reference range: 3.5-11.0 K/UL. The reference range was not used to interpret this result as normal/abnormal. FERRITIN (test code = 77587-3) 49 NG/ML See_Comment [Automated message] The system which generated this result transmitted reference range: 13-200 NG/ML. The reference range was not used to interpret this result as normal/abnormal. ALBUMIN (test code = 1751-7) 4.0 G/DL See_Comment [Automated message] The system which generated this result transmitted reference range: 3.5-5.2 G/DL. The reference range was not used to interpret this result as normal/abnormal. ALKALINE PHOSPHATASE (test code = 6768-6) 78 U/L See_Comment [Automated message] The system which generated this result transmitted reference range: 40-116 U/L. The reference range was not used to interpret this result as normal/abnormal. BILIRUBIN, TOTAL (test code = 1975-2) 0.4 MG/DL See_Comment [Automated message] The system which generated this result transmitted reference range: <=1.2 MG/DL. The reference range was not used to interpret this result as normal/abnormal. BUN (test code = 3094-0) 10 MG/DL See_Comment [Automated message] The system which generated this result transmitted reference range: 6-20 MG/DL. The reference range was not used to interpret this result as normal/abnormal. CALCIUM (test code = 96159-8) 9.3 MG/DL See_Comment [Automated message] The system which generated this result transmitted reference range: 8.5-10.5 MG/DL. The reference range was not used to interpret this result as normal/abnormal. CALC A/G RATIO (test code = 1759-0) 1.3 RATIO See_Comment [Automated message] The system which generated this result transmitted reference range: 1.0-2.6 RATIO. The reference range was not used to interpret this result as normal/abnormal. CALC BUN/CREAT (test code = 3097-3) 11 RATIO See_Comment [Automated message] The system which generated this result transmitted reference range: 6-28 RATIO. The reference range was not used to interpret this result as normal/abnormal. CALC GLOBULIN (test code = 16531-7) 3.1 G/DL See_Comment [Automated message] The system which generated this result transmitted reference range: 1.9-3.7 G/DL. The reference range was not used to interpret this result as normal/abnormal. CARBON DIOXIDE (test code = 1963-8) 25 MEQ/L See_Comment [Automated message] The system which generated this result transmitted reference range: 19-31 MEQ/L. The reference range was not used to interpret this result as normal/abnormal. CHLORIDE (test code = 2075-0) 102 MEQ/L See_Comment [Automated message] The system which generated this result transmitted reference range: 95-107 MEQ/L. The reference range was not used to interpret this result as normal/abnormal. CREATININE (test code = 2160-0) 0.88 MG/DL See_Comment [Automated message] The system which generated this result transmitted reference range: 0.60-1.30 MG/DL. The reference range was not used to interpret this result as normal/abnormal. eGFR (2020 CKD-EPI) (test code = 71515-9) 96 ML/MIN/1.73 See_Comment [Automated message] The system which generated this result transmitted reference range: >60 ML/MIN/1.73. The reference range was not used to interpret this result as normal/abnormal. GLUCOSE (test code = 1558-6) 92 MG/DL See_Comment [Automated message] The system which generated this result transmitted reference range: 70-99 MG/DL. The reference range was not used to interpret this result as normal/abnormal. POTASSIUM (test code = 2823-3) 4.6 MEQ/L See_Comment [Automated message] The system which generated this result transmitted reference range: 3.5-5.4 MEQ/L. The reference range was not used to interpret this result as normal/abnormal. PROTEIN, TOTAL (test code = 2885-2) 7.1 G/DL See_Comment [Automated message] The system which generated this result transmitted reference range: 6.1-8.3 G/DL. The reference range was not used to interpret this result as normal/abnormal. AST (test code = 1920-8) 21 U/L See_Comment [Automated message] The system which generated this result transmitted reference range: 9-40 U/L. The reference range was not used to interpret this result as normal/abnormal. ALT (test code = 1742-6) 22 U/L See_Comment [Automated message] The system which generated this result transmitted reference range: 5-40 U/L. The reference range was not used to interpret this result as normal/abnormal. SODIUM (test code = 2951-2) 140 MEQ/L See_Comment [Automated message] The system which generated this result transmitted reference range: 133-146 MEQ/L. The reference range was not used to interpret this result as normal/abnormal. HEMOGLOBIN A1c (test code = 4548-4) 5.3 % See_Comment [Automated message] The system which generated this result transmitted reference range: 4.2-5.6 %. The reference range was not used to interpret this result as normal/abnormal. APPEARANCE (test code = 5767-9) CLEAR CLEAR BACTERIA (test code = 50472-7) TRACE NONE SEEN A BILIRUBIN (test code = 5770-3) NEGATIVE NEGATIVE CASTS, HYALINE (test code = 70328-4) NONE SEEN NONE-TRACE COLOR (test code = 5778-6) YELLOW YELLOW-STRAW EPITHELIAL CELLS (test code = 52474-9) 6-10 /HPF See_Comment [Automated message] The system which generated this result transmitted reference range: 0-10 /HPF. The reference range was not used to interpret this result as normal/abnormal. GLUCOSE (test code = 5792-7) NEGATIVE NEGATIVE KETONES (test code = 5797-6) NEGATIVE NEGATIVE LEUKOCYTE ESTERASE (test code = 5799-2) TRACE NEGATIVE A NITRITE (test code = 5802-4) NEGATIVE NEGATIVE OCCULT BLOOD (test code = 77512-7) NEGATIVE NEGATIVE pH (test code = 5803-2) 6.0 5.0-9.0 PROTEIN (test code = 55492-8) NEGATIVE NEGATIVE RED BLOOD CELLS (test code = 33482-6) 0-2 /HPF See_Comment [Automated message] The system which generated this result transmitted reference range: 0-2 /HPF. The reference range was not used to interpret this result as normal/abnormal. SPECIFIC GRAVITY (test code = 5811-5) 1.011 1.005-1.035 UROBILINOGEN (test code = 47760-2) 0.2 MG/DL See_Comment [Automated message] The system which generated this result transmitted reference range: <=2.0 MG/DL. The reference range was not used to interpret this result as normal/abnormal. WHITE BLOOD CELLS (test code = 21964-9) 0-5 /HPF See_Comment [Automated message] The system which generated this result transmitted reference range: 0-5 /HPF. The reference range was not used to interpret this result as normal/abnormal. CALC LDL CHOL (test code = 83189-7) 84 MG/DL See_Comment [Automated message] The system which generated this result transmitted reference range: <100 MG/DL. The reference range was not used to interpret this result as normal/abnormal. CHOLESTEROL (test code = 2093-3) 142 MG/DL See_Comment [Automated message] The system which generated this result transmitted reference range: <200 MG/DL. The reference range was not used to interpret this result as normal/abnormal. HDL CHOLESTEROL (test code = 2085-9) 40 MG/DL See_Comment [Automated message] The system which generated this result transmitted reference range: >39 MG/DL. The reference range was not used to interpret this result as normal/abnormal. RISK RATIO LDL/HDL (test code = 55625-4) 2.10 RATIO See_Comment [Automated message] The system which generated this result transmitted reference range: <3.22 RATIO. The reference range was not used to interpret this result as normal/abnormal. TRIGLYCERIDES (test code = 2571-8) 87 MG/DL See_Comment [Automated message] The system which generated this result transmitted reference range: <150 MG/DL. The reference range was not used to interpret this result as normal/abnormal. COMPREHENSIVE METABOLIC [id number] 00:00:00* Test Item Value Reference Range Interpretation Comme nts NUCLEATED RBCS (test code = 47471-7) 0.0 /100 WBC'S See_Comment [Automated messa ge] The system which generated this result transmitted reference range: 0.0 /100 WBC'S. The reference range was not used to interpret this result as normal/abnormal. ABSOLUTE EOSINOPHILS (test code = 59425-8) 0.08 K/UL See_Comment [Automated messa ge] The system which generated this result transmitted reference range: 0.00-0.50 K/UL. The reference range was not used to interpret this result as normal/abnormal. ABSOLUTE LYMPHOCYTES (test code = 57363-1) 2.36 K/UL See_Comment [Automated messa ge] The system which generated this result transmitted reference range: 1.00-4.00 K/UL. The reference range was not used to interpret this result as normal/abnormal. ABSOLUTE MONOCYTES (test code = 74139-4) 0.58 K/UL See_Comment [Automated messa ge] The system which generated this result transmitted reference range: 0.20-1.00 K/UL. The reference range was not used to interpret this result as normal/abnormal. ABSOLUTE NEUTROPHILS (test code = 15607-7) 3.76 K/UL See_Comment [Automated messa ge] The system which generated this result transmitted reference range: 1.50-7.50 K/UL. The reference range was not used to interpret this result as normal/abnormal. BASOPHILS (test code = 49235-9) 1.0 % EOSINOPHILS (test code = 63153-0) 1.2 % HEMATOCRIT (test code = 52286-9) 36.2 % See_Comment [Automated messa ge] The system which generated this result transmitted reference range: 34.0-45.0 %. The reference range was not used to interpret this result as normal/abnormal. HEMOGLOBIN (test code = 718-7) 11.4 G/DL See_Comment L [Automated messa ge] The system which generated this result transmitted reference range: 11.5-15.5 G/DL. The reference range was not used to interpret this result as normal/abnormal. LYMPHOCYTES (test code = 81613-4) 34.4 % MCH (test code = 34328-8) 22.8 PG See_Comment L [Automated messa ge] The system which generated this result transmitted reference range: 25.0-33.0 PG. The reference range was not used to interpret this result as normal/abnormal. MCHC (test code = 06851-8) 31.5 G/DL See_Comment [Automated messa ge] The system which generated this result transmitted reference range: 31.0-36.0 G/DL. The reference range was not used to interpret this result as normal/abnormal. MCV (test code = 73894-8) 72.5 fL See_Comment L [Automated messa ge] The system which generated this result transmitted reference range: 80.0-99.0 fL. The reference range was not used to interpret this result as normal/abnormal. MONOCYTES (test code = 90167-8) 8.5 % NEUTROPHILS (test code = 21437-8) 54.8 % PLATELET COUNT (test code = 20780-8) 417 K/UL See_Comment H [Automated messa ge] The system which generated this result transmitted reference range: 130-400 K/UL. The reference range was not used to interpret this result as normal/abnormal. RBC (test code = 77322-2) 4.99 M/UL See_Comment [Automated messa ge] The system which generated this result transmitted reference range: 3.80-5.40 M/UL. The reference range was not used to interpret this result as normal/abnormal. RDW (test code = 68203-3) 18.2 % See_Comment H [Automated messa ge] The system which generated this result transmitted reference range: 11.5-15.0 %. The reference range was not used to interpret this result as normal/abnormal. WBC (test code = 63629-5) 6.9 K/UL See_Comment [Automated messa ge] The system which generated this result transmitted reference range: 3.5-11.0 K/UL. The reference range was not used to interpret this result as normal/abnormal. FERRITIN (test code = 45023-7) 21 NG/ML See_Comment [Automated messa ge] The system which generated this result transmitted reference range: 13-200 NG/ML. The reference range was not used to interpret this result as normal/abnormal. TSH REFLEX TO FREE T4 (test code = 90276-1) 2.300 UIU/ML See_Comment [Automated messa ge] The system which generated this result transmitted reference range: 0.400-4.100 UIU/ML. The reference range was not used to interpret this result as normal/abnormal. ALBUMIN (test code = 1751-7) 3.6 G/DL See_Comment [Automated messa ge] The system which generated this result transmitted reference range: 3.5-5.2 G/DL. The reference range was not used to interpret this result as normal/abnormal. ALKALINE PHOSPHATASE (test code = 6768-6) 66 U/L See_Comment [Automated message] The system which generated this result transmitted reference range: 40-116 U/L. The reference range was not used to interpret this result as normal/abnormal. BILIRUBIN, TOTAL (test code = 1975-2) <0.2 MG/DL See_Comment [Automated message] The system which generated this result transmitted reference range: <=1.2 MG/DL. The reference range was not used to interpret this result as normal/abnormal. BUN (test code = 3094-0) 14 MG/DL See_Comment [Automated messa ge] The system which generated this result transmitted reference range: 6-20 MG/DL. The reference range was not used to interpret this result as normal/abnormal. CALCIUM (test code = 63714-4) 8.8 MG/DL See_Comment [Automated messa ge] The system which generated this result transmitted reference range: 8.5-10.5 MG/DL. The reference range was not used to interpret this result as normal/abnormal. CALC A/G RATIO (test code = 1759-0) 1.1 RATIO See_Comment [Automated messa ge] The system which generated this result transmitted reference range: 1.0-2.6 RATIO. The reference range was not used to interpret this result as normal/abnormal. CALC BUN/CREAT (test code = 3097-3) 16 RATIO See_Comment [Automated messa ge] The system which generated this result transmitted reference range: 6-28 RATIO. The reference range was not used to interpret this result as normal/abnormal. CALC GLOBULIN (test code = 54547-9) 3.3 G/DL See_Comment [Automated messa ge] The system which generated this result transmitted reference range: 1.9-3.7 G/DL. The reference range was not used to interpret this result as normal/abnormal. CARBON DIOXIDE (test code = 1963-8) 26 MEQ/L See_Comment [Automated messa ge] The system which generated this result transmitted reference range: 19-31 MEQ/L. The reference range was not used to interpret this result as normal/abnormal. CHLORIDE (test code = 2075-0) 104 MEQ/L See_Comment [Automated messa ge] The system which generated this result transmitted reference range: 95-107 MEQ/L. The reference range was not used to interpret this result as normal/abnormal. CREATININE (test code = 2160-0) 0.90 MG/DL See_Comment [Automated messa ge] The system which generated this result transmitted reference range: 0.60-1.30 MG/DL. The reference range was not used to interpret this result as normal/abnormal. eGFR (2020 CKD-EPI) (test code = 22563-8) 94 ML/MIN/1.73 See_Comment [Automated messa ge] The system which generated this result transmitted reference range: >60 ML/MIN/1.73. The reference range was not used to interpret this result as normal/abnormal. GLUCOSE (test code = 1558-6) 112 MG/DL See_Comment H [Automated messa ge] The system which generated this result transmitted reference range: 70-99 MG/DL. The reference range was not used to interpret this result as normal/abnormal. POTASSIUM (test code = 2823-3) 4.6 MEQ/L See_Comment [Automated messa ge] The system which generated this result transmitted reference range: 3.5-5.4 MEQ/L. The reference range was not used to interpret this result as normal/abnormal. PROTEIN, TOTAL (test code = 2885-2) 6.9 G/DL See_Comment [Automated messa ge] The system which generated this result transmitted reference range: 6.1-8.3 G/DL. The reference range was not used to interpret this result as normal/abnormal. AST (test code = 1920-8) 14 U/L See_Comment [Automated messa ge] The system which generated this result transmitted reference range: 9-40 U/L. The reference range was not used to interpret this result as normal/abnormal. ALT (test code = 1742-6) 17 U/L See_Comment [Automated messa ge] The system which generated this result transmitted reference range: 5-40 U/L. The reference range was not used to interpret this result as normal/abnormal. SODIUM (test code = 2951-2) 139 MEQ/L See_Comment [Automated messa ge] The system which generated this result transmitted reference range: 133-146 MEQ/L. The reference range was not used to interpret this result as normal/abnormal. POCT Kccv5173-01-21 19:04:00* Test Item Value Reference Range Interpretation Comme nts POCT PREG (test code = 1605) Negative On board controls acceptable with C Line (test code = 3574) Yes POCT PREG LOT # (test code = 3575) POCT PREG TEST DATE ( test code = 3576) [facility]24-[facility] 14:37:10* Test Item Value Reference Range Interpretation Comme nts Height (test code = 7368773819) 64 in Weight (test code = 2108330883) 225 lbs Systolic BP (test code = 6223597164) 129 mmHg Diastolic BP (test code = 8986400288) 89 mmHg Heart Rate (test code = 6878377929) 80 bpm BSA (test code = 5896244196) 2.06 m2 Ao root diam (test code = 7319171651) 2.48 cm Aortic root (test code = 8773509600) 2.48 cm Ao root annulus (test code = 8537861571) 2.48 cm LVOT diameter (test code = 4986257040) 2.05 cm LVOT area (test code = 9830971564) 3.30 cm2 LA size (test code = 7571711195) 3.6 cm LVIDD (test code = 7202576093) 4.80 cm Left Ventricular End Diastolic Volume by Teichholz Method (test code = 4606446) 109.8 mL IVS (test code = 9581789237) 1.24 cm Interventricular Septum Diastolic Thickness by 2D (test code = 3075690) 1.24 cm LVPWD (test code = 7504021781) 1.27 cm PW (test code = 4329350777) 1.27 cm 0.6-1.1 EF(Teich) (test code = 2323252393) 66.20 % LVIDS (test code = 2440251271) 3.10 cm Left Ventricular End Systolic Volume by Teichholz Method (test code = 3187559) 37.0 mL FS (test code = 4456687229) 37 % EF - 2D (test code = 13330579) 66.20 % TR Peak Dariana (test code = 0828890058) 194.9 cm/s Triscuspid Valve Regurgitation Peak Gradient (test code = 1653457749) 15.3 mmHg Pulmonic Regurgitant End Max Velocity (test code = 8296481711) 132.3 cm/s LAV(MOD-sp4) (test code = 4577398743) 40.50 mL E wave decelartion time (test code = 0393357631) 0.19 s MV stenosis pressure 1/2 time (test code = 6059572134) 57.6 ms MV Peak A Dariana (test code = 6164827704) 62.4 cm/s MV Peak E Dariana (test code = 2538263847) 70.2 cm/s E/A ratio (test code = 9577193825) 1.13 ratio MV Prop V (test code = 3034696451) 50.20 cm/s MV E/e' septal (test code = 2803383651) 10.9 cm/s Tapse (test code = 4581016905) 1.65 cm LVOT stroke volume (test code = 9136679143) 55.90 cm3 LVOT peak dariana (test code = 6054031103) 101.7 cm/s LVOT mn grad (test code = 8893907769) 2.1 mmHg AV LVOT peak gradient (test code = 4961381828) 4.1 mmHg LVOT peak VTI (test code = 7938493987) 16.9 cm LV V1 mean (test code = 4600881408) 67.80 cm/s Aortic valve mean velocity (test code = 1809290730) 92.9 cm/s Ao peak dariana (test code = 6288508048) 129.9 cm/s Ao VTI (test code = 7556952992) 24.2 cm AV area by cont VTI (test code = 3363162680) 2.3 cm2 AV area peak dariana (test code = 0563604942) 2.6 cm2 Ao max PG (test code = 5562746646) 6.80 mm[Hg] AV peak gradient (test code = 2605730530) 6.8 mmHg AV valve area (test code = 1878059302) 2.31 cm2 AV mean gradient (test code = 9438448067) 3.7 mmHg Radiology Study observation (narrative) (test code = 48359-2) SANDRA (test code = SANDRA) ?Left?Ventricle: Left [...] 2D, color flow Doppler and spectral Doppler. [facility] HospitalGlycosylated Hemoglobin (A1C)2024-02-27 08:42:23* Test Item Value Reference Range Interpretation Comme nts HGB A1C (test code = 4548-4) 5.4 % 4.0-5.7 SANDRA (test code = SANDRA) Reference RangesNormal: <5.7%Prediabetes: 5.7 - 6.4%Diabetes: > 6.5% Lab Interpretation (test code = 03646-6) Normal [facility] HospitalCT [facility]ST PULMONARY GQNPCDXLV7273-50-88 14:27:33INDICATION: ?PE suspected, high pretest prob ORDERING PROVIDER: ?GUILLERMINA MOREJON-MOCK TECHNIQUE: ?Helical CT imaging was performed through the chest followingthe infusion of intravenous contrast according to pulmonary embolusprotocol. ?Maximum intensity projection images were created and reviewed. CT was performed in accordance with the principles of ALARA. RL: ?5944 AFC: 90474 COMPARISON: ?Chestradiograph 02/26/2024 FINDINGS: ?No pulmonary arterial [...] is not excluded. No acute osseous abnormality demonstrated.[facility] HospitalXR CHEST 1 VW 2024-02-26 14:22:59INDICATION: ?rule out fluid overload ORDERING PROVIDER: ?GUILLERMINA MOREJON-MOCK TECHNIQUE: ?Frontal view of the chest. RL: ?5944 AFC: 40971 COMPARISON: ?none available FINDINGS: ?The cardiac silhouetteand pulmonary vasculature are withinnormal limits. No substantial pulmonary consolidation, pleural effusion, orpneumothorax is demonstrated. No acute osseous abnormality is identified.[facility] HospitalTroponin S0719-49-65 12:50:51* Test Item Value Reference Range Interpretation Comme nts TROPONIN I (test code = 2242532334) 0.004 ng/mL <=0.034 SANDRA (test code = [...] of biotin. Lab Interpretation (test code = 38826-6) Normal [facility] HospitalUric Acid Kekmy1942-87-97 12:38:29* Test Item Value Reference Range Interpretation Comme [facility] URIC ACID (test code = 4406766337) 6.4 mg/dL 2.9-6.0 H Lab Interpretation (test cod e = 78408-2) Abnormal [facility] HospitalSGOT (Asparate Amino Transfer)2024-02-26 12:38:29* Test Item Value Reference Range Interpretation Comme [facility] AST(SGOT) (test code = 0217952667) 33 U/L 13-40 Lab Interpretation (test cod e = 82796-4) Normal [facility] HospitalAlanine Amino Transferase (SGPT)2024-02-26 12:38:29* Test Item Value Reference Range Interpretation Comme [facility] ALTv (test code = 1742-6) 23 U/L 5-35 Lab Interpretation (test cod e = 62269-6) Normal [facility] HospitalSerum Ujpjmkxhfg8736-42-76 12:38:09* Test Item Value Reference Range Interpretation Comme [facility] CREATININE (test code = 2160-0) 0.73 mg/dL 0.50-1.04 eGFR (test code = 72213-4) 121.7 mL/min/1.73m2 CKD-EPI eGFR (20 21). Assuming creatinine has been stable day-to-day for at least three months, the eGFR indicates Category G1 (>= 90 mL/min/1.73 m2) [facility] HospitalLactate Qjsthanalwjbc2890-77-77 12:37:49* Test Item Value Reference Range Interpretation Comme [facility] LDH (test code = 3462325104) 327 U/L 120-246 H Slight hemolysis Lab Interpretation (test code = 67432-6) Abnormal [facility] with Zgikkyvelxgq5440-82-15 12:27:27* Test Item Value Reference Range Interpretation Comme nts WBC (test code = 6690-2) 7.38 4.30-11.10 RBC (test code = 789-8) 4.92 3.93-5.25 HGB (test code = 718-7) 11.4 g/dL 11.6-15.0 L HCT (test code = 4544-3) 36.1 % 35.7-45.2 MCV (test code = 787-2) 73.4 fL 80.6-95.5 L MCH (test code = 785-6) 23.2 pg 25.9-32.8 L MCHC (test code = 786-4) 31.6 g/dL 31.6-35.1 RDW-SD (test code = 81844-8) 46.1 fL 39.0-49.9 RDW-CV (test code = 788-0) 17.5 % 12.0-15.5 H PLT (test code = 777-3) 396 166-358 H MPV (test code = 87368-0) 10.7 fL 9.5-12.9 NRBC/100 WBC (test code = 0321248399) 0.0 0.0-10.0 NRBC x10^3 (test code = 8713514868) See_Comment [Automated messa ge] The system which generated this result transmitted reference range: 10*3/?L. The reference range was not used to interpret this result as normal/abnormal. GRAN MAT (NEUT) % (test code = 770-8) 54.3 % IMM GRAN % (test code = 9262569088) 0.30 % LYMPH % (test code = 736-9) 32.4 % MONO % (test code = 5905-5) 7.2 % EOS % (test code = 713-8) 4.3 % BASO % (test code = 706-2) 1.5 % GRAN MAT x10^3(ANC) (test code = 3762465742) 4.01 10*3/uL 1.88-7.09 IMM GRAN x10^3 (test code = 0478486655) 0.00-0.06 LYMPH x10^3 (test code = 731-0) 2.39 10*3/uL 1.32-3.29 MONO x10^3 (test code = 742-7) 0.53 10*3/uL 0.33-0.92 EOS x10^3 (test code = 711-2) 0.32 10*3/uL 0.03-0.39 BASO x10^3 (test code = 704-7) 0.11 10*3/uL 0.01-0.07 H Lab Interpretation (test code = 22179-1) Abnormal [facility] HospitalCT HEAD WO XFRCNBVN4079-94-91 19:24:39CT HEAD WO CONTRAST HISTORY: Female 18 [...] are clear. The calvariumand skull base are unremarkable.[facility] HospitalCT ABDOMEN PELVIS W QJYZLPLL1645-76-30 17:37:46EXAM: CT ABDOMEN PELVIS W CONTRAST HISTORY: [...] bony lesions arepresent. Rectus sheath diastasis is noted.[facility] HospitalMagnesium2024-04-01 15:17:45* Test Item Value Reference Range Interpretation Comme nts MAGNESIUM (test code = 5611077210) 1.6 mg/dL 1.7-2.4 L Lab Interpretation (test cod e = 30723-9) Abnormal [facility]. Metabolic Panel (70965)2024-02-21 15:17:04* Test Item Value Reference Range Interpretation Comme nts NA (test code = 8790843145) 140 mmol/L 135-145 K (test code = 4755402889) 3.6 mmol/L 3.5-5.0 CL (test code = 7229057372) 103 mmol/L 98-108 CO2 TOTAL (test code = 8913203873) 30 mmol/L 23-31 AGAP (test code = 8438667331) 7 2-16 BUN (test code = 4106602916) 10 mg/dL 7-23 GLUCOSE (test code = 9897269762) 110 mg/dL 70-110 CREATININE (test code = 2160-0) 1.03 mg/dL 0.50-1.04 TOTAL BILI (test code = 8481919853) 0.5 mg/dL 0.1-1.1 CALCIUM (test code = 5843229352) 8.8 mg/dL 8.6-10.6 T PROTEIN (test code = 4844632229) 7.3 g/dL 6.3-8.2 ALBUMIN (test code = 7670277950) 3.4 g/dL 3.5-5.0 L ALK PHOS (test code = 0702719747) 85 U/L 34-122 ALTv (test code = 1742-6) 22 U/L 5-35 AST(SGOT) (test code = 5018124295) 33 U/L 13-40 eGFR (test code = 88025-3) 80.5 mL/min/1.73m2 CKD-EPI eGFR (2020). Assuming creatinine has been stable day-to-day for at least three months, the eGFR indicates Category G2 (60 - 89 mL/min/1.73 m2) Lab Interpretation (test code = 06608-2) Abnormal [facility] HospitalLipase2024-04-01 15:17:04* Test Item Value Reference Range Interpretation Comme nts LIPASE (test code = 0003991706) 85 U/L 0-220 Lab Interpretation (test cod e = 95023-8) Normal [facility] with Qfyt1887-99-58 14:59:24* Test Item Value Reference Range Interpretation [...] g/dL 31.6-35.1 L RDW-SD (test code = 58372-6) 45.7 fL 39.0-49.9 RDW-CV (test code = 788-0) 17.4 % 12.0-15.5 H PLT (test code = 777-3) 422 166-358 H MPV (test code = 00452-2) 10.7 fL 9.5-12.9 NRBC/100 WBC (test code = 1562716936) 0.0 0.0-10.0 NRBC x10^3 (test code = 4226539927) See_Comment [Automated messa ge] The system which generated this result transmitted reference range: 10*3/?L. The reference range was not used to interpret this result as normal/abnormal. GRAN MAT (NEUT) % (test code = 770-8) 41.6 % IMM GRAN % (test code = 7979187857) 0.30 % LYMPH % (test code = 736-9) 45.5 % MONO % (test code = 5905-5) 8.5 % EOS % (test code = 713-8) 2.7 % BASO % (test code = 706-2) 1.4 % GRAN MAT x10^3(ANC) (test code = 2046217515) 3.07 10*3/uL 1.88-7.09 IMM GRAN x10^3 (test code = 8706358676) 0.00-0.06 LYMPH x10^3 (test code = 731-0) 3.35 10*3/uL 1.32-3.29 H MONO x10^3 (test code = 742-7) 0.63 10*3/uL 0.33-0.92 EOS x10^3 (test code = 711-2) 0.20 10*3/uL 0.03-0.39 BASO x10^3 (test code = 704-7) 0.10 10*3/uL 0.01-0.07 H Lab Interpretation (test code = 66055-8) Abnormal [facility] HospitalLactic Acid Whole Bmliy3273-04-63 14:08:25* Test Item Value Reference Range Interpretation Comme nts LACTIC ACID (test code = 5281662275) 1.89 mmol/L 0.50-2.20 Lab Interpretation (test cod e = 59181-7) Normal [facility] HospitalCB with Rsplebppufed3387-26-12 11:44:08* Test Item Value Reference Range Interpretation [...] 32.1 g/dL 31.6-35.1 RDW-SD (test code = 13620-4) 45.3 fL 39.0-49.9 RDW-CV (test code = 788-0) 17.3 % 12.0-15.5 H PLT (test code = 777-3) 312 166-358 MPV (test code = 08205-8) 10.5 fL 9.5-12.9 NRBC/100 WBC (test code = 3535900375) 0.0 0.0-10.0 NRBC x10^3 (test code = 8467917778) See_Comment [Automated message] The system which generated this result transmitted reference range: 10*3/?L. The reference range was not used to interpret this result as normal/abnormal. GRAN MAT (NEUT) % (test code = 770-8) 72.6 % IMM GRAN % (test code = 5377379597) 1.00 % LYMPH % (test code = 736-9) 17.7 % MONO % (test code = 5905-5) 7.5 % EOS % (test code = 713-8) 0.7 % BASO % (test code = 706-2) 0.5 % GRAN MAT x10^3(ANC) (test code = 9590396160) 12.65 10*3/uL 1.88-7.09 H IMM GRAN x10^3 (test code = 4950362746) 0.17 10*3/uL 0.00-0.06 H LYMPH x10^3 (test code = 731-0) 3.09 10*3/uL 1.32-3.29 MONO x10^3 (test code = 742-7) 1.30 10*3/uL 0.33-0.92 H EOS x10^3 (test code = 711-2) 0.12 10*3/uL 0.03-0.39 BASO x10^3 (test code = 704-7) 0.08 10*3/uL 0.01-0.07 H Lab Interpretation (test code = 02549-5) Abnormal [facility] HospitalRH (D) IMMUNE AWLPOZSI4587-55-07 15:35:13* Test Item Value Reference Range Interpretation Comme nts RHIG CANDIDATE? (test code = 5188) No- see comment Patient is not a candidate for RhIg- Patient is Rh Positive.Performed at [facility] Laboratory Services - [facility] Blood [address] [place] [id number] Free: [phone] No. [id number] [facility] HospitalCentral Neuraxial Evtve9339-12-99 08:59:00 Elle Neumann MD ? ? 02/09/2024 ?3:59 AM Central Neuraxial Block Date/Time: 02/09/2024 3:59 AM Performed by: Elle Neumann MDAuthorized by: Elle Neumann MD ?End Time: [...] air and catheter ?Guidance with: landmark technique}Epidural/Spinal [place] and/or Catheter: ?Epidural/Spinal Kit: Arrow ?Needle Type: Tuohy ?Needle Gauge: 17 G ?Needle Insertion Depth: 8 ?Catheter Type: side hole ? ?Catheter at Skin Depth: 12 ?Number of Attempts:1 ? ?Dose: 3 cc ? ?Catheter Securement Method: surgical tape and TegadermAssessment: ?Procedure Assessment: patient tolerated procedure well with no complicationsNotes: ? Smooth and atraumatic, (+) Local, (+) STF [facility] HospitalPOIA Urinalysis w/o Specific Koleusi5600-11-11 18:31:00* Test Item Value Reference Range Interpretation [...] = 3257) n/a Negative - Negati ve [facility] Urinalysis w/o Specific Ktfrrzr2786-28-05 14:07:00* Test Item Value Reference Range Interpretation [...] = 3257) n/a Negative - Negati ve [facility] Urinalysis w/o Specific Ehmyycg4024-29-98 14:06:00* Test Item Value Reference Range Interpretation [...] = 3257) neg Negative - Negati ve [facility] Urinalysis w/o Specific Lfogckl2667-57-73 20:58:00* Test Item Value Reference Range Interpretation [...] = 3257) N/A Negative - Negati ve [facility] HospitalPOCT Urinalysis w/o Specific Heilwyt8449-59-00 20:58:00* Test Item Value Reference Range Interpretation [...] = 3257) N/A Negative - Negati ve [facility]3 HR GLUCOSE TOLERANCE IKJN6604-94-31 18:52:42 * Test Item Value Reference Range Interpretation Comme nts GLUC 3 HR (test code = 3829722588) 84 mg/dL 70-110 Lab Interpretation (test cod e = 45848-5) Normal [facility]2 HR GLUCOSE TOLERANCE YGDG8989-03-07 18:52:02 * Test Item Value Reference Range Interpretation Comme nts GLUC 2 HR (test code = 5210464606) 100 mg/dL 70-120 Lab Interpretation (test cod e = 15108-4) Normal [facility] HospitalGlucose Atwfmfh1444-89-33 18:51:41* Test Item Value Reference Range Interpretation Comme nts GLU FASTNG (test code = 4119107879) 95 mg/dL 70-110 Lab Interpretation (test cod e = 78884-8) Normal [facility]1 HR GLUCOSE TOLERANCE RLEZ8243-67-70 18:44:21 * Test Item Value Reference Range Interpretation Comme nts GLUC 1 HR (test code = 2110265819) 131 mg/dL 120-170 Lab Interpretation (test cod e = 05196-5) Normal [facility] Urinalysis w/o Specific Urppwhf9786-03-45 20:33:00* Test Item Value Reference Range Interpretation [...] = 3257) Negative Negative - Negati ve [facility] URINALYSIS W/O SPECIFIC ZZRCNUZ9908-79-15 19:11:00* Test Item Value Reference Range Interpretation [...] = 3257) n/a Negative - Negati ve [facility] URINALYSIS W/O SPECIFIC ZEYRCRN8577-84-01 19:11:00* Test Item Value Reference Range Interpretation [...] = 3257) n/a Negative - Negati ve [facility] URINALYSIS W/O SPECIFIC CPHBZTA4990-70-91 13:55:00* Test Item Value Reference Range Interpretation [...] = 3257) neg Negative - Negati ve [facility] URINALYSIS W/O SPECIFIC VBCQQFF6871-71-60 16:57:00* Test Item Value Reference Range Interpretation [...] = 3257) n/a Negative - Negati ve [facility] HospitalHEMOGLOBINOPATHY MCRRAKDBDP9623-19-16 20:05:31 * Test Item Value Reference Range Interpretation Comments HEMOGLOBIN EVAL A (BEAKER) (test code = 70365-5) 59.1 % 95.0-97.9 L HEMOGLOBIN EVAL A2 (BEAKER) (test code = 4552-6) 2.8 % 2.0-3.5 HEMOGLOBIN EVAL F (BEAKER) (test code = 63387-7) HEMOGLOBIN EVAL S (BEAKER) (test code = 74280-6) 38.1 % See_Comment [Automated message] The system which generated this result transmitted reference range: 0.0. The reference range was not used to interpret this result as normal/abnormal. HGB EVAL INTERP (test code = 72203-4) Abnormal capillary electrophoresis pattern. Hemoglobinopathy evaluation shows Hemoglobin A (59.1%), hemoglobin A2 (2.8%) and abnormal Hemoglobin S present at 38.1%, consistent with sickle cell trait. In patient's with sickle cell trait, the relative percentage range of Hemoglobin S is 30-45%. Smear review reveals microcytic, normochromic erythrocytes without sickle cells. Lab Interpretation (test code = 34820-9) Abnormal [facility] WITH CNCG9159-28-94 20:30:25* Test Item Value Reference Range Interpretation Comme nts WBC (test code = 6690-2) 8.90 See_Comment [Automated [employer] ge] The system which generated this result transmitted reference range: 4.30 - 11.10 10*3/?L. The reference range was not used to interpret this result as normal/abnormal. RBC (test code = 789-8) 4.75 See_Comment [Automated [employer]] The system which generated this result transmitted [...] 32.3 g/dL 31.6-35.1 RDW-SD (test code = 41056-5) 44.1 fL 39.0-49.9 RDW-CV (test code = 788-0) 17.1 % 12.0-15.5 H PLT (test code = 777-3) 412 See_Comment H [Automated [employer]] The system which generated this result transmitted reference range: 166 - 358 10*3/?L. The reference range was not used to interpret this result as normal/abnormal. MPV (test code = 84110-9) 9.7 fL 9.5-12.9 NRBC/100 WBC (test code = 4541151924) 0.0 See_Comment [Automated me ssage] The system which generated this result transmitted reference range: 0.0 - 10.0 /100 WBCs. The reference range was not used to interpret this result as normal/abnormal. NRBC x10^3 (test code = 1023357368) See_Comment [Automated messa ge] The system which generated this result transmitted reference range: 10*3/?L. The reference range was not used to interpret this result as normal/abnormal. GRAN MAT (NEUT) % (test code = 770-8) 58.9 % IMM GRAN % (test code = 1786721572) 0.20 % LYMPH % (test code = 736-9) 31.1 % MONO % (test code = 5905-5) 8.2 % EOS % (test code = 713-8) 1.0 % BASO % (test code = 706-2) 0.6 % GRAN MAT x10^3(ANC) (test code = 0454809516) 5.24 10*3/uL 1.88-7.09 IMM GRAN x10^3 (test code = 8040466397) 0.00-0.06 LYMPH x10^3 (test code = 731-0) 2.77 10*3/uL 1.32-3.29 MONO x10^3 (test code = 742-7) 0.73 10*3/uL 0.33-0.92 EOS x10^3 (test code = 711-2) 0.09 10*3/uL 0.03-0.39 BASO x10^3 (test code = 704-7) 0.05 10*3/uL 0.01-0.07 Lab Interpretation (test code = 85188-3) Abnormal [facility] [id number] 20:06:00* Test Item Value Reference Range Interpretation Comme nts POCT PREG (test code = 1605) Positive On board controls acceptable with C Line (test code = 3574) Yes POCT PREG LOT # (test code = 3575) POCT PREG TEST DATE ( test code = 3576) [facility] URINALYSIS W/O SPECIFIC [id number] 20:05:00* Test Item Value Reference Range Interpretation [...] = 3257) n/a Negative - Negati ve [facility] (48482)20[facility]-25 23:25:35* Test Item Value Reference Range Interpretation Comme nts NA (test code = 8108201817) 140 mmol/L 135-145 K (test code = 5009415497) 3.8 mmol/L 3.5-5.0 CL (test code = 0084276284) 101 mmol/L 98-108 CO2 TOTAL (test code = 7114649727) 31 mmol/L 23-31 AGAP (test code = 9939859190) 2-16 BUN (test code = 7543139552) 12 mg/dL 7-23 GLUCOSE (test code = 4723254707) 83 mg/dL 70-110 CREATININE (test code = 4685633295) 0.94 mg/dL 0.50-1.04 TOTAL BILI (test code = 5090562735) 0.3 mg/dL 0.1-1.1 CALCIUM (test code = 5500737398) 9.1 mg/dL 8.6-10.6 T PROTEIN (test code = 4017235210) 7.9 g/dL 6.3-8.2 ALBUMIN (test code = 7018313891) 4.1 g/dL 3.5-5.0 ALK PHOS (test code = 5811523348) 80 U/L 34-122 ALTv (test code = 1742-6) 22 U/L 5-35 AST(SGOT) (test code = 2123773005) 27 U/L 13-40 eGFR (test code = 2482455027) mL/min/1.73m2 SANDRA (test code = SANDRA) Association [...] or urine or abnormalities in imaging tests). [facility]25[facility]* Test Item Value Reference Range Interpretation Comme [facility] LIPASE (test code = 8283537845) 186 U/L 0-220 Lab Interpretation (test cod e = 70357-8) Normal [facility] [id number] 23:22:00* Test Item Value Reference Range Interpretation Comme nts POCT PREG (test code = 1605) negative On board controls acceptable with C Line (test code = 3574) present POCT PREG LOT # (test code = 3575) [id number] POCT PREG TEST DATE ( test code = 3576) 11/21/23 Lab Interpretation (test cod e = 38349-5) Normal [facility] WITH [id number] 23:16:36* Test Item Value Reference Range Interpretation Comme [facility] WBC (test code = 6690-2) See_Comment [Automated Zonoff] The system which generated this result transmitted reference range: 4.50 - 13.50 10*3/?L. The reference range was not used to interpret this result as normal/abnormal. RBC (test code = 789-8) See_Comment [Automated messa ge] The system which [...] 33.0 g/dL 32.0-36.0 RDW-SD (test code = 01892-7) 43.4 fL 38.5-49.0 RDW-CV (test code = 788-0) 17.1 % 11.5-14.0 H PLT (test code = 777-3) See_Comment H [Automated messa ge] The system which generated this result transmitted reference range: 135 - 361 10*3/?L. The reference range was not used to interpret this result as normal/abnormal. MPV (test code = 60672-6) 9.4 fL 9.4-13.3 NRBC/100 WBC (test code = 6139415664) See_Comment [Automated [employer] ssage] The system which generated this result transmitted reference range: 0.0 - 10.0 /100 WBCs. The reference range was not used to interpret this result as normal/abnormal. NRBC x10^3 (test code = 4028450125) See_Comment [Automated messa ge] The system which generated this result transmitted reference range: 10*3/?L. The reference range was not used to interpret this result as normal/abnormal. GRAN MAT (NEUT) % (test code = 770-8) 57.7 % IMM GRAN % (test code = 3328426090) 0.60 % LYMPH % (test code = 736-9) 30.4 % MONO % (test code = 5905-5) 9.2 % EOS % (test code = 713-8) 1.4 % BASO % (test code = 706-2) 0.7 % GRAN MAT x10^3(ANC) (test code = 7646793310) 6.60 10*3/uL 1.50-10.30 IMM GRAN x10^3 (test code = 6027013951) 0.07 10*3/uL 0.00-0.06 H LYMPH x10^3 (test code = 731-0) 3.48 10*3/uL 0.70-7.40 MONO x10^3 (test code = 742-7) 1.05 10*3/uL 0.00-0.50 H EOS x10^3 (test code = 711-2) 0.16 10*3/uL 0.00-0.40 BASO x10^3 (test code = 704-7) 0.08 10*3/uL 0.00-0.10 Lab Interpretation (test code = 72592-8) Abnormal [facility] Consult Notes Date/Time Note Provider Source [...] Q6HPRN, Guillermina March MD, 650 mg at 02/26/241956 aspirin tablet 325 mg, 325 mg, Oral, DAILY, Guillermina March MD, 325 mg at 02/26/24 0838 qbsmvyibyr-gqyerhhaembhm-ifyc (ESGIC) 50-325-40 mg tablet 2 tablet, 2 [...] BID, Guillermina March MD, 30 mg at 02/26/24 1957 nitroglycerin (NITROSTAT) sublingual tablet 0.4 mg, 0.4 mg, Sublingual, Q5MIN PRN, Eleazar Gupta MD Objective: Vitals: Vitals: 02/26/24 2030 02/26/24 2100 02/26/24 2130 02/26/24 2200 BP: 120/75 130/85 133/84 137/82 Pulse: 83 84 85 87 Resp: 17 17 Temp: TempSrc: SpO2: 99% 99% 97% 96% Weight: Height: I/O's: Intake/Output Summary (Last 24 hours) at 02/26/20246 Last data filed at 02/26/2024 2223 Gross [...] the principles of ALARA. RL: 5944 AFC: 57819 COMPARISON: Chest radiograph 02/26/2024 FINDINGS: No pulmonary [...] view of the chest. RL: 5944 AFC: 19639 COMPARISON: none available FINDINGS: The cardiac silhouette [...] with LDL, A1c, TSH IM-INTERNAL MEDICINE STAFF [facility] - Health History and Physical Notes Date/Time Note Provider Source 2024-02-26 07:44:22 READMISSION HISTORY & PHYSICAL IDENTIFYING DATA Bridgette Fitzpatrick is 18 year old, Black or , 39w3d, . : 2005 Primary Care Physician: Srinivas Salinas CHIEF COMPLAINT Chest pain HISTORY OF PRESENT [...] --Will r/o PE --IM consult placed Guillermina March MD [facility] 2024-02-21 11:08:53 HISTORY & PHYSICAL IDENTIFYING DATA Bridgette Fitzpatrick is 18 year old, Black or , 39w3d, female with TAMIKA 02/13/2024, by Ultrasound. : 2005 Primary Care Physician: Srinivas Salinas Hospital Day: 1 CHIEF COMPLAINT nausea, vomitting, [...] resolved after Mg therapy Guillermina March MD [facility] 2024-02-08 22:15:40 ANTEPARTUM HISTORY & PHYSICAL IDENTIFYING DATA Bridgette Fitzpatrick is 18 year old, Black or , 39w2d, female with TAMIKA 02/13/2024, by Ultrasound. : 2005 Primary Care Physician: Srinivas Salinas Hospital Day: 1 CHIEF COMPLAINT Induction HISTORY [...] RATE 140 mod varabilty, occasional variable decel [place]: 2 ctx /10 min ASSESSMENT AND PLAN Guzman bulb/misoprostol Reassuring status PIH labs for elevated Bps, no symptoms. Will monitor BPs Guillermina March MD [facility] 2024-01-01 08:47:39 ANTEPARTUM HISTORY & PHYSICAL IDENTIFYING DATA Bridgette Fitzpatrick is 18 year old, Black or , 33w6d, female with TAMIKA 02/13/2024, by Ultrasound. : 2005 Primary Care Physician: Srinivas Salinas Hospital Day: 1 CHIEF COMPLAINT Back pain [...] at 01/01/24 0327 1,000 mL at 01/01/24 0327 lactated ringers IV infusion 1,000 mL 1,000 [...] (POA: Yes) --Reassuring status Guillermina March MD . [facility] - Health Procedure Notes Date/Time Note Provider Source 2024-02-09 [...] and catheter Guidance with: landmark technique} Epidural/Spinal [place] and/or Catheter: Epidural/Spinal Kit: Arrow Needle Type: Tuohy Needle Gauge: 17 G Needle Insertion Depth: 8 Catheter Type: side hole Catheter at Skin Depth: 12 Number of Attempts: 1 Dose: 3 cc Catheter Securement Method: surgical tape and Tegaderm Assessment: Procedure Assessment: patient tolerated procedure well with no complications Notes: Smooth and atraumatic, (+) Local, (+) STF AN-ANESTHESIOLOGY ANESTHESIOLOGIST [facility] - Health Notes Date/Time Note Provider Source 2025-01-22 15:00:00 Images from the original note were not included. Pt said urine was collected @ appointment. Venipuncture collection performed by clean technique on the right anticubitus. Total of 1 attempts were made. Slight pressure and a bandage/dressing were applied to the site(s). The patient experienced no complications. The following specimens were processed according to instructions and sent to [facility] laboratories per lab order on 01/22/2025: LT BLUE SST 3 RED 1 LAV 3 PPT DK GREEN (LiHep) DK GREEN (SodH) STEARNS DK BLUE (K2) DK BLUE (S) ACD Blood Culture NIPT/NTD [facility] 2024-07-20 09:41:15 Appt is made for 1:45 today. Karin Liang MA [facility] 2024-07-20 08:54:26 Left voicemail for pt to return call to clinic. T [facility] 2024-07-19 09:50:21 Pt is on POP 2/2 chtn. What is covered ? Would need appt to check BC to determine if ok to do regular OCP T [facility] 2024-07-19 08:46:48 Pt is requesting a new ocp due to norethindrone 0.35 mg tablet not longer being covered by her insurance. Please advise. [facility] 2024-07-18 11:53:17 PT called in and stated that her control is no longer covered by her insurance and wants to know if it can be switched. Christy Arroyo [facility] 2024-02-28 12:25:00 Problem: Pain Goal: Control of pain at or below patient's documented comfort goal 02/28/2024 1232 by Frida Ma, RN Outcome: Resolved 02/28/2024 0735 by Frida Ma, RN Outcome: Progressing as expected Problem: Complications [...] Outcome: Progressing as expected Frida Ma RN [facility] 2024-02-28 07:00:00 Problem: Pain Goal: Control [...] VTE diagnosis (Actual) Outcome: Progressing as expected [facility] 2024-02-27 19:19:22 Problem: Pain Goal: Control [...] Outcome: Progressing as expected Helene Bennett RN [facility] 2024-02-27 07:32:20 Problem: Pain Goal: Control [...] Outcome: Progressing as expected Estefani Cueto RN [facility] 2024-02-26 20:41:51 Problem: Pain Goal: Control [...] Outcome: Progressing as expected Katerine Cummins RN [facility] 2024-02-26 14:24:43 Problem: Pain Goal: Control of pain at or below patient's documented comfort goal Outcome: Progressing as expected Problem: Complications of preeclampsia/eclampsia (risk or actual) Goal: Absence of seizure activity Outcome: Progressing as expected Goal: Absence of signs and symptoms of preeclampsia Outcome: Progressing as expected [facility] 2024-02-26 06:04:09 Pt arrives ambulatory to ED c/o abdominal pains, headache, nausea, & says chest feels tight when she breaths in. Pt delivered a baby 2 weeks & 3 days ago and did have gestational HTN and preeclampsia. Pt was admitted recently for the same issue. Report called to L&D charge phone. Frida Park RN [facility] 2024-02-24 10:46:27 Spoke with [facility] pharmacy. [facility] pharmacy states they have labetalol 200mg in stock. Attempted to contact patient. Patient's sister answered and stated she tried to pharmacy picking tech medication and they did not have it. Advised I just spoke with pharmacy and they have the medication. Verbalized understanding. Philip Chin RN 02/24/2024 10:48 AM Philip Chin RN [facility] 2024-02-24 10:20:20 Patient states pharmacy does not have labetaloL 200 mg tablet. Please call back at [phone]. Samantha Lo [facility] 2024-02-22 17:05:09 Problem: Complications of preeclampsia/eclampsia [...] Outcome: Adequate for discharge Heather Gonzalez RN [facility] 2024-02-22 07:00:00 Problem: Complications of preeclampsia/eclampsia [...] Outcome: Progressing as expected Frida Ma RN [facility] 2024-02-21 20:31:50 Problem: Complications of preeclampsia/eclampsia [...] Outcome: Progressing as expected Katerine Cummins RN [facility] 2024-02-21 09:32:00 Patient transferred to L&D vitally stable by wheelchair accompanied by ED staff. Tiera Foster RN [facility] 2024-02-21 09:30:20 Casey HONG called report to Gi CURRY. AT Derrek Pruett RN [facility] 2024-02-21 08:35:36 Patient 2 weeks post ( Vaginal delivery on the and reports HTN). Diagnosed with gestational hypertension. Patient began vomiting this morning approx 6 am. States that she has abdominal pain over her entire abdomen and tightness. Patient vomited 800ml of fluid at triage. Princess Marin RN [facility] 2024-02-11 09:48:27 This note was copied [...] time. Mom instructed on how to contact [employer] for assistance with feedings or to answer questions while in the hospital. Mom Verbalized understanding. COURTNEY Cat, RN, IBCLC Chandan Ruiz RN [facility] 2024-02-11 08:55:00 Problem: Venous Thromboembolism, (actual [...] Absence of falls 02/11/2024 0857 by Frida aM RN Outcome: Resolved 02/11/2024 07 by Frida Ma RN Outcome: Progressing as expected Problem: Complications of hemorrhage (risk or actual) Goal: Absence of active bleeding 02/11/2024 0857 by Frida Ma RN Outcome: Resolved 02/11/2024 0725 by Frida Ma RN Outcome: Progressing as expected Goal: Absence of complications 02/11/2024 0857 by Frida Ma RN Outcome: [...] Frida Ma RN Outcome: Progressing as expected Marlene Ma RN [facility] 2024-02-11 07:15:00 Problem: Venous Thromboembolism, (actual [...] in pain sensation Outcome: Progressing as expected [facility] 2024-02-10 18:44:35 Problem: Venous Thromboembolism, (actual [...] in pain sensation Outcome: Progressing as expected Edwige Orta RN [facility] 2024-02-10 12:10:00 This note was copied [...] time. Mom instructed on how to contact [employer] for assistance with feedings or to answer [...] Breast changes during Enlarged;Tenderness;Darken ing of areola Oral Assessment Oral assessment No changes from previous assessment Date of 02/09/24 Time of 1022 Infant location Mother Baby Unit Breast Assessment Breast Assessment No change from previous assessment Nipple & Areola Assessment Left Areola Pliable Right [place] Pliable Left Nipple Colostrum visible;Intact;Everted Right Nipple Colostrum visible;Everted Literature Resources Resources Understanding Mother and Baby Care Education On-demand feeds at least 8 or more over 24 hours;Hand expression;Signs of an effective latch; stomach size;2nd day/growth spurt cluster feeds;Position changes;Breaking seal;Burping Handouts given Chinese [employer] Observation Assist with latch Position right side Football; latched effectively;Suckled in coordinated bursts Position left side Cross cradle;Infant latched effectively;Suckled in coordinated bursts Interventions Motherlove [...] $ SERVICES Follow-up COURTNEY Cat, RN, IBCLC [facility] 2024-02-09 21:00:21 Problem: Venous Thromboembolism, (actual [...] Outcome: Progressing as expected Deepthi Smith RN [facility] 2024-02-09 18:15:15 Problem: Intrapartum process (including [...] Absence of falls Outcome: Progressing as expected [facility] 2024-02-09 14:00:00 Images from the original [...] colostrum production and the size of the stomach and the amount need for a [...] time. Mom instructed on how to contact [facility] [facility] for assistance with feedings or to answer [...] areola Infant Oral Assessment Oral assessment Deferred sleeping Date of 02/09/24 Time of 1022 Infant location Mother Baby Unit Breast Assessment Breast [...] size;2nd day/growth spurt cluster feeds Handouts given Chinese [employer] Observation Follow up Mom will call staff;Follow up in hospital Recommended Feeding Plan Recommended feeding plan On-demand , 8-12 times in 24 hours not to exceed 6 hours between feeds;Offer both breasts prior to formula supplementation;Frequent jqcd-fv-edyi time with parents;Pump/hand express minimum 8 times in 24 hours including nights. Pump for 15-25 min. OTHER $ SERVICES Initial COURTNEY Cat, RN, IBCLC [facility] 2024-02-09 12:43:54 Patient: Bridgette Fitzpatrick Procedure Summary Date: 02/09/24 Room / Location: Anesthesia Start: 0350 Anesthesia Stop: 1123 Procedure: CENTRAL NEURAXIAL BLOCK Diagnosis: Scheduled Providers: [...] Mic Hoffman MD 02/09/2024 12:44 AN-ANESTHESIOLOGY ANESTHESIOLOGIST [facility] 2024-02-09 12:38:50 Problem: Intrapartum process (including labor pain) Goal: Absence of or reduction of complications of labor Outcome: Resolved Goal: Able to cope with pain Outcome: Resolved Goal: Adequate to move to next level of care Outcome: Resolved Goal: Reduction in pain sensation Outcome: Resolved [facility] 2024-02-09 10:34:09 DELIVERY BY SPONTANEOUS VAGINAL [...] shoulder and body. After the delivery of infant, bulb suction was performed from ororpharynx and [...] 5 Minute 10 Minute Totals: 8 8 [facility] 2024-02-09 09:51:30 Intrapartum Progress Note 02/09/2024 9:51 [...] noted Will monitor closely Guillermina March MD [facility] 2024-02-09 03:56:40 Name/ MRN / Age / Gender: Bridgette Fitzpatrick, [id number] 18 year old female BMI: Estimated body [...] Skin ROS Endo/Other Negative Endo/Other ROS Other [employer] Comments: 39w2d, Pediatric Preoperative Medication Instructions Continue taking all prescribed medications except: JULES inhibitors, ARBs, diuretics, all oral diabetes medications Anticoagulant Therapy: Defer to surgeons Insulin: Take 1/2 dose the night prior to surgery. Hold on DOS. Phentermine: Alert [facility] anesthesiologist SGLT2 Inhibitors: "gliflozins" to be [...] & antiemetics Recovery Plan: PACU Additional comments: [facility] 2024-02-09 03:07:48 Intrapartum Progress Note 02/09/2024 3:07 [...] movement: Yes Mode: EFM Uterine Activity: Mode: [place] Contractions (number / 10 minute): irritability Contraction duration (seconds): 60 Contraction quality: Moderate Resting tone: Soft Membrane Status Membrane status: Artificial Cervical Exam / 50 % / -3 Assessment/Plan: Bridgette Fitzpatrick is a 18 year old at 39w3d Will start Pitocin Guillermina March MD T [facility] 2024-02-08 20:19:03 Problem: Intrapartum process (including labor [...] VTE diagnosis (Actual) Outcome: Progressing as expected [facility] 2024-02-07 13:00:00 ROUTINE VISIT 02/07/2024 1:46 PM [...] gestation of - POCT Urinalysis w/o Specific [place] 2. High-risk in third trimester --IOL at [place] --PIH labs ordered since borderline BP 3. Bipolar disease during in third trimester 4. Limited care in third trimester [facility] 2024-01-28 11:15:00 Images from the original note were not included. Venipuncture collection performed by clean technique on the left anticubitus. Total of 1 attempts were made. Slight pressure and a bandage/dressing were applied to the site(s). The patient experienced no complications. The following specimens were processed according to instructions and sent to [facility] laboratories per lab order on 01/28/2024: LT BLUE SST RED LAV 1 PPT DK GREEN (LiHep) DK GREEN (SodH) STEARNS DK BLUE (K2) DK BLUE (S) ACD Blood Culture NIPT/NTD IVING COORDINATOR [facility] 2024-01-28 08:00:00 ROUTINE VISIT 01/28/2024 8:29 AM [...] gestation of - POCT Urinalysis w/o Specific [place] - Cbc with Diff; Future - Gc & Chlamydia Amplified Assay; Future - Group B Streptococcus By PCR; Future - Gc & Chlamydia Amplified Assay - Group B Streptococcus By PCR 2. High-risk in third trimester 3. Bipolar disease during in third trimester --off meds, sees Psych, no SI or HI 4. Limited care in third trimester [facility] 2024-01-13 12:25:34 Recieved fax from [employer]. Signed and faxed back. Title 19- PP support ROSARIO SHAVER RN 01/13/2024 12:25 PM IVING COORDINATOR Rosario Shaver RN [facility] 2024-01-06 09:30:00 Reviewed recent ultrasound results, show: Normal growth, baby is 5# 3 oz. IVING COORDINATOR [facility] 2024-01-01 01:08:34 Pt arrived with c/o lower back and pelvic pain, vomiting that began 2 days ago. Pt reports decrease movement. Pt is [address] Jean-Pierre Mock. LD nurse notified, Nicki CURRY IVING COORDINATOR Nicky Gregory RN [facility] 2023-12-24 08:15:00 ROUTINE VISIT 12/24/2023 8:28 [...] gestation of - POCT Urinalysis w/o Specific [place] 2. Vaginal discharge - Gc & Chlamydia Amplified Assay - Galv Only - Vaginal Pathogens by Nucleic Acid Testing 3. Bipolar disease during in third trimester --Has stopped medications, awaiting Psych to renew meds --denies SI/HI 4. High-risk in third trimester - CONSULT MATERNAL MEDICINE ULTRASOUND Preferred Location: [place] 5. Uterine size-date discrepancy in third trimester - CONSULT MATERNAL MEDICINE ULTRASOUND Preferred Location: [facility] 2023-12-10 14:45:00 ROUTINE VISIT 12/10/2023 3:13 PM [...] gestation of - POCT Urinalysis w/o Specific [place] 2. Bipolar disease during in third trimester --sees [facility] Psych --nurse to call to say ok for medication adjustment 3. High-risk in third trimester --reviewed with normal physical exam on heart and lungs --SS trait and dyspnea could be a factor [facility] 2023-11-24 08:52:13 Recieved fax from [employer]. Signed and faxed back. Title 19- stockings, bp, and back brace. ROSARIO SHAVER RN 11/24/2023 8:54 AM IVING COORDINATOR Rosario Shaver RN [facility] 2023-11-23 08:00:00 Images from the original [...] processed according to instructions and sent to [facility] laboratories per lab order on 11/23/2023 : LT BLUE SST 1 RED LAV PPT DK GREEN (LiHep) DK GREEN (SodH) STEARNS DK BLUE (K2) DK BLUE (S) ACD Blood Culture NIPT/NTD [facility] 2023-11-23 08:00:00 Images from the original note were not included. Venipuncture collection performed by clean technique on the right anticubitus. Total of 1 attempts were made. Slight pressure and a bandage/dressing were applied to the site(s). The patient experienced no complications. The following specimens were processed according to instructions and sent to [facility] per lab order on 11/23/2023 : LT BLUE SST 1 RED LAV PPT DK GREEN (LiHep) DK GREEN (SodH) STEARNS DK BLUE (K2) DK BLUE (S) ACD Blood Culture NIPT/NTD Patients first hour was drawn at 918 [facility] 2023-11-23 08:00:00 Images from the original note were not included. Venipuncture collection performed by clean technique on the right anticubitus. Total of 1 attempts were made. Slight pressure and a bandage/dressing were applied to the site(s). The patient experienced no complications. The following specimens were processed according to instructions and sent to [facility] laboratories per lab order on 11/23/2023 : LT BLUE SST 1 RED LAV PPT DK GREEN (LiHep) DK GREEN (SodH) STEARNS DK BLUE (K2) DK BLUE (S) ACD Blood Culture NIPT/NTD Patients two hour was draw at 1013 Barbra Flores 11/23/2023 10:16 AM [facility] 2023-11-23 08:00:00 Images from the original note were not included. Venipuncture collection performed by clean technique on the left forearm(s). Total of 1 attempts were made. Slight pressure and a bandage/dressing were applied to the site(s). The patient experienced no complications. The following specimens were processed according to instructions and sent to [facility] laboratories per lab order on 11/23/2023 : LT BLUE 1 SST 3 ggt RED LAV PPT DK GREEN (LiHep) DK GREEN (SodH) STEARNS DK BLUE (K2) DK BLUE (S) ACD Blood Culture NIPT/NTD [facility] dArienne Judd [facility] 2023-11-23 08:00:00 3 hr diabetes screen passed. No diabetes present. [facility] 2023-11-19 14:45:00 ROUTINE VISIT 11/19/2023 2:49 PM [...] gestation of - POCT Urinalysis w/o Specific [place] - Urine Drug (Immunoassay) - Comprehensive Drug Screen; Future - Urine Drug (Immunoassay) - Comprehensive Drug Screen 2. Need for Tdap vaccination - TDAP VACCINE, >10 YRS, IM 3. High-risk in second trimester --Plan growth US @ 4-36 weeks 4. Bipolar disease during in second trimester --stable 5. Glucose tolerance test abnormal --3 hr gtt scheduled for 11/23/23 [facility] 2023-11-12 10:45:00 Loaded pt with 50 fruit punch Glucola at 1002. No issues, Pt finished 50 Glucola at 1003. Will call pt back for blood draw around 1103. [facility] 2023-11-12 10:45:00 Images from the original note were not included. Venipuncture collection performed by clean technique on the left anticubitus. Total of 1 attempts were made. Slight pressure and a bandage/dressing were applied to the site(s). The patient experienced no complications. The following specimens were processed according to instructions and sent to [facility] laboratories per lab order on 11/12/2023: LT BLUE SST 2 RED 1 LAV 2 PPT DK GREEN (LiHep) DK GREEN (SodH) STEARNS DK BLUE (K2) DK BLUE (S) ACD Blood Culture NIPT/NTD [facility] 2023-10-22 13:15:00 ROUTINE VISIT 10/22/2023 1:51 PM CHRIS Fitzpatrick is a 18 year old at [...] Bipolar disease during in second trimester --stable [facility] 2023-10-22 13:15:00 Addended by: BRUNA ALMONTE MA on: 11/12/2023 10:01 AM Modules accepted: Orders IVING COORDINATOR Bruna Almonte MA [facility] 2023-08-09 09:12:19 Formatting of this n ote might be different from the original. Horizon: + carrier for SS disease. Already known. [facility] 2023-08-05 16:21:06 Formatting of this n ote might be different from the original. Received medical records from [facility]. Placed on provider's desk for review. ROSARIO SHAVER RN 08/05/2023 4:22 PM Rosario Shaver RN [facility] 2023-08-02 14:32:31 Formatting of this n ote might be different from the original. Received [facility] results via fax. Stamped and will be scanned/uploaded into pt's chart. ROSARIO SHAVER RN 08/02/2023 2:32 PM Rosario Shaver RN [facility] 2023-07-28 11:15:00 Formatting of this n ote might be different from the original. Rony collection only [facility] 2023-07-27 16:15:00 Formatting of this n [...] ASSAY; Future --Questions answered Guillermina March MD [facility] 2023-07-12 15:38:53 Formatting of this n ote might be different from the original. See result notes ROSARIO SHAVER RN 07/12/2023 3:39 PM Rosario Shaver RN [facility] 2023-07-08 12:22:27 Formatting of this n ote might be different from the original. LM on for pt to return call regarding results and plan of care. ROSARIO SHAVER RN 07/08/2023 12:22 PM [facility] 2023-07-08 11:16:45 Formatting of this n ote might be different from the original. Patient is returning nurse call for results. Please call and advise thanks. Maddi Gonzalez [facility] 2023-07-02 09:45:00 Formatting of this n ote is different from the original. Images from the original note were not included. Venipuncture collection performed by clean technique on the left anticubitus. Total of 1 attempts were made. Slight pressure and a bandage/dressing were applied to the site(s). The patient experienced no complications. The following specimens were processed according to instructions and sent to [facility] laboratories per lab order on 07/02/2023: LT BLUE SST RED LAV 1 PPT DK GREEN (LiHep) DK GREEN (SodH) STEARNS DK BLUE (K2) DK BLUE (S) ACD Blood Culture NIPT/NTD Sabina Ana Rosa Cathryn [facility] 2023-07-02 09:45:00 Formatting of this n ote might be different from the original. Please let pt know that she is a carrier for sickle cell trait. Recommend testing FOB to determine if baby has risk of having sickle cell disease. If FOB positive baby has a 25% of having disease. [facility] 2023-06-28 15:15:00 Formatting of this n ote is different from the original. Images from the original note were not included. Venipuncture collection performed by clean technique on the left anticubitus. Total of 1 attempts were made. Slight pressure and a bandage/dressing were applied to the site(s). The patient experienced no complications. The following specimens were processed according to instructions and sent to [facility] laboratories per lab order on 06/28/2023 : LT BLUE SST 4 RED 1 LAV 3 PPT DK GREEN (LiHep) DK GREEN (SodH) STEARNS DK BLUE (K2) DK BLUE (S) ACD Blood Culture NIPT/NTD [facility] 2023-06-23 15:41:42 Formatting of this n ote might be different from the original. New prescription for sent to pharmacy. Diclegis not covered by insurance. [employer] message sent advising patient to buy Vitamin B6 and Unisom over the counter. Philip Chin RN 06/23/2023 3:42 PM Philip Chin RN [facility] 2023-06-23 12:03:21 Formatting of this n ote might be different from the original. Patient is calling insurance will not cover any of the prescriptions that were prescribed to her yesterday. Can something else be called in? Please call and advise thanks. Maddi Gonzalez [facility]
--- NOTE | 2025-02-04 05:23 | EDPHYS ---
Physician Documentation [facility] Name: Sheree Hernandes Age: 19 yrs Sex: Female : 2005 Arrival Date: 02/04/2025 Time: 02:35 Bed IW1 Private MD: ED Physician Jonnie Mckinley HPI: 02/04 04:58 This 19 yrs old Black Female presents to ER via Ambulatory with complaints of PT STATES ec2 SHE IS COUGHING UP BLOOD. 04:58 Patient arrives today for evaluation of hemoptysis. Patient reports she is several ec2 weeks , has been having cough and cold symptoms, congestion, rhinorrhea, persistent cough and is now having some blood-streaked sputum. Patient reports otherwise tolerating p.o., no significant difficulty breathing.. NAIL FEEDER: 02:56 2, Full Term 1, Living 1, LMP 11/25/2024, unknown lg3 Historical: - Allergies: 02:56 No Known Allergies; lg3 - PMHx: 02:56 Bipolar disorder; Schizophrenia; lg3 - PSHx: 02:56 None; lg3 - Immunization history:: Adult Immunizations up to date. - Infectious Disease History:: Denies. - Social history:: Smoking status: Patient denies any tobacco usage or history of. Patient/guardian denies using alcohol, street drugs. ROS: 04:58 Constitutional: as per hpi ec2 Exam: 04:58 Constitutional: GEN: NAD Head: atraumatic Eyes: EOMI Ears: External ears are ec2 normal. CV: regular rate LUNGS: no respiratory distress, no tachypnea, no wheezes or rales ABD: non-distended SKIN: no evidence of rashes MSK: no evidence of trauma Vital Signs: 02:53 BP 120 / 86; Pulse 92; Resp 16 S; Temp 97.9(O); Pulse Ox 99% ; Weight 97.52 kg (R); lg3 Height 5 ft. 4 in. (R); 05:47 BP 117 / 81; Pulse 84; Resp 17 S; Pulse Ox 99% on R/A; lg3 02:53 Body Mass Index 36.90 (97.52 kg, 162.56 cm) lg3 MDM: 02:54 Medical Screening Exam initiated ec2 04:59 Data reviewed: vital signs, nurses notes. ED course: Patient arrives today for ec2 hemoptysis. Examination yields well-appearing nontoxic individual has a reassuring cardiopulmonary examination. Chest x-ray shows no acute intrathoracic process. Suspect possible bronchitis, possible viral infection, no evidence of pneumonia. Will discharge home, return precautions given. Additionally considered PE however lower suspicion for this.. 02/04 02:54 Order name: CXR XRAY ec2 Administered Medications: No medications were administered Disposition Summary: 02/04/25 05:22 Discharge Ordered Notes: Location: Home ec2 Condition: Stable ec2 Diagnosis - Hemoptysis ec2 Followup: ec2 - With: Private Physician - When: - Reason: Re-evaluation by your physician Discharge Instructions: - Discharge Summary Sheet ec2 - Hemoptysis ec2 Forms: - Medication Reconciliation Form ec2 - Antibiotic Education ec2 - Prescription Opioid Use ec2 - Patient Portal Instructions ec2 - Leadership Thank You Letter ec2 Signatures: Dispatcher [employer] Kira Galvan RN RN lg3 Jonnie Mckinley MD MD ec2
--- NOTE | 2025-02-04 05:23 | ER ---
Nurse's Notes [facility] Name: Sheree Hernandes Age: 19 yrs Sex: Female : 2005 Arrival Date: 02/04/2025 Time: 02:35 Bed IW1 Private MD: Diagnosis: Hemoptysis Presentation: 02/04 02:53 Chief complaint: Patient states: cough X4 days with blood streaks in mucous and when i lg3 blow my nose there is blood streaks. i thought it was allergies but its not going away. reports 10 weeks . Coronavirus screen: Client denies travel out of the [place] in the last 14 days. Ebola Screen: No symptoms or risks identified at this time. Initial Sepsis Screen: Does the patient meet any 2 criteria? No. Patient's initial sepsis screen is negative. Does the patient have a suspected source of infection? No. Patient's initial sepsis screen is negative. Risk Assessment: Do you want to hurt yourself or someone else? Patient reports no desire to harm self or others. Onset of symptoms is unknown. 02:53 Method Of Arrival: Ambulatory lg3 02:53 Acuity: DENIA 4 lg3 Triage Assessment: 02:56 General: Appears in no apparent distress. comfortable, Behavior is calm, cooperative. lg3 Pain: Denies pain. EENT: Throat is clear Reports nasal congestion nasal discharge. Neuro: No deficits noted. García Agitation-Sedation Scale (RASS): 0 - Alert and Calm Level of Consciousness is awake, alert, obeys commands, Oriented to person, place, time, situation. Cardiovascular: No deficits noted. Denies chest pain, shortness of breath, Capillary refill < 3 seconds Clubbing of nail beds is absent JVD is absent Patient's skin is warm and dry. Respiratory: No deficits noted. Reports cough that is dry, persistent Airway is patent Respiratory effort is even, unlabored, Respiratory pattern is regular, symmetrical, Breath sounds are clear bilaterally. GI: No deficits noted. No signs and/or symptoms were reported involving the gastrointestinal system. Abdomen is round non-distended, obese. : No signs and/or symptoms were reported regarding the genitourinary system. Derm: No deficits noted. No signs and/or symptoms reported regarding the dermatologic system. Skin is intact, is healthy with good turgor, Skin is dry, Skin is normal, Skin temperature is warm. Musculoskeletal: No deficits noted. No signs and/or symptoms reported regarding the musculoskeletal system. Circulation, motion, and sensation intact. Range of motion: intact in all extremities. 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 - Infectious Disease History:: Denies. - Social history:: Smoking status: Patient denies any tobacco usage or history of. Patient/guardian denies using alcohol, street drugs. Screenin:00 [facility] ED Fall Risk Assessment (Adult) History of falling in the last 3 months, lg3 including since admission No falls in past 3 months (0 pts) Confusion or Disorientation No (0 pts) Intoxicated or Sedated No (0 pts) Impaired Gait No (0 pts) Mobility Assist Device Used No (0 pt) Altered Elimination No (0 pt) Score/Fall Risk Level 0 - 2 = Low Risk Oriented to surroundings, Maintained a safe environment, Educated pt \T\ family on fall prevention, incl call for assistance when getting out of bed, Assessed \T\ reinforced patient's understanding of fall precautions. Abuse screen: Denies threats or abuse. Denies injuries from another. Nutritional screening: No deficits noted. Tuberculosis screening: No symptoms or risk factors identified. Assessment: 03:00 General: see triage assessment. lg3 05:46 Reassessment: Patient appears in no apparent distress at this time. No changes from lg3 previously documented assessment. Patient and/or family updated on plan of care and expected duration. Pain level reassessed. Patient is alert, oriented x 3, equal unlabored respirations, skin warm/dry/pink. Patient states feeling better. Vital Signs: 02:53 BP 120 / 86; Pulse 92; Resp 16 S; Temp 97.9(O); Pulse Ox 99% ; Weight 97.52 kg (R); lg3 Height 5 ft. 4 in. (R); 05:47 BP 117 / 81; Pulse 84; Resp 17 S; Pulse Ox 99% on R/A; lg3 02:53 Body Mass Index 36.90 (97.52 kg, 162.56 cm) lg3 ED Course: 02:36 Patient arrived in ED. [email or web address] 02:54 Jonnie Mckinley MD is Attending Physician. ec2 02:55 Triage completed. lg3 02:56 Arm band placed on right wrist. lg3 03:00 Patient has correct armband on for positive identification. Family accompanied patient. lg3 03:00 Patient maintains SpO2 saturation greater than 95% on room air. lg3 03:13 CXR XRAY In Process Unspecified. EDMS 05:46 No provider procedures requiring assistance completed. Patient did not have IV access lg3 during this emergency room visit. Administered Medications: No medications were administered Medication: 03:00 VIS not applicable for this client. lg3 Outcome: 05:22 Discharge ordered by . ec2 05:46 Discharged to home ambulatory, lg3 05:46 Condition: stable 05:46 Discharge instructions given to patient, Instructed on discharge instructions, follow up and referral plans. Demonstrated understanding of instructions, follow-up care, 05:47 Patient left the ED. lg3 Signatures: Dispatcher [employer] Kira Glavan, RN RN lg3 Rayna Anderson [email or web address] Jonnie Mckinley MD MD ec2
[2025-02-04 06:01] VITALS: TEMP 97.9; O2SAT 99
[2025-02-04 06:02] VITALS: BP 117/81
--- NOTE | 2025-02-04 06:37 | RAD REPORT ---
EXAM: XR Chest, 1 View CLINICAL HISTORY: COUGH TECHNIQUE: Frontal view of the chest. COMPARISON: XR Chest dated 03/04/2024 FINDINGS: Lungs: Unremarkable. No consolidation. Pleural space: Unremarkable. No pneumothorax. Heart: Unremarkable. No cardiomegaly. Mediastinum: Unremarkable. Normal mediastinal contour. Bones/joints: Unremarkable. No acute fracture. IMPRESSION: No acute disease. Electronically signed by: Prema Wright MD 02/04/2025 04:35 AM CDT RP Due to temporary technical issues with the PACS/Bidgely reporting system, reports are being cecelia d by the in-house radiologist without review as a courtesy to ensure prompt reporting. The interpreting radiologist is fully responsible for the content of the report. Transcribed Date/Time: 02/04/2025 6:36 AM
== END 2025-02-04 05:47 | disposition home or self-care (01) ==
LOC: ER 02:35
DX: O99.519 Diseases of the respiratory system complicating pregnancy, unspecified trimester (principal); R04.2 Hemoptysis; Z3A.00 Weeks of gestation of pregnancy not specified
CPT/HCPCS: 71045; 99282

== ENCOUNTER 2025-09-12 07:01 | Emergency (ER) | payer OTHER ==
[2025-09-12] MEDS ORDERED: NA CHLORIDE 0.9% 500 ML ONE (07:29)
--- NOTE | 2025-09-12 08:49 | RAD REPORT ---
EXAM: Chest Pa And Lat (2 Views) HISTORY: 20 years Female Cough;Chest pain COMPARISON: No prior exams FINDINGS: LUNGS/PLEURA: The lungs are clear. No pleural effusions or pneumothorax. No pulmonary edema. CARDIAC/MEDIASTINUM: The cardiac silhouette is within normal limits. UPPER ABDOMEN: No significant abnormality. BONES: No acute abnormality. LINES/TUBES/OTHER: N/A IMPRESSION: No evidence of acute cardiopulmonary disease.
[2025-09-12 09:25] LABS: ALT/SGPT 35.0 U/L (13-56); AST/SGOT 28.0 U/L (15-37); Albumin 2.8 g/dL (3.4-5.0); Albumin/Globulin Ratio 0.6 (1.1-1.8); Alkaline Phosphatase 82.0 U/L (45-117); Anion Gap 10.0 mEq/L (5.0-15.0); BUN Blood Urea Nitrogen 15.0 mg/dL (7-18); Globulin 4.7 g/dL (2.3-3.5); Glucose Level 89.0 mg/dL (74-106); NT PRO-BNP 14.0 pg/mL (<125); Potassium 4.0 mEq/L (3.5-5.1); Troponin High Sensitivity 6.6 pg/mL (<58.9)
[2025-09-12 09:32] LABS: Absolute Lymphocytes (CBC) 2.4 K/uL (0.7-4.9); Hematocrit 38.2 % (36.0-45.0); Hemoglobin 12.5 g/dL (12.0-15.0); MCH 23.2 pg (27.0-35.0); MCHC 32.6 g/dL (32.0-36.0); MCV 71.2 fL (80-100); MPV 8.9 fL (7.6-11.3); Nucleated RBC Absolute Count 0.0 (0-0); Nucleated Red Blood Cells % 0.1 % (0-0); RBC Red Blood Cell Count 5.37 M/uL (3.86-4.86); White Blood Count 6.40 thou/uL (4.3-10.9)
[2025-09-12] MEDS ORDERED: ACETAMINOPHEN 500 MG TAB ONE (09:56)
--- NOTE | 2025-09-12 10:09 | ER ---
Nurse's Notes [facility] Name: Sheree Hernandes Age: 20 yrs Sex: Female : 2005 Arrival Date: 09/12/2025 Time: 07:01 Bed 4 Private MD: Diagnosis: Essential (primary) hypertension;Headache Presentation: 09/12 07:08 Method Of Arrival: Ambulatory ll1 07:15 Chief complaint: Patient states: C/o chest pain and headache all over, spots in vision, zm and right upper quadrant pain. Coronavirus screen: Vaccine status: Patient reports receiving the 1st dose of the Covid vaccine. Client denies travel out of the [place] in the last 14 days. At this time, the client does not indicate any symptoms associated with coronavirus-19. Ebola Screen: Patient denies travel to an Ebola-affected area in the 21 days before illness onset. No symptoms or risks identified at this time. 07:15 Initial Sepsis Screen: Does the patient meet any 2 criteria? No. Patient's initial zm sepsis screen is negative. Does the patient have a suspected source of infection? No. Patient's initial sepsis screen is negative. Risk Assessment: Do you want to hurt yourself or someone else? Patient reports no desire to harm self or others. Onset of symptoms was September 12, 2025 at 06:30. 07:15 Acuity: DENIA 3 zm Triage Assessment: 07:15 Headache History: Denies prior headaches. General: Appears in no apparent distress. zm uncomfortable, Behavior is calm, cooperative, appropriate for age. Pain: Complains of pain in generalized head, low back, mid chest, right upper quadrant Pain currently is 4 out of 10 on a pain scale. Pain began 1 hour ago. Also complains of spots in vision. EENT: No signs and/or symptoms were reported regarding the EENT system. Neuro: Level of Consciousness is awake, alert, obeys commands, Oriented to person, place, time, situation. Cardiovascular: Heart tones S1 S2 present Capillary refill < 3 seconds in bilateral fingers Patient's skin is warm and dry. Respiratory: Airway is patent Respiratory effort is even, unlabored, Respiratory pattern is regular, symmetrical, Breath sounds are clear bilaterally. in right upper lobe, left upper lobe, left lower lobe, right lower lobe, left posterior upper lobe and right posterior upper lobe. GI: Abdomen is round non-distended, Bowel sounds present X 4 quads. Abd is soft X 4 quads Abdomen is tender to palpation in right upper quadrant. : No signs and/or symptoms were reported regarding the genitourinary system. Derm: No signs and/or symptoms reported regarding the dermatologic system. Skin is intact, is healthy with good turgor, Skin is normal. Musculoskeletal: No signs and/or symptoms reported regarding the musculoskeletal system. Circulation, motion, and sensation intact. Range of motion: intact in all extremities. 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 - Infectious Disease History:: Denies. - Social history:: Smoking status: Reported history of juuling and/or vaping. Patient/guardian denies using alcohol. Screenin:48 [facility] ED Fall Risk Assessment (Adult) History of falling in the last 3 months, zm including since admission No falls in past 3 months (0 pts) Confusion or Disorientation No (0 pts) Intoxicated or Sedated No (0 pts) Impaired Gait No (0 pts) Mobility Assist Device Used No (0 pt) Altered Elimination No (0 pt) Score/Fall Risk Level 0 - 2 = Low Risk Oriented to surroundings, Maintained a safe environment, Educated pt \T\ family on fall prevention, incl call for assistance when getting out of bed, Assessed \T\ reinforced patient's understanding of fall precautions, Hourly rounding (assess needs \T\ fall precautionary measures) done, Used ambulatory aids as needed (educated on \T\ assisted with), Used gait belt as appropriate. Abuse screen: Denies threats or abuse. Denies injuries from another. Nutritional screening: No deficits noted. Tuberculosis screening: No symptoms or risk factors identified. Assessment: 07:30 Reassessment: See triage assessment. zm 07:30 Pain: Pain currently is 4 out of 10 on a pain scale. zm 09:08 Reassessment: Patient appears in no apparent distress at this time. Patient and/or zm family updated on plan of care and expected duration. Pain level reassessed. Patient is alert, oriented x 3, equal unlabored respirations, skin warm/dry/pink. still c/o headache, other symptoms have subsided Patient states feeling better. Patient states symptoms have improved. 10:16 Reassessment: Patient appears in no apparent distress at this time. Patient and/or km10 family updated on plan of care and expected duration. Pain level reassessed. Patient is alert, oriented x 3, equal unlabored respirations, skin warm/dry/pink. Patient states feeling better. Vital Signs: 07:15 BP 119 / 83; Pulse 84; Resp 18; Temp 97.3; Pulse Ox 100% on R/A; Weight 102.06 kg; zm Height 5 ft. 4 in. ; Pain 4/10; 09:07 BP 127 / 93; Pulse 70; Resp 18; Pulse Ox 98% on R/A; zm 10:17 BP 123 / 86; Pulse 89; Resp 16; Pulse Ox 99% ; km10 07:15 Body Mass Index 38.62 (102.06 kg, 162.56 cm) 07:15 Pain Scale: Adult Loc Coma Score: 09:07 Eye Response: spontaneous(4). Motor Response: obeys commands(6). Verbal Response: oriented(5). Total: 15. 10:05 Eye Response: spontaneous(4). Motor Response: obeys commands(6). Verbal Response: [facility] oriented(5). Total: 15. 10:17 Eye Response: spontaneous(4). Motor Response: obeys commands(6). Verbal Response: km10 oriented(5). Total: 15. ED Course: 07:04 Patient arrived in ED. im 07:06 Dharmesh Chan MD is Attending Physician. zoe 07:08 Arm band placed on Patient placed in an exam room, on a stretcher. ll1 07:15 EKG done, by ED staff, reviewed by Dharmesh Chan MD. zm 07:24 Initial lab(s) drawn, by ma, sent to lab. Inserted saline lock: 20 gauge in right bc6 antecubital area, using aseptic technique. Blood collected. Flushed with 10 mL NS. 07:27 Britni Hahn, RN is Primary Nurse. zm 07:30 Patient has correct armband on for positive identification. Placed in gown. Bed in low zm position. Call light in reach. Side rails up X 1. Provided Education on: call light use. 07:30 Client placed on continuous cardiac and pulse oximetry monitoring. NIBP monitoring zm applied. 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 Door closed. Noise minimized. Lights dimmed. Warm blanket given. Verbal reassurance given. 07:39 Triage completed. zm 08:43 Chest Pa And Lat (2 Views) XRAY In Process Unspecified. EDND 10:17 No provider procedures requiring assistance completed. IV discontinued, intact, km10 bleeding controlled, No redness/swelling at site. Pressure dressing applied. Administered Medications: 07:30 Drug: NS 0.9% IV 500 ml 500 ml IV at 1 bolus once; to be given as a bolus over 30 zm minutes Volume: 500 ml; Route: IV; Rate: 1 bolus; Site: right antecubital; 10:18 Follow up: Response: No adverse reaction; IV Status: Completed infusion km 10:02 Drug: Acetaminophen PO 1000 mg PO once Route: PO; zm 10:18 Follow up: Response: No adverse reaction km10 Medication: 07:49 VIS not applicable for this client. zm Outcome: 10:09 Discharge ordered by . zoe 10:17 Discharged to home ambulatory, km 10:17 Condition: stable 10:17 Discharge instructions given to patient, Instructed on discharge instructions, follow up and referral plans. medication usage, Demonstrated understanding of instructions, follow-up care, medications, Prescriptions given X 1, 10:18 Patient left the ED. km10 Signatures: Dispatcher [employer] EDMS Dharmesh Chan MD MD cha Lewis, Lynsay RN RN ll1 Britni Hahn RN RN Breana Brizuela 6 Radha Barney Kirsten RN RN km10
--- NOTE | 2025-09-12 10:09 | EDPHYS ---
Physician Documentation [facility] Name: Sheree Hernandes Age: 20 yrs Sex: Female : 2005 Arrival Date: 09/12/2025 Time: 07:01 Bed 4 Private MD: NANDO Physician Dharmesh Chan HPI: 09/12 10:01 This 20 yrs old Black Female presents to ER via Ambulatory with complaints of High zoe Blood Pressure, Headache, Chest Pain, Back Pain, Blurred Vision, 2 weeks post . 10:01 The patient has elevated blood pressure and discovered this at home, with a home zoe device. Onset: The symptoms/episode began/occurred this morning. Modifying factors: The symptoms are aggravated by activity, The symptoms are alleviated by remaining still. Severity of symptoms: At its worst the blood pressure was mild, in the emergency department the blood pressure is improved, mildly. The patient has experienced similar episodes in the past, multiple times. 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 - Infectious Disease History:: Denies. - Social history:: Smoking status: Reported history of juuling and/or vaping. Patient/guardian denies using alcohol. ROS: 10:04 Constitutional: Negative for fever, chills, and weight loss, Eyes: Negative for injury, zoe pain, redness, and discharge, ENT: Negative for injury, pain, and discharge, Neck: Negative for injury, pain, and swelling, Cardiovascular: Negative for chest pain, palpitations, and edema, Respiratory: Negative for shortness of breath, cough, wheezing, and pleuritic chest pain, Abdomen/GI: Negative for abdominal pain, nausea, vomiting, diarrhea, and constipation, Back: Negative for injury and pain, : Negative for injury, bleeding, discharge, and swelling, MS/Extremity: Negative for injury and deformity, Skin: Negative for injury, rash, and discoloration, Psych: Negative for depression, anxiety, suicide ideation, homicidal ideation, and hallucinations, Allergy/Immunology: Negative for hives, rash, and allergies, Endocrine: Negative for neck swelling, polydipsia, polyuria, polyphagia, and marked weight changes, Hematologic/Lymphatic: Negative for swollen nodes, abnormal bleeding, and unusual bruising, 10:04 Neuro: Positive for headache, Exam: 10:04 Constitutional: This is a well developed, well nourished patient who is awake, alert, zoe and in no acute distress. Head/Face: Normocephalic, atraumatic. Eyes: Pupils equal round and reactive to light, extra-ocular motions intact. Lids and lashes normal. Conjunctiva and sclera are non-icteric and not injected. Cornea within normal limits. Periorbital areas with no swelling, redness, or edema. ENT: Nares patent. No nasal discharge, no septal abnormalities noted. Tympanic membranes are normal and external auditory canals are clear. Oropharynx with no redness, swelling, or masses, exudates, or evidence of obstruction, uvula midline. Mucous membranes moist. Neck: Trachea midline, no thyromegaly or masses palpated, and no cervical lymphadenopathy. Supple, full range of motion without nuchal rigidity, or vertebral point tenderness. No Meningismus. Chest/axilla: Normal chest wall appearance and motion. Nontender with no deformity. No lesions are appreciated. Cardiovascular: Regular rate and rhythm with a normal S1 and S2. No gallops, murmurs, or rubs. Normal PMI, no JVD. No pulse deficits. Respiratory: Lungs have equal breath sounds bilaterally, clear to auscultation and percussion. No rales, rhonchi or wheezes noted. No increased work of breathing, no retractions or nasal flaring. Abdomen/GI: Soft, non-tender, with normal bowel sounds. No distension or tympany. No guarding or rebound. No evidence of tenderness throughout. Back: No spinal tenderness. No costovertebral tenderness. Full range of motion. Skin: Warm, dry with normal turgor. Normal color with no rashes, no lesions, and no evidence of cellulitis. MS/ Extremity: Pulses equal, no cyanosis. Neurovascular intact. Full, normal range of motion., bilateral aka Neuro: Awake and alert, GCS 15, oriented to person, place, time, and situation. Cranial nerves II-XII grossly intact. Motor strength 5/5 in all extremities. Sensory grossly intact. Cerebellar exam normal. Normal gait. Psych: Awake, alert, with orientation to person, place and time. Behavior, mood, and affect are within normal limits. 10:04 ECG was reviewed by the Attending Physician. Vital Signs: 07:15 BP 119 / 83; Pulse 84; Resp 18; Temp 97.3; Pulse Ox 100% on R/A; Weight 102.06 kg; zm Height 5 ft. 4 in. ; Pain 4/10; 09:07 BP 127 / 93; Pulse 70; Resp 18; Pulse Ox 98% on R/A; zm 10:17 BP 123 / 86; Pulse 89; Resp 16; Pulse Ox 99% ; km10 07:15 Body Mass Index 38.62 (102.06 kg, 162.56 cm) 07:15 Pain Scale: Adult zm [place] Coma Score: 09:07 Eye Response: spontaneous(4). Motor Response: obeys commands(6). Verbal Response: oriented(5). Total: 15. 10:05 Eye Response: spontaneous(4). Motor Response: obeys commands(6). Verbal Response: zoe oriented(5). Total: 15. 10:17 Eye Response: spontaneous(4). Motor Response: obeys commands(6). Verbal Response: km10 oriented(5). Total: 15. MDM: 07:06 Medical Screening Exam initiated zoe 10:05 Differential diagnosis: cluster headache, epidural hematoma, herpes zoster, zoe hypertensive crisis, Malignant HTN, intracerebral hemorrhage, hypertensive headache, hypoglycemia, hyponatremia, intracerebral hemorrhage, migraine, subarachnoid bleed, subdural hematoma, temporal arteritis, traumatic injuries, trigeminal neuralgia. Data reviewed: vital signs, nurses notes, lab test result(s), EKG, radiologic studies, plain films. Consideration of Admission/Observation Patient was admitted/placed on observation. Escalation of care including admission/observation considered. I considered the following discharge prescriptions or medication management in the emergency department Medications were administered in the Emergency Department. See MAR. Independent interpretation of the following test(s) in the Emergency Department EKG: See my EKG interpretation above. Test considered but Not performed: CT: no ct head. Care significantly affected by the following chronic conditions: Hypertension, Obesity, post 2 weeks, on NIFEDIPINE. 09/12 07:19 Order name: CBC with Diff; Complete Time: 10:00 [facility] 09/12 07:19 Order name: CMP; Complete Time: 10:00 [facility] 09/12 07:19 Order name: Troponin High Sensitivity; Complete Time: 10:00 [facility] 09/12 07:19 Order name: BNP; Complete Time: 10:00 [facility] 09/12 07:19 Order name: Chest Pa And Lat (2 Views) XRAY; Complete Time: 10:00 [facility] 09/12 07:19 Order name: EKG; Complete Time: 08:41 [facility] 09/12 07:19 Order name: EKG - Nurse/Tech; Complete Time: 07:27 [facility] EC:04 Rate is 75 beats/min. Rhythm is regular. QRS [place] is Normal. [place] interval is normal. QRS zoe interval is normal. QT interval is normal. No Q waves. T waves are Normal. No ST changes noted. Clinical impression: Normal ECG and No evidence of ischemia. Interpreted by me. Reviewed by me. Administered Medications: 07:30 Drug: NS 0.9% IV 500 ml 500 ml IV at 1 bolus once; to be given as a bolus over 30 zm minutes Volume: 500 ml; Route: IV; Rate: 1 bolus; Site: right antecubital; 10:18 Follow up: Response: No adverse reaction; IV Status: Completed infusion km10 10:02 Drug: Acetaminophen PO 1000 mg PO once Route: PO; zm 10:18 Follow up: Response: No adverse reaction km10 Disposition Summary: 09/12/25 10:09 Discharge Ordered Notes: Location: Home zoe Problem: new zoe Symptoms: have improved zoe Condition: Stable zoe Diagnosis - Essential (primary) hypertension zoe - Headache zoe Followup: zoe - With: Private Physician - When: 2 - 3 days - Reason: Recheck today's complaints, Continuance of care, Re-evaluation by your physician Discharge Instructions: - Discharge Summary Sheet zeo - Hypertension, Adult zoe - Hypertension, Adult, [id number] zoe - How to Take Your Blood Pressure, [id number] zoe - General Headache Without Cause, [id number] zoe - Managing Your Hypertension zoe Forms: - Medication Reconciliation Form zoe - Antibiotic Education zoe - Prescription Opioid Use zoe - Patient Portal Instructions zoe - Leadership Thank You Letter [facility] Prescriptions: - Tylenol 325 mg Oral tablet - take 2 tablets ORAL route every 6 hours as needed; 36 tablet; Refills: 0, zoe Product Selection Permitted Signatures: Dispatcher [employer] EDMS Dharmesh Chan MD MD cha Lewis, Lynsay, RN RN ll1 Britni Hahn RN RN Marleni Hernandez RN km10 Corrections: (The following items were deleted from the chart) 08:41 08:41 CBC+H.LAB.BRZ ordered. EDMS EDMS 08:41 08:41 COMPREHENSIVE METABOLIC PANEL+C.LAB.BRZ ordered. EDMS EDMS 08:41 08:41 Troponin High Sensitivity+C.LAB.BRZ ordered. EDMS EDMS 08:41 08:41 PROBNP+C.LAB.BRZ ordered. EDMS EDMS
[2025-09-12 12:42] VITALS: TEMP 97.3
[2025-09-12 12:44] VITALS: BP 123/86; O2SAT 99
== END 2025-09-12 10:18 | disposition home or self-care (01) ==
LOC: ER 07:01
DX: O16.5 Unspecified maternal hypertension, complicating the puerperium (principal); R51.9 Headache, unspecified; F17.290 Nicotine dependence, other tobacco product, uncomplicated
CPT/HCPCS: 93005; 85025; 36415; 84484; 80053; 83880; 71046; J7040; 96360; 96361; 99285